=== PATIENT | male | born 1980 | race Caucasian/White ===

== ENCOUNTER 2019-12-01 15:58 | Emergency (ER) | payer SELFPAY ==
[2019-12-01] MEDS ORDERED: LIDOCAINE 1% MPF 5 ML VIAL ONE ×2 (16:24→17:06)
[2019-12-01] MEDS ORDERED: TETANUS & DIPHTHERIA TOX,ADULT 0.5 ML VIAL ONE (16:24)
--- NOTE | 2019-12-01 17:29 | EDPHYS ---
Physician Documentation [facility] Name: Jonatan Sood Age: 39 yrs Sex: Male : 1980 Arrival Date: 12/01/2019 Time: 16:01 Bed 23 Private MD: ED Physician Patrick Cruz HPI: 12/01 17:38 This 39 yrs old Male presents to ER via Ambulatory with complaints of Abscess.pm1 17:38 The patient presents with an abscess of the abdomen. Description: raised. Onset: The pm1 symptoms/episode began/occurred 1 week(s) ago. Possible cause(s): unknown. Associated signs and symptoms: Pertinent negatives: discharge, drainage, fever, nausea, vomiting. Modifying factors: the symptoms are alleviated by nothing, the symptoms are aggravated by nothing. Severity of symptoms: in the emergency department the symptoms are actually worse. The patient has experienced similar episodes in the past, a few times, cutaneous abdominal abscess to suprapubic area about 5 years ago. The patient has not recently seen a physician, and does not have an established primary care provider. Historical: - Allergies: 16:09 No Known Allergies; aj1 - Home Meds: 16:09 None [Active]; aj1 - PMHx: 16:09 None; aj1 - PSHx: 16:09 None; aj1 - Immunization history:: Flu vaccine is not up to date. - Coronavirus screen:: The patient has NOT traveled to [place] in the past 14 days. - Social history:: Smoking status: Patient reports the use of cigarette tobacco products, smokes one-half pack cigarettes per day. - Ebola Screening: : Patient denies travel to an Ebola-affected area in the 21 days before illness onset. ROS: 17:38 Constitutional: Negative for fever, chills, and weight loss, Cardiovascular: Negative pm1 for chest pain, palpitations, and edema, Respiratory: Negative for shortness of breath, cough, wheezing, and pleuritic chest pain. 17:38 Abdomen/GI: Negative for abdominal pain, nausea, vomiting, diarrhea, and constipation, Back: Negative for injury and pain, MS/Extremity: Negative for injury and deformity. 17:38 Neuro: Negative for headache, weakness, numbness, tingling, and seizure. 17:38 Skin: Positive for abscess, of the abdomen, Negative for cellulitis. 17:38 All other systems are negative. Exam: 17:38 Constitutional: This is a well developed, well nourished patient who is awake, alert, pm1 and in no acute distress. Head/Face: Normocephalic, atraumatic. Chest/axilla: Normal chest wall appearance and motion. Nontender with no deformity. No lesions are appreciated. Cardiovascular: Regular rate and rhythm with a normal S1 and S2. No gallops, murmurs, or rubs. Normal PMI, no JVD. No pulse deficits. Respiratory: Lungs have equal breath sounds bilaterally, clear to auscultation and percussion. No rales, rhonchi or wheezes noted. No increased work of breathing, no retractions or nasal flaring. Abdomen/GI: Soft, non-tender, with normal bowel sounds. No distension or tympany. No guarding or rebound. No evidence of tenderness throughout. 17:38 Skin: Appearance: normal except for affected area, abscess, that is moderate sized, approximately 2 cm(s), of the abdomen right of the umbilicius , with fluctuance, No drainage, pointing, or surrounding cellulitis . Vital Signs: 16:09 BP 163 / 95; Pulse 102; Resp 20; Temp 98.4; Pulse Ox 97% on R/A; Weight 79.38 kg (R); aj1 Height 5 ft. 9 in. (175.26 cm) (R); Pain 5/10; 16:09 Body Mass Index 25.84 (79.38 kg, 175.26 cm) aj Procedures: 17:38 I \T\ D: Incision and drainage was performed for an abscess of the right abdomen Prepped pm1 with Betadine, Anesthetized with 5 ml's 1% Lidocaine. Incised with #11 blade. Drained small amount serosanguinous fluid. Cultures obtained. Abscess cavity explored. Packed with loop drain made from IV extension tubing and 2-0 prolene inside of the extension tubing. Dressing: sterile 4x4 gauze, the patient tolerated the procedure well. MDM: 16:11 Patient medically screened. pm1 17:26 Data reviewed: vital signs. Data interpreted: Pulse oximetry: on room air is 97 %. pm1 Interpretation: normal. Counseling: I had a detailed discussion with the patient and/or guardian regarding: the historical points, exam findings, and any diagnostic results supporting the discharge/admit diagnosis, the need for outpatient follow up, for definitive care, a general surgeon, to return to the emergency department if symptoms worsen or persist or if there are any questions or concerns that arise at home. 12/01 16:18 Order name: Wound Culture pm1 12/01 16:18 Order name: Incision \T\ Drainage Setup; Complete Time: 16:25 pm1 Administered Medications: 16:24 Drug: Tetanus-Diphtheria Toxoid Adult 0.5 ml {Financial Sales Professional: [employer]. Exp: ls4 09/14/2021. Lot #: [id number]. } Route: IM; Site: left deltoid; 17:31 Follow up: Response: No adverse reaction ls4 17:29 Drug: Lidocaine (1 %) 5 ml {Note: ADMINISTERED PER DILAN GERARDO.} Volume: 5 ml; ls4 Route: Infiltration; 17:35 Drug: [place] 10 mg-325 mg 1 tabs Route: PO; ls4 17:49 Follow up: Response: No adverse reaction; Pain is decreased ls4 Disposition: 12/01/19 17:28 Discharged to Home. Impression: Cutaneous abscess of abdominal wall. - Condition is Stable. - Discharge Instructions: Skin Abscess, Incision and Drainage. - Prescriptions for Bactrim DS 800- 160 mg Oral Tablet - take 1 tablet by ORAL route every 12 hours for 10 days; 20 tablet. Tramadol 50 mg Oral Tablet - take 1 tablet by ORAL route every 8 hours as needed; 12 tablet. - Medication Reconciliation Form, Thank You Letter, Antibiotic Education, Prescription Opioid Use form. - Follow up: Emergency Department; When: As needed; Reason: Worsening of condition. Follow up: Austin Marrero MD; When: 2 - 3 days; Reason: Wound Recheck, Recheck today's complaints, Continuance of care, Re-evaluation by your physician. - Problem is new. - Symptoms have improved. Addendum: 12/03/2019 08:25 Co-signature as Attending Physician, Patrick Cruz MD I agree with the assessment and c lee plan of care. Signatures: Dispatcher [employer] EDCaro Rowe RN RN aj1 Patrick Cruz MD MD cha Marinas, Patrick, NP HAMMER DRIVER pm1 Calli Whaley RN RN ls4 Corrections: (The following items were deleted from the chart) 12/01 17:50 17:28 12/01/2019 17:28 Discharged to Home. Impression: Cutaneous abscess of abdominal ls4 wall. Condition is Stable. Forms are Medication Reconciliation Form, Thank You Letter, Antibiotic Education, Prescription Opioid Use. Follow up: Emergency Department; When: As needed; Reason: Worsening of condition. Follow up: Austin Marrero; When: 2 - 3 days; Reason: Wound Recheck, Recheck today's complaints, Continuance of care, Re-evaluation by your physician. Problem is new. Symptoms have improved. pm1
--- NOTE | 2019-12-01 17:29 | ER ---
Nurse's Notes [facility] Name: Jonatan Sood Age: 39 yrs Sex: Male : 1980 Arrival Date: 12/01/2019 Time: 16:01 Bed 23 Private MD: Diagnosis: Cutaneous abscess of abdominal wall Presentation: 12/01 16:09 Presenting complaint: Patient states: "I've some kind of abscess on my stomach, it has aj1 been growing for a week now and its really painful" Denies fever. Transition of care: patient was not received from another setting of care. Onset of symptoms was November 2019. Risk Assessment: Do you want to hurt yourself or someone else? Patient reports no desire to harm self or others. Initial Sepsis Screen: Does the patient meet any 2 criteria? No. Patient's initial sepsis screen is negative. Does the patient have a suspected source of infection? Yes: Skin breakdown/wound. Care prior to arrival: None. 16:09 Method Of Arrival: Ambulatory aj 16:09 Acuity: ANI 4 aj1 Triage Assessment: 16:09 General: Appears in no apparent distress. uncomfortable, Behavior is calm, cooperative, aj1 appropriate for age. Pain: Complains of pain in abdomen. Neuro: Level of Consciousness is awake, alert, obeys commands. Cardiovascular: Patient's skin is warm and dry. Respiratory: Airway is patent Respiratory effort is even, unlabored, Respiratory pattern is regular, symmetrical. Historical: - Allergies: 16:09 No Known Allergies; aj1 - Home Meds: 16:09 None [Active]; aj1 - PMHx: 16:09 None; aj1 - PSHx: 16:09 None; aj1 - Immunization history:: Flu vaccine is not up to date. - Coronavirus screen:: The patient has NOT traveled to [place] in the past 14 days. - Social history:: Smoking status: Patient reports the use of cigarette tobacco products, smokes one-half pack cigarettes per day. - Ebola Screening: : Patient denies travel to an Ebola-affected area in the 21 days before illness onset. Screenin:10 Abuse screen: Denies threats or abuse. Denies injuries from another. ls4 16:10 Nutritional screening: No deficits noted. Tuberculosis screening: No symptoms or risk ls4 factors identified. Fall Risk None identified. Assessment: 16:10 General: Appears in no apparent distress. uncomfortable, Behavior is calm, cooperative. ls4 Neuro: No deficits noted. Cardiovascular: No deficits noted. Respiratory: No deficits noted. GI: No deficits noted. : No deficits noted. Derm: Abscess located on right lower quadrant is half dollar sized, is hot to touch, is red, is raised, Reports pain that is 8 out of 10 on a pain scale. Musculoskeletal: No deficits noted. 17:10 Reassessment: Patient appears in no apparent distress at this time. Patient and/or ls4 family updated on plan of care and expected duration. Pain level reassessed. Patient is alert, oriented x 3, equal unlabored respirations, skin warm/dry/pink. Vital Signs: 16:09 BP 163 / 95; Pulse 102; Resp 20; Temp 98.4; Pulse Ox 97% on R/A; Weight 79.38 kg (R); aj1 Height 5 ft. 9 in. (175.26 cm) (R); Pain 5/10; 16:09 Body Mass Index 25.84 (79.38 kg, 175.26 cm) aj1 ED Course: 16:01 Patient arrived in ED. rg4 16:09 Triage completed. aj1 16:09 Arm band placed on Patient placed in an exam room. aj1 16:10 Patient has correct armband on for positive identification. Placed in gown. Bed in low ls4 position. Call light in reach. Side rails up X 1. 16:10 Patient did not have IV access during this emergency room visit. ls4 16:11 Dilan Gerardo NP is PHCP. pm1 16:11 Patrick Cruz MD is Attending Physician. pm1 16:19 Calli Whaley, ALEXUS is Primary Nurse. ls4 17:28 Austin Marrero MD is Referral Physician. pm1 17:29 Wound Culture Sent. ls4 17:46 Assist provider with I \\T\\ D: of an abscess on RIGHTLOWER ABDOMINAL WALL Set up I\\T\\D tray. ls 4 Performed by Dilan Gerardo NP Culture sent to lab. Patient tolerated well. Dressings: 4X4s X 3; right lower quadrant. Administered Medications: 16:24 Drug: Tetanus-Diphtheria Toxoid Adult 0.5 ml {News Library Director: [employer]. Exp: ls4 09/14/2021. Lot #: [id number]. } Route: IM; Site: left deltoid; 17:31 Follow up: Response: No adverse reaction ls4 17:29 Drug: Lidocaine (1 %) 5 ml {Note: ADMINISTERED PER DILAN GERARDO.} Volume: 5 ml; ls4 Route: Infiltration; 17:35 Drug: [place] 10 mg-325 mg 1 tabs Route: PO; ls4 17:49 Follow up: Response: No adverse reaction; Pain is decreased ls4 Outcome: 17:28 Discharge ordered by MD. pm1 17:48 Discharged to home ambulatory. ls4 17:48 Condition: good 17:48 Discharge instructions given to family, Instructed on discharge instructions, follow up and referral plans. safety practices, Demonstrated understanding of instructions, follow-up care, medications, wound care, Prescriptions given X 2. 17:50 Patient left the ED. ls4 Addendum: 12/06/2019 07:15 Addendum: Culture Results: Positive wound culture. No further action required. Bacteria e b sensitive to prescribed antibiotic. Signatures: Caro Moreno, RN RN aj1 Dilan Gerardo NP AGRONOMY TEACHER pm1 Ting Lima rg4 Priscilla Jimenes Lisa, RN RN ls4 Corrections: (The following items were deleted from the chart) 12/01 17:48 16:10 No provider procedures requiring assistance completed. ls4 ls4
[2019-12-01] MEDS ORDERED: HYDROCODONE/APAP 10/325 TAB ONE (17:37)
[2019-12-01 18:01] VITALS: BP 163/95; TEMP 98.4; O2SAT 97
== END 2019-12-01 17:50 | disposition home or self-care (01) ==
LOC: ER 15:58
PROC: 0J980ZZ Drainage of Abdomen Subcutaneous Tissue and Fascia, Open Approach (ICD-10-PCS; principal; 2019-12-01)
DX: L02.211 Cutaneous abscess of abdominal wall (principal)
CPT/HCPCS: 87070; 87077; 87186; 87205; 90471; 90714; 99284

== ENCOUNTER 2022-01-01 11:18 | Emergency (ER) | payer SELFPAY ==
[2022-01-01 13:29] LABS: Hematocrit 42.3 % (39.6-49.0); Lymphocytes % 19.9 % (15.3-44.8); MPV 8.4 fL (7.6-11.3); RBC Red Blood Cell Count 4.62 M/uL (4.33-5.43)
[2022-01-01 13:45] LABS: BUN Blood Urea Nitrogen 15 mg/dL (7-18); Bicarbonate 29 mmol/L (21-32); Glucose Level 300 mg/dL (74-106); Potassium 4.1 mmol/L (3.5-5.1); Sodium Level 134 mmol/L (136-145)
--- NOTE | 2022-01-01 14:17 | RAD REPORT ---
EXAM DESCRIPTION: US - Extremity Nonvascular Limited - 01/01/2022 2:07 pm CLINICAL HISTORY: Posterior right thigh abscess COMPARISON: No comparisons TECHNIQUE: Real-time sonographic evaluation of the area of interest was performed. FINDINGS: Edematous appearance to the skin and subcutaneous tissues in the area of interest is seen. There is fluid dispersed throughout the inflamed and edematous tissue. This may represent areas of i nfected fluid although well-circumscribed abscess collection is not seen.
[2022-01-01] MEDS ORDERED: NA CHLORIDE 0.9% 100 ML IV ONE (14:37)
[2022-01-01] MEDS ORDERED: NA CHLORIDE 0.9% 1,000 ML ONE (14:37)
[2022-01-01] MEDS ORDERED: PIPERACIL/TAZO 3.375 GM VIAL IV ONE (14:37)
--- NOTE | 2022-01-01 15:43 | EDPHYS ---
Physician Documentation [facility] Name: Jonatan Sood Age: 41 yrs Sex: Male : 1980 Arrival Date: 01/01/2022 Time: 11:23 Bed 13 Private MD: ED Physician Charlee Campuzano HPI: 01/01 15:32 This 41 yrs old Male presents to ER via Ambulatory with complaints of Wound Infection. jr8 15:32 Onset: The symptoms/episode began/occurred gradually. Associated signs and symptoms: jr8 Pertinent negatives: fever. Modifying factors: The patient symptoms are alleviated by nothing, the patient symptoms are aggravated by movement. The patient has experienced similar episodes in the past, a few times. The patient has not recently seen a physician. Patient stated that he suffers from chronic abscesses in the past. Stated that his right posterior thigh has had to have excisional drainage of multiple abscesses in the past. Patient stated that he started to notice that the wound has been having increased drainage and now more pain than normal.. Historical: - Allergies: 11:35 No Known Allergies; ll1 - PMHx: 11:35 Diabetes mellitus; ll1 - PSHx: 11:35 I \T\ D abscesses; ll1 - Immunization history:: Client reports having NOT received the Covid vaccine. - Social history:: Smoking status: Patient reports the use of cigarette tobacco products, smokes one-half pack cigarettes per day. ROS: 15:32 Eyes: Negative for injury, pain, redness, and discharge, ENT: Negative for injury, jr8 pain, and discharge, Neck: Negative for injury, pain, and swelling, Cardiovascular: Negative for chest pain, palpitations, and edema, Respiratory: Negative for shortness of breath, cough, wheezing, and pleuritic chest pain, Abdomen/GI: Negative for abdominal pain, nausea, vomiting, diarrhea, and constipation, Back: Negative for injury and pain, MS/Extremity: Negative for injury and deformity, Neuro: Negative for headache, weakness, numbness, tingling, and seizure. 15:32 Skin: Positive for swelling, of the right leg. Exam: 15:32 Constitutional: This is a well developed, well nourished patient who is awake, alert, jr8 and in no acute distress. Cardiovascular: Regular rate and rhythm with a normal S1 and S2. No gallops, murmurs, or rubs. Normal PMI, no JVD. No pulse deficits. Respiratory: Lungs have equal breath sounds bilaterally, clear to auscultation and percussion. No rales, rhonchi or wheezes noted. No increased work of breathing, no retractions or nasal flaring. Abdomen/GI: Soft, non-tender, with normal bowel sounds. No distension or tympany. No guarding or rebound. No evidence of tenderness throughout. Back: No spinal tenderness. No costovertebral tenderness. Full range of motion. MS/ Extremity: Pulses equal, no cyanosis. Neurovascular intact. Full, normal range of motion. Neuro: Awake and alert, GCS 15, oriented to person, place, time, and situation. Cranial nerves II-XII grossly intact. Motor strength 5/5 in all extremities. Sensory grossly intact. 15:32 Skin: Patient has approximately 15 cm in length indurated wound with multiple sinus tracts noted. Serous drainage noted from the wounds at this time. Wound is not erythematous at this point.. Vital Signs: 11:36 BP 175 / 99; Pulse 100; Resp 17; Temp 98.2; Pulse Ox 97% ; Weight 68.04 kg; Height 5 ll1 ft. 9 in. (175.26 cm); Pain 6/10; 13:00 BP 125 / 79; Pulse 73; Resp 18; Pulse Ox 100% on R/A; ss7 14:45 BP 126 / 88; Pulse 79; Resp 18; Pulse Ox 99% on R/A; ss7 15:45 BP 128 / 82; Pulse 74; Resp 18; Pulse Ox 99% on R/A; ss7 11:36 Body Mass Index 22.15 (68.04 kg, 175.26 cm) ll1 MDM: 12:57 Patient medically screened. jr8 15:32 Data reviewed: vital signs, nurses notes, lab test result(s), and as a result, I will jr8 discharge patient. Data interpreted: Pulse oximetry: on room air is 100 %. Interpretation: normal. Counseling: I had a detailed discussion with the patient and/or guardian regarding: the historical points, exam findings, and any diagnostic results supporting the discharge/admit diagnosis, lab results, the need for outpatient follow up, a general surgeon, to return to the emergency department if symptoms worsen or persist or if there are any questions or concerns that arise at home. ED course: Patient has no increase in white cell count, no fever. Hemodynamically stable at this time. Ultrasound of the leg shows mild scattered fluid throughout the sinuses but no defined abscess. No erythema suggestive of cellulitis at this time. Patient given broad-spectrum antibiotics here will be continued on broad-spectrum antibiotics. Told to follow-up with general surgery for further evaluation. If he were to get worse any point time to come back for further evaluation.. 01/01 13:11 Order name: CBC with Diff; Complete Time: 14:24 8 01/01 13:11 Order name: Basic Metabolic Panel; Complete Time: 14:24 8 01/01 13:11 Order name: Blood Culture Adult (2) [facility] 01/01 13:11 Order name: US Extrmty Nonvasular Limited; Complete Time: 14:24 8 01/01 13:11 Order name: IV; Complete Time: 13:30 [facility] Administered Medications: 14:30 Drug: Zosyn (piperacillin-tazobactam) 3.375 grams Route: IVPB; Infused Over: 60 mins; ss7 Site: right antecubital; 15:30 Follow up: Response: No adverse reaction; IV Status: Completed infusion ss7 15:30 Follow up: IV Status: Completed infusion ss7 15:57 Follow up: Response: No adverse reaction 7 14:30 Drug: NS 0.9% 1000 ml Route: IV; Rate: 1000 ml; Site: right antecubital; ss7 Disposition Summary: 01/01/22 15:43 Discharge Ordered Location: Home [facility] Problem: new jr8 Symptoms: have improved jr8 Condition: Stable jr8 Diagnosis - Local infection of the skin and subcutaneous tissue, unspecified jr8 Followup: jr8 - With: Austin Marrero MD - When: 2 - 3 days - Reason: Wound Recheck, Recheck today's complaints, Continuance of care, Re-evaluation by your physician Discharge Instructions: - Discharge Summary Sheet jr8 - Skin Abscess jr8 - Cellulitis, Adult jr8 Forms: - Medication Reconciliation Form jr8 - Thank You Letter jr8 - Antibiotic Education jr8 - Prescription Opioid Use jr8 Prescriptions: - Bactrim DS 800-160 mg Oral Tablet - take 1 tablet by ORAL route every 12 hours for 10 days; 20 tablet; Refills: 0, jr8 Product Selection Permitted Signatures: Dispatcher [employer] Mata Thompson PA PA jr8 Jadyn Vargas RN RN ll1 Tanja John RN RN ss7
--- NOTE | 2022-01-01 15:43 | ER ---
Nurse's Notes [facility] Name: Jonatan Sood Age: 41 yrs Sex: Male : 1980 Arrival Date: 01/01/2022 Time: 11:23 Bed 13 Private MD: Diagnosis: Local infection of the skin and subcutaneous tissue, unspecified Presentation: 01/01 11:36 Chief complaint: Patient states: Posterior R thigh abscess for 1-2 weeks with drainage. ll1 Site has gotten worse the past two days. Kerrick feverish, but didn't take temp. Coronavirus screen: Vaccine status: Patient reports being unvaccinated. Client denies travel out of the [place] in the last 14 days. At this time, the client does not indicate any symptoms associated with coronavirus-19. Ebola Screen: Patient denies travel to an Ebola-affected area in the 21 days before illness onset. Initial Sepsis Screen: Does the patient meet any 2 criteria? No. Patient's initial sepsis screen is negative. Does the patient have a suspected source of infection? Yes: Skin breakdown/wound. Risk Assessment: Do you want to hurt yourself or someone else? Patient reports no desire to harm self or others. Onset of symptoms was December 18, 2021. 11:36 Method Of Arrival: Ambulatory ll1 11:36 Acuity: ANI 3 ll1 Historical: - Allergies: 11:35 No Known Allergies; ll1 - PMHx: 11:35 Diabetes mellitus; ll1 - PSHx: 11:35 I \T\ D abscesses; ll1 - Immunization history:: Client reports having NOT received the Covid vaccine. - Social history:: Smoking status: Patient reports the use of cigarette tobacco products, smokes one-half pack cigarettes per day. Screenin:05 Abuse screen: Denies threats or abuse. Nutritional screening: No deficits noted. ss7 Tuberculosis screening: No symptoms or risk factors identified. Fall Risk IV access (20 points). Assessment: 13:03 General: Appears in no apparent distress. Behavior is calm, cooperative, appropriate ss7 for age. Pain: Complains of pain in left leg. Neuro: Reports paresthesias pmh of dm type II. Cardiovascular: Heart tones S1 S2. Respiratory: Breath sounds are clear bilaterally. GI: No deficits noted. : No deficits noted. EENT: No deficits noted. Derm: Wound noted right posterior thigh Abscess located on right posterior thigh is has purulent drainage, has foul odor, is red, is raised, chronic wound x 1year. Musculoskeletal: No deficits noted. Vital Signs: 11:36 BP 175 / 99; Pulse 100; Resp 17; Temp 98.2; Pulse Ox 97% ; Weight 68.04 kg; Height 5 ll1 ft. 9 in. (175.26 cm); Pain 6/10; 13:00 BP 125 / 79; Pulse 73; Resp 18; Pulse Ox 100% on R/A; ss7 14:45 BP 126 / 88; Pulse 79; Resp 18; Pulse Ox 99% on R/A; ss7 15:45 BP 128 / 82; Pulse 74; Resp 18; Pulse Ox 99% on R/A; ss7 11:36 Body Mass Index 22.15 (68.04 kg, 175.26 cm) ll1 ED Course: 11:23 Patient arrived in ED. ja2 11:35 Arm band placed on. ll1 11:37 Triage completed. ll1 12:15 Patient placed in an exam room, on a stretcher. ll1 12:19 Mata Whipple PA is PHCP. jr8 12:19 Charlee Campuzano MD is Attending Physician. jr8 12:57 Tanja John, ALEXUS is Primary Nurse. ss7 13:05 Patient has correct armband on for positive identification. Bed in low position. Call ss7 light in reach. Side rails up X2. 13:05 No provider procedures requiring assistance completed. ss7 13:30 Basic Metabolic Panel Sent. ss7 13:30 Blood Culture Adult (2) Sent. ss7 13:30 CBC with Diff Sent. ss7 14:07 US Extrmty Nonvasular Limited In Process Unspecified. EDMS 15:42 Austin Marrero MD is Referral Physician. jr8 15:57 IV discontinued, intact. ss7 Administered Medications: 14:30 Drug: Zosyn (piperacillin-tazobactam) 3.375 grams Route: IVPB; Infused Over: 60 mins; ss7 Site: right antecubital; 15:30 Follow up: Response: No adverse reaction; IV Status: Completed infusion ss7 15:30 Follow up: IV Status: Completed infusion ss7 15:57 Follow up: Response: No adverse reaction ss7 14:30 Drug: NS 0.9% 1000 ml Route: IV; Rate: 1000 ml; Site: right antecubital; ss7 Outcome: 15:43 Discharge ordered by . genny 15:57 Discharged to home ambulatory. ss7 15:57 Condition: good 15:57 Discharge instructions given to patient, Instructed on discharge instructions, follow up and referral plans. Demonstrated understanding of instructions, follow-up care, medications, Prescriptions given X 1. 16:13 Patient left the ED. ss7 Signatures: Dispatcher [employer] EDMS Mata Whipple PA PA jr8 Lewis, Lynsay, RN RN 1 Jacquelyn Emery Shana, RN RN ss7
[2022-01-01 16:18] VITALS: TEMP 98.2
[2022-01-01 16:21] VITALS: O2SAT 99
[2022-01-01 16:22] VITALS: BP 128/82
== END 2022-01-01 16:13 | disposition home or self-care (01) ==
LOC: ER 11:18
DX: L08.9 Local infection of the skin and subcutaneous tissue, unspecified (principal); E11.9 Type 2 diabetes mellitus without complications; F17.210 Nicotine dependence, cigarettes, uncomplicated
CPT/HCPCS: 36415; 76882; 80048; 85025; 87040; 96365; 99284; J2543; J7030

== ENCOUNTER 2022-05-08 20:06 | Emergency (ER) | payer SELFPAY ==
--- OUTSIDE RECORDS SUMMARY | 2022-05-08 20:08 | XMS REPORT | Continuity of Care Document ---
:1980 Author Organization [facility] t Address [address] [place] [address] Care Team Providers Name Role Phone Unavailable Unavailable Unavailable Problems This patient has no known problems. Allergies, Adverse Reactions, Alerts This patient has no known allergies or adverse reactions. Medications This patient has no known medications. Procedures This patient has no known procedures. Results Test Description Test Time Test Comments Results Result Comments Source POTASSIUM 2022-02-25 02:51:17 Test Item Value Reference Range Interpretation Comme nts POTASSIUM (test code = 2228) 4.6 MEQ/L 3.5-5.4 UNLESS OTHERWISE INDICATED, ALL TESTING PER FORMED ATCLINICAL PATHOLOGY LABOR [employer] [employer] [address] [place] [address] LABORATORY DIRE CTOR: FABRICIO STANFORD M.D. CLIA NUMBER [id number] [facility] [place] [place]. [id number] COMPREHENSIVE METABOLIC [id number] 07:19:04 Test Item Value Reference Range Interpretation Comments GLUCOSE (test code = 336 MG/DL 70-99 H 2216) BUN (test code = 16 MG/DL 6-20 2207) CREATININE (test 0.63 MG/DL 0.80-1.40 L code = 2214) eGFR (2020 CKD-EPI) 123 >60 (test code = 84000) ML/MIN/1.73 CALC BUN/CREAT (test 25 RATIO 6-28 code = 2235) SODIUM (test code = 136 MEQ/L 911-903 4932) POTASSIUM (test code 5.7 MEQ/L 3.5-5.4 H = 8) CHLORIDE (test code 97 MEQ/L 95-107 = 2215) CARBON DIOXIDE (test 26 MEQ/L 19-31 code = 2206) CALCIUM (test code = 10.1 MG/DL 8.5-10.5 2208) PROTEIN, TOTAL (test 8.1 G/DL 6.1-8.3 code = 2229) ALBUMIN (test code = 4.5 G/DL 3.5-5.2 2200) CALC GLOBULIN (test 3.6 G/DL 1.9-3.7 code = 2240) CALC A/G RATIO (test 1.3 RATIO 1.0-2.6 code = 2234) BILIRUBIN, TOTAL 0.4 MG/DL See_Comment [Automated message] (test code = 2207) The syste m which generated this result transmit mark reference range : <=1.2. The refe rence range was not u sed to interpret th is result as normal/abnormal . ALKALINE PHOSPHATASE 111 U/L 40-117 (test code = 220) AST (test code = 16 U/L 9-50 2217) ALT (test code = 17 U/L 5-50 2218) LIPID [id number] 07:19:04 Test Item Value Reference Range Interpretation Comments CHOLESTEROL (test 177 MG/DL <200 code = 2210) TRIGLYCERIDES (test 82 MG/DL <150 code = 2232) HDL CHOLESTEROL (test 48 MG/DL >39 code = 2220) CALC LDL CHOL (test 112 MG/DL <100 H NOTE: C ALCULATED LDL code = 2237) IS BASED ON ALVARO-BERRIOS METHOD WHICHINCLUDES ADJUSTABLE TRIGLYCERIDE:VL DL CHOLESTEROL RAT IO.THIS FACTOR VARIES B Y MEASURED TRIGLY CERIDE AND NON-HDLCHOL ESTEROL CONCENTRATIONS WITH INCREASED CALCU LATED LDL SEENIN HIGH ER TRIGLYCERIDE OR LOWER NON-HDL SPECIME NS. FOR MOREINFORMATION , SEE CLIENT ANNOUNCE MENT AT [email or web address] RISK RATIO LDL/HDL 2.33 RATIO <3.55 (test code = 2238) HEMOGLOBIN [id number] 06:06:17 Test Item Value Reference Range Interpretation Comments HEMOGLOBIN A1c (test 12.2 % 4.2-5.6 H [facility] code = 37897) ASSOCIATION [employer] FOR HGB A1C: PREDIABETES/INC REASED RISK . . . . . . . 5 .7-6.4% DIAGNOSIS O F DIABETES . . . . . . . . . >=6.5% WITH CO NFIRMATION OR APPROPRIATE SYMPTOMS NOTE: ASSAY MA Y BE AFFECTED BY HEMOGLOBINOPATH IES (SICKLE CELL ANEMIA, S-C DISEASE, OTHERS ) OR ARTIFICIALLY LO WERED BY DECREASED RED C ELL SURVIVAL (HEMOLYTIC ANEM IAS, BLOOD LOSS, ETC.) . CONSIDER ALTERNATE TESTI NG OR LABORATORY CONS ULTATION. UNLESS OTHE RWISE INDICATED, ALL TESTING PERFORMED [facility] [address] [place] [id number] LABORATORY DIRE CTOR: Wallace MUNOZ. CLIA NUMBER [id number] CAP ACCREDITATION N O. [id number] CBC W/AUTO DIFF WITH [id number] 05:17:29 Test Item Value Reference Range Interpretation Comments WBC (test code = 11.2 K/UL 3.5-11.0 H 1001) RBC (test code = 5.05 M/UL 4.50-6.10 1002) HEMOGLOBIN (test code 15.9 G/DL 13.5-17.0 = 1003) HEMATOCRIT (test code 46.0 % 40.0-51.0 = 1004) MCV (test code = 91.1 fL 80.0-99.0 1005) MCH (test code = 31.5 PG 25.0-33.0 1006) MCHC (test code = 34.6 G/DL 31.0-36.0 1007) RDW (test code = 11.9 % 11.5-15.0 1038) NEUTROPHILS (test 68.0 % code = 1008) LYMPHOCYTES (test 21.9 % code = 1010) MONOCYTES (test code 8.2 % = 1011) EOSINOPHILS (test 1.1 % code = 1012) BASOPHILS (test code 0.4 % = 1013) IMMATURE GRANULOCYTES 0.4 % (test code = 1036) NUCLEATED RBCS (test 0.0 /100 See_Comment [Autom ated code = 1065) WBC'S message] The sy stem which generated this result transmitted reference range : 0.0. The refere nce range was not u sed to interpret th is result as normal/abnormal . PLATELET COUNT (test 286 K/UL 130-400 code = 1015) ABSOLUTE NEUTROPHILS 7.64 K/UL 1.50-7.50 H (test code = 1066) ABSOLUTE LYMPHOCYTES 2.46 K/UL 1.00-4.00 (test code = 1067) ABSOLUTE MONOCYTES 0.92 K/UL 0.20-1.00 (test code = 1068) ABSOLUTE EOSINOPHILS 0.12 K/UL 0.00-0.50 (test code = 1040) ABSOLUTE BASOPHILS 0.05 K/UL 0.00-0.20 (test code = 1069) ABS IMMATURE 0.04 K/UL 0.00-0.10 GRANULOCYTES (test code = 1020) ABS NUCLEATED RBCS 0.00 K/UL 0.00-0.11 (test code = 33198)
[2022-05-08 23:02] LABS: Absolute Lymphocytes (CBC) 0.5 K/uL (0.7-4.9); Hematocrit 41.6 % (39.6-49.0); Lymphocytes % 6.4 % (15.3-44.8); MCV 92.4 fL (80-100); MPV 8.6 fL (7.6-11.3)
[2022-05-08 23:21] LABS: Albumin 3.3 g/dL (3.4-5.0); Bilirubin Total 0.2 mg/dL (0.2-1.0); Potassium 3.9 mmol/L (3.5-5.1); Protein, Total 7.3 g/dL (6.4-8.2)
--- NOTE | 2022-05-08 23:46 | EDPHYS ---
Physician Documentation [facility] Name: Jonatan Sood Age: 41 yrs Sex: Male : 1980 Arrival Date: 05/08/2022 Time: 20:08 Bed 13 Private MD: ED Physician Ashu Damon HPI: 05/08 21:07 This 41 yrs old Male presents to ER via Ambulatory with complaints of Fever, Headache, ms3 Dizziness. 21:07 Male with past medical history of diabetes presents for fever that began today. Patient ms3 states he is currently having 8/10 body aches. Patient endorses headache, nausea, diarrhea. Patient denies alleviating or inciting factors. Patient notes he is also having an aching frontal headache.. Historical: - Allergies: 20:19 NKDA; bh1 - Home Meds: 20:19 None [Active]; bh1 - PMHx: 20:19 diabetes mellitus; bh1 - PSHx: 20:19 I \\T\\ D abscesses; bh1 - Immunization history:: Adult Immunizations up to date. - Social history:: Smoking status: Patient reports the use of cigarette tobacco products, smokes one pack cigarettes per day. ROS: 21:07 Neck: Negative for injury, pain, and swelling, Cardiovascular: Negative for chest pain, ms3 and palpitations. Respiratory: Negative for shortness of breath, cough, wheezing, and pleuritic chest pain, Abdomen/GI: Negative for abdominal pain, nausea, vomiting, diarrhea, and constipation. 21:07 MS/Extremity: Negative for injury and deformity. 21:07 Constitutional: Positive for chills, fever. 21:07 Skin: Positive for cellulitis, rash, swelling. 21:07 Neuro: Positive for headache. 21:07 All other systems are negative. Exam: 21:07 Constitutional: This is a well developed, well nourished patient who is awake, alert, ms3 and in no acute distress. Head/Face: Normocephalic, atraumatic. Neck: Trachea midline, no cervical lymphadenopathy. Supple, full range of motion without nuchal rigidity, or vertebral point tenderness. No Meningismus. Chest/axilla: Normal chest wall appearance and motion. Nontender with no deformity. Cardiovascular: Regular rate and rhythm with a normal S1 and S2. No gallops, murmurs, or rubs. Normal PMI, no JVD. No pulse deficits. Respiratory: Lungs have equal breath sounds bilaterally, clear to auscultation and percussion. No rales, rhonchi or wheezes noted. No increased work of breathing, no retractions or nasal flaring. Abdomen/GI: Soft, non-tender, with normal bowel sounds. No distension or tympany. No guarding or rebound. No evidence of tenderness throughout. 21:07 Skin: abscess, that is moderate sized, of the Right groin. Vital Signs: 20:17 BP 114 / 67; Pulse 108; Resp 20; Temp 99.0; Pulse Ox 98% on R/A; Weight 68.04 kg; 1 Height 5 ft. 9 in. (175.26 cm); Pain 0/10; 05/09 00:00 BP 113 / 67; Pulse 90; Resp 16; Temp 99.9(O); Pulse Ox 99% on R/A; lp1 05/08 20:17 Body Mass Index 22.15 (68.04 kg, 175.26 cm) [facility] MDM: 05/08 20:34 Patient medically screened. ms3 21:07 Differential diagnosis: viral Infection, bacterial infection, URI, bronchitis, ms3 pneumonia. 23:46 Data reviewed: vital signs, nurses notes, lab test result(s), and as a result, I will ms3 discharge patient. Data interpreted: Pulse oximetry: on room air is 99 %. Interpretation: normal. Counseling: I had a detailed discussion with the patient and/or guardian regarding: the historical points, exam findings, and any diagnostic results supporting the discharge/admit diagnosis, lab results, the need for outpatient follow up, to return to the emergency department if symptoms worsen or persist or if there are any questions or concerns that arise at home. Special discussion: I discussed with the patient/guardian in detail that at this point there is no indication for admission to the hospital. It is understood, however, that if the symptoms persist or worsen the patient needs to return immediately for re-evaluation. ED course: On re-evaluation patient is improved, A/O x4, nad, non-toxic, ambulatory in ED, speaking full sentences.. 05/08 20:24 Order name: COVID-19 SARS RT PCR (Document "Date of Onset" if Symptomatic); Complete [facility] Time: 22:23 05/08 20:24 Order name: Flu; Complete Time: 22:23 [facility] 05/08 20:24 Order name: IV Saline Lock; Complete Time: 22:56 [facility] 05/08 20:24 Order name: CBC with Diff; Complete Time: 23:36 [facility] 05/08 20:24 Order name: CMP; Complete Time: 23:36 [facility] Administered Medications: 05/09 00:00 Drug: Tylenol 650 mg Route: PO; lp1 00:01 Follow up: Response: Medication administered at discharge. lp1 Disposition Summary: 05/08/22 23:46 Discharge Ordered Location: Home ms3 Condition: Stable ms3 Diagnosis - SARS-associated coronavirus as the cause of diseases classified elsewhere ms3 - Fever, unspecified ms3 - Myalgia ms3 - Hidradenitis suppurativa ms3 Followup: ms3 - With: Andrew Carter DO - When: 2 - 3 days - Reason: Recheck today's complaints Discharge Instructions: - Discharge Summary Sheet ms3 - Hidradenitis Suppurativa ms3 - COVID-19 ms3 - 10 Things You Can Do to Manage Your COVID-19 Symptoms at Home - [facility] ms3 - COVID-19: Quarantine vs. Isolation - [facility] ms3 - Prevent the Spread of COVID-19 if You Are Sick - [facility] ms3 Forms: - Medication Reconciliation Form ms3 - Thank You Letter ms3 - Antibiotic Education ms3 - Prescription Opioid Use ms3 Prescriptions: - Doxycycline Hyclate 100 mg Oral Tablet - take 1 tablet by ORAL route every 12 hours; 20 tablet; Refills: 0, Product ms3 Selection Permitted Signatures: Dispatcher [employer] EDJessi Hernández RN RN 1 Ashu Damon, DO DO ms3 Carmella Marroquin RN RN 1
--- NOTE | 2022-05-08 23:46 | ER ---
Nurse's Notes [facility] Name: Jonatan Sood Age: 41 yrs Sex: Male : 1980 Arrival Date: 05/08/2022 Time: 20:08 Bed 13 Private MD: Diagnosis: SARS-associated coronavirus as the cause of diseases classified elsewhere;Fever, unspecified;Myalgia;Hidradenitis suppurativa Presentation: 05/08 20:17 Chief complaint: Patient states: WOKE UP THIS MORNING WITH FEVER, CHILLS, PITT AND 1 DIZZINESS. Coronavirus screen: Vaccine status: Patient reports being unvaccinated. congestion, fatigue, fever, headache. Ebola Screen: Patient negative for fever greater than or equal to 101.5 degrees Fahrenheit, and additional compatible Ebola Virus Disease symptoms. Initial Sepsis Screen: Does the patient meet any 2 criteria? No. Patient's initial sepsis screen is negative. Does the patient have a suspected source of infection? No. Patient's initial sepsis screen is negative. Risk Assessment: Do you want to hurt yourself or someone else? Patient reports no desire to harm self or others. Onset of symptoms was May 08, 2022. 20:17 Method Of Arrival: Ambulatory [facility] 20:17 Acuity: ANI 4 [facility] Triage Assessment: 20:19 Headache History: Denies prior headaches. [facility] 20:19 General: Appears in no apparent distress. Behavior is calm, cooperative, appropriate [facility] for age. Pain: Pain currently is 8 out of 10 on a pain scale. Pain began suddenly, Also complains of nausea. Neuro: No deficits noted. Historical: - Allergies: 20:19 NKDA; [facility] - Home Meds: 20:19 None [Active]; [facility] - PMHx: 20:19 diabetes mellitus; [facility] - PSHx: 20:19 I \T\ D abscesses; [facility] - Immunization history:: Adult Immunizations up to date. - Social history:: Smoking status: Patient reports the use of cigarette tobacco products, smokes one pack cigarettes per day. Screenin/24 00:01 Abuse screen: Denies threats or abuse. Denies injuries from another. Nutritional lp1 screening: No deficits noted. Tuberculosis screening: No symptoms or risk factors identified. Fall Risk None identified. Assessment: 05/08 23:45 General: Appears in no apparent distress. ill, Behavior is appropriate for age. Pain: lp1 Denies pain. Neuro: Reports weakness. Neuro: Level of Consciousness is awake, alert, obeys commands, Oriented to person, place, time, situation, Reports headache weakness. Cardiovascular: Patient's skin is warm and dry. Respiratory: Respiratory effort is even, unlabored. GI: Reports diarrhea. : No signs and/or symptoms were reported regarding the genitourinary system. EENT: No signs and/or symptoms were reported regarding the EENT system. Derm: Skin is intact, Skin is dry, Skin is normal. Musculoskeletal: No deficits noted. Vital Signs: 20:17 BP 114 / 67; Pulse 108; Resp 20; Temp 99.0; Pulse Ox 98% on R/A; Weight 68.04 kg; bh1 Height 5 ft. 9 in. (175.26 cm); Pain 0/10; 05/09 00:00 BP 113 / 67; Pulse 90; Resp 16; Temp 99.9(O); Pulse Ox 99% on R/A; lp1 05/08 20:17 Body Mass Index 22.15 (68.04 kg, 175.26 cm) 1 ED Course: 05/08 20:08 Patient arrived in ED. mr 20:12 Ashu Damon DO is Attending Physician. ms3 20:19 Triage completed. bh1 20:19 Arm band placed on right wrist. bh1 22:55 Inserted saline lock: 20 gauge in left antecubital area, using aseptic technique. Blood lg3 collected. 22:56 CMP Sent. lg3 22:56 CBC with Diff Sent. lg3 23:30 Jessi Falcon, RN is Primary Nurse. lp1 23:45 Andrew Carter DO is Referral Physician. ms3 05/09 00:00 Patient has correct armband on for positive identification. lp1 00:01 No provider procedures requiring assistance completed. IV discontinued, No lp1 redness/swelling at site. Pressure dressing applied. Administered Medications: 00:00 Drug: Tylenol 650 mg Route: PO; lp1 00:01 Follow up: Response: Medication administered at discharge. lp1 Medication: 00:01 VIS not applicable for this client. lp1 Outcome: 05/08 23:46 Discharge ordered by . ms3 05/09 00:00 Discharged to home ambulatory, with significant other. lp1 Condition: good Discharge instructions given to patient, Instructed on discharge instructions, follow up and referral plans. medication usage, Demonstrated understanding of instructions, follow-up care, medications, Prescriptions given X 1. 00:01 Patient left the ED. lp1 Signatures: Benedict, Sera FalconJessi, RN RN lp1 Alondra Chavarria, RN RN lg3 Ashu Damon DO DO ms3 Carmella Marroquin RN RN 1 Corrections: (The following items were deleted from the chart) 02:55 05/08 23:45 Neuro: Level of Consciousness is awake, alert, obeys commands, Oriented to lp1 person, place, time, situation, lp1 05/09 02:55 05/08 23:45 GI: No signs and/or symptoms were reported involving the gastrointestinal lp1 system. lp1
[2022-05-09] MEDS ORDERED: ACETAMINOPHEN 325 MG TABLET ONE (00:03)
[2022-05-09 00:43] VITALS: BP 113/67; TEMP 99.9; O2SAT 99
== END 2022-05-09 00:01 | disposition home or self-care (01) ==
LOC: ER 20:06
DX: U07.1 COVID-19 (principal); M79.10 Myalgia, unspecified site; L73.2 Hidradenitis suppurativa; E11.9 Type 2 diabetes mellitus without complications; F17.210 Nicotine dependence, cigarettes, uncomplicated
CPT/HCPCS: 36415; 80053; 85025; 87804; 99284; U0003

== ENCOUNTER 2024-03-24 19:12 | Inpatient (IN) | payer SELFPAY ==
[2024-03-24 19:55] LABS: Absolute Basophils 0.1 K/uL (0-0.5); Absolute Eosinophils 0.1 K/uL (0-0.5); Absolute Lymphocytes (CBC) 1.2 K/uL (0.7-4.9); Absolute Neutrophil 12.3 K/uL (1.8-8.0); Basophils % 0.9 % (0-1.3); Eosinophils % 0.9 % (0-4.4); Hematocrit 33.6 % (39.6-49.0); Lymphocytes % 8.1 % (15.3-44.8); MCH 26.4 pg (27.0-35.0); MCHC 32.7 g/dL (32.0-36.0); MCV 80.7 fL (80-100); Monocytes % 6.9 % (3.3-12.3); Neutrophils % 83.2 % (41.7-73.7); Nucleated Red Blood Cells % 0.1 % (0-0); Platelets 351 thou/uL (152-406); RBC Red Blood Cell Count 4.16 M/uL (4.33-5.43); Red Cell Distribution Width 14.7 % (12.1-15.2)
[2024-03-24 20:04] LABS: PT Prothrombin Time 11.8 SECONDS (9.5-12.5); PTT, Activated Partial Thromb 34.1 SECONDS (24.3-36.9); Protime INR 1.07
[2024-03-24] MEDS ORDERED: INSULIN REGULAR (HUMAN) 100 UNIT/ML ONE (20:13)
[2024-03-24 20:14] LABS: Albumin 2.7 g/dL (3.4-5.0); Albumin/Globulin Ratio 0.5 (1.1-1.8); Alkaline Phosphatase 164 U/L (45-117); Anion Gap 8.1 mEq/L (5.0-15.0); BUN Blood Urea Nitrogen 13 mg/dL (7-18); Bicarbonate 29 mEq/L (21-32); Bilirubin Total 0.3 mg/dL (0.2-1.0); Globulin 5.2 g/dL (2.3-3.5); Glomerular Filtration Rate 125 ml/min (=/>90); Potassium 4.1 mEq/L (3.5-5.1); Protein, Total 7.9 g/dL (6.4-8.2); Sodium Level 132 mEq/L (136-145)
[2024-03-24] MEDS ORDERED: NA CHLORIDE 0.9% 1,000 ML ONE (20:14)
[2024-03-24 20:15] LABS: ALT/SGPT < 14 U/L (16-61); AST/SGOT < 10 U/L (15-37)
[2024-03-24 20:17] LABS: Glucose Level 427 mg/dL (74-106)
--- NOTE | 2024-03-24 20:24 | EDPHYS ---
Physician Documentation [facility] Name: Jonatan Sood Age: 43 yrs Sex: Male : 1980 Arrival Date: 03/24/2024 Time: 19:12 Bed 3 Private MD: ED Physician Clint Reyna HPI: 03/24 19:59 This 43 yrs old Male presents to ER via EMS with complaints of Abscess. rn 19:59 The patient presents with an abscess of the right leg. Description: fluctuant, swollen, rn tense. Onset: The symptoms/episode began/occurred at an unknown time. Associated signs and symptoms: Pertinent positives: drainage, swelling, Pertinent negatives: fever. Severity of symptoms: At their worst the symptoms were moderate, in the emergency department the symptoms have improved. The patient has experienced similar episodes in the past. Patient reports chronic skin infections to the abdomen and right upper posterior leg. Has had multiple abscesses requiring surgery and drainage. Reports ran out of metformin weeks ago, has had swelling and pain to right upper leg and spontaneously popped today with purulence and blood. EMS reports patient was on the floor with moderate amount of blood loss. They also report glucose in the 400s. Patient reports feeling generalized weakness and lightheaded.. Historical: - Allergies: 19:29 NKDA; ha1 - PMHx: 19:29 diabetes mellitus; ha1 - PSHx: 19:29 I \T\ D abscesses; ha1 - Immunization history:: Adult Immunizations not up to date. - Infectious Disease History:: Denies. - Social history:: Smoking status: Patient denies any tobacco usage or history of. - Family history:: not pertinent. - Hospitalizations: : No recent hospitalization is reported. 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 ENT: Dry mucous membranes Cardiovascular: Regular rate and rhythm. No pulse deficits. Respiratory: No increased work of breathing, no retractions or nasal flaring. Abdomen/GI: Soft, non-tender, no evidence of extension to carole-anal tissues. No carole-anal tenderness or masses. Male : Normal genitalia with no discharge or lesions. No extension of erythema or tenderness to perineum or scrotum. MS/ Extremity: Pulses equal, no cyanosis. Neurovascular intact. Full, normal range of motion. Right upper inner thigh and posterior thigh with skin changes evident of chronic infections, right medial thigh with open wound that seems to to have erupted recently, dried blood at base, foul smell, small amount of purulence noted. No streaking. No fluctuance but moderate induration Neuro: Awake and alert, GCS 15 20:29 ECG was reviewed by the Attending Physician. rn Vital Signs: 19:15 BP 148 / 91; Pulse 98; Resp 18 S; Temp 97.9(T); Pulse Ox 98% on R/A; Weight 63.5 kg; ha1 Height 5 ft. 9 in. ; 20:15 BP 152 / 96; Pulse 97; Resp 17 S; Pulse Ox 100% on R/A; ha1 21:00 BP 147 / 96; Pulse 96; Resp 12 S; Pulse Ox 100% on R/A; jw7 22:00 BP 137 / 82; Pulse 94; Resp 14 S; Pulse Ox 97% on R/A; jw7 19:15 Body Mass Index 20.67 (63.50 kg, 175.26 cm) [facility] MDM: 19:15 Patient medically screened. rn 20:23 Differential diagnosis: abscess, cellulitis, Hyperglycemia, DKA, malignancy. Data rn reviewed: vital signs, nurses notes, lab test result(s), and as a result, I will admit patient. Consideration of Admission/Observation Patient was admitted/placed on observation. Escalation of care including admission/observation considered. Care significantly affected by the following chronic conditions: Diabetes. Counseling: I had a detailed discussion with the patient and/or guardian regarding the historical points, exam findings, and any diagnostic results supporting the discharge/admit diagnosis, lab results, the need for further work-up and treatment in the hospital. Response to treatment: the patient's symptoms have mildly improved after treatment, and as a result, I will admit patient. ED course: Patient is a noncompliant diabetic, off of his medication for weeks, had spontaneous rupture of abscess/wound prior to arrival, H\T\H stable vital signs stable, will admit to hospitalist service for IV antibiotics. No evidence of DKA at this time.. 21:02 Management of patient was discussed with the following: Hospitalist: Case discussed rn with Dr. Colon, will admit, requests CT of right lower extremity.. 03/24 19:15 Order name: Blood Culture Adult (2) 03/24 19:15 Order name: CBC with Diff; Complete Time: 20:19 03/24 19:15 Order name: CMP; Complete Time: 20:19 03/24 19:15 Order name: Lactate w/ 2H reflex if indic.; Complete Time: 20:19 03/24 19:15 Order name: Protime (+inr); Complete Time: 20:19 03/24 19:15 Order name: Ptt, Activated; Complete Time: 20:19 03/24 19:50 Order name: Glucose, Ancillary Testing; Complete Time: 20:19 EDAL 03/24 20:58 Order name: Hemoglobin A1c EDAL 03/24 20:58 Order name: Thyroid Stimulating Hormone EDAL 03/24 20:58 Order name: CBC with Automated Diff EDAL 03/24 20:58 Order name: CBC with Automated Diff EDAL 03/24 20:58 Order name: Comprehensive Metabolic Panel [facility] 03/24 20:58 Order name: Comprehensive Metabolic Panel [facility] 03/24 21:40 Order name: Glucose, Ancillary Testing; Complete Time: 21:48 EDAL 03/24 20:40 Order name: Femur Right W Con; Complete Time: 22:03 EDAL 03/24 20:56 Order name: Pelvis W/Cont; Complete Time: 21:48 EDAL 03/24 19:15 Order name: Accucheck; Complete Time: 19:46 rn 03/24 19:15 Order name: Cardiac monitoring; Complete Time: 19:46 rn 03/24 19:15 Order name: EKG - Nurse/Tech; Complete Time: 19:46 rn 03/24 19:15 Order name: IV Saline Lock - Large Bore; Complete Time: 19:34 rn 03/24 19:15 Order name: Labs collected and sent; Complete Time: rn 03/24 19:15 Order name: O2 Per Protocol; Complete Time: rn 03/24 19:15 Order name: O2 Sat Monitoring; Complete Time: rn 03/24 19:15 Order name: Vital Signs; Complete Time: :34 rn EC:29 Rate is 97 beats/min. Rhythm is regular. QRS [place] is Normal. MN interval is normal. QRS rn interval is normal. QT interval is normal. No Q waves. T waves are Normal. No ST changes noted. Clinical impression: NSR w/ Non-specific ST/T Changes. Interpreted by me. Reviewed by me. Administered Medications: 20:00 Drug: NS 0.9% IV 1000 ml IV at 1000 ml once Route: IV; Rate: 1000 ml; Site: left ha1 antecubital; 22:05 Follow up: Response: No adverse reaction; IV Status: Infusion continued upon admission; jw7 IV Intake: 500ml 20:14 Drug: Insulin Regular Human Sub-Q 5 units Sub-Q once {Co-Signature: jw7 (Deepthi Cohen [facility] RN).} Route: Sub-Q; Site: left upper arm; 22:05 Follow up: Response: No adverse reaction jw7 20:33 Drug: vancoMYCIN IVPB 1 grams IVPB once over 2 hrs Route: IVPB; Infused Over: 2 hrs; ha1 Site: left antecubital; 22:05 Follow up: Response: No adverse reaction; IV Status: Infusion continued upon admission; jw7 IV Intake: 250ml Disposition Summary: 03/24/24 20:24 Hospitalization Ordered Notes: Hospitalization Status: Inpatient Admission rn Provider: Isabel Colon rn Location: Telemetry/MedSurg (Inpatient) rn Condition: Stable rn Problem: new rn Symptoms: have improved rn Bed/Room Type: Standard rn Room Assignment: 232(03/24/24 21:25) kb3 Diagnosis - Cellulitis of right lower limb rn - Hyperglycemia, unspecified rn Forms: - Medication Reconciliation Form rn - SBAR form rn - Leadership Thank You Letter rn Signatures: Dispatcher [employer] Clint Murphy MD MD rn Ayala, Heidy RN RN 1 Mariajose Medrano RN RN kb3 Poly Cohendi RN jw7 TasDeepthi RN jw7 Corrections: (The following items were deleted from the chart) 21:00 20:58 Blood Culture ordered. EDAL EDMS 21:25 20:24 rn kb3 21:48 19:59 Constitutional: Thin male, arrives in robe with right lower extremity covered rn with dried blood all the way down to his foot Head/Face: Normocephalic, atraumatic. ENT: Dry mucous membranes Cardiovascular: Regular rate and rhythm. No pulse deficits. Respiratory: No increased work of breathing, no retractions or nasal flaring. Abdomen/GI: Soft, non-tender MS/ Extremity: Pulses equal, no cyanosis. Neurovascular intact. Full, normal range of motion. Right upper inner thigh and posterior thigh with skin changes evident of chronic infections, right medial thigh with open wound that seems to to have erupted recently, dried blood at base, foul smell, small amount of purulence noted. No streaking. No fluctuance but moderate induration Neuro: Awake and alert, GCS 15 rn 21:59 20:23 Differential diagnosis: abscess, cellulitis, Hyperglycemia, DKA, rn rn 21:59 19:59 Constitutional: Thin male, arrives in robe with right lower extremity covered rn with dried blood all the way down to his foot Head/Face: Normocephalic, atraumatic. ENT: Dry mucous membranes Cardiovascular: Regular rate and rhythm. No pulse deficits. Respiratory: No increased work of breathing, no retractions or nasal flaring. Abdomen/GI: Soft, non-tender, no evidence of extension to carole-anal tissues. No carole-anal tenderness or masses. Male : Normal genitalia with no discharge or lesions. No extension of erythema or tenderness to perineum or scrotum. MS/ Extremity: Pulses equal, no cyanosis. Neurovascular intact. Full, normal range of motion. Right upper inner thigh and posterior thigh with skin changes evident of chronic infections, right medial thigh with open wound that seems to to have erupted recently, dried blood at base, foul smell, small amount of purulence noted. No streaking. No fluctuance but moderate induration Neuro: Awake and alert, GCS 15 rn
--- NOTE | 2024-03-24 20:24 | ER ---
Nurse's Notes [facility] Name: Jonatan Sood Age: 43 yrs Sex: Male : 1980 Arrival Date: 03/24/2024 Time: 19:12 Bed 3 Private MD: Diagnosis: Cellulitis of right lower limb;Hyperglycemia, unspecified Presentation: 03/24 19:15 Chief complaint: EMS states: 43 year old male reports bleeding from existing abscess. ha1 on our arrival there was no more bleeding from the area. glucose level at 421. 19:15 Coronavirus screen: Vaccine status: Patient reports being unvaccinated. Ebola Screen: ha1 No symptoms or risks identified at this time. Initial Sepsis Screen: Does the patient meet any 2 criteria? No. Patient's initial sepsis screen is negative. Does the patient have a suspected source of infection? No. Patient's initial sepsis screen is negative. Risk Assessment: Do you want to hurt yourself or someone else? Patient reports no desire to harm self or others. Onset of symptoms was March 24, 2024. 19:15 Method Of Arrival: EMS: [facility] ha1 19:15 Acuity: ANI 3 ha1 Triage Assessment: 19:15 General: Appears uncomfortable, Behavior is calm, cooperative. Pain: Complains of pain ha1 in groin Pain does not radiate. Pain currently is 8 out of 10 on a pain scale. Quality of pain is described as aching, Pain began years ago. Neuro: Level of Consciousness is awake, alert, obeys commands, Oriented to person, place, time, situation. Cardiovascular: Capillary refill < 3 seconds. Respiratory: Airway is patent Respiratory effort is even, unlabored, Respiratory pattern is regular, symmetrical. GI: No signs and/or symptoms were reported involving the gastrointestinal system. Abdomen is flat, non-distended. : Lesions noted. Derm: Skin is pale, Wound noted buttocks Wound is red and clear drainage. Musculoskeletal: Circulation, motion, and sensation intact. Historical: - Allergies: 19:29 NKDA; ha1 - PMHx: 19:29 diabetes mellitus; ha1 - PSHx: 19:29 I \T\ D abscesses; ha1 - Immunization history:: Adult Immunizations not up to date. - Infectious Disease History:: Denies. - Social history:: Smoking status: Patient denies any tobacco usage or history of. - Family history:: not pertinent. - Hospitalizations: : No recent hospitalization is reported. Screenin:15 [facility] ED Fall Risk Assessment (Adult) History of falling in the last 3 months, ha1 including since admission Yes- single mechanical fall (1 pt) Confusion or Disorientation No (0 pts) Intoxicated or Sedated No (0 pts) Impaired Gait No (0 pts) Mobility Assist Device Used Yes (1 pt) Altered Elimination Yes (1 pt) Score/Fall Risk Level 3 or more points = High Risk Oriented to surroundings, Maintained a safe environment, Educated pt \T\ family on fall prevention, incl call for assistance when getting out of bed, Hourly rounding (assess needs \T\ fall precautionary measures) done. 20:35 Abuse screen: Denies threats or abuse. Denies injuries from another. Nutritional ha1 screening: No deficits noted. Tuberculosis screening: No symptoms or risk factors identified. Assessment: 19:15 Reassessment: see triage assessment. ha1 19:20 Reassessment: Family member cell # [phone]. ha1 20:15 Reassessment: Patient and/or family updated on plan of care and expected duration. Pain ha1 level reassessed. Respiratory: Airway is patent Respiratory effort is even, unlabored, Respiratory pattern is regular, symmetrical. 20:40 Reassessment: going to CT. ha1 21:00 Reassessment: Patient appears in no apparent distress at this time. Patient and/or jw7 family updated on plan of care and expected duration. Pain level reassessed. Patient is alert, oriented x 3, equal unlabored respirations, skin warm/dry/pink. 22:00 Reassessment: Patient appears in no apparent distress at this time. Patient and/or jw7 family updated on plan of care and expected duration. Pain level reassessed. Patient is alert, oriented x 3, equal unlabored respirations, skin warm/dry/pink. Vital Signs: 19:15 BP 148 / 91; Pulse 98; Resp 18 S; Temp 97.9(T); Pulse Ox 98% on R/A; Weight 63.5 kg; ha1 Height 5 ft. 9 in. ; 20:15 BP 152 / 96; Pulse 97; Resp 17 S; Pulse Ox 100% on R/A; ha1 21:00 BP 147 / 96; Pulse 96; Resp 12 S; Pulse Ox 100% on R/A; jw7 22:00 BP 137 / 82; Pulse 94; Resp 14 S; Pulse Ox 97% on R/A; jw7 19:15 Body Mass Index 20.67 (63.50 kg, 175.26 cm) 1 ED Course: 19:15 Patient arrived in ED. rn 19:15 Clint Reyna MD is Attending Physician. rn 19:15 Maintain EMS IV. Dressing intact. Good blood return noted. Site clean \T\ dry. Gauge \T\ lee 1 site: 20 gauge left AC. 19:15 Patient has correct armband on for positive identification. Placed in gown. Bed in low ha1 position. Call light in reach. Side rails up X 1. 19:15 Arm band placed on right wrist. 1 19:25 EKG completed in triage. Results shown to MD. 1 19:29 Triage completed. 1 19:34 Blood Culture Adult (2) Sent. 1 19:34 CBC with Diff Sent. 1 19:34 CMP Sent. 1 19:34 Lactate w/ 2H reflex if indic. Sent. ha1 19:34 Protime (+inr) Sent. 1 19:34 Ptt, Activated Sent. 1 20:00 Provided Education on: Use of call light. [facility] 20:21 Mckenna Jewell, ALEXUS is Primary Nurse. 1 20:24 Isabel Colon MD is Hospitalizing Provider. rn 22:04 No provider procedures requiring assistance completed. Patient admitted, IV remains in [facility]. Administered Medications: 20:00 Drug: NS 0.9% IV 1000 ml IV at 1000 ml once Route: IV; Rate: 1000 ml; Site: left ha1 antecubital; 22:05 Follow up: Response: No adverse reaction; IV Status: Infusion continued upon admission; [facility] IV Intake: 500ml 20:14 Drug: Insulin Regular Human Sub-Q 5 units Sub-Q once {Co-Signature: [facility] (Deepthi Cohen [facility] RN).} Route: Sub-Q; Site: left upper arm; 22:05 Follow up: Response: No adverse reaction [facility] 20:33 Drug: vancoMYCIN IVPB 1 grams IVPB once over 2 hrs Route: IVPB; Infused Over: 2 hrs; ha1 Site: left antecubital; 22:05 Follow up: Response: No adverse reaction; IV Status: Infusion continued upon admission; jw7 IV Intake: 250ml Medication: 20:36 VIS not applicable for this client. ha1 Intake: 22:05 IV: 250ml; Total: 250ml. jw7 22:05 IV: 500ml; Total: 750ml. jw7 Outcome: 20:24 Decision to Hospitalize by Provider. rn 22:04 Admitted to Med/surg accompanied by nurse, via stretcher, room 232, jwJose Carlos 22:04 Condition: stable 22:04 Instructed on the need for admit, Demonstrated understanding of instructions, 22:06 Patient left the ED. jw7 Signatures: Clint Reyna MD MD rn Waits, Jodi, RN RN jwMckenna Gibson RN RN [facility] Deepthi Cohen RN jwJose Carlos
[2024-03-24] MEDS ORDERED: VANCOMYCIN 1 GM/VIAL ONE (20:25)
[2024-03-24] MEDS ORDERED: NA CHLORIDE 0.9% 250 ML ONE (20:25)
--- NOTE | 2024-03-24 20:49 | P.HP ---
Certification for Inpatient Patient admitted to: Observation With expected LOS: <2 Midnights Patient will require the following post-hospital care: None Practitioner: I am a practitioner with admitting privileges, knowledge of patient current condition, hospital course, and medical plan of care. Services: Services provided to patient in accordance with Admission requirements found in Title 42 Section 412.3 of the Code of Federal Regulations Patient History Date of Service: 03/25/24 Reason for admission: Right leg abscess History of Present Illness: 43-year-old male with past medical history of uncontrolled DM type II, previously on metformin. Last couple of weeks ago; history of multiple abdominal skin abscesses status post previous incision and drainage; presented today because of persistent multiple abscesses in the right posterior leg. Patient stated abscess had been present for the last couple of weeks. The largest of them drained today spontaneously. He admits to pain and swelling over the area. He presented to the hospital due to persistent small abscesses and pain. On arrival in the ED vital signs were stable afebrile, satting at room air 95%. WBC elevated at 14,000 with left shift, BMP showed glucose of 432, sodium at 132, creatinine normal at 0.58. Patient has been admitted for further care Allergies No Known Allergies Allergy (Unverified 03/24/24 20:34) Home Medications: NK [No Home Meds] 03/24/24 - Past Medical/Surgical History -: Diabetes mellitus -: Multiple skin abscesses -: Incision and drainage - Family History Family History: Reviewed- Non-Contributory - Social History Smoking Status: Never smoker Smoking therapy provided: No Patient receptive to therapy: No Alcohol use: No CD- Drugs: No Caffeine use: No Place of Residence: Home Review of Systems General: Weakness, Malaise Cardiovascular: Light Headedness Integumentary: Rash, Lesions Neurological: Weakness Physical Examination - Physical Exam General: Alert, In no apparent distress, Oriented x3 HEENT: Atraumatic, Normocephalic, PERRLA Neck: 2+ carotid pulse no bruit, JVD not distended, No Thyromegaly Respiratory: Clear to auscultation bilaterally, Normal air movement Cardiovascular: No edema, Regular rate/rhythm, Normal S1 S2 Gastrointestinal: Normal bowel sounds, Soft and benign, Non-distended, No ascites, No tenderness Musculoskeletal: Tenderness, Warmth, Other (Multiple posterior thigh skin abscesses, small drainage puncture, mild tenderness) Integumentary: No ulcers, Diabetic ulcer (multiple tiny diabetic ulcers over postrior thigh with draining foul smelling effluent ) Neurological: Normal speech, Normal strength at 5/5 x4 extr, Sensation intact, Cranial nerves 3-12 intact - Studies Laboratory Data (last 24 hrs) 03/24/24 03/24/24 03/24/24 19:16 19:16 19:16 WBC 14.80 H Hgb 11.0 L Hct 33.6 L Plt Count 351 PT 11.8 INR 1.07 APTT 34.1 Sodium 132 L Potassium 4.1 BUN 13 Creatinine 0.58 L Glucose 427 H* Total Bilirubin 0.3 AST < 10 L ALT < 14 L Alkaline Phosphatase 164 H Assessment and Plan - Problems (Diagnosis) (1) Abscess of skin Current Visit: Yes Status: Acute (2) Abscess of right leg Current Visit: Yes Status: Acute (3) Diabetes mellitus Current Visit: Yes Status: Acute (4) Hyperglycemia Current Visit: Yes Status: Acute - Plan Impression Right leg abscesses Diabetes mellitus with hyperglycemia Plan Will admit patient to observation Obtain blood culture x [address] of the leg to rule out further inner abscesses requiring debridement Start Vanco/cefepime Obtain CRP/ESR Obtain hemoglobin A1c Pain control Gentle IV fluid with normal saline Restart DM medicationsmetformin 1 g twice daily, add Januvia Subcutaneous Lovenox for DVT prophylaxis Full code Possible DC in 24 to 48 hours based on outcome of CT - Advance Directives Does patient have a Living Will: No Does patient have a Durable POA for Healthcare: No Time Spent Managing Pts Care (In Minutes): 65
[2024-03-24] MEDS ORDERED: VANCOMYCIN 1 GM in NA CHLORIDE 0.9% 250 ML IVPB SCH (20:50)
[2024-03-24] MEDS ORDERED: ACETAMINOPHEN 325 MG TABLET PO PRN (20:51)
[2024-03-24] MEDS ORDERED: ONDANSETRON 4 MG/2 ML VIAL IV PRN (20:52)
[2024-03-24] MEDS: INSULIN REGULAR (HUMAN) 100 UNIT/ML SQ SCH (21:00)
--- NOTE | 2024-03-24 21:46 | RAD REPORT ---
EXAM DESCRIPTION: CT - Pelvis W/Cont - 03/24/2024 9:19 pm CLINICAL HISTORY: PAIN COMPARISON: No comparisons TECHNIQUE: CT of the pelvis was obtained with contrast. All CT scans are performed using dose optim ization technique as appropriate and may include automated exposure control or mA/KV adjustment accor ding to patient size. FINDINGS: Abnormal extensive masslike superficial skin thickening at the right medial gluteal cleft, right inguinal region, posterior thigh. This extends into the right lower extremity. Reference CT of the right femur. No drainable abscess. Enlarged inguinal lymph nodes which appear hyperenhancing. Th ere is abnormal skin thickening near the umbilicus as well. IMPRESSION: Abnormal masslike superficial skin thickening in the right lower extremity and extending into the right medial buttocks and perineum. Findings also present at the umbilicus. An infectious o r inflammatory process is within differential but also a neoplastic process such as a superficial spr eading mass such as Kaposi sarcoma. Suggest biopsy for confirmation.
--- NOTE | 2024-03-24 22:00 | RAD REPORT ---
EXAM DESCRIPTION: CT - Femur Right W Con - 03/24/2024 9:19 pm CLINICAL HISTORY: pain COMPARISON: No comparisons TECHNIQUE: CT scan was obtained of the right femur with IV contrast. All CT scans are performed usi ng dose optimization technique as appropriate and may include automated exposure control or mA/KV adj ustment according to patient size. FINDINGS: Abnormal masslike skin thickening primarily centered within the posterior and in particula r the medial soft tissues of the right proximal lower extremity. Enlarged right inguinal lymph nodes are noted. The largest measures approximately 11 millimeters in short axis. The area of the most pron ounced skin thickening is medial near the right buttocks. There is some scattered locules of gas whic h could be due to underlying ulcerations or instrumentation. Some small non drainable pockets of flui d noted. No fracture identified. The findings are superficial without extension into the deeper christiano rtments in the leg. IMPRESSION: Masslike superficial skin thickening with enhancement could be due to infection, inflamm ation, or a superficially spreading neoplastic process which could be confirmed with biopsy. No drain able fluid collection.
[2024-03-24] MEDS: Oxycodone HCl/Acetaminophen 5/325 MG TAB PO PRN (23:07)
[2024-03-24] MEDS: ALOGLIPTIN BENZOATE 12.5 MG TABLET PO SCH (23:07)
[2024-03-24] MEDS: CEFEPIME 1 GM in NA CHLORIDE 0.9% 100 ML IV SCH (23:08)
[2024-03-24] MEDS: METFORMIN HCL 500 MG TAB PO SCH (23:08)
[2024-03-24] MEDS: NA CHLORIDE 0.9% 1,000 ML IV SCH (23:09)
[2024-03-24] MEDS: FAMOTIDINE 20 MG TAB PO SCH (23:09)
[2024-03-25 00:49] VITALS: BMI 20.2
[2024-03-25 03:51] LABS: Absolute Basophils 0.2 K/uL (0-0.5); Absolute Eosinophils 0.2 K/uL (0-0.5); Absolute Lymphocytes (CBC) 2.3 K/uL (0.7-4.9); Absolute Monocytes 1.4 K/uL (0.1-1.3); Basophils % 1.1 % (0-1.3); Eosinophils % 1.5 % (0-4.4); Hematocrit 32.9 % (39.6-49.0); Hemoglobin 10.5 g/dL (13.6-17.9); Lymphocytes % 15.2 % (15.3-44.8); MCH 25.6 pg (27.0-35.0); MCHC 31.8 g/dL (32.0-36.0); MCV 80.7 fL (80-100); MPV 8.4 fL (7.6-11.3); Monocytes % 9.3 % (3.3-12.3); Neutrophils % 72.9 % (41.7-73.7); Platelets 359 thou/uL (152-406); RBC Red Blood Cell Count 4.08 M/uL (4.33-5.43); Red Cell Distribution Width 14.8 % (12.1-15.2)
[2024-03-25 04:22] LABS: Albumin 2.5 g/dL (3.4-5.0); Albumin/Globulin Ratio 0.5 (1.1-1.8); Alkaline Phosphatase 126 U/L (45-117); Anion Gap 6.7 mEq/L (5.0-15.0); BUN Blood Urea Nitrogen 13 mg/dL (7-18); Bicarbonate 28 mEq/L (21-32); Bilirubin Total 0.3 mg/dL (0.2-1.0); Globulin 4.6 g/dL (2.3-3.5); Glomerular Filtration Rate 130 ml/min (=/>90); Glucose Level 258 mg/dL (74-106); Potassium 3.7 mEq/L (3.5-5.1); Protein, Total 7.1 g/dL (6.4-8.2); Sodium Level 133 mEq/L (136-145)
[2024-03-25 04:31] LABS: ALT/SGPT < 14 U/L (16-61); AST/SGOT < 10 U/L (15-37)
[2024-03-25] MEDS: METOPROLOL TAR 25 MG TAB PO SCH (06:39)
--- NOTE | 2024-03-25 07:12 | P.PN ---
Date of Service: 03/25/24 Subjective: reports doing with recurrent multiple skin infections / abscess over the last few years. Has had multiple I&D in the past. Some wounds get better but then come back. A few have never truly gone away or healed. Has been over a year since hes taken any antibiotics. Never required longtern IV antibiotics at home. reports moderate amount of purulence/blood at home when right lower extremity wound bursted yesterday. wound on abdomen is most painful ROS: 10 point ROS as noted above, otherwise negative Physical Exam: GEN: Alert, oriented, NAD HEENT: Normal conjunctiva, sclera anicteric CV: Regular rate and rhythm, no edema Pulm: Nonlabored respirations on room air, clear bilaterally Integumentary: large area of multiple open wounds to right buttock/upper posterior thigh with surrounding erythema, induration. abdominal wall: multiple small lesions groups together in different stages of healing Neuro: Normal speech, normal affect vitals reviewed Problem List: abdominal wall Right lower extremity cellulitis / abscess concerning for hidradenitis suppurativa hx recurrent skin infections/abscess NIDDM2 with hyperglycemia abdominal wall Right lower extremity cellulitis / abscess concerning for hidradenitis suppurativa hx recurrent skin infections/abscess Reports dealing with right leg pain/swelling secondary to leg wound/abscess for last couple of weeks. Presented to the ED after largest one spontaneously popped and was draining purulence/blood prior to admission. history of multiple prior skin infections / abscesses that required I&D in the past. CT pelvis (03/24): abnormal masslike superficial skin thickening in the right lower extremity and extending into the right medial buttocks and perineum. Also present at the umbilicus. Infectious vs inflammatory vs neoplastic process CT R lower extremity (03/24): Masslike superficial skin thickening with enhancement could be due to infection, inflammation, or a superficially spreading neoplastic process. No drainable fluid collection. NPO for now. Dr. Magallanes to zac for possible surgical intervention on exam, thigh has appearance of HS; fits given the recurrence of these and his uncontrolled DM would increase this occurrence, as well as stopping metformin would benefit from outpatient derm ID consult Continue empiric cefepime / vanc (03/25-) afebrile, +leukocytosis follow blood and wound cultures local wound care pain control continue IV fluids NIDDM2 with hyperglycemia glc noted to be in 400s on admission. Patient reports running out of his metformin a few weeks ago Accu-checks, SSI Resume home metformin. check a1c - pending VTE: Lovenox Code: Full Dispo: Home, 3 days
[2024-03-25] MEDS ORDERED: METFORMIN HCL 500 MG TAB PO SCH (08:00)
[2024-03-25] MEDS: ENOXAPARIN 40 MG/0.4 ML SQ SCH (09:00)
[2024-03-25] MEDS: VANCOMYCIN 1.25 GM in NA CHLORIDE 0.9% 250 ML IVPB SCH (09:00)
[2024-03-25] MEDS ORDERED: ALOGLIPTIN BENZOATE 12.5 MG TABLET PO SCH (09:00)
[2024-03-25] MEDS: ZINC SULFATE 220 MG CAP PO SCH (09:02)
--- NOTE | 2024-03-25 10:59 | CON ---
Date of Consultation: 03/25/2024 Reason: Infection, abdomen, right posterior medial thigh. History Of Present Illness: Patient is a 43-year-old gentleman with past medical history of type 2 d iabetes, uncontrolled. He has had multiple abdominal skin infections in the past, undergoing minor i ncision and drainage and he presented to the emergency room last night with a large abscess that star mark to drain and it stopped draining yesterday. However, upon admission, patient's abscess had compl etely emptied and there was no further drainage. The patient has, as stated earlier, multiple incisi ons and drainages and his sugar is uncontrolled. He denies any sore throat, runny nose, cough, heada ches, or dizziness. No chest pain. Currently, no fever or chills. Review of Systems: Otherwise unremarkable. Past Medical History: Diabetes, multiple skin abscesses, questionable hidradenitis suppurativa. Past Surgical History: Significant for multiple incisions and drainages of skin abscess. Social History: Patient does not smoke and denies alcohol use. Physical Examination: Vital Signs: Currently, are stable. He is currently afebrile. General: He is awake, alert, oriented x3. Head and Neck: No masses. Chest: Clear. Heart: S1, S2. Abdomen: Soft. Extremities: Neurovascularly intact. Neuro: Nonfocal. Skin: In the anterior abdominal wall, there are erythema and some wounds that appear to be in differ ent stages of healing. There is 1 small area, where there is some purulent discharge, was draining e asily. There is no fluctuance. There is induration and warmth in the area, approximately 4 cm in di ameter. On the right medial posterior thigh, patient has multiple what appears to be slashes of skin incisions, almost like knife wounds, although patient denies such event. There is a large area of i nduration, which has no fluctuance to it and that is the area that patient had drainage from. There is no area that is visible and requires formal incision and drainage in the operating room. Patient has warmth and edema and induration, but no fluctuance and this involves majority of the upper right leg, some extending to the buttocks and to the perineum. Laboratory Data: Shows a white count of 15.1 with neutrophil percentage being 72.9. His INR is 1.07 . Chemistry reviewed. His glucose on admission was 438, currently is 265. Lactic acid on admission was 1.0. His hemoglobin A1c is pending. He had an ultrasound and CT of the abdomen and pelvis. Ag ain, there was no drainable fluid seen on either study. There is evidence of inflammation present an d gas that is present is in the open wound, is not consistent with any type of necrotizing infection. Clinically, patient is stable from that point of view. Assessment: Multiple areas of infection on the abdominal wall, right lower extremity, and the perine um as well as the right buttock. Recommendations: At this point, patient needs all these wounds clean in the shower and then, warm so aks and dry gauze to absorb the drainage. IV antibiotics as ordered. We will check the cultures and adjust the antibiotics accordingly. His sugar needs to be controlled and he needs to get a primary care physician and have better control of his sugar and then, may need to be worked up for an autoimm une disorder. Plan of care was discussed with the patient as well as Dr. Reyna. JYOTHI/NUVIAL Voice ID: [id number] Report ID: [id number]
--- NOTE | 2024-03-25 15:28 | EKG ---
Test Date: 2024-03-24 Test Time: 19:43:27 Insurance Application Investigator: [employer] MEASUREMENT RESULTS: Intervals: Rate: 97 NV: 132 QRSD: 80 QT: 346 QTc: 439 [place]: P: 71 NV: 132 QRS: 77 T: 37 INTERPRETIVE STATEMENTS: Sinus rhythm with premature ventricular complexes or fusion complexes Right atrial enlargement Borderline ECG No previous ECG available for comparison Electronically Signed On 03-25-24 15:27:06 CDT by Terence Garcia
[2024-03-25] MEDS: INSULIN REGULAR (HUMAN) 100 UNIT/ML SQ SCH (16:04)
[2024-03-26 05:11] LABS: Absolute Basophils 0.1 K/uL (0-0.5); Absolute Eosinophils 0.2 K/uL (0-0.5); Absolute Lymphocytes (CBC) 2.1 K/uL (0.7-4.9); Absolute Monocytes 1.3 K/uL (0.1-1.3); Absolute Neutrophil 9.9 K/uL (1.8-8.0); Basophils % 0.8 % (0-1.3); Eosinophils % 1.6 % (0-4.4); Hematocrit 28.8 % (39.6-49.0); Hemoglobin 9.5 g/dL (13.6-17.9); Lymphocytes % 15.5 % (15.3-44.8); MCH 26.8 pg (27.0-35.0); MCHC 33.1 g/dL (32.0-36.0); MCV 80.8 fL (80-100); MPV 8.2 fL (7.6-11.3); Monocytes % 9.3 % (3.3-12.3); Neutrophils % 72.8 % (41.7-73.7); Nucleated Red Blood Cells % 0.1 % (0-0); Platelets 337 thou/uL (152-406); RBC Red Blood Cell Count 3.57 M/uL (4.33-5.43)
[2024-03-26 05:37] LABS: Albumin 2.2 g/dL (3.4-5.0); Albumin/Globulin Ratio 0.5 (1.1-1.8); Alkaline Phosphatase 106 U/L (45-117); Anion Gap 5.9 mEq/L (5.0-15.0); BUN Blood Urea Nitrogen 13 mg/dL (7-18); Bicarbonate 30 mEq/L (21-32); Bilirubin Total 0.3 mg/dL (0.2-1.0); Globulin 4.3 g/dL (2.3-3.5); Glomerular Filtration Rate 131 ml/min (=/>90); Glucose Level 247 mg/dL (74-106); Magnesium 1.5 mg/dL (1.6-2.4); Potassium 3.9 mEq/L (3.5-5.1); Protein, Total 6.5 g/dL (6.4-8.2); Sodium Level 132 mEq/L (136-145)
[2024-03-26 05:38] LABS: ALT/SGPT < 14 U/L (16-61); AST/SGOT < 10 U/L (15-37)
--- NOTE | 2024-03-26 10:42 | P.PN ---
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 abdominal wall: multiple small lesions groups together in different stages of healing Neuro: Normal speech, normal affect vitals reviewed Problem List: abdominal wall Right lower extremity cellulitis / abscess concerning for hidradenitis suppurativa hx recurrent skin infections/abscess NIDDM2 with hyperglycemia abdominal wall Right lower extremity cellulitis / abscess concerning for hidradenitis suppurativa hx recurrent skin infections/abscess Reports dealing with right leg pain/swelling secondary to leg wound/abscess for last couple of weeks. Presented to the ED after largest one spontaneously popped and was draining purulence/blood prior to admission. history of multiple prior skin infections / abscesses that required I&D in the past. CT pelvis (03/24): abnormal masslike superficial skin thickening in the right lower extremity and extending into the right medial buttocks and perineum. Also present at the umbilicus. Infectious vs inflammatory vs neoplastic process CT R lower extremity (03/24): Masslike superficial skin thickening with enhancement could be due to infection, inflammation, or a superficially spreading neoplastic process. No drainable fluid collection. no surgical procedures / interventions warranted per surgery for now. 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 Patient reports running out of his metformin over a few months ago Accu-checks, SSI Resume home metformin. a1c 13.4 (03/24) will need insulin script on dc VTE: Lovenox Code: Full Dispo: Home, ~2 days Pending final culture results / WBC improves
[2024-03-26 10:43] VITALS: O2SAT 98
--- NOTE | 2024-03-26 13:29 | PN ---
Date of Progress Note: 03/26/2024 Subjective: Patient is awake, alert. Feels better. Vitals stable, afebrile. Gram stain reviewed. Cultures pending. The patient has staph and strep infection. White count is 13.6. There is no lef t shift, however. Objective: Examination of the wound reveals decreasing erythema and warmth and edema. No active pur ulence except for draining cyst present. Clinically, the wounds look better. Assessment: Probable hidradenitis suppurative in the right posterior thigh, buttocks, perineal regio n, and abdominal wall. Recommendations: Patient counseled on the importance of controlling his hyperglycemia with medicatio n, following with PCP. No need for any acute surgical intervention. We will check the cultures and then the patient probably can be discharged home on oral antibiotics to [facility] upon discharge. /MODL Voice ID: [id number] Report ID: [id number]
--- NOTE | 2024-03-26 16:41 | CON ---
History Of Present Illness: This patient is coming in with the significant past medical history of s uppurative hidradenitis involving the abdominal and the right leg area, right thigh region. Patient has significant past medical history also including uncontrolled diabetes mellitus, not taking his me dication, coming to the emergency room with the elevated white count of 14,000, and blood sugar of 43 0. The patient is having problem with abdominal and right thigh abscesses for last 2 years. Had inc ision and drainage done in the past. Has been evaluated by the surgical team who wants to treat the wounds conservatively. The patient was started on IV cefepime and vancomycin. Feels slightly better today. Denies any other problems. Past Medical History: As per HPI. Social History: Nonsmoker. Nondrinker. Family History: Noncontributory. Medications: Vancomycin and cefepime. See MARs for other medications. Allergies: NO KNOWN DRUG ALLERGIES. Review of Systems: A 10-point review was performed. Physical Examination: General: This is a 43-year-old male, lying in bed, not in any acute cardiopulmonary distress. Vital Signs: Temperature 97, pulse 85, respirations 12, blood pressure 156/91. HEENT: Unremarkable. Neck: Supple. Lungs: Clear to auscultation. Heart: S1, S2. Regular. Abdomen: Soft. Bowel sounds present. Multiple lesions are noted in the abdominal area. Extremities: Lower extremity with the back of thigh region had multiple area for drainage and foul o gabby. Laboratory Data: Shows WBC 13.6, hemoglobin 9.5, platelets are 337. Chemistry shows BUN of 13, crea tinine 0.4. Cultures are pending. WBC 13.6, hemoglobin 9.5, platelets 337. BUN of 13, creatinine 0 .4. Assessment And Plan: Suppurative adenitis with the previous history of abscess formation and surgica l incision and drainage. Surgical team want conservative treatment with IV antibiotic and local woun d care. Once patient improves, we will recommend to switch patient to Bactrim DS. Consider using Va she to the wound site to clean and pack any sinuses. We will follow the patient closely. Thank you, Dr. Reyna, for consult. NF/NUVIAL Voice ID: [id number] Report ID: [id number]
[2024-03-26] MEDS: VANCOMYCIN 1.25 GM in NA CHLORIDE 0.9% 250 ML IVPB SCH (17:36)
[2024-03-27 04:52] LABS: Absolute Basophils 0.1 K/uL (0-0.5); Absolute Eosinophils 0.2 K/uL (0-0.5); Absolute Monocytes 1.4 K/uL (0.1-1.3); Absolute Neutrophil 9.1 K/uL (1.8-8.0); Basophils % 0.8 % (0-1.3); Eosinophils % 1.6 % (0-4.4); Hematocrit 27.8 % (39.6-49.0); Hemoglobin 9.2 g/dL (13.6-17.9); Lymphocytes % 15.7 % (15.3-44.8); MCH 26.6 pg (27.0-35.0); MCHC 33.1 g/dL (32.0-36.0); MCV 80.4 fL (80-100); MPV 8.2 fL (7.6-11.3); Neutrophils % 70.9 % (41.7-73.7); Nucleated Red Blood Cells % 0.1 % (0-0); Platelets 308 thou/uL (152-406); RBC Red Blood Cell Count 3.46 M/uL (4.33-5.43); Red Cell Distribution Width 14.7 % (12.1-15.2)
[2024-03-27 04:54] LABS: Anion Gap 6.9 mEq/L (5.0-15.0); Potassium 3.9 mEq/L (3.5-5.1)
[2024-03-27] MEDS ORDERED: D50W 25 GM/50 ML SYRINGE IV PRN (14:23)
[2024-03-27] MEDS ORDERED: D10W 125 ML IV PRN (14:34)
--- NOTE | 2024-03-27 14:39 | P.PN ---
Subjective Date of Service: 03/27/24 Chief Complaint: Right leg abscess Patient has no new complaint. No reported fever. He is tolerating diet. Physical Examination - Vital Signs Temperature: 98.1 F Blood Pressure: 158/93 Pulse: 79 Respirations: 18 Pulse Ox (%): 94 - Studies Microbiology Data (last 24 hrs): 03/24/24 23:15 Wound - Right Abdomen Gram Stain - Final 03/24/24 23:15 Wound - Right Abdomen Culture & Sensitivity - Final Meth Resistant Staph Aureus Streptococcus Agalactiae Grp B 03/24/24 23:15 Wound - R Leg (Upper) Gram Stain - Final Assessment And Plan - Plan Physical Exam: GEN: Alert, oriented, NAD, cachectic HEENT: Normal conjunctiva, sclera anicteric CV: Regular rate and rhythm, no edema Pulm: Nonlabored respirations on room air, clear bilaterally Integumentary: large area of multiple open wounds to right buttock/upper posterior thigh with surrounding erythema, induration, tunneling and scarring. abdominal wall: multiple areas of discharging lesions, tunneling and scarring groups. Neuro: Normal speech, normal affect. No motor deficit. vitals reviewed Problem List: abdominal wall Right lower extremity cellulitis / abscess concerning for hidradenitis suppurativa hx recurrent skin infections/abscess NIDDM2 with hyperglycemia abdominal wall Right lower extremity cellulitis / hidradenitis suppurativa hx recurrent skin infections/abscess History of multiple prior skin infections / abscesses that required I&D in the past. CT pelvis (03/24): abnormal masslike superficial skin thickening in the right lower extremity and extending into the right medial buttocks and perineum. Also present at the umbilicus. Infectious vs inflammatory vs neoplastic process CT R lower extremity (03/24): Masslike superficial skin thickening with enhancement could be due to infection, inflammation, or a superficially spreading neoplastic process. No drainable fluid collection. Wound cultures growing MRSA and strep agalactiae sensitive to fluoroquinolones and Bactrim, resistant to tetracycline. no surgical procedures / interventions warranted per surgery for now. Leukocytosis improved. Blood cultures: No growth IV antibiotics transition to oral Bactrim. Aggressive blood sugar control Continue metformin Dermatology follow-up as outpatient ID is following. Continue local wound care NIDDM2 with hyperglycemia glc noted to be in 400s on admission. Patient reports running out of his metformin over a few months ago Accu-checks, SSI a1c 13.4 (03/24) Continue metformin. Added weight-based Novolin 70/30 Monitor blood sugar and titrate Novolin 70/30. VTE: Lovenox Code: Full Dispo: Home within 1 day.
[2024-03-27] MEDS ORDERED: GLUCAGON 1 MG/VIAL IM PRN (14:40)
[2024-03-27] MEDS: INSULIN 70/30 100 UNITS/ML SQ SCH (21:00)
[2024-03-27] MEDS: SMZ./TMP. 800/160 MG TABLET PO SCH (21:04)
[2024-03-28 04:01] LABS: Absolute Basophils 0.1 K/uL (0-0.5); Absolute Eosinophils 0.2 K/uL (0-0.5); Absolute Lymphocytes (CBC) 1.8 K/uL (0.7-4.9); Absolute Monocytes 1.1 K/uL (0.1-1.3); Absolute Neutrophil 7.7 K/uL (1.8-8.0); Basophils % 1.1 % (0-1.3); Eosinophils % 1.8 % (0-4.4); Hemoglobin 9.3 g/dL (13.6-17.9); Lymphocytes % 16.6 % (15.3-44.8); MCH 26.7 pg (27.0-35.0); MCHC 33.2 g/dL (32.0-36.0); MCV 80.3 fL (80-100); MPV 8.6 fL (7.6-11.3); Monocytes % 10.5 % (3.3-12.3); Nucleated Red Blood Cells % 0.1 % (0-0); Platelets 311 thou/uL (152-406); RBC Red Blood Cell Count 3.49 M/uL (4.33-5.43)
[2024-03-28 04:40] LABS: Anion Gap 6.7 mEq/L (5.0-15.0); Potassium 3.7 mEq/L (3.5-5.1)
[2024-03-28 09:08] VITALS: BP 170/99; TEMP 97.7
--- NOTE | 2024-03-28 10:37 | P.DS ---
Admission Date: 03/25/24 Discharge Date: 03/28/24 Disposition: ROUTINE DISCHARGE Discharge Condition: FAIR Reason for Admission: Right leg abscess Hospital Course: Diagnosis Hidradenitis suppurativa with abdominal wall and Right lower extremity cellulitis hx recurrent skin infections/abscess NIDDM2 with hyperglycemia Patient presented with recurrent abscesses and lesions with discharges on the anterior abdominal and right hip/buttock area. History of multiple prior skin infections / abscesses that required I&D in the past. CT pelvis (03/24): abnormal masslike superficial skin thickening in the right lower extremity and extending into the right medial buttocks and perineum. Also present at the umbilicus. Infectious vs inflammatory vs neoplastic process CT R lower extremity (03/24): Masslike superficial skin thickening with enhancement could be due to infection, inflammation, or a superficially spreading neoplastic process. No drainable fluid collection. Lesions most likely hidradenitis suppurativa Wound cultures growing MRSA and strep agalactiae sensitive to fluoroquinolones and Bactrim, resistant to tetracycline. no surgical procedures / interventions warranted per surgery for now. He had leukocytosis which improved. Blood cultures: No growth He was treated with IV antibiotics including vancomycin and then transitioned to oral Bactrim. Aggressive blood sugar control done with Novolin 70/30 and metformin. Novolin 70/30 titrated to 15 units twice daily. Patient hemoglobin A1c noted to be 13.4. Noted patient is uninsured. Infectious disease evaluated patient and assisted with management. Local wound care done with wet-to-dry dressing using gauze. Dermatology follow-up as outpatient Patient discharged with Bactrim to complete at least 3 weeks of treatment. MRSA noted to be resistant to tetracycline, prophylactic doxycycline may probably be beneficial in this case. Patient will need to take Clindamycin 300 mg bid plus Rifampicin 600 mg daily for atleast 2 months after completing the bactrim therapy. MRSA decolonization with chlorhexidine and Bactroban prescribed. Compliance to insulin therapy emphasized. Vital Signs/Physical Exam: Temp Pulse Resp BP Pulse Ox 97.7 F 80 16 170/99 H 98 03/28/24 08:00 03/28/24 08:00 03/28/24 08:00 03/28/24 08:00 03/28/24 08:00 General: Alert, In no apparent distress, Oriented x3, Cachectic HEENT: Mucous membr. moist/pink Neck: Supple, JVD not distended Respiratory: Clear to auscultation bilaterally, Normal air movement Cardiovascular: Regular rate/rhythm, Normal S1 S2 Gastrointestinal: Normal bowel sounds, Soft and benign, Non-distended Musculoskeletal: No swelling Integumentary: Other ( multiple open wounds to right buttock/upper posterior thigh with surrounding erythema, induration, tunneling and scarring.) Neurological: Normal strength at 5/5 x4 extr Laboratory Data at Discharge: WBC 10.90 thou/uL (4.3-10.9) 03/28/24 03:10 Hgb 9.3 g/dL (13.6-17.9) L 03/28/24 03:10 Hct 28.0 % (39.6-49.0) L 03/28/24 03:10 Plt Count 311 thou/uL (152-406) 03/28/24 03:10 PT 11.8 SECONDS (9.5-12.5) 03/24/24 19:16 INR 1.07 03/24/24 19:16 APTT 34.1 SECONDS (24.3-36.9) 03/24/24 19:16 Sodium 131 mEq/L (136-145) L 03/28/24 03:10 Potassium 3.7 mEq/L (3.5-5.1) 03/28/24 03:10 BUN 11 mg/dL (7-18) 03/28/24 03:10 Creatinine 0.55 mg/dL (0.70-1.30) L 03/28/24 03:10 Glucose 324 mg/dL (74-106) H 03/28/24 03:10 Magnesium 1.5 mg/dL (1.6-2.4) L 03/26/24 03:56 Total Bilirubin 0.3 mg/dL (0.2-1.0) 03/26/24 03:56 AST < 10 U/L (15-37) L 03/26/24 03:56 ALT < 14 U/L (16-61) L 03/26/24 03:56 Alkaline Phosphatase 106 U/L (45-117) 03/26/24 03:56 Home Medications: Alcohol Antiseptic Pads [Alcohol Swabs] 1 each TP BID #1 box 03/28/24 Blood Sugar Diagnostic [Blood Glucose Test] 1 each MC BID #60 strip 03/28/24 Blood-Glucose Meter [Blood Glucose Monitoring] 1 each MC BID #1 kit 03/28/24 Chlorhexidine Gluconate [Antiseptic Skin Cleanser] 1 karla TP BID #237 ml 03/28/24 Insulin NPH Hum/Reg Insulin Hm [Novolin 70-30 Flexpen] 15 unit SQ BID #15 ml 03/28/24 Lancets 1 each MC BID #100 ea 03/28/24 Metformin HCl [Glucophage*] 1,000 mg PO BIDWM #120 tab 03/28/24 Metoprolol Tartrate [Lopressor*] 25 mg PO BID 6AM 6PM #60 tab 03/28/24 Mupirocin Oint [Bactroban 2% Ointment*] 1 appl REJI BID 10 Days #1 ea 03/28/24 Oxycodone HCl/Acetaminophen [Percocet 5/325 Tab*] 1 tab PO Q6H PRN #12 tab 03/28/24 Pen Needle, Diabetic [Pen Needle] 1 each MC BID #1 box 03/28/24 Smz./Tmp. [Bactrim Ds 800 MG/160 MG*] 1 tab PO BID #36 tab 03/28/24 Zinc Sulfate [Zinc Sulfate*] 220 mg PO DAILY #30 cap 03/28/24 New Medications: Alcohol Antiseptic Pads [Alcohol Swabs] 1 each TP BID #1 box Chlorhexidine Gluconate [Antiseptic Skin Cleanser] 1 karla TP BID #237 ml Smz./Tmp. [Bactrim Ds 800 MG/160 MG*] 1 tab PO BID #36 tab Mupirocin Oint [Bactroban 2% Ointment*] 1 appl REJI BID 10 Days #1 ea Blood-Glucose Meter [Blood Glucose Monitoring] 1 each MC BID #1 kit Blood Sugar Diagnostic [Blood Glucose Test] 1 each MC BID #60 strip Metformin HCl [Glucophage*] 1,000 mg PO BIDWM #120 tab Lancets 1 each MC BID #100 ea Metoprolol Tartrate [Lopressor*] 25 mg PO BID 6AM 6PM #60 tab Insulin NPH Hum/Reg Insulin Hm [Novolin 70-30 Flexpen] 15 unit SQ BID #15 ml Pen Needle, Diabetic [Pen Needle] 1 each MC BID #1 box Oxycodone HCl/Acetaminophen [Percocet 5/325 Tab*] 1 tab PO Q6H PRN #12 tab PRN Reason: Pain Scale 5-7 (Moderate) Zinc Sulfate [Zinc Sulfate*] 220 mg PO DAILY #30 cap Physician Discharge Instructions: [facility] (medication assistance) For Diabetic Education and medication assistance. Free classes. Patient presented with recurrent abscesses and lesions with discharges on the anterior abdominal and right hip/buttock area. History of multiple prior skin infections / abscesses that required I&D in the past. CT pelvis (03/24): abnormal masslike superficial skin thickening in the right lower extremity and extending into the right medial buttocks and perineum. Also present at the umbilicus. Infectious vs inflammatory vs neoplastic process CT R lower extremity (03/24): Masslike superficial skin thickening with enhancement could be due to infection, inflammation, or a superficially spreading neoplastic process. No drainable fluid collection. Lesions most likely hidradenitis suppurativa Wound cultures growing MRSA and strep agalactiae sensitive to fluoroquinolones and Bactrim, resistant to tetracycline. no surgical procedures / interventions warranted per surgery for now. He had leukocytosis which improved. Blood cultures: No growth He was treated with IV antibiotics including vancomycin and then transitioned to oral Bactrim. Aggressive blood sugar control done with Novolin 70/30 and metformin. Novolin 70/30 titrated to 15 units twice daily. Patient hemoglobin A1c noted to be 13.4. Noted patient is uninsured. Infectious disease evaluated patient and assisted with management. Local wound care done with wet-to-dry dressing using gauze. Dermatology follow-up as outpatient Patient discharged with Bactrim to complete at least 3 weeks of treatment. MRSA noted to be resistant to tetracycline, prophylactic doxycycline may not be beneficial in this case. MRSA decolonization with chlorhexidine and Bactroban prescribed. Compliance to insulin therapy emphasized. Diet: ADA Activity: Fall precautions Followup: NONE,NONE [Primary Care Provider] - 1-2 Weeks Russ Magallanes MD [ACTIVE - CAN ADMIT] - 1 Week ([facility]. Please call for appointment) Time spent managing pt's care (in minutes): 40
[2024-03-28] MEDS ORDERED: INSULIN 70/30 100 UNITS/ML SQ SCH (21:00)
== END 2024-03-28 11:44 | disposition home or self-care (01) | DRG 872 ==
LOC: ER 19:12 → ERHOLD 20:52 → 2ND 22:27 → OBSVTOIN 03-25 13:26
PROVIDERS: ADMIT Internal Medicine; ATTEND Internal Medicine
DX: A41.02 Sepsis due to Methicillin resistant Staphylococcus aureus (principal); L03.115 Cellulitis of right lower limb; L02.415 Cutaneous abscess of right lower limb; L03.311 Cellulitis of abdominal wall; R64 Cachexia; Z16.29 Resistance to other single specified antibiotic; L73.2 Hidradenitis suppurativa; E11.65 Type 2 diabetes mellitus with hyperglycemia; E11.628 Type 2 diabetes mellitus with other skin complications; Z79.4 Long term (current) use of insulin; Z79.84 Long term (current) use of oral hypoglycemic drugs; Z68.20 Body mass index [BMI] 20.0-20.9, adult; Z79.899 Other long term (current) drug therapy; Z91.148 Patient's other noncompliance with medication regimen for other reason
CPT/HCPCS: 36415; 72193; 73701; 80048; 80053; 80202; 82947; 83036; 83605; 83735; 84443; 85025; 85610; 85730; 86140; 87040; 87070; 87077; 87186; 87205; 93005; 96361; 96365; 96366; 96372; 99285; G0378; J0692; J1650; J7030; J7050; Q9967

== ENCOUNTER 2024-07-14 14:14 | Inpatient (IN) | payer SELFPAY ==
[2024-07-14 14:55] LABS: Absolute Basophils 0.1 K/uL (0-0.5); Absolute Eosinophils 0.1 K/uL (0-0.5); Absolute Lymphocytes (CBC) 1.2 K/uL (0.7-4.9); Absolute Neutrophil 11.5 K/uL (1.8-8.0); Basophils % 0.5 % (0-1.3); Eosinophils % 0.7 % (0-4.4); Hematocrit 36.1 % (39.6-49.0); Hemoglobin 11.4 g/dL (13.6-17.9); Lymphocytes % 8.5 % (15.3-44.8); MCH 24.9 pg (27.0-35.0); MCHC 31.5 g/dL (32.0-36.0); MPV 7.5 fL (7.6-11.3); Monocytes % 7.5 % (3.3-12.3); Neutrophils % 82.8 % (41.7-73.7); Platelets 498 thou/uL (152-406); RBC Red Blood Cell Count 4.57 M/uL (4.33-5.43); Red Cell Distribution Width 14.8 % (12.1-15.2)
[2024-07-14 15:00] LABS: PT Prothrombin Time 12.6 SECONDS (9.4-12.5); PTT, Activated Partial Thromb 37.4 SECONDS (24.3-36.9); Protime INR 1.13
[2024-07-14 15:10] LABS: Albumin 2.6 g/dL (3.4-5.0); Albumin/Globulin Ratio 0.4 (1.1-1.8); Alkaline Phosphatase 157 U/L (45-117); Anion Gap 7.2 mEq/L (5.0-15.0); BUN Blood Urea Nitrogen 13 mg/dL (7-18); Bicarbonate 25 mEq/L (21-32); Bilirubin Total 0.3 mg/dL (0.2-1.0); Glomerular Filtration Rate 123 ml/min (=/>90); Glucose Level 365 mg/dL (74-106); Potassium 4.2 mEq/L (3.5-5.1); Protein, Total 8.6 g/dL (6.4-8.2); Sodium Level 128 mEq/L (136-145)
[2024-07-14 15:11] LABS: ALT/SGPT < 14 U/L (16-61); AST/SGOT < 10 U/L (15-37)
[2024-07-14] MEDS ORDERED: CEFEPIME 2 GM VIAL ONE (15:11)
[2024-07-14] MEDS ORDERED: VANCOMYCIN 1 GM/VIAL ONE ×2 (15:11→21:31)
[2024-07-14] MEDS ORDERED: NA CHLORIDE 0.9% 250 ML ONE ×2 (15:12→23:17)
[2024-07-14] MEDS ORDERED: NA CHLORIDE 0.9% 1,000 ML ONE (15:12)
[2024-07-14] MEDS ORDERED: NA CHLORIDE 0.9% 100 ML ONE (15:12)
--- NOTE | 2024-07-14 15:59 | RAD REPORT ---
EXAMINATION: CT ABDOMEN AND PELVIS WITH CONTRAST CLINICAL INDICATION: Male, 43 years old.abd wall infection TECHNIQUE: CT abdomen and pelvis was performed, after the administration of IV contrast, as per [facility] protocol. Axial, sagittal and coronal reconstructions were obtained. One or more of the following dose reduction techniques were used: Automated exposure control, adjustment of the mA and/o r kV according to patient size, and/or iterative reconstruction. Unless otherwise specified, incidental findings do not require dedicated imaging follow-up. [id number]. COMPARISON: CT pelvis 03/24/2024 FINDINGS: LOWER CHEST: The visualized lung bases are clear. LIVER: Normal in size and contour. No focal lesion. GALLBLADDER/BILE DUCT: No biliary ductal dilatation.? PANCREAS: Atrophic. No mass or pancreatic duct dilatation. SPLEEN: Normal size. No focal lesion. ADRENALS: Normal; no mass. KIDNEYS AND URETERS: Normal size and contour. No hydronephrosis. URINARY BLADDER: Normal contour. GASTROINTESTINAL TRACT: Stomach is non-dilated. Small bowel has normal course and caliber. No colonic wall thickening or pericolonic inflammatory changes. Moderate colonic stool burden. PERITONEUM: No ascites. LYMPH NODES: Prominent inguinal lymph nodes are likely reactive. ABDOMINAL AORTA AND OTHER VESSELS: Normal caliber aorta and IVC. REPRODUCTIVE ORGANS: No pathologic process MUSCULOSKELETAL: No acute or suspicious osseous abnormality. ADDITIONAL FINDINGS: Diffuse midline abdominal wall skin thickening with small foci of superficial ga s likely reflecting a known abdominal wound. No evidence of a disseminated gas forming infection. Again noted is significant skin thickening in the medial right buttocks and perineum. IMPRESSION: Midline abdominal wall wound. No underlying abscess identified. No evidence of a disseminated gas-for ninoska infection.
[2024-07-14] MEDS ORDERED: MORPHINE 4 MG/ML SYR ONE (16:31)
[2024-07-14] MEDS ORDERED: ONDANSETRON 4 MG/2 ML VIAL ONE (16:31)
[2024-07-14] MEDS ORDERED: INSULIN REGULAR (HUMAN) 100 UNIT/ML ONE (16:31)
--- NOTE | 2024-07-14 16:52 | ER ---
Nurse's Notes [facility] Name: Jonatan Sood Age: 43 yrs Sex: Male : 1980 Arrival Date: 07/14/2024 Time: 14:14 Bed 2 Private MD: Diagnosis: Cellulitis of abdominal wall;Sepsis;Hyperglycemia Presentation: 07/14 14:30 Chief complaint: EMS states: chronic abd wounds, getting worse over past 2 weeks, iw noncompliant diabetic , cannot afford his meds. Coronavirus screen: At this time, the client does not indicate any symptoms associated with coronavirus-19. Ebola Screen: No symptoms or risks identified at this time. Risk Assessment: Do you want to hurt yourself or someone else? Patient reports no desire to harm self or others. Onset of symptoms was June 30, 2024. 14:30 Method Of Arrival: EMS: [facility] iw 14:30 Acuity: ANI 3 iw 18:03 Initial Sepsis Screen: Does the patient meet any 2 criteria? HR > 90 bpm. Does the iw patient have a suspected source of infection? No. Patient's initial sepsis screen is negative. Historical: - Allergies: 14:33 NKDA; iw - PMHx: 14:33 diabetes mellitus; iw - PSHx: 14:33 I \T\ D abscesses; iw - Immunization history:: Adult Immunizations not up to date. - Family history:: not pertinent. Screenin:02 Abuse screen: Denies threats or abuse. Nutritional screening: No deficits noted. iw Tuberculosis screening: No symptoms or risk factors identified. 18:03 [facility] ED Fall Risk Assessment (Adult) History of falling in the last 3 months, iw including since admission No falls in past 3 months (0 pts) Confusion or Disorientation No (0 pts) Intoxicated or Sedated No (0 pts) Impaired Gait No (0 pts) Mobility Assist Device Used No (0 pt) Altered Elimination Score/Fall Risk Level 0 - 2 = Low Risk Oriented to surroundings, Maintained a safe environment. Assessment: 16:59 Reassessment: Patient appears in no apparent distress at this time. Patient and/or iw family updated on plan of care and expected duration. Pain level reassessed. Patient is alert, oriented x 3, equal unlabored respirations, skin warm/dry/pink. 17:15 Reassessment: Patient appears in no apparent distress at this time. iw 18:02 Reassessment: Patient appears in no apparent distress at this time. Patient and/or iw family updated on plan of care and expected duration. Pain level reassessed. Patient is alert, oriented x 3, equal unlabored respirations, skin warm/dry/pink. Patient states feeling better. Vital Signs: 14:33 BP 140 / 95; Pulse 94; Resp 16; Temp 98.4; Pulse Ox 96% on R/A; iw ED Course: 14:16 Patient arrived in ED. iw 14:16 Stephany Mcdonald, RN is Primary Nurse. iw 14:17 Rick Queen MD is Attending Physician. rt 14:31 Triage completed. iw 15:08 Inserted saline lock: 20 gauge in right wrist, using aseptic technique. Blood iw collected. Flushed with 10 mL NS. 15:51 CT Abd/Pelvis - IV Contrast Only In Process Unspecified. EDMS 16:51 Fox Reyna MD is Hospitalizing Provider. rt 17:15 Patient has correct armband on for positive identification. Bed in low position. Call iw light in reach. Side rails up X2. Client placed on continuous cardiac and pulse oximetry monitoring. NIBP monitoring applied. home attendant on. 18:02 No provider procedures requiring assistance completed. Patient admitted, IV remains in iw place. Administered Medications: 15:40 Drug: vancoMYCIN IVPB 1 grams IVPB once over 2 hrs Route: IVPB; Infused Over: 2 hrs; iw Site: right wrist; 16:45 Follow up: IV Status: Completed infusion iw 15:47 Drug: Cefepime IVPB 2 grams IVPB at 200 ml/hr once over 30 mins; (mix in NS 100 mL) iw Route: IVPB; Rate: 200 ml/hr; Infused Over: 30 mins; Site: left antecubital; 16:45 Follow up: IV Status: Completed infusion iw 16:34 Drug: Insulin Regular Human IVP 10 units IVP once {Co-Signature: jl7 (Malcolm Daniels iw RN).} Route: IVP; Site: right antecubital; 17:35 Follow up: Response: No adverse reaction; Blood sugar is lowered iw 16:52 Drug: NS 0.9% IV 1000 ml IV at 1 bolus Per protocol; 1000 mL bolus Route: IV; Rate: 1 iw bolus; Site: right antecubital; 17:50 Follow up: IV Status: Completed infusion iw 16:52 Drug: morphine IVP or IV 4 mg IVP once over 4 mins Route: IVP; Infused Over: 4 mins; iw Site: right antecubital; 17:20 Follow up: Response: No adverse reaction; Pain is decreased iw 16:52 Drug: Ondansetron IVP 4 mg IVP once; over 2 minutes Route: IVP; Site: right antecubital;iw 17:35 Follow up: Response: No adverse reaction iw Medication: 18:03 VIS not applicable for this client. iw Outcome: 16:51 Decision to Hospitalize by Provider. rt 18:02 Admitted to Med/surg accompanied by tech, via wheelchair, room 206, with chart, iw 18:02 Condition: good 18:02 Discharge instructions given to patient, Instructed on the need for admit, Demonstrated understanding of instructions, 18:03 Patient left the ED. iw Signatures: Dispatcher [employer] Stephany Schroeder RN RN iw Rick Queen MD MD rt Malcolm Daniels RN jl7
--- NOTE | 2024-07-14 16:52 | EDPHYS ---
Physician Documentation [facility] Name: Jonatan Sood Age: 43 yrs Sex: Male : 1980 Arrival Date: 07/14/2024 Time: 14:14 Bed 2 Private MD: ED Physician Rick Queen HPI: 07/14 14:49 This 43 yrs old Male presents to ER via EMS with complaints of Wound Infection. rt 14:49 Patient is had a chronic wound due to an abscess to the anterior abdominal wall. rt Patient states that was drained about 6 months ago in [place]. Never quite healed appropriately. States that the area has gotten worse, has worsening pain. He did receive some fluids, Toradol prior to arrival which she states did improve his symptoms. Denies other acute complaints, symptoms are moderate in severity, no other aggravating or elevating factors.. Historical: - Allergies: 14:33 NKDA; iw - PMHx: 14:33 diabetes mellitus; iw - PSHx: 14:33 I \T\ D abscesses; iw - Immunization history:: Adult Immunizations not up to date. - Family history:: not pertinent. ROS: 14:49 Constitutional: Negative for fever, chills, and weight loss, Cardiovascular: Negative rt for chest pain, palpitations, and edema, Respiratory: Negative for shortness of breath, cough, wheezing, and pleuritic chest pain, Skin: Negative for injury, rash, and discoloration, Neuro: Negative for headache, weakness, numbness, tingling, and seizure, 14:49 Skin: Positive for Cellulitis, purulence, Exam: 14:49 Constitutional: This is a well developed, well nourished patient who is awake, alert, rt and in no acute distress. Head/Face: Normocephalic, atraumatic. Chest/axilla: Normal chest wall appearance and motion. Nontender with no deformity. No lesions are appreciated. Cardiovascular: Regular rate and rhythm with a normal S1 and S2. No gallops, murmurs, or rubs. Normal PMI, no JVD. No pulse deficits. Respiratory: Lungs have equal breath sounds bilaterally, clear to auscultation and percussion. No rales, rhonchi or wheezes noted. No increased work of breathing, no retractions or nasal flaring. Skin: Warm, dry with normal turgor. Normal color with no rashes, no lesions, and no evidence of cellulitis. MS/ Extremity: Pulses equal, no cyanosis. Neurovascular intact. Full, normal range of motion. 14:49 Abdomen/GI: Tenderness diffusely, large area of erythema with small amount of purulent discharge noted on anterior abdominal wall., 14:49 ECG was reviewed by the Attending Physician. rt Vital Signs: 14:33 BP 140 / 95; Pulse 94; Resp 16; Temp 98.4; Pulse Ox 96% on R/A; iw MDM: 14:17 Patient medically screened. rt 16:51 Differential diagnosis: Cellulitis, abscess, sepsis. Data reviewed: vital signs, nurses rt notes, lab test result(s), EKG, radiologic studies. Consideration of Admission/Observation Patient was admitted/placed on observation. Management of patient was discussed with the following: Hospitalist: Agrees to admit. I considered the following discharge prescriptions or medication management in the emergency department Medications were administered in the Emergency Department. See MAR. Independent interpretation of the following test(s) in the Emergency Department CT Scan: My interpretation is No abscess seen on interpretation of CT scan images. Care significantly affected by the following chronic conditions: Diabetes. Counseling: I had a detailed discussion with the patient and/or guardian regarding the historical points, exam findings, and any diagnostic results supporting the discharge/admit diagnosis, lab results, radiology results, the need for further work-up and treatment in the hospital. Response to treatment: the patient's symptoms have mildly improved after treatment. 07/14 14:19 Order name: Blood Culture Adult (2) rt 07/14 14:19 Order name: CBC with Diff; Complete Time: 15:17 rt 07/14 14:19 Order name: CMP; Complete Time: 15:17 rt 07/14 14:19 Order name: Lactate w/ 2H reflex if indic.; Complete Time: 15:17 rt 07/14 14:19 Order name: Protime (+inr); Complete Time: 15:17 rt 07/14 14:19 Order name: Ptt, Activated; Complete Time: 15:17 rt 07/14 14:19 Order name: Wound Culture rt 07/14 16:50 Order name: Glucose, Ancillary Testing; Complete Time: 16:50 EDMS 07/14 14:19 Order name: CT Abd/Pelvis - IV Contrast Only; Complete Time: 16:08 rt 07/14 14:19 Order name: Accucheck; Complete Time: 14:44 rt 07/14 14:19 Order name: Cardiac monitoring; Complete Time: 14:43 rt 07/14 14:19 Order name: EKG - Nurse/Tech; Complete Time: 14:43 rt 07/14 14:19 Order name: IV Saline Lock - Large Bore; Complete Time: 14:43 rt 07/14 14:19 Order name: Labs collected and sent; Complete Time: 14:44 rt 07/14 14:19 Order name: O2 Per Protocol; Complete Time: 14:44 rt 07/14 14:19 Order name: O2 Sat Monitoring; Complete Time: 14:44 rt 07/14 14:19 Order name: Vital Signs; Complete Time: 14:44 rt EC:49 Rate is 99 beats/min. Rhythm is regular, Normal Sinus Rhythm with No ectopy. QRS Kyle rt is Normal. [place] interval is normal. QRS interval is normal. QT interval is normal. No Q waves. T waves are Normal. No ST changes noted. Interpreted by me. Administered Medications: 15:40 Drug: vancoMYCIN IVPB 1 grams IVPB once over 2 hrs Route: IVPB; Infused Over: 2 hrs; iw Site: right wrist; 16:45 Follow up: IV Status: Completed infusion iw 15:47 Drug: Cefepime IVPB 2 grams IVPB at 200 ml/hr once over 30 mins; (mix in NS 100 mL) iw Route: IVPB; Rate: 200 ml/hr; Infused Over: 30 mins; Site: left antecubital; 16:45 Follow up: IV Status: Completed infusion iw 16:34 Drug: Insulin Regular Human IVP 10 units IVP once {Co-Signature: jl7 (Malcolm Daniels iw RN).} Route: IVP; Site: right antecubital; 17:35 Follow up: Response: No adverse reaction; Blood sugar is lowered iw 16:52 Drug: NS 0.9% IV 1000 ml IV at 1 bolus Per protocol; 1000 mL bolus Route: IV; Rate: 1 iw bolus; Site: right antecubital; 17:50 Follow up: IV Status: Completed infusion iw 16:52 Drug: morphine IVP or IV 4 mg IVP once over 4 mins Route: IVP; Infused Over: 4 mins; iw Site: right antecubital; 17:20 Follow up: Response: No adverse reaction; Pain is decreased iw 16:52 Drug: Ondansetron IVP 4 mg IVP once; over 2 minutes Route: IVP; Site: right antecubital;iw 17:35 Follow up: Response: No adverse reaction iw Disposition Summary: 07/14/24 16:51 Hospitalization Ordered Notes: Hospitalization Status: Inpatient Admission rt Provider: Fox Reyna rt [facility] rt Condition: Fair rt Problem: an ongoing problem rt Symptoms: are unchanged rt Bed/Room Type: Standard rt Room Assignment: 206(07/14/24 17:01) eb Diagnosis - Cellulitis of abdominal wall rt - Sepsis rt - Hyperglycemia rt Forms: - Medication Reconciliation Form rt - SBAR form rt - Leadership Thank You Letter rt Critical care time excluding procedures: 16:51 Critical care time: Bedside Care: 30 minutes, Consultation: 5 minutes. Total time: 35 rt minutes Signatures: Dispatcher [employer] Stephany Schroeder, ALEXUS RN iw Priscilla Jimenes eb Rick Queen MD MD rt Malcolm Daniels RN jl7 Corrections: (The following items were deleted from the chart) 14:20 14:20 Abdomen Pelvis W Con+CT.RAD.BRZ ordered. LASHONDA GALLEGO 17:01 16:51 rt eb
--- NOTE | 2024-07-14 17:31 | P.HP ---
Certification for Inpatient Patient admitted to: Inpatient With expected LOS: >2 Midnights Patient will require the following post-hospital care: None Practitioner: I am a practitioner with admitting privileges, knowledge of patient current condition, hospital course, and medical plan of care. Services: Services provided to patient in accordance with Admission requirements found in Title 42 Section 412.3 of the Code of Federal Regulations Patient History Date of Service: 07/14/24 Reason for admission: Abdominal wall cellulitis, sepsis History of Present Illness: 43-year-old male with history of diabetes mellitus type 2, noncompliance, hidradenitis suppurativa with abdominal wall presents to the emergency room with complaint of possible infection of skin of the abdomen. He reports he been dealing with worsening pain, foul odor and drainage, erythema for the past week or 2. He was seen in the ER about a week ago and prescribed oral antibiotics but he has not been able to afford them. Patient was evaluated in the emergency department his labs were significant for a white blood cell count of 13.9 hemoglobin 11.4 hematocrit 36.1 sodium 128 glucose [address] of the abdomen pelvis with IV contrast was performed which showed midline abdominal wall wounds, no underlying abscess identified. No evidence of a disseminated gas-forming infection. He was started on IV antibiotics in the emergency department, will need to be admitted for further management of sepsis secondary to abdominal wall cellulitis complicated with hidradenitis suppurativa, diabetes with hyperglycemia. Allergies No Known Allergies Allergy (Unverified 03/24/24 20:34) Home Medications: Alcohol Antiseptic Pads [Alcohol Swabs] 1 each TP BID #1 box 03/28/24 Blood Sugar Diagnostic [Blood Glucose Test] 1 each MC BID #60 strip 03/28/24 Blood-Glucose Meter [Blood Glucose Monitoring] 1 each MC BID #1 kit 03/28/24 Chlorhexidine Gluconate [Antiseptic Skin Cleanser] 1 karla TP BID #237 ml 03/28/24 Insulin NPH Hum/Reg Insulin Hm [Novolin 70-30 Flexpen] 15 unit SQ BID #15 ml 03/28/24 Lancets 1 each MC BID #100 ea 03/28/24 Metformin HCl [Glucophage*] 1,000 mg PO BIDWM #120 tab 03/28/24 Metoprolol Tartrate [Lopressor*] 25 mg PO BID 6AM 6PM #60 tab 03/28/24 Mupirocin Oint [Bactroban 2% Ointment*] 1 appl REJI BID 10 Days #1 ea 03/28/24 Oxycodone HCl/Acetaminophen [Percocet 5/325 Tab*] 1 tab PO Q6H PRN #12 tab 03/28/24 Pen Needle, Diabetic [Pen Needle] 1 each MC BID #1 box 03/28/24 Smz./Tmp. [Bactrim Ds 800 MG/160 MG*] 1 tab PO BID #36 tab 03/28/24 Zinc Sulfate [Zinc Sulfate*] 220 mg PO DAILY #30 cap 03/28/24 - Past Medical/Surgical History Diabetic: Yes -: Diabetes mellitus -: Multiple skin abscesses -: Hidradenitis suppurativa -: Incision and drainage Psychosocial/ Personal History: Patient is currently homeless - Family History Family History: Reviewed- Non-Contributory - Social History Smoking Status: Former smoker Alcohol use: No CD- Drugs: No Caffeine use: No Place of Residence: Home Review of Systems 10-point ROS is otherwise unremarkable General: Malaise Gastrointestinal: Abdominal Pain Physical Examination - Physical Exam General: Alert, In no apparent distress, Oriented x3 HEENT: Atraumatic, PERRLA, Mucous membr. moist/pink Neck: Supple, 2+ carotid pulse no bruit, No LAD Respiratory: Clear to auscultation bilaterally, Normal air movement Cardiovascular: Regular rate/rhythm, Normal S1 S2 Gastrointestinal: Normal bowel sounds, No tenderness Musculoskeletal: No tenderness Integumentary: Other (Multiple open wounds to abdominal wall with tunneling, induration and scarring, foul odor drainage present) Neurological: Normal gait, Normal speech, Normal strength at 5/5 x4 extr, Normal tone Lymphatics: No axilla or inguinal lymphadenopathy - Studies Laboratory Data (last 24 hrs) 07/14/24 07/14/24 07/14/24 14:31 14:31 14:31 WBC 13.90 H Hgb 11.4 L Hct 36.1 L Plt Count 498 H PT 12.6 H INR 1.13 APTT 37.4 H Sodium 128 L Potassium 4.2 BUN 13 Creatinine 0.61 L Glucose 365 H Total Bilirubin 0.3 AST < 10 L ALT < 14 L Alkaline Phosphatase 157 H Assessment and Plan - Plan Assessment: Sepsis secondary to abdominal wall cellulitis complicated with hidradenitis suppurativa Diabetes mellitus type 2 with hyperglycemia, noncompliance Plan: Sepsis secondary to abdominal wall cellulitis complicated with hidradenitis suppurativa Blood cultures and wound cultures ordered and pending Infectious disease to be consulted Continue antibiotics with Levaquin, vancomycin based on previous cultures Continue IV fluids overnight Monitor CBC daily, watch for fevers Diabetes mellitus type 2 with hyperglycemia, noncompliance Has been unable to afford any medications including his metformin outpatient ACHS Accu-Chek, sliding scale insulin, A1c in the morning DVT PPX: Lovenox Code status: Full Discharge Plan: Home Plan to discharge in: Greater than 2 days - Advance Directives Does patient have a Living Will: No Does patient have a Durable POA for Healthcare: No - Code Status/Comfort Care Code Status Assessed: Yes (Full code) Time Spent Managing Pts Care (In Minutes): 62
[2024-07-14 18:34] VITALS: BMI 18.6
[2024-07-14] MEDS ORDERED: ONDANSETRON 4 MG/2 ML VIAL IV PRN (18:35)
[2024-07-14] MEDS: NA CHLORIDE 0.9% 1,000 ML IV SCH (18:45)
[2024-07-14] MEDS: Levofloxacin 750mg IV 750 MG/150 ML BAG IV SCH (21:06)
[2024-07-14] MEDS: INSULIN REGULAR (HUMAN) 100 UNIT/ML SQ SCH (21:06)
[2024-07-14] MEDS: VANCOMYCIN 1 GM in NA CHLORIDE 0.9% 250 ML IVPB SCH (23:24)
[2024-07-15 04:55] LABS: Absolute Basophils 0.1 K/uL (0-0.5); Absolute Eosinophils 0.2 K/uL (0-0.5); Absolute Lymphocytes (CBC) 1.6 K/uL (0.7-4.9); Absolute Monocytes 1.4 K/uL (0.1-1.3); Absolute Neutrophil 10.5 K/uL (1.8-8.0); Basophils % 1.1 % (0-1.3); Eosinophils % 1.4 % (0-4.4); Hematocrit 30.2 % (39.6-49.0); Hemoglobin 9.9 g/dL (13.6-17.9); Lymphocytes % 11.4 % (15.3-44.8); MCH 25.6 pg (27.0-35.0); MCHC 32.8 g/dL (32.0-36.0); MCV 78.1 fL (80-100); MPV 7.3 fL (7.6-11.3); Monocytes % 10.3 % (3.3-12.3); Neutrophils % 75.8 % (41.7-73.7); Platelets 448 thou/uL (152-406); RBC Red Blood Cell Count 3.87 M/uL (4.33-5.43); Red Cell Distribution Width 15.3 % (12.1-15.2)
[2024-07-15 05:10] LABS: Anion Gap 7.9 mEq/L (5.0-15.0); Magnesium 1.8 mg/dL (1.6-2.4); Potassium 3.9 mEq/L (3.5-5.1)
[2024-07-15] MEDS: Oxycodone HCl/Acetaminophen 5/325 MG TAB PO PRN (07:22)
[2024-07-15] MEDS: VANCOMYCIN 1 GM/VIAL ONE ×2 (07:33→08:22)
[2024-07-15] MEDS: POTASSIUM CL SA 10 MEQ TAB PO ONE (07:53)
[2024-07-15] MEDS: ENOXAPARIN 40 MG/0.4 ML SQ SCH (07:53)
[2024-07-15] MEDS: MAGNESIUM SULFATE 1 gm IVPB 1 GM/100 ML BAG IV ONE (07:53)
--- NOTE | 2024-07-15 09:46 | P.PN ---
Date of Service: 07/15/24 Subjective: No acute events overnight Still with complaints of abdominal pain to abdominal wall ROS: 10 point ROS as noted above, otherwise negative Physical exam GEN: Alert, oriented, NAD HEENT: Normal conjunctiva, sclera anicteric CV: Regular rate and rhythm, no edema Pulm: Nonlabored respirations on room air ABD: Soft, nontender, nondistended MSK: No joint tenderness Integumentary: Multiple open sores to abdominal wall with tunneling, erythema, induration Neuro: Normal speech, normal affect Vitals reviewed Assessment: Sepsis secondary to abdominal wall cellulitis complicated with hidradenitis suppurativa Diabetes mellitus type 2 with hyperglycemia, noncompliance Plan: Sepsis secondary to abdominal wall cellulitis complicated with hidradenitis suppurativa Blood cultures and wound cultures ordered and pending Infectious disease to be consulted Continue antibiotics with Levaquin, vancomycin based on previous cultures Monitor CBC daily, watch for fevers As needed pain medication Diabetes mellitus type 2 with hyperglycemia, noncompliance Has been unable to afford any medications including his metformin outpatient ACHS Accu-Chek, sliding scale insulin, A1c pending DVT PPX: Lovenox Code status: Full Discharge Plan: Home Plan to discharge in: Greater than 2 days Time Spent Managing Pts Care (In Minutes): 35
[2024-07-15] MEDS: SILVER SULFADIAZINE 1% 50 GM TOP SCH (16:26)
--- NOTE | 2024-07-15 18:59 | CON ---
History Of Present Illness: This is a 43-year-old male with significant past medical history of diab etes mellitus type 2, noncompliance, hidradenitis suppurativa with abdominal wall area involvement an d pain. Patient denies any headache, nausea, vomiting, chest pain. Continued to have abdominal pain and as per staff, a small amount of pus was also drained from the abdominal lesions. The patient is not taking care of his diabetes mellitus. Denies any other problem. At this time, able to tolerate the antibiotic without any concerns. Past Medical History: As per HPI. Social History: Nonsmoker. Nondrinker. Family History: Noncontributory. Medications: Vancomycin. Levaquin. See MARs for other medications. Allergies: NO KNOWN DRUG ALLERGIES. Review of Systems: A 10-point review was performed. Physical Examination: General: This is a 43-year-old male, lying in bed, not in any acute cardiopulmonary distress. Vital Signs: Reviewed. Lungs: Basal crackles. Heart: S1, S2. Regular. Abdomen: Soft. Bowel sounds present. Tenderness in the periumbilical area noted with multiple supp urative lesions are also noted. Extremities: No edema. Laboratory Data: Shows WBC 13.8, hemoglobin 9.9, platelets are 448. Chemistry shows BUN of 14, crea tinine 0.3. Micro data: Cultures are pending. Blood cultures are negative for 24 hour since yester day. Abdominal wound cultures are growing skin gia with gram-positive cocci in clusters and Gram s tain. Assessment And Plan: 43-year-old male with diabetes mellitus type 2, noncompliant with his medicatio n. A1c is pending, but patient's sugars are running around 300. Hidradenitis suppurativa. Recommen d to apply Silvadene to the open abdominal wound region, cover with ABD pad. Continue current treatm ent. Leukocytosis. Anemia of chronic disease. We will follow the patient closely. Thank you for consult. NF/MODL Voice ID: [id number] Report ID: [id number]
[2024-07-16 07:38] LABS: Absolute Basophils 0.1 K/uL (0-0.5); Absolute Eosinophils 0.2 K/uL (0-0.5); Absolute Lymphocytes (CBC) 1.5 K/uL (0.7-4.9); Absolute Monocytes 1.2 K/uL (0.1-1.3); Absolute Neutrophil 9.1 K/uL (1.8-8.0); Basophils % 0.8 % (0-1.3); Eosinophils % 1.8 % (0-4.4); Hematocrit 30.5 % (39.6-49.0); Hemoglobin 10.1 g/dL (13.6-17.9); Lymphocytes % 12.6 % (15.3-44.8); MCHC 33.1 g/dL (32.0-36.0); MCV 78.6 fL (80-100); MPV 7.3 fL (7.6-11.3); Monocytes % 9.7 % (3.3-12.3); Neutrophils % 75.1 % (41.7-73.7); Platelets 420 thou/uL (152-406); RBC Red Blood Cell Count 3.88 M/uL (4.33-5.43)
[2024-07-16 07:54] LABS: Magnesium 1.5 mg/dL (1.6-2.4)
[2024-07-16] MEDS: VANCOMYCIN 1 GM in NA CHLORIDE 0.9% 250 ML IVPB SCH (08:39)
--- NOTE | 2024-07-16 10:21 | EKG ---
Test Date: 2024-07-14 Test Time: 14:41:11 Railroad Design Consultant: JAH MEASUREMENT RESULTS: Intervals: Rate: 99 NC: 126 QRSD: 78 QT: 348 QTc: 446 [place]: P: 71 NC: 126 QRS: 58 T: 49 INTERPRETIVE STATEMENTS: Normal sinus rhythm Normal ECG Compared to ECG 03/24/2024 19:43:27 Fusion complex(es) no longer present Ventricular premature complex(es) no longer present Atrial abnormality no longer present Electronically Signed On 07-16-24 10:19:53 CDT by Terence Garcia
[2024-07-16 10:24] VITALS: O2SAT 97
[2024-07-16] MEDS ORDERED: HYDRALAZINE HCL 20 MG/ML VIAL IV PRN (12:44)
[2024-07-16] MEDS ORDERED: D50W 25 GM/50 ML SYRINGE IV PRN (13:00)
[2024-07-16] MEDS ORDERED: GLUCAGON 1 MG/VIAL IM PRN (13:00)
--- NOTE | 2024-07-16 13:00 | P.PN ---
Date of Service: 07/16/24 Subjective: No acute events overnight Still with complaints of abdominal pain to abdominal wall WBC improved today ROS: 10 point ROS as noted above, otherwise negative Physical exam GEN: Alert, oriented, NAD HEENT: Normal conjunctiva, sclera anicteric CV: Regular rate and rhythm, no edema Pulm: Nonlabored respirations on room air ABD: Soft, nontender, nondistended MSK: No joint tenderness Integumentary: Multiple open sores to abdominal wall with tunneling, erythema, induration Neuro: Normal speech, normal affect Vitals reviewed Assessment: Sepsis secondary to abdominal wall cellulitis complicated with hidradenitis suppurativa Diabetes mellitus type 2 with hyperglycemia, noncompliance Hypertension Plan: Sepsis secondary to abdominal wall cellulitis complicated with hidradenitis suppurativa Blood cultures with no growth in 24 hours Infectious disease following Continue antibiotics with Levaquin, vancomycin based on previous cultures Monitor CBC daily, watch for fevers As needed pain medication Diabetes mellitus type 2 with hyperglycemia, noncompliance Has been unable to afford any medications including his metformin outpatient [facility] Accu-Chek, sliding scale insulin, A1c 13.6 Will start long acting insulin-likely 70/30 given financial concerns/lack of insurance Hypertension Started lisinopril 5mg daily today DVT PPX: Lovenox Code status: Full Discharge Plan: Home Plan to discharge in: 1-2 days Time Spent Managing Pts Care (In Minutes): 35
[2024-07-16] MEDS: lisinopriL 10 MG TAB PO ONE (13:05)
[2024-07-16] MEDS: INSULIN REGULAR (HUMAN) 100 UNIT/ML IV ONE (13:05)
[2024-07-16] MEDS ORDERED: D10W 125 ML IV PRN (13:25)
[2024-07-16] MEDS: MAGNESIUM SULFATE 1 gm IVPB 1 GM/100 ML BAG IV ONE (15:10)
[2024-07-16] MEDS: INSULIN 70/30 100 UNITS/ML SQ SCH (17:20)
[2024-07-16] MEDS ORDERED: INSULIN GLARGINE 100 UNIT/ML SQ SCH (21:00)
[2024-07-17 04:37] LABS: Absolute Eosinophils 0.3 K/uL (0-0.5); Absolute Monocytes 1.2 K/uL (0.1-1.3); Absolute Neutrophil 8.1 K/uL (1.8-8.0); Basophils % 0.2 % (0-1.3); Eosinophils % 2.4 % (0-4.4); Hematocrit 31.8 % (39.6-49.0); Hemoglobin 10.1 g/dL (13.6-17.9); Lymphocytes % 17.3 % (15.3-44.8); MCH 24.9 pg (27.0-35.0); MCHC 31.8 g/dL (32.0-36.0); MCV 78.4 fL (80-100); MPV 7.8 fL (7.6-11.3); Monocytes % 10.1 % (3.3-12.3); Platelets 411 thou/uL (152-406); RBC Red Blood Cell Count 4.06 M/uL (4.33-5.43)
[2024-07-17 04:47] LABS: Anion Gap 6.9 mEq/L (5.0-15.0); Magnesium 1.8 mg/dL (1.6-2.4); Potassium 3.9 mEq/L (3.5-5.1)
[2024-07-17] MEDS: lisinopriL 5 MG TAB PO SCH (08:30)
--- NOTE | 2024-07-17 18:24 | P.PN ---
Date of Service: 07/17/24 Subjective: Feeling well Tolerating IV abx no new complaints ROS: 10 point ROS as noted above, otherwise negative Physical exam GEN: AAOx3, NAD HEENT: Normal conjunctiva, sclera anicteric CV: Regular rate and rhythm, no edema Pulm: Nonlabored respirations on room air ABD: Soft on palpation, nontender/nondistended, bowel sounds present MSK: No joint tenderness Integumentary: Multiple open sores to abdominal wall with tunneling, erythema, induration Neuro: Normal speech, normal affect Vitals reviewed Assessment: Sepsis secondary to abdominal wall cellulitis complicated with hidradenitis suppurativa Diabetes mellitus type 2 with hyperglycemia, noncompliance Hypertension Plan: Sepsis secondary to abdominal wall cellulitis complicated with hidradenitis suppurativa Blood cultures with no growth in 24 hours Infectious disease following Stopped Levaquin, vancomycin 07/17 Started clindamycin 300 mg BID 07/17 Monitor CBC daily, watch for fevers As needed pain medication Diabetes mellitus type 2 with hyperglycemia, noncompliance Has been unable to afford any medications including his metformin outpatient [facility] Accu-Chek, sliding scale insulin, A1c 13.6 Will start long acting insulin-likely 70/30 given financial concerns/lack of insurance Hypertension Started lisinopril 5mg daily today DVT PPX: Lovenox Code status: Full Discharge Plan: Home Plan to discharge in: 1-2 days
--- NOTE | 2024-07-17 20:45 | PN ---
Subjective: Patient lying in bed. No new acute event. Chart reviewed. Objective: Vital Signs: Reviewed. Lungs: Clear to auscultation. Heart: S1, S2. Regular. Abdomen: Tenderness noted. Bowel sounds present. Extremity: No edema. Laboratory Data: Reviewed. Assessment And Plan: Leukocytosis and cellulitis of abdominal wall with the suppurative hidradenitis . Continue Silvadene and antibiotic, total of 2 weeks. We will follow the patient as needed. Can b e switched to oral antibiotic, doxycycline and Cipro. We will follow the patient as needed. NF/MODL Voice ID: [id number] Report ID: [id number]
[2024-07-18 05:33] LABS: Anion Gap 6.3 mEq/L (5.0-15.0); Magnesium 1.8 mg/dL (1.6-2.4); Potassium 4.3 mEq/L (3.5-5.1)
[2024-07-18] MEDS ORDERED: NA CHLORIDE 0.9% 1,000 ML IV SCH (07:00)
[2024-07-18 08:35] VITALS: BP 156/88; TEMP 97.5
--- NOTE | 2024-07-18 10:02 | P.DS ---
Admission Date: 07/14/24 Discharge Date: 07/18/24 Disposition: ROUTINE DISCHARGE Discharge Condition: FAIR Reason for Admission: Abdominal wall cellulitis, sepsis Brief History of Present Illness: Diagnosis Sepsis secondary to abdominal wall cellulitis complicated with hidradenitis suppurativa Diabetes mellitus type 2 with hyperglycemia, noncompliance Hypertension [facility] 07/14/2024 Jonatan Sood is a 43-year-old male with history of diabetes mellitus type 2, noncompliance, hidradenitis suppurativa with abdominal wall presents to the emergency room with complaint of possible infection of skin of the abdomen. He reports he been dealing with worsening pain, foul odor and drainage, erythema for the past week or 2. He was seen in the ER about a week ago and prescribed oral antibiotics but he has not been able to afford them. Patient was evaluated in the emergency department his labs were significant for a white blood cell count of 13.9 hemoglobin 11.4 hematocrit 36.1 sodium 128 glucose [address] of the abdomen pelvis with IV contrast was performed which showed midline abdominal wall wounds, no underlying abscess identified. No evidence of a disseminated gas-forming infection. He was started on IV antibiotics in the emergency department, will need to be admitted for further management of sepsis secondary to abdominal wall cellulitis complicated with hidradenitis suppurativa, diabetes with hyperglycemia. Hospital Course: Jonatan Sood is a pleasant 43 year old male with a past medical history significant for mellitus type 2, noncompliance, hidradenitis suppurativa with abdominal wall who was admitted to the [facility] on 07/14/24 for Sepsis 2/2 abdominal wall cellulitis complicated with hidradenitis suppurative. Jonatan Sood presented with abdominal discomfort with wounds present and foul odor. CT showing midline abdominal wall abdominal wall wounds. Dr. Cornejo consulted. Wound culture resulted beta hemolytic strep group G, Blood cultures negative. Dr. Cornejo recommended clindamycin PO. Jonatan has tolerated IV antibiotics, PO diet, and ambulates independenly. His WBC have trended down and hemodynamically stable for discharge. His glucose level has been elevated and will be dischared with metformin and checking his glucose level daily. On 07/18/24, Jonatan Sood was seen on morning rounds and deemed medically stable for discharge. Jonatan was discharged with instructions to schedule follow- up appointments with PCP. Jonatan was provided prescriptions for lisinopril, metformin, clindamycin, and Augmentin,. Physical exam GEN: Awake, alert, and oriented x3, NAD HEENT: Normal conjunctiva, sclera anicteric CV: RRR, S1-S2 present no edema Pulm: Nonlabored respirations on room air ABD: Soft on palpation, nontender/nondistended, bowel sounds present, dressing CDI MSK: No joint tenderness Integumentary: Multiple open sores to abdominal wall with tunneling, erythema, induration, no drainage Neuro: Normal speech, normal affect Vital Signs/Physical Exam: Temp Pulse Resp BP Pulse Ox 97.5 F 85 14 156/88 H 100 07/18/24 08:00 07/18/24 08:00 07/18/24 08:00 07/18/24 08:00 07/18/24 08:00 Laboratory Data at Discharge: WBC 11.60 thou/uL (4.3-10.9) H 07/17/24 04:02 Hgb 10.1 g/dL (13.6-17.9) L 07/17/24 04:02 Hct 31.8 % (39.6-49.0) L 07/17/24 04:02 Plt Count 411 thou/uL (152-406) H 07/17/24 04:02 PT 12.6 SECONDS (9.4-12.5) H 07/14/24 14:31 INR 1.13 07/14/24 14:31 APTT 37.4 SECONDS (24.3-36.9) H 07/14/24 14:31 Sodium 129 mEq/L (136-145) L 07/18/24 04:48 Potassium 4.3 mEq/L (3.5-5.1) 07/18/24 04:48 BUN 14 mg/dL (7-18) 07/18/24 04:48 Creatinine 0.51 mg/dL (0.70-1.30) L 07/18/24 04:48 Glucose 279 mg/dL (74-106) H 07/18/24 04:48 Magnesium 1.8 mg/dL (1.6-2.4) 07/18/24 04:48 Total Bilirubin 0.3 mg/dL (0.2-1.0) 07/14/24 14:31 AST < 10 U/L (15-37) L 07/14/24 14:31 ALT < 14 U/L (16-61) L 07/14/24 14:31 Alkaline Phosphatase 157 U/L (45-117) H 07/14/24 14:31 Home Medications: Ibuprofen 1 tab PO Q6H PRN 07/15/24 Amox/Clavulanate [Augmentin 500-125 mg Tab] 500 mg PO BID 10 Days #20 tab 07/18/24 Metformin HCl 500 mg PO BID 30 Days #60 tab 07/18/24 Silver Sulfadiazine Crm [Silvadene*] 1 appl TOP DAILY #0 tube 07/18/24 clindamycin HCL [Cleocin HCl *] 300 mg PO BIDWM 10 Days #20 cap 07/18/24 lisinopriL [Prinivil*] 5 mg PO DAILY 30 Days #30 tab 07/18/24 New Medications: Amox/Clavulanate [Augmentin 500-125 mg Tab] 500 mg PO BID 10 Days #20 tab clindamycin HCL [Cleocin HCl *] 300 mg PO BIDWM 10 Days #20 cap Metformin HCl 500 mg PO BID 30 Days #60 tab lisinopriL [Prinivil*] 5 mg PO DAILY 30 Days #30 tab Physician Discharge Instructions: 1. Please follow up with [facility] [address] [place] [address] # -check your blood sugar daily and record for the doctor to evaluate, BG > 200 during this admission -follow up on blood pressure -follow up on abdominal wound 2. continue diabetic diet 3. no activity restrictions 4. Daily dressing changes, call and follow up with wound care, there is a clinic charge 5. Return to the ED if symptoms worsen New medications Clindamycin 300 mg twice daily x ten days Augmentin 500 mg twice daily x ten days Lisinopril 5 mg daily x 30 days- your doctor will refill Metformin 500 mg twice daily- your doctor will refill Dressing instructions: wash with clean water and mild soap, apply Silvadene, four by fours, ABD pad, tape- daily change Diet: ADA Activity: Ad christopher Followup: NONE,NONE [Primary Care Provider] - 1-2 Weeks
== END 2024-07-18 10:50 | disposition home or self-care (01) | DRG 872 ==
LOC: ER 14:14 → ERHOLD 16:42 → 2ND 17:36
PROVIDERS: ADMIT Hospitalist; ATTEND Internal Medicine
DX: A41.9 Sepsis, unspecified organism (principal); L03.311 Cellulitis of abdominal wall; Z59.00 Homelessness unspecified; E11.65 Type 2 diabetes mellitus with hyperglycemia; Z79.4 Long term (current) use of insulin; Z91.148 Patient's other noncompliance with medication regimen for other reason; L73.2 Hidradenitis suppurativa; D63.8 Anemia in other chronic diseases classified elsewhere; I10 Essential (primary) hypertension; B95.4 Other streptococcus as the cause of diseases classified elsewhere
CPT/HCPCS: 36415; 74177; 80048; 80053; 80202; 82947; 83036; 83605; 83735; 85025; 85610; 85730; 87040; 87070; 87205; 93005; 99285; J0692; J1650; J1815; J2405; J3475; J7030; J7050; Q9967

== ENCOUNTER 2024-08-06 17:07 | Inpatient (IN) | payer SELFPAY ==
[2024-08-06 18:42] LABS: Absolute Basophils 0.1 K/uL (0-0.5); Absolute Eosinophils 0.1 K/uL (0-0.5); Absolute Lymphocytes (CBC) 1.4 K/uL (0.7-4.9); Absolute Monocytes 1.1 K/uL (0.1-1.3); Absolute Neutrophil 11.8 K/uL (1.8-8.0); Eosinophils % 0.5 % (0-4.4); Hemoglobin 9.8 g/dL (13.6-17.9); Lymphocytes % 9.6 % (15.3-44.8); MCH 25.5 pg (27.0-35.0); MCHC 31.5 g/dL (32.0-36.0); MCV 80.9 fL (80-100); MPV 7.8 fL (7.6-11.3); Monocytes % 7.9 % (3.3-12.3); Platelets 359 thou/uL (152-406); RBC Red Blood Cell Count 3.83 M/uL (4.33-5.43); Red Cell Distribution Width 15.7 % (12.1-15.2)
[2024-08-06 19:02] LABS: Albumin 2.2 g/dL (3.4-5.0); Albumin/Globulin Ratio 0.4 (1.1-1.8); Alkaline Phosphatase 150 U/L (45-117); Anion Gap 9.8 mEq/L (5.0-15.0); BUN Blood Urea Nitrogen 9 mg/dL (7-18); Bicarbonate 25 mEq/L (21-32); Bilirubin Total 0.2 mg/dL (0.2-1.0); Globulin 5.4 g/dL (2.3-3.5); Glomerular Filtration Rate 116 ml/min (=/>90); Potassium 3.8 mEq/L (3.5-5.1); Protein, Total 7.6 g/dL (6.4-8.2); Sodium Level 132 mEq/L (136-145)
[2024-08-06 19:04] LABS: ALT/SGPT < 14 U/L (16-61); AST/SGOT < 10 U/L (15-37)
[2024-08-06 19:05] LABS: Glucose Level 618 mg/dL (74-106)
[2024-08-06 19:10] LABS: Specific Gravity > 1.030 (1.005-1.030); Sqamous Epithelial None Seen /HPF (None Seen); Urine Bacteria None Seen /HPF (<20); Urine Bilirubin NEGATIVE (Negative); Urine Blood Negative (Negative); Urine Clarity Clear (Clear); Urine Color Colorless (Yellow); Urine Culture Reflex Order NOT NEEDED; Urine Glucose 4+ (Over) (Negative); Urine Ketones NEGATIVE (Negative); Urine Microscopic Reflex YN ORDER UMIC; Urine Mucus Slight /HPF (None Seen); Urine Nitrite NEGATIVE (Negative); Urine Protein NEGATIVE (Negative); Urine RBC None Seen /HPF (None Seen); Urine Urobilinogen Normal (Normal); Urine WBC <5 /HPF (<5)
[2024-08-06 19:12] LABS: PT Prothrombin Time 12.8 SECONDS (9.4-12.5); PTT, Activated Partial Thromb 27.8 SECONDS (24.3-36.9); Protime INR 1.15
[2024-08-06] MEDS ORDERED: NA CHLORIDE 0.9% 2,000 ML ONE (19:39)
[2024-08-06] MEDS ORDERED: ONDANSETRON 4 MG/2 ML VIAL ONE (19:48)
[2024-08-06] MEDS ORDERED: MORPHINE 4 MG/ML SYR ONE (19:49)
--- NOTE | 2024-08-06 19:52 | ER ---
Nurse's Notes [facility] Name: Jonatan Sood Age: 43 yrs Sex: Male : 1980 Arrival Date: 08/06/2024 Time: 17:07 Bed 3 Private MD: Diagnosis: Sepsis, unspecified organism;Abdominal tenderness, unspecified site;Hyperglycemia, unspecified;Diabetes mellitus due to underlying condition with hyperglycemia Presentation: 08/06 17:14 Chief complaint: EMS states: pt was on his way here when he felt lightheaded and dizzy. kc6 pt reports 8/10 abd pain from a wound that's been going on x1 yr. BGL for EMS read high. Coronavirus screen: At this time, the client does not indicate any symptoms associated with coronavirus-19. Ebola Screen: No symptoms or risks identified at this time. Initial Sepsis Screen: Does the patient meet any 2 criteria? HR > 90 bpm. Does the patient have a suspected source of infection? No. Patient's initial sepsis screen is negative. Risk Assessment: Do you want to hurt yourself or someone else? Patient reports no desire to harm self or others. Onset of symptoms was August 06, 2024. 17:14 Method Of Arrival: EMS: [facility] 17:14 Acuity: ANI 2 kc Historical: - Allergies: 17:16 NKDA; kc6 - PMHx: 17:16 diabetes mellitus; kc6 - PSHx: 17:16 I \T\ D abscesses; Appendectomy; kc6 - Immunization history:: Adult Immunizations not up to date. - Infectious Disease History:: Denies. - Social history:: Smoking status: Patient denies any tobacco usage or history of. Screenin:17 [facility] ED Fall Risk Assessment (Adult) History of falling in the last 3 months, kc6 including since admission No falls in past 3 months (0 pts) Confusion or Disorientation No (0 pts) Intoxicated or Sedated No (0 pts) Impaired Gait No (0 pts) Mobility Assist Device Used No (0 pt) Altered Elimination No (0 pt) Score/Fall Risk Level 0 - 2 = Low Risk Oriented to surroundings. Abuse screen: Denies threats or abuse. Denies injuries from another. Nutritional screening: No deficits noted. Tuberculosis screening: No symptoms or risk factors identified. Assessment: 18:34 General: Appears in no apparent distress. Behavior is calm, cooperative. Pain: ph Complains of pain in abdomen. Neuro: Level of Consciousness is awake, alert, obeys commands, Oriented to person, place, time, situation. Cardiovascular: Capillary refill < 3 seconds in bilateral fingers Patient's skin is warm and dry. Respiratory: Airway is patent Respiratory effort is even, unlabored, Respiratory pattern is regular, symmetrical. GI: malodorous wound to lower abdomen w/ swelling, redness and multiple small open areas, draining purulent discharge Bowel sounds present X 4 quads. Reports lower abdominal pain. Derm: Skin is pink, warm \T\ dry. Musculoskeletal: Circulation, motion, and sensation intact. Range of motion: intact in all extremities. 20:27 Reassessment: Patient appears in no apparent distress at this time. Patient and/or bm8 family updated on plan of care and expected duration. Pain level reassessed. Patient is alert, oriented x 3, equal unlabored respirations, skin warm/dry/pink. GI: Abdomen is flat, non-distended, Bowel sounds present X 4 quads. Abdomen is tender to palpation in right upper quadrant, left upper quadrant, right lower quadrant and left lower quadrant Reports lower abdominal pain, Pain is 6 out of 10 on a pain scale. Derm: Skin is pink, warm \T\ dry. Derm: Wound noted abdomen Wound is cellulitis to anterior abd. Musculoskeletal: Circulation, motion, and sensation intact. Range of motion: intact in all extremities. 21:50 Reassessment: Patient appears in no apparent distress at this time. Patient and/or bm8 family updated on plan of care and expected duration. Pain level reassessed. Patient is alert, oriented x 3, equal unlabored respirations, skin warm/dry/pink. pts wound cleaned an redressed. Vital Signs: 17:14 BP 171 / 103; Pulse 98; Resp 18 S; Temp 98.5(O); Pulse Ox 99% on R/A; Weight 58.97 kg kc6 (R); Height 5 ft. 9 in. (R); Pain 8/10; 19:01 BP 151 / 101; Pulse 96; Resp 18; Pulse Ox 98% on R/A; ph 20:27 BP 162 / 95; Pulse 90; Resp 15; Temp 98.5; Pulse Ox 99% on R/A; Pain 6/10; bm8 21:58 BP 159 / 92; Pulse 93; Resp 17; Temp 97.6; Pulse Ox 100% ; Pain 6/10; bm8 17:14 Body Mass Index 19.20 (58.97 kg, 175.26 cm) kc6 17:14 Pain Scale: Adult kc6 20:27 Pain Scale: Adult bm8 21:58 Pain Scale: Adult bm8 Rosalind Coma Score: 20:27 Eye Response: spontaneous(4). Motor Response: obeys commands(6). Verbal Response: bm8 oriented(5). Total: 15. 21:58 Eye Response: spontaneous(4). Motor Response: obeys commands(6). Verbal Response: bm8 oriented(5). Total: 15. ED Course: 17:13 Patient arrived in ED. kc6 17:14 Leyda Dixon, RN is Primary Nurse. ph 17:16 Triage completed. kc6 17:16 Arm band placed on. kc6 17:16 Patient has correct armband on for positive identification. Bed in low position. Call kc6 light in reach. Side rails up X2. residential monitor on. Pulse ox on. NIBP on. Door closed. Noise minimized. Lights dimmed. Warm blanket given. Pillow given. 17:16 Maintain EMS IV. Dressing intact. Good blood return noted. Site clean \T\ dry. Gauge \T\ sabi 6 site: JAMSHID 18 to the right and left FA. Flushed with 10 mL NS. Patient maintains SpO2 saturation greater than 95% on room air. 17:33 Antonino Gonzalez MD is Attending Physician. bo1 18:30 Initial lab(s) drawn, by ut, sent to lab. First set of blood cultures drawn by me. ph 18:40 Second set of blood cultures drawn by ut, Urine collected: clean catch specimen, clear, ph Amount Voided: 900mL. 18:48 Blood Culture Adult (2) Sent. ph 18:48 CBC with Diff Sent. ph 18:48 CMP Sent. ph 18:48 Lactate w/ 2H reflex if indic. Sent. ph 18:48 Protime (+inr) Sent. ph 18:48 Ptt, Activated Sent. ph 19:00 Urinalysis w/ reflexes Sent. ph 19:50 Jane Figueroa FNP is Hospitalizing Provider. bo1 20:02 CT Chest, Abdomen, Pelvis - W/Contrast In Process Unspecified. EDMS 20:27 Provided Education on: need for admission. bm8 20:27 No provider procedures requiring assistance completed. Patient admitted, IV remains in bm8 place. 20:41 Attending Physician role handed off by Antonino Gonzalez MD sp4 20:41 Leodan Rose MD is Attending Physician. sp4 Administered Medications: 19:47 Drug: NS 0.9% IV (30 ml/kg) 30 ml/kg IV at bolus once; Sepsis Protocol; to be given as bm8 a bolus over 90 minutes Route: IV; Rate: bolus; Site: right forearm; 21:58 Follow up: Response: No adverse reaction; IV Status: Completed infusion; IV Intake: bm8 1800ml 19:51 Drug: morphine IVP or IV 4 mg IVP once over 4 mins Route: IVP; Infused Over: 4 mins; bm8 Site: right forearm; 21:57 Follow up: Response: No adverse reaction bm8 19:51 Drug: Ondansetron IVP 4 mg IVP once; over 2 minutes Route: IVP; Site: right forearm; bm8 21:56 Follow up: Response: No adverse reaction bm8 20:23 Drug: Insulin Regular Human IVP 10 units IVP once {Co-Signature: br2 (Juliette Callejas 8 RN).} Route: IVP; Site: left forearm; 21:56 Follow up: Response: No adverse reaction bm8 20:23 Drug: ceFAZolin IVPB 2 grams IVPB once over 30 mins; (mix in 100 mL NS) Route: IVPB; bm8 Infused Over: 30 mins; Site: left forearm; 21:56 Follow up: Response: No adverse reaction; IV Status: Completed infusion; IV Intake: bm8 100ml Medication: 18:36 VIS not applicable for this client. ph Intake: 21:56 IV: 100ml; Total: 100ml. bm8 21:58 IV: 1800ml; Total: 1900ml. bm8 Outcome: 19:52 Decision to Hospitalize by Provider. bo1 21:58 Admitted to Med/surg accompanied by nurse, via stretcher, room 214, with chart, bm8 21:58 Condition: stable 21:58 Instructed on the need for admit, 22:33 Patient left the ED. bm8 Signatures: Dispatcher [employer] Leyda Bahena, RN RN ph Ciara Cortes, RN RN kc6 Leodan Rose MD MD sp4 Antonino Gonzalez MD MD bo1 Spike Dao RN RN bm8 Juliette Callejas RN br2 Corrections: (The following items were deleted from the chart) 18:38 16:30 Initial lab(s) drawn, by me, sent to lab. First set of blood cultures drawn by [facility],
--- NOTE | 2024-08-06 19:52 | EDPHYS ---
Physician Documentation [facility] Name: Jonatan Sood Age: 43 yrs Sex: Male : 1980 Arrival Date: 08/06/2024 Time: 17:07 Bed 3 Private MD: ED Physician Leodan Rose HPI: 08/06 19:41 This 43 yrs old Male presents to ER via EMS with complaints of Abdominal Pain, High bo1 Blood Sugar. 19:41 Onset: The symptoms/episode began/occurred gradually, 3 week(s) ago. Associated signs bo1 and symptoms: Pertinent positives: nausea, Foul smell from abd wounds. Current symptoms: In the emergency department the patient's symptoms are unchanged from the initial presentation, despite home interventions, Pt has no PCP and seeks care in the ER. The patient has experienced similar episodes in the past, a few times, but today's symptoms are worse, more painful. Per EMS, glucose is >500. Historical: - Allergies: 17:16 NKDA; kc6 - PMHx: 17:16 diabetes mellitus; kc6 - PSHx: 17:16 I \\T\\ D abscesses; Appendectomy; kc6 - Immunization history:: Adult Immunizations not up to date. - Infectious Disease History:: Denies. - Social history:: Smoking status: Patient denies any tobacco usage or history of. ROS: 19:42 Constitutional: Negative for fever, chills, and weight loss bo1 19:42 Constitutional: Positive for malaise, 19:42 Cardiovascular: Negative for chest pain, 19:42 Respiratory: Negative for shortness of breath, 19:42 Abdomen/GI: Positive for abdominal pain, of the right upper quadrant, left upper quadrant, right lower quadrant and left lower quadrant, 19:42 Skin: Positive for abscess, diffusely, Continues to drain despite prior I\\T\\Ds and treatment from the ER, 19:42 Endocrine: Positive for 19:42 All other systems are negative, Exam: 19:45 Constitutional: This is a developed, nourished patient who is awake, alert, and in bo1 acute distress. Foul smell about the pt 19:45 Neck: External neck: no acute changes, 19:45 Chest/axilla: Inspection: no acute changes, 19:45 Cardiovascular: Rate: normal, Rhythm: regular, Pulses: no pulse deficits are appreciated, 19:45 Respiratory: the patient does not display signs of respiratory distress, Respirations: normal, Breath sounds: are clear throughout, 19:45 Abdomen/GI: Inspection: "open wounds" dressing on the abd wall, foul discharge, 19:45 Skin: abscess, of the abdomen, with drainage, No cellulitis, 19:45 Neuro: Orientation: is normal, Mentation: is normal, Memory: is normal, 19:53 ECG was reviewed by the Attending Physician. bo1 Vital Signs: 17:14 BP 171 / 103; Pulse 98; Resp 18 S; Temp 98.5(O); Pulse Ox 99% on R/A; Weight 58.97 kg kc6 (R); Height 5 ft. 9 in. (R); Pain 8/10; 19:01 BP 151 / 101; Pulse 96; Resp 18; Pulse Ox 98% on R/A; ph 20:27 BP 162 / 95; Pulse 90; Resp 15; Temp 98.5; Pulse Ox 99% on R/A; Pain 6/10; bm8 21:58 BP 159 / 92; Pulse 93; Resp 17; Temp 97.6; Pulse Ox 100% ; Pain 6/10; bm8 17:14 Body Mass Index 19.20 (58.97 kg, 175.26 cm) kc6 17:14 Pain Scale: Adult kc6 20:27 Pain Scale: Adult bm8 21:58 Pain Scale: Adult bm8 Rosalind Coma Score: 20:27 Eye Response: spontaneous(4). Motor Response: obeys commands(6). Verbal Response: bm8 oriented(5). Total: 15. 21:58 Eye Response: spontaneous(4). Motor Response: obeys commands(6). Verbal Response: bm8 oriented(5). Total: 15. MDM: 17:33 Medical Screening Exam initiated bo1 19:44 Differential diagnosis: DKA, Dehydration; Sepsis. Consideration of bo1 Admission/Observation Patient was admitted/placed on observation. 19:47 Data reviewed: vital signs, lab test result(s), CBC, electrolytes, lactic acid. bo1 19:53 Management of patient was discussed with the following: Hospitalist: Amber DA SILVA. ED bo1 course: Pt needs inpt care for conditions presenting. 08/06 18:07 Order name: Blood Culture Adult (2) bo 08/06 18:07 Order name: CBC with Diff; Complete Time: 19:37 [facility] 08/06 18:07 Order name: CMP; Complete Time: 19:37 bo 08/06 18:07 Order name: Lactate w/ 2H reflex if indic.; Complete Time: 19:37 [facility] 08/06 18:07 Order name: Protime (+inr); Complete Time: 19:37 [facility] 08/06 18:07 Order name: Ptt, Activated; Complete Time: 19:37 bo 08/06 18:07 Order name: Urinalysis w/ reflexes; Complete Time: 19:37 [facility] 08/06 19:10 Order name: Lactic Dehydrogenase; Complete Time: 20:22 [facility] 08/06 21:02 Order name: Ghost Lactate-NO COLLECT Timer; Complete Time: 21:25 [facility] 08/06 21:52 Order name: Urinalysis w/ reflexes [facility] 08/06 21:52 Order name: CBC with Automated Diff [facility] 08/06 21:52 Order name: CBC with Automated Diff [facility] 08/06 21:52 Order name: Comprehensive Metabolic Panel [facility] 08/06 21:52 Order name: Comprehensive Metabolic Panel [facility] 08/06 21:52 Order name: Magnesium [facility] 08/06 21:52 Order name: Magnesium [facility] 08/06 22:05 Order name: Glucose, Ancillary Testing [facility] 08/06 22:22 Order name: Lactate Sepsis 2 HR Follow-up [facility] 08/06 19:37 Order name: CT Chest, Abdomen, Pelvis - W/Contrast; Complete Time: 20:28 [facility] 08/06 18:07 Order name: EKG; Complete Time: 18:08 [facility] 08/06 21:46 Order name: CONS Physician Consult [facility] 08/06 18:07 Order name: Accucheck; Complete Time: 18:48 [facility] 08/06 18:07 Order name: Cardiac monitoring; Complete Time: 19:26 bo 08/06 18:07 Order name: EKG - Nurse/Tech; Complete Time: 19:26 [facility] 08/06 18:07 Order name: IV Saline Lock - Large Bore; Complete Time: 18:48 [facility] 08/06 18:07 Order name: Labs collected and sent; Complete Time: 18:48 bo 08/06 18:07 Order name: O2 Per Protocol; Complete Time: 18:48 bo1 08/06 18:07 Order name: O2 Sat Monitoring; Complete Time: 18:48 bo1 08/06 18:07 Order name: Vital Signs; Complete Time: 18:48 bo1 EC:53 Rate is 91 beats/min. Rhythm is regular. QRS [place] is Normal. [place] interval is normal. QRS bo1 interval is normal. QT interval is normal. No Q waves. T waves are Normal. No ST changes noted. Clinical impression: Normal ECG. Interpreted by me. Reviewed by me. Administered Medications: 19:47 Drug: NS 0.9% IV (30 ml/kg) 30 ml/kg IV at bolus once; Sepsis Protocol; to be given as bm8 a bolus over 90 minutes Route: IV; Rate: bolus; Site: right forearm; 21:58 Follow up: Response: No adverse reaction; IV Status: Completed infusion; IV Intake: bm8 1800ml 19:51 Drug: morphine IVP or IV 4 mg IVP once over 4 mins Route: IVP; Infused Over: 4 mins; bm8 Site: right forearm; 21:57 Follow up: Response: No adverse reaction bm8 19:51 Drug: Ondansetron IVP 4 mg IVP once; over 2 minutes Route: IVP; Site: right forearm; bm8 21:56 Follow up: Response: No adverse reaction bm8 20:23 Drug: Insulin Regular Human IVP 10 units IVP once {Co-Signature: br2 (Juliette Callejas8 RN).} Route: IVP; Site: left forearm; 21:56 Follow up: Response: No adverse reaction bm8 20:23 Drug: ceFAZolin IVPB 2 grams IVPB once over 30 mins; (mix in 100 mL NS) Route: IVPB; bm8 Infused Over: 30 mins; Site: left forearm; 21:56 Follow up: Response: No adverse reaction; IV Status: Completed infusion; IV Intake: bm8 100ml Disposition Summary: 08/06/24 19:52 Hospitalization Ordered Notes: Hospitalization Status: Inpatient Admission bo1 Provider: Jane Figueroa Location: Telemetry/[facility] (Inpatient) bo1 Condition: Fair bo1 Problem: chronic bo1 Symptoms: have worsened bo1 Bed/Room Type: Standard bo1 Room Assignment: 214(08/06/24 21:24) rv1 Diagnosis - Sepsis, unspecified organism bo1 - Abdominal tenderness, unspecified site bo1 - Hyperglycemia, unspecified bo1 - Diabetes mellitus due to underlying condition with hyperglycemia bo1 Forms: - Medication Reconciliation Form bo1 - SBAR form bo1 - Leadership Thank You Letter bo1 Signatures: Dispatcher [employer] EDCiara Matthews, RN RN kc6 Laura Hogue rv1 Leodan Rose MD MD sp4 Antonino Gonzalez MD MD bo1 Spike Dao RN RN bm8 Juliette Callejas RN br2 Corrections: (The following items were deleted from the chart) : 19:52 bo1 rv1 22:03 21:52 Lactate w/ 2H reflex if indic. ordered. EDMS EDMS
[2024-08-06] MEDS ORDERED: CEFAZOLIN SODIUM 2 GM/VIAL ONE (20:15)
[2024-08-06] MEDS ORDERED: NA CHLORIDE 0.9% 100 ML ONE (20:15)
[2024-08-06] MEDS ORDERED: INSULIN REGULAR (HUMAN) 100 UNIT/ML ONE (20:15)
--- NOTE | 2024-08-06 20:24 | RAD REPORT ---
EXAM: Chest Abdomen Pelvis W Cont CLINICAL INDICATION: Chest and abdominal pain TECHNIQUE: CT chest, abdomen and pelvis was performed, with 100 cc Isovue-300 IV contrast, as per de partment protocol. Axial, sagittal and coronal reconstructions were obtained. One or more of the following dose reduction techniques were used: Automated exposure control, adjustment of the mA and/o r kV according to the patient size, and/or iterative reconstruction. Unless otherwise specified, incidental findings do not require dedicated imaging follow-up. [id number]. Oral contrast not given. This limits evaluation of the bowel. COMPARISON: June 2024 FINDINGS: The lungs are clear. No mediastinal or hilar lymphadenopathy. An aberrant right subclavian artery No pleural effusion.. No pericardial effusion Liver, spleen, pancreas, adrenals, kidneys appear unremarkable. Moderate amount stool within the colon. There is no evidence of diverticulitis 15 x 0.8 x 10 cm area of increased density is present within predominantly the skin of the mid abdome n extending to the pelvis anteriorly. It extends to the right and left of midline and contains small amount of air. No fluid filled abscess seen. IMPRESSION: 15 x 0.8 x 10 cm area of increased density is present within predominantly the anterior skin of the m id abdomen extending to the pelvis anteriorly. A drainable fluid collection is not seen. Small areas of air within increased density could all be the sequela of superficial ulceration. Under lying infection can also have this appearance.
--- NOTE | 2024-08-06 21:40 | P.HP ---
Certification for Inpatient Patient admitted to: Inpatient Practitioner: I am a practitioner with admitting privileges, knowledge of patient current condition, hospital course, and medical plan of care. Services: Services provided to patient in accordance with Admission requirements found in Title 42 Section 412.3 of the Code of Federal Regulations Patient History Date of Service: 08/07/24 Reason for admission: Abscess, abdominal abscess History of Present Illness: 43-year-old male with history of diabetes mellitus type 2, noncompliance, hidradenitis suppurativa with abdominal wall presents to the emergency room with complaint of possible infection. He reports being admitted for similar abscess., discharged on 2 weeks of antibiotics, he reports blood sugar greater than 500 today, he reports fever, chills, hyperglycemia, he reports abdominal pain, tenderness with purulent drainage that is progressively worse. He reports history of abdominal abscesses. 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, plan to admit for SIRS, abdominal abscess, diabetes uncontrolled with hyperglycemia, with infectious diseases consult, Laboratory evaluation elevated lactic 2.6, ER on arrival elevated glucose greater than 500, pseudo hyponatremia secondary to hyperglycemia, leukocytosis WBCs 14.60, UA 4+ glucosuria, CT of the chest abdomen pelvis 15 x 0.8 x 10 cm area of increased density is present within predominantly the anterior skin of the mid abdomen extending to the pelvis anteriorly.A drainable fluid collection is not seen Allergies No Known Allergies Allergy (Verified 08/06/24 22:45) Home Medications: Metformin HCl 500 mg PO BID 30 Days #60 tab 07/18/24 - Past Medical/Surgical History Diabetic: Yes -: Diabetes mellitus -: Multiple skin abscesses -: Hidradenitis suppurativa -: Incision and drainage Psychosocial/ Personal History: Patient is currently homeless - Social History Alcohol use: No CD- Drugs: No Caffeine use: No Review of Systems 10-point ROS is otherwise unremarkable General: As per HPI Physical Examination - Physical Exam General: Alert, Oriented x3, Mild distress HEENT: Atraumatic, Normocephalic Neck: Supple, JVD not distended Respiratory: Clear to auscultation bilaterally, Normal air movement Cardiovascular: Normal pulses, Regular rate/rhythm, Normal S1 S2 Capillary refill: <2 Seconds Gastrointestinal: Normal bowel sounds, Other Musculoskeletal: No swelling, No contractures Integumentary: Other (Multiple open wounds to abdominal wall with tunneling, induration and scarring, foul odor) Neurological: Normal speech, Normal strength at 5/5 x4 extr - Studies Laboratory Data (last 24 hrs) 08/06/24 08/06/24 08/06/24 19:00 18:30 18:30 WBC 14.60 H Hgb 9.8 L Hct 31.0 L Plt Count 359 PT 12.8 H INR 1.15 APTT 27.8 Sodium 132 L Potassium 3.8 BUN 9 Creatinine 0.74 Glucose 618 H* Total Bilirubin 0.2 AST < 10 L ALT < 14 L Alkaline Phosphatase 150 H Assessment and Plan - Plan Assessment: SIRS secondary to abdominal wall cellulitis complicated hidradenitis suppurativa Infectious disease consult Trend WBCs, lactic Continue antibiotics with clindamycin, vancomycin Continue IV fluids overnight Monitor CBC daily, Wound culture, blood cultures Diabetes mellitus type 2 with hyperglycemia, noncompliance Has been unable to afford any medications including his metformin outpatient ACHS Accu-Chek, sliding scale insulin, A1c in the morning UA 4+ glucosuria Diabetic diet DVT SCDs Disposition Home independent prior Discharge Plan: Home - Advance Directives Does patient have a Living Will: No Does patient have a Durable POA for Healthcare: No - Code Status/Comfort Care Code Status: Full Code Critical Care: No Time Spent Managing Pts Care (In Minutes): 55
[2024-08-06 22:45] VITALS: BMI 20.3
[2024-08-06] MEDS: VANCOMYCIN 1 GM in NA CHLORIDE 0.9% 250 ML IVPB SCH (23:06)
[2024-08-06] MEDS: NA CHLORIDE 0.9% 1,000 ML IV SCH (23:07)
[2024-08-06] MEDS: HYDROMORPHONE HCL 1 MG/ML INJ IV PRN (23:49)
[2024-08-07] MEDS ORDERED: INSULIN REGULAR (HUMAN) 100 UNIT/ML SQ SCH
[2024-08-07] MEDS: CLINDAMYCIN INJ 600 MG in NA CHLORIDE 0.9% 50 ML IV SCH (01:30)
[2024-08-07] MEDS ORDERED: ONDANSETRON 4 MG/2 ML VIAL IV PRN (01:48)
[2024-08-07] MEDS: CLINDAMYCIN 600MG/D5W 0 ML IV ONE (01:55)
[2024-08-07] MEDS: CEFEPIME 2 GM in NA CHLORIDE 0.9% 100 ML IV SCH (02:22)
[2024-08-07 04:38] LABS: Absolute Basophils 0.1 K/uL (0-0.5); Absolute Eosinophils 0.1 K/uL (0-0.5); Absolute Lymphocytes (CBC) 1.5 K/uL (0.7-4.9); Absolute Monocytes 1.5 K/uL (0.1-1.3); Absolute Neutrophil 9.5 K/uL (1.8-8.0); Basophils % 0.7 % (0-1.3); Hematocrit 26.3 % (39.6-49.0); Hemoglobin 8.4 g/dL (13.6-17.9); Lymphocytes % 12.2 % (15.3-44.8); MCH 25.4 pg (27.0-35.0); MCHC 32.1 g/dL (32.0-36.0); MCV 79.1 fL (80-100); MPV 7.8 fL (7.6-11.3); Monocytes % 11.5 % (3.3-12.3); Neutrophils % 74.6 % (41.7-73.7); Platelets 309 thou/uL (152-406); RBC Red Blood Cell Count 3.32 M/uL (4.33-5.43)
[2024-08-07 04:48] LABS: Albumin 1.9 g/dL (3.4-5.0); Albumin/Globulin Ratio 0.4 (1.1-1.8); Alkaline Phosphatase 111 U/L (45-117); Anion Gap 6.7 mEq/L (5.0-15.0); BUN Blood Urea Nitrogen 8 mg/dL (7-18); Bicarbonate 27 mEq/L (21-32); Bilirubin Total 0.2 mg/dL (0.2-1.0); Globulin 4.7 g/dL (2.3-3.5); Glomerular Filtration Rate 133 ml/min (=/>90); Glucose Level 295 mg/dL (74-106); Magnesium 1.7 mg/dL (1.6-2.4); Potassium 3.7 mEq/L (3.5-5.1); Protein, Total 6.6 g/dL (6.4-8.2); Sodium Level 138 mEq/L (136-145)
[2024-08-07 04:52] LABS: ALT/SGPT < 14 U/L (16-61); AST/SGOT < 10 U/L (15-37)
[2024-08-07 06:23] LABS: Phosphorus 3.3 mg/dL (2.5-4.9)
[2024-08-07] MEDS: MAGNESIUM SULFATE 1 gm IVPB 1 GM/100 ML BAG IV ONE (06:45)
[2024-08-07] MEDS: POTASSIUM CL SA 10 MEQ TAB PO ONE (08:19)
[2024-08-07] MEDS: INSULIN REGULAR (HUMAN) 100 UNIT/ML SQ SCH (08:19)
[2024-08-07] MEDS ORDERED: VANCOMYCIN 1.25 GM in NA CHLORIDE 0.9% 250 ML IVPB SCH (09:00)
[2024-08-07] MEDS: FLU (Fluarix Triv) TS24-25(6MOS UP)/PF 45 MCG/0.5 ML Syringe IM ONE (09:52)
--- NOTE | 2024-08-07 11:41 | P.PN ---
Date of Service: 08/07/24 Subjective: no significant change since admission overnight reports took his abx on discharge after last hospitalization never followed up with derm ROS: 10 point ROS as noted above, otherwise negative Physical Exam: GEN: Alert, NAD HEENT: Normal conjunctiva, sclera anicteric, CV: Regular rate and rhythm, no edema Pulm: Nonlabored respirations on room air, clear bilaterally Integumentary: Multiple open wounds to abdominal wall with tunneling, induration and scarring, foul odor Neuro: Normal speech, normal affect Problem List: Abdominal wall cellulitis / Hidradenitis suppurativa Hx MRSA (March 2024) anemia, unknown etiology NIDDM2 with hyperglycemia Abdominal wall cellulitis Hidradenitis suppurativa Hx MRSA (March 2024) on admission, presents with worsening abdominal pain, tenderness. Reports wound draining purulent drainage at home. completed 2 weeks of antibiotics last hospitalization for abdominal wall cellulitis few weeks ago. (clindamycin and augmentin) CT abdomen (08/06): 15x0.8x10cm area of increased density within anterior skin of the mid abdomen extending to pelvis. No drainable fluid collections. Small areas of air within increased density could all be sequela of superficial ulceration. general surgery consulted continue empiric cefepime / vanc (08/07-) follow blood and wound cultures afebrile, leukocytosis improving ID consult pain control anemia, unknown etiology no obvious bleeding noted. Denies black/tarry stools hgb 9.8 -> 8.4 Daily labs. NIDDM2 with hyperglycemia reports noncompliance with home medications including metformin recently due to cost. accu-cheks, SSI a1c 13.6 last hospitalization Code: Full Dispo: Home, ~2-3 days Pending surgical eval/recs, cultures Time Spent Managing Pts Care (In Minutes): 51
[2024-08-07] MEDS ORDERED: ONDANSETRON 4 MG/2 ML VIAL ONE (12:14)
[2024-08-07] MEDS ORDERED: LIDOCAINE 2% MPF 5 ML VIAL ONE (12:14)
[2024-08-07] MEDS ORDERED: FENTANYL CITR 100 MCG/2 ML ONE (12:14)
[2024-08-07] MEDS ORDERED: dexAMETHasone 10 MG/ML VIAL ONE (12:14)
[2024-08-07] MEDS ORDERED: KETOROLAC 30 MG/ML INJ ONE (12:14)
[2024-08-07] MEDS ORDERED: MIDAZOLAM HCL 2 MG/2 ML INJ ONE (12:14)
[2024-08-07] MEDS ORDERED: propofoL 200 MG/20 ML VIAL IV ONE (12:14)
--- NOTE | 2024-08-07 12:50 | EKG ---
Test Date: 2024-08-06 Test Time: 19:22:17 [employer] Customer Service: KENDRICK MEASUREMENT RESULTS: Intervals: Rate: 91 [place]: 132 QRSD: 82 QT: 364 QTc: 447 [place]: P: 80 [place]: 132 QRS: 68 T: 38 INTERPRETIVE STATEMENTS: Normal sinus rhythm Normal ECG Compared to ECG 07/14/2024 14:41:11 No significant changes Electronically Signed On 08-07-24 12:48:50 CDT by Terence Garcia
--- NOTE | 2024-08-07 14:55 | CON ---
History Of Present Illness: This is a known patient to me from previous admission of hidradenitis, i nfected, abdominal wall cellulitis. The patient has significant past medical history of noncomplianc e and diabetes mellitus type 2, hidradenitis suppurativa of abdominal wall, coming in with blood suga r of more than 500 on admission with reporting of fever, chills, and abdominal pain. Past Medical History: As per HPI. Social History: Nonsmoker. Nondrinker. Family History: Noncontributory. Medications: Vancomycin and cefepime. See MARs for other medications. Allergies: NO KNOWN DRUG ALLERGIES. Physical Examination: General: This is a 43-year-old male, lying in bed, not in any acute cardiopulmonary distress. Vital Signs: Temperature 97, pulse 86, respirations 14, blood pressure 157/89. HEENT: Unremarkable. Neck: Supple. Lungs: Basal crackles. Heart: S1, S2. Regular. Abdomen: Soft. Bowel sounds present. Abdominal wall erythematous changes noted with multiple area of foul odor drainage noted from multiple wounds. Extremities: No edema. Laboratory Data: Shows WBC 12.7 down from 14.6, hemoglobin 8.4, platelets are 309. Chemistry shows BUN of 8, creatinine 0.4. Lactic acid of 2.3. Micro data: Blood cultures are pending. Gram stain and cultures of abdominal wall wound pending. Assessment And Plan: Abdominal wall cellulitis secondary to hidradenitis suppurative with leukocytos is and poorly controlled diabetes mellitus secondary to noncompliance. The patient is having recurre nt admission, most likely due to noncompliance of taking care of himself. Continue empiric antibioti c, pending culture results total of 14 days, can be switched to oral once cultures grow some organism s. We will follow the patient as needed. Recommend to apply Silvadene to the abdominal wall area be fore applying the dressing. NF/MODL Voice ID: [id number] Report ID: [id number]
--- NOTE | 2024-08-07 16:14 | P.CNS ---
Date of Consult: 08/07/24 I briefly discussed this case with Dr. Reyna. Patient has eaten today. I will ask Dr. Arenas to see the patient tomorrow. At the current time does not sound like it requires emergent surgery.
[2024-08-07] MEDS: HYDROMORPHONE HCL 1 MG/ML INJ IV ONE (22:10)
[2024-08-08 05:38] LABS: Absolute Basophils 0.1 K/uL (0-0.5); Absolute Eosinophils 0.1 K/uL (0-0.5); Absolute Lymphocytes (CBC) 1.9 K/uL (0.7-4.9); Absolute Monocytes 1.4 K/uL (0.1-1.3); Absolute Neutrophil 10.1 K/uL (1.8-8.0); Basophils % 0.8 % (0-1.3); Eosinophils % 0.9 % (0-4.4); Hematocrit 25.4 % (39.6-49.0); Hemoglobin 8.2 g/dL (13.6-17.9); MCH 25.7 pg (27.0-35.0); MCHC 32.3 g/dL (32.0-36.0); MCV 79.5 fL (80-100); MPV 7.5 fL (7.6-11.3); Monocytes % 10.5 % (3.3-12.3); Neutrophils % 73.8 % (41.7-73.7); Platelets 307 thou/uL (152-406); Red Cell Distribution Width 16.1 % (12.1-15.2)
[2024-08-08 05:59] LABS: Anion Gap 6.4 mEq/L (5.0-15.0); C-Reactive Protein 79.4 mg/L (<3.00); Magnesium 1.7 mg/dL (1.6-2.4); Potassium 3.4 mEq/L (3.5-5.1)
[2024-08-08] MEDS: MAGNESIUM SULFATE 1 gm IVPB 1 GM/100 ML BAG IV ONE (06:10)
--- NOTE | 2024-08-08 09:37 | P.PN ---
Date of Service: 08/08/24 Subjective: abdominal pain ~same; tolerable with pain medication wound care done this morning no issues overnight afebrile NPO for tentative surgery today ROS: 10 point ROS as noted above, otherwise negative Physical Exam: GEN: Alert, NAD HEENT: Normal conjunctiva, sclera anicteric, CV: Regular rate and rhythm, no edema Pulm: Nonlabored respirations on room air, clear bilaterally Integumentary: Multiple open wounds to abdominal wall with tunneling, induration and scarring, foul odor Neuro: Normal speech, normal affect Problem List: Abdominal wall cellulitis / Hidradenitis suppurativa Hx MRSA (March 2024) anemia, unknown etiology NIDDM2 with hyperglycemia Abdominal wall cellulitis / Hidradenitis suppurativa Hx MRSA (March 2024) on admission, presents with worsening abdominal pain, tenderness. Reports wound draining purulent drainage at home. completed 2 weeks of antibiotics last hospitalization for abdominal wall cellulitis few weeks ago. (clindamycin and augmentin) CT abdomen (08/06): 15x0.8x10cm area of increased density within anterior skin of the mid abdomen extending to pelvis. No drainable fluid collections. Small areas of air within increased density could all be sequela of supe rficial ulceration. continue empiric cefepime / vanc (08/07-) wound cx (08/06): prelim 3+ beta hemolytic strep group B blood cx (08/06): NGTD ID consulted - recommends 2 weeks total abx course general surgery consulted - Dr. Arenas to eval NPO for now for possible surgery continue local wound care pain control anemia, unknown etiology component of blood loss currently - no obvious bleeding, but reports mix of bloody and purulent drainage from wounds chronically Denies black/tarry stools Daily labs NIDDM2 with hyperglycemia reports non-adherence with home medications including metformin recently due to cost. accu-cheks, SSI a1c 13.6 last hospitalization Code: Full Dispo: Home, ~2-3 days Pending surgical eval/recs, possible surgery today; cultures Time Spent Managing Pts Care (In Minutes): 51
[2024-08-08] MEDS: POTASSIUM 25 MEQ EFFERV TAB PO ONE (10:48)
[2024-08-08] MEDS: VANCOMYCIN 500 MG in NA CHLORIDE 0.9% 100 ML IVPB ONE (10:49)
[2024-08-08] MEDS: NA CHLORIDE 0.9% 1,000 ML ONE (13:25)
[2024-08-08] MEDS ORDERED: propofoL 200 MG/20 ML VIAL IV ONE (14:58)
[2024-08-08] MEDS ORDERED: MIDAZOLAM HCL 2 MG/2 ML INJ ONE (14:59)
[2024-08-08] MEDS ORDERED: FENTANYL CITR 100 MCG/2 ML ONE ×2 (14:59→16:43)
[2024-08-08] MEDS ORDERED: ROCURONIUM 50 MG/5 ML VIAL IV ONE (15:00)
[2024-08-08] MEDS ORDERED: LIDOCAINE 1% MPF 5 ML VIAL ONE (15:00)
--- NOTE | 2024-08-08 16:51 | P.OP ---
Preoperative diagnosis: Multiple Hidradenitis Suppuritiva Abscesses of Abdominal Wall Postoperative diagnosis: Multiple Hidradenitis Suppuritiva Abscesses of Abdominal Wall Primary procedure: Excision of Multiple Hidradenitis Suppuritiva Abscesses of Abdominal Wall Secondary procedure: Pulse Lavage Anesthesia: GETA Estimated blood loss: <20cc Specimen: Debridement Tissue, Cultures Findings: Multiple Hidradenitis Suppuritiva Abscesses of Abdominal Wall Complications: None Transferred to: Recovery Room Condition: Good
[2024-08-08] MEDS: HYDROMORPHONE HCL 1 MG/ML INJ ONE (17:22)
[2024-08-08] MEDS: KETOROLAC 30 MG/ML INJ ONE (17:25)
[2024-08-08] MEDS: FENTANYL CITR 100 MCG/2 ML ONE (17:25)
--- NOTE | 2024-08-08 18:27 | OP ---
Date of Procedure: 08/08/2024 Surgeon: Caden Arenas MD, Preoperative Diagnosis: Multiple hidradenitis suppurativa abscesses of the abdominal wall. Postoperative Diagnosis: Multiple hidradenitis suppurativa abscesses of the abdominal wall. Procedure Performed: Excision of multiple hidradenitis suppurativa abscess of abdominal wall and fernando ridement with secondary procedure was pulse lavage. Anesthesia: General endotracheal. Estimated Blood Loss: 20 cc. Specimen: Debridement of tissue and culture sent for both aerobic and anaerobic speciation. Findings: Multiple hidradenitis suppurative abscesses of the abdominal wall. Complications: None. Disposition: The patient transferred to recovery room in good condition. Procedure In Detail: After informed consent was obtained, the patient was brought into the operating room, prepped and draped in the usual sterile fashion after adequate anesthesia was achieved. I mad e a linear midline incision as the patient had evidence of multiple draining abscesses on bilateral a spects of the both right and left abdominal wall. There were numerous small draining abscesses, whic h appeared to be not in continuity consistent with multiloculated abscesses and as such, I opened up the midline to the deep dermal plane using a 15 blade. I then used electrocautery to dissect both la terally and medially using skin flaps. I placed a probe into the hidradenitis cavities and tunneled it medially to along the deep dermal plane to allow for visualization of these tracts. After these t racts were visualized, I dilated up the tract and ultimately unroofed them using electrocautery and b pito dissection to open and unroof and drain all abscess material, at this point. Culture sent for b oth aerobic and anaerobic speciation. I continued to use this process for approximately between 10 a nd 15 on the right and left abdominal siu respectively. Ultimately after these cavities were unroo fed, there were several areas on the right side of the abdominal wall, which appeared to coalesce, an d as such, the skin appeared ischemic, and as such, I dissected and removed this aspect leaving a sma ll ellipse open. After this was completed and all abscess material was drained and all multiloculate d abscess were digitally broken up, I sent the debridement tissue for pathologic examination. I then copiously irrigated the area and used pulse lavage to clean out all areas. Hemostasis was easily ac hieved with electrocautery. The abdominal cavity was not entered, at this point, and the area was la vaged once again and good hemostasis was achieved. I then packed the wound with Vashe soaked Kerlix and a sterile dressing placed over top. The patient tolerated the procedure well without incident or complication, transferred to PACU in good condition. All counts were correct at the end of the case . POONAM/PETER Voice ID: [id number] Report ID: [id number]
[2024-08-08] MEDS: HYDROCODONE/APAP 5/325 MG TAB PO PRN (20:39)
[2024-08-08] MEDS: VANCOMYCIN 1.25 GM in NA CHLORIDE 0.9% 250 ML IVPB SCH (21:21)
[2024-08-09] MEDS: ZOLPIDEM TARTRATE 5 MG TABLET PO PRN (01:05)
[2024-08-09 06:29] LABS: Magnesium 1.9 mg/dL (1.6-2.4)
[2024-08-09 06:35] LABS: Absolute Basophils 0.1 K/uL (0-0.5); Absolute Eosinophils 0.1 K/uL (0-0.5); Absolute Lymphocytes (CBC) 0.6 K/uL (0.7-4.9); Absolute Neutrophil 10.2 K/uL (1.8-8.0); Basophils % 0.6 % (0-1.3); Eosinophils % 1.2 % (0-4.4); Hematocrit 28.5 % (39.6-49.0); Hemoglobin 9.3 g/dL (13.6-17.9); Lymphocytes % 5.2 % (15.3-44.8); MCH 25.4 pg (27.0-35.0); MCHC 32.5 g/dL (32.0-36.0); MCV 78.3 fL (80-100); MPV 7.9 fL (7.6-11.3); Monocytes % 8.3 % (3.3-12.3); Neutrophils % 84.7 % (41.7-73.7); Platelets 339 thou/uL (152-406); RBC Red Blood Cell Count 3.64 M/uL (4.33-5.43); Red Cell Distribution Width 16.1 % (12.1-15.2)
--- NOTE | 2024-08-09 09:39 | P.PN ---
Date of Service: 08/09/24 Subjective: no acute events overnight. reports tolerable pain at surgical site posterior thigh wound with increased draining no issues overnight afebrile ROS: 10 point ROS as noted above, otherwise negative Physical Exam: GEN: Alert, NAD HEENT: Normal conjunctiva, sclera anicteric, CV: Regular rate and rhythm, no edema Pulm: Nonlabored respirations on room air, clear bilaterally Integumentary: Multiple open wounds to right posterior thigh with tunneling, induration and scarring, foul odor - similar to abdomen preop; Neuro: Normal speech, normal affect Problem List: Multiple abdominal wall abscesses secondary to Hidradenitis suppurativa, now s/p I&D & pulse lavage (08/08) Hx MRSA (March 2024) anemia, unknown etiology NIDDM2 with hyperglycemia Multiple abdominal wall abscesses secondary to Hidradenitis suppurativa, now s/p I&D & pulse lavage (08/08) Hx MRSA (March 2024) on admission, presents with worsening abdominal pain, tenderness. Reports wound draining purulent drainage at home. completed 2 weeks of antibiotics last hospitalization for abdominal wall cellulitis few weeks ago. (clindamycin and augmentin) CT abdomen (08/06): 15x0.8x10cm area of increased density within anterior skin of the mid abdomen extending to pelvis. No drainable fluid collections. Small areas of air within increased density could all be sequela of superficial ulceration. continue empiric cefepime / vanc (08/07-) wound cx (08/06): Beta Strep Non-A,B repeat wound cx (08/08) pending blood cx (08/06): NGTD ID consulted - recommends 2 weeks total abx course general surgery consulted s/p I&D of multiple abscesses of abdominal wall with secondary pulse lavage on 08/08 continue local wound care per surgery will need to follow up at wound healing center on discharge for continued wound care pain control R posterior thigh wounds with foul odor and increased drainage - may need I&D of this as well anemia, unknown etiology component of blood loss currently - no obvious bleeding, but reports mix of bloody and purulent drainage from wounds chronically Denies black/tarry stools Daily labs - hgb stable NIDDM2 with hyperglycemia reports non-adherence with home medications including metformin recently due to cost. accu-cheks, SSI a1c 13.6 last hospitalization Code: Full Dispo: Home, ~3-4 ays Pending surgery recs, cultures may need I&D of posterior thigh as well Time Spent Managing Pts Care (In Minutes): 51
[2024-08-09] MEDS: ACETAMINOPHEN 500 MG TAB PO PRN (12:27)
[2024-08-09] MEDS: SILVER SULFADIAZINE 1% 50 GM TOP SCH (16:56)
[2024-08-10] MEDS: VANCOMYCIN 1 GM in NA CHLORIDE 0.9% 250 ML IVPB ONE (03:20)
[2024-08-10 05:44] LABS: Absolute Basophils 0.1 K/uL (0-0.5); Absolute Eosinophils 0.1 K/uL (0-0.5); Absolute Lymphocytes (CBC) 1.4 K/uL (0.7-4.9); Absolute Monocytes 1.4 K/uL (0.1-1.3); Absolute Neutrophil 8.6 K/uL (1.8-8.0); Basophils % 0.7 % (0-1.3); Eosinophils % 1.2 % (0-4.4); Hematocrit 26.2 % (39.6-49.0); Hemoglobin 8.6 g/dL (13.6-17.9); Lymphocytes % 11.8 % (15.3-44.8); MCH 25.6 pg (27.0-35.0); MCHC 32.9 g/dL (32.0-36.0); MCV 77.7 fL (80-100); MPV 7.4 fL (7.6-11.3); Monocytes % 12.3 % (3.3-12.3); Platelets 315 thou/uL (152-406); RBC Red Blood Cell Count 3.36 M/uL (4.33-5.43); Red Cell Distribution Width 15.9 % (12.1-15.2)
[2024-08-10 05:51] LABS: Anion Gap 7.5 mEq/L (5.0-15.0); Magnesium 1.6 mg/dL (1.6-2.4); Potassium 3.5 mEq/L (3.5-5.1)
--- NOTE | 2024-08-10 07:14 | P.PN ---
Date of Service: 08/10/24 Subjective: R posterior thigh wounds with increased drainage and foul odor intermittent fever throughout the day/evening yesterday no BM but passing flatus doesn't feel bloated ROS: 10 point ROS as noted above, otherwise negative Physical Exam: GEN: Alert, NAD HEENT: Normal conjunctiva, sclera anicteric, CV: Regular rate and rhythm, no edema Pulm: Nonlabored respirations on room air, clear bilaterally Integumentary: Multiple open wounds to right posterior thigh/ perineum with tunneling, induration and scarring, foul odor - similar to abdomen preop; abdominal dressing in place Neuro: Normal speech, normal affect Problem List: Multiple abdominal wall abscesses secondary to Hidradenitis suppurativa, now s/p I&D & pulse lavage (08/08) Hx MRSA (March 2024) anemia, unknown etiology NIDDM2 with hyperglycemia Multiple abdominal wall abscesses secondary to Hidradenitis suppurativa, now s/p I&D & pulse lavage (08/08) Right posterior thigh wounds Hx MRSA (March 2024) on admission, presents with worsening abdominal pain, tenderness. Reports wound draining purulent drainage at home. Completed 2 weeks of antibiotics last hospitalization for abdominal wall cellulitis few weeks ago. (clindamycin and augmentin) CT abdomen (08/06): 15x0.8x10cm area of increased density within anterior skin of the mid abdomen extending to pelvis. No drainable fluid collections. continue empiric cefepime / vanc (08/07-) wound cx (08/06): Beta Strep Non-A,B repeat wound cx (08/08): 4+ beta hemolytic strep group G blood cx (08/06): NGTD ID consulted - recommends 2 weeks total abx course general surgery consulted s/p I&D of multiple abscesses of abdominal wall with secondary pulse lavage on 08/08 continue local wound care per surgery will need to f/u at wound healing center on discharge R posterior thigh wounds with foul odor and increased drainage. +intermittent fever yesterday/overnight NPO today for tentative I&D of R thigh wounds / abscess Pain control anemia, unknown etiology component of blood loss currently - no obvious bleeding, but reports mix of bloody and purulent drainage from wounds chronically Denies black/tarry stools Daily labs - hgb stable NIDDM2 with hyperglycemia reports non-adherence with home medications including metformin recently due to cost. accu-cheks, SSI a1c 13.6 last hospitalization VTE: SCDs Code: Full Dispo: Home, ~3-4 days Pending surgery recs, cultures tentative I&D of posterior thigh as well patient states has a place to stay, but is alone, and anticipates will not be able to pack wounds himself. Time Spent Managing Pts Care (In Minutes): 51
[2024-08-10] MEDS: MAGNESIUM SULFATE 1 gm IVPB 1 GM/100 ML BAG IV ONE (09:39)
[2024-08-10] MEDS: VANCOMYCIN 1.25 GM in NA CHLORIDE 0.9% 250 ML IVPB SCH (09:39)
[2024-08-10] MEDS: NA CHLORIDE 0.9% 1,000 ML ONE (11:51)
[2024-08-10] MEDS ORDERED: VANCOMYCIN 1.25 GM in NA CHLORIDE 0.9% 250 ML IVPB SCH (12:00)
[2024-08-10] MEDS ORDERED: LIDOCAINE 2% MPF 5 ML VIAL ONE (13:06)
[2024-08-10] MEDS ORDERED: propofoL 200 MG/20 ML VIAL IV ONE (13:08)
[2024-08-10] MEDS ORDERED: FENTANYL CITR 100 MCG/2 ML ONE (13:08)
[2024-08-10] MEDS ORDERED: MIDAZOLAM HCL 2 MG/2 ML INJ ONE (13:08)
[2024-08-10] MEDS: LIDOCAINE HCL/EPINEPHRINE 20 ML MDV ONE (14:02)
[2024-08-10] MEDS ORDERED: ONDANSETRON 4 MG/2 ML VIAL ONE (14:38)
--- NOTE | 2024-08-10 14:40 | P.OP ---
Preoperative diagnosis: RIGHT Posterior Thigh Hidradenitis with Abscess Postoperative diagnosis: RIGHT Posterior Thigh Hidradenitis with Abscess Primary procedure: Excision of Multiple Hidradenitis Suppuritiva Abscesses of RIGHT Thigh Secondary procedure: Excision of Hidradenitis of Perineum / Base of Scrotum Anesthesia: GETA Estimated blood loss: <1cc Specimen: Debridement Tissue, Cultures Findings: Hidradenitis Suppuritiva Abscesses of RIGHT Thigh, Scrotum Complications: None Transferred to: Recovery Room Condition: Good
[2024-08-10] MEDS: HYDROMORPHONE HCL 1 MG/ML INJ ONE (15:00)
[2024-08-10] MEDS: MEPERIDINE HCL 25 MG/ML SYR ONE (15:05)
[2024-08-10] MEDS: FENTANYL CITR 100 MCG/2 ML ONE (15:24)
--- NOTE | 2024-08-10 15:40 | OP ---
Date of Procedure: 08/10/2024 Surgeon: Caden Arenas MD, Preoperative Diagnosis: Right posterior thigh hidradenitis with abscess. Postoperative Diagnosis: Right posterior thigh hidradenitis with abscess. Procedure Performed: Excision of multiple hidradenitis suppurative with abscess of the right posteri or thigh. Secondary procedure: Excision of hidradenitis of the perineum/base of the scrotum. Anesthesia: General endotracheal. Estimated Blood Loss: 1 cc. Specimens: Debridement of tissue and cultures. Findings: Hidradenitis suppurativa with multiple abscess of the right thigh and perineum/base of the scrotum. Complications: None. Disposition: The patient transferred to recovery room in good condition. Procedure In Detail: After informed consent was obtained, the patient was brought into the operating room, prepped and draped in the usual sterile fashion after adequate anesthesia was achieved. I beg an by taking down areas of obvious abscess in the right posterior thigh. The area was approximately 50% circumferential of the entire posterior thigh extending from the buttock area all the way down to approximately 5 cm above the popliteal region. This was cleansed using a combination of probe to fi ne tracts and then these tracts were opened, curetted clean, skin bridges were removed over the top, unroofing and marsupializing some of these areas and the area was cleansed with scrubbing of saline o juliano these areas of wounds after all tissues were debrided in the area. I then passed a probe through several tracts of the area with quarter-inch plain packing with Vashe into multiple tracts to ensure they were stented open to allow for drainage without unroofing all of these for the ones that were m ore superficial. At this point, the base of the scrotal wound was then irrigated and packed with tamica rter-inch iodoform pack with Vashe as well and a sterile dressing placed over top. The patient rc ated the procedure well without incident or complication and transferred to PACU in good condition. All counts were correct at the end of the case. POONAM/PETER Voice ID: [id number] Report ID: [id number]
--- NOTE | 2024-08-10 15:58 | PN ---
Patient is patient had spike of fever yesterday. We will follow the patient as needed. C ontinue current antibiotic. No other recommendation at this time. ESA/MODShanika Voice ID: [id number] Report ID: [id number]
[2024-08-10] MEDS: POTASSIUM 25 MEQ EFFERV TAB PO ONE (16:51)
[2024-08-11 07:29] LABS: Absolute Basophils 0.1 K/uL (0-0.5); Absolute Eosinophils 0.1 K/uL (0-0.5); Absolute Lymphocytes (CBC) 0.6 K/uL (0.7-4.9); Absolute Neutrophil 10.1 K/uL (1.8-8.0); Basophils % 0.9 % (0-1.3); Eosinophils % 0.4 % (0-4.4); Hematocrit 28.5 % (39.6-49.0); Hemoglobin 9.3 g/dL (13.6-17.9); Lymphocytes % 5.3 % (15.3-44.8); MCH 25.3 pg (27.0-35.0); MCHC 32.7 g/dL (32.0-36.0); MCV 77.4 fL (80-100); MPV 7.1 fL (7.6-11.3); Monocytes % 8.7 % (3.3-12.3); Neutrophils % 84.7 % (41.7-73.7); Platelets 342 thou/uL (152-406); RBC Red Blood Cell Count 3.68 M/uL (4.33-5.43); Red Cell Distribution Width 15.6 % (12.1-15.2)
[2024-08-11 07:44] LABS: Anion Gap 9.9 mEq/L (5.0-15.0); Magnesium 1.7 mg/dL (1.6-2.4); Potassium 3.9 mEq/L (3.5-5.1)
--- NOTE | 2024-08-11 10:16 | P.PN ---
Subjective Date of Service: 08/11/24 Chief Complaint: Abscess, abdominal abscess Subjective: Improving (Patient is improving still has some discomfort from his recent surgery) Review of Systems Unremarkable Physical Examination - Vital Signs Temperature: 97.1 F Blood Pressure: 155/86 Pulse: 100 Respirations: 18 Pulse Ox (%): 98 - Physical Exam General: Alert, Oriented x3 Neck: No Thyromegaly Cardiovascular: Normal pulses Assessment And Plan - Current Problems (Diagnosis) (1) Suppurative hidradenitis Current Visit: Yes Status: Acute Plan: Patient is doing better status post I&D of multiple abscesses patient drainage of posterior right sided thigh abscess chemistries reviewed white count is declined there is are still pending vancomycin and cefepime DC IV cefepime changed to p.o. levofloxacin for now on the cultures was also changed to p.o. anti-MRSA a agent
[2024-08-11] MEDS: levoFLOXacin 750 MG TAB PO SCH (12:16)
[2024-08-12 05:28] LABS: Anion Gap 8.9 mEq/L (5.0-15.0); Magnesium 1.8 mg/dL (1.6-2.4); Potassium 3.9 mEq/L (3.5-5.1)
[2024-08-12] MEDS: MAGNESIUM SULFATE 1 gm IVPB 1 GM/100 ML BAG IV ONE (06:00)
[2024-08-12] MEDS: POTASSIUM CL SA 10 MEQ TAB PO ONE (09:24)
[2024-08-12] MEDS: Oxycodone HCl/Acetaminophen 5/325 MG TAB PO PRN (09:37)
--- NOTE | 2024-08-12 10:03 | P.PN ---
Subjective Date of Service: 08/12/24 Chief Complaint: Abscess, abdominal abscess Subjective: Improving (Complains some discomfort from his recent surgery) Review of Systems Unremarkable Physical Examination - Vital Signs Temperature: 98.5 F Blood Pressure: 154/94 Pulse: 82 Respirations: 18 Pulse Ox (%): 98 - Physical Exam General: Alert, In no apparent distress, Oriented x3 Neck: No Thyromegaly Cardiovascular: No edema, Normal pulses Gastrointestinal: Soft and benign - Studies Microbiology Data (last 24 hrs): 08/06/24 18:40 Blood - Blood Aerobic Blood Culture - Final No growth in 5 days. 08/06/24 18:40 Blood - Blood Anaerobic Blood Culture - Final No growth in 5 days. 08/06/24 18:30 Blood - Blood Aerobic Blood Culture - Final No growth in 5 days. 08/06/24 18:30 Blood - Blood Anaerobic Blood Culture - Final No growth in 5 days. Assessment And Plan - Current Problems (Diagnosis) (1) Suppurative hidradenitis Current Visit: Yes Status: Acute Plan: Patient is doing well no new complaints still has some discomfort sugars elevated white count no significant change results are still pending continue with present antibiotic (2) Diabetes Current Visit: Yes Status: Acute Plan: Patient has type 2 diabetes resume metformin Qualifiers: Diabetes mellitus type: type 2 Diabetes mellitus complication status: without complication (3) Hyponatremia Current Visit: Yes Status: Acute Plan: Patient has mild hyponatremia was likely due to volume depletion patient advised to increase fluid intake
[2024-08-12] MEDS ORDERED: GLUCAGON 1 MG/VIAL IM PRN (10:28)
[2024-08-12] MEDS ORDERED: D10W 125 ML IV PRN (10:28)
[2024-08-12] MEDS: METFORMIN HCL 500 MG TAB PO SCH (11:39)
[2024-08-13 07:49] LABS: Hemoglobin 8.6 g/dL (13.6-17.9); MCH 25.2 pg (27.0-35.0); MCV 78.8 fL (80-100); MPV 7.7 fL (7.6-11.3); Platelets 338 thou/uL (152-406); RBC Red Blood Cell Count 3.43 M/uL (4.33-5.43); Red Cell Distribution Width 15.2 % (12.1-15.2)
--- NOTE | 2024-08-13 09:43 | P.PN ---
Subjective Date of Service: 08/13/24 Chief Complaint: Abscess, abdominal abscess Change in patient's condition is still complains of level light pain able to ambulate Review of Systems General: Weakness Integumentary: Other (Comfort from the recent wound) Physical Examination - Vital Signs Temperature: 98.1 F Blood Pressure: 159/104 Pulse: 86 Respirations: 17 Pulse Ox (%): 96 - Physical Exam General: Alert, Oriented x3 Respiratory: Clear to auscultation bilaterally Cardiovascular: No edema, Regular rate/rhythm Assessment And Plan - Current Problems (Diagnosis) (1) Suppurative hidradenitis Current Visit: Yes Status: Acute Plan: Patient is currently complaining of significant amount of pain patient's wound dressing was changed cussed with Dr. Green charge planning she IV vancomycin changed to p.o. doxycycline white count is declining services consult for outpatient wound management (2) Diabetes Current Visit: Yes Status: Acute Plan: Patient's blood sugars are elevated increase metformin to 1000 mg twice a day Qualifiers: Diabetes mellitus type: type 2 Diabetes mellitus complication status: without complication (3) Hyponatremia Current Visit: Yes Status: Acute Plan: Basic chemistry profile reordered (4) Microcytic anemia Current Visit: Yes Status: Acute Plan: I have ordered iron studies (5) Hypertension Current Visit: Yes Status: Acute Plan: Likely from his pain baseline history of hypertension add amlodipine
[2024-08-13] MEDS: DOXYCYCLINE 100 MG CAP PO SCH (10:08)
[2024-08-13] MEDS: AMLODIPINE 5 MG TAB PO SCH (10:08)
[2024-08-13 11:08] LABS: Anion Gap 7.2 mEq/L (5.0-15.0); Potassium 4.2 mEq/L (3.5-5.1)
[2024-08-13 11:12] LABS: Ferritin 86.2 ng/mL (26-388)
[2024-08-13] MEDS: ENOXAPARIN 40 MG/0.4 ML SQ SCH (12:23)
[2024-08-13] MEDS: MAGNESIUM SULFATE 1 gm IVPB 1 GM/100 ML BAG IV ONE (12:23)
[2024-08-13] MEDS: METFORMIN HCL 500 MG TAB PO SCH (17:52)
--- NOTE | 2024-08-13 19:02 | PN ---
Subjective: The patient is lying in bed and able to tolerate antibiotic orally without any problems. Being followed by surgical team for his suppurative hidradenitis. Objective: Vital Signs: Reviewed. Laboratory Data: Reviewed. Assessment And Plan: Suppurative hidradenitis. Continue oral antibiotic for 14 days. We will follo w the patient as needed. NF/MODL Voice ID: [id number] Report ID: [id number]
[2024-08-14 05:48] LABS: Hematocrit 27.8 % (39.6-49.0); MCH 25.2 pg (27.0-35.0); MCHC 32.2 g/dL (32.0-36.0); MCV 78.3 fL (80-100); MPV 7.8 fL (7.6-11.3); Platelets 388 thou/uL (152-406); RBC Red Blood Cell Count 3.55 M/uL (4.33-5.43); Red Cell Distribution Width 15.6 % (12.1-15.2)
--- NOTE | 2024-08-14 14:40 | P.PN ---
Subjective Date of Service: 08/14/24 Chief Complaint: Abscess, abdominal abscess Patient reports intermittent pain in his abdominal wound. No recorded fever. He is tolerating diet. Physical Examination - Vital Signs Temperature: 97.4 F Blood Pressure: 148/94 Pulse: 80 Respirations: 16 Pulse Ox (%): 100 Assessment And Plan - Plan Physical Exam: GEN: Alert, NAD HEENT: Normal conjunctiva, sclera anicteric, CV: Regular rate and rhythm, no edema Pulm: Nonlabored respirations on room air, clear bilaterally Integumentary: Multiple open wounds to right posterior thigh/ perineum with tunneling, induration and scarring, abdominal dressing in place Neuro: Normal speech, normal affect Problem List: Multiple abdominal wall abscesses secondary to Hidradenitis suppurativa, now s/p I&D & pulse lavage (08/08) Hx MRSA (March 2024) anemia, unknown etiology NIDDM2 with hyperglycemia Multiple abdominal wall abscesses secondary to Hidradenitis suppurativa, now s/p I&D & pulse lavage (08/08) Right posterior thigh wounds Hx MRSA (March 2024) Patient previously completed 2 weeks of antibiotics for abdominal wall cellulitis and hidradenitis about 3 weeks ago. (clindamycin and augmentin) CT abdomen (08/06): 15x0.8x10cm area of increased density within anterior skin of the mid abdomen extending to pelvis. No drainable fluid collections. Surgery consulted, status post I&D of multiple abscesses of abdominal wall with secondary pulse lavage continue empiric cefepime / vanc (08/07-) wound cx (08/06): Beta Strep Non-A,B repeat wound cx (08/08): 4+ beta hemolytic strep group G blood cx (08/06): NGTD Wound culture 08/10 growing strep pneumoniae non A,B. ID consulted. Dr. Cornejo recommends 2 weeks antibiotic course continue local wound care per surgery F/u at wound healing center on discharge R posterior thigh wounds -local wound care. Pain control Anemia, unknown etiology Denies black/tarry stools Daily labs - hgb stable Monitor H&H. NIDDM2 with hyperglycemia History of medication noncompliance. Most recent hemoglobin A1c is 13.6 accu-cheks, SSI VTE: SCDs Code: Full
[2024-08-15 04:48] LABS: Hemoglobin 9.5 g/dL (13.6-17.9); MCH 25.4 pg (27.0-35.0); MCHC 32.6 g/dL (32.0-36.0); MCV 77.8 fL (80-100); MPV 7.8 fL (7.6-11.3); Platelets 445 thou/uL (152-406); RBC Red Blood Cell Count 3.73 M/uL (4.33-5.43); Red Cell Distribution Width 15.7 % (12.1-15.2)
[2024-08-15 05:06] LABS: Anion Gap 9.1 mEq/L (5.0-15.0); Potassium 4.1 mEq/L (3.5-5.1)
--- NOTE | 2024-08-15 15:48 | P.PN ---
Subjective Date of Service: 08/15/24 Chief Complaint: Abscess, abdominal abscess Patient has no new complain. No recorded fever. Physical Examination - Vital Signs Temperature: 97.7 F Blood Pressure: 153/82 Pulse: 89 Respirations: 16 Pulse Ox (%): 99 Assessment And Plan - Plan Physical Exam: GEN: Alert, NAD HEENT: Normal conjunctiva, sclera anicteric, CV: Regular rate and rhythm, no edema Pulm: Nonlabored respirations on room air, clear bilaterally Integumentary: Multiple open wounds to right posterior thigh/ perineum with tunneling, induration and scarring, abdominal dressing in place Neuro: Normal speech, normal affect Problem List: Multiple abdominal wall abscesses secondary to Hidradenitis suppurativa, now s/p I&D & pulse lavage (08/08) Hx MRSA (March 2024) anemia, unknown etiology NIDDM2 with hyperglycemia Multiple abdominal wall abscesses secondary to Hidradenitis suppurativa, now s/p I&D & pulse lavage (08/08) Right posterior thigh wounds Hx MRSA (March 2024) Patient previously completed 2 weeks of antibiotics for abdominal wall cellulitis and hidradenitis about 3 weeks ago. (clindamycin and augmentin) CT abdomen (08/06): 15x0.8x10cm area of increased density within anterior skin of the mid abdomen extending to pelvis. No drainable fluid collections. Surgery consulted, status post I&D of multiple abscesses of abdominal wall with secondary pulse lavage continue empiric cefepime / vanc (08/07-) wound cx (08/06): Beta Strep Non-A,B repeat wound cx (08/08): 4+ beta hemolytic strep group G blood cx (08/06): NGTD Wound culture 08/10 growing strep pneumoniae non A,B. ID consulted. Dr. Cornejo recommends 2 weeks antibiotic course continue local wound care per surgery F/u at wound healing center on discharge. Awaiting wound VAC arrangement R posterior thigh wounds -local wound care. Pain control Anemia, unknown etiology Hemoglobin is stable. Monitor H&H. NIDDM2 with hyperglycemia History of medication noncompliance. Most recent hemoglobin A1c is 13.6 accu-cheks, SSI Continue metformin Glimepiride added VTE: SCDs Code: Full
[2024-08-15] MEDS: GLIMEPIRIDE 2 MG TABLET PO SCH (16:13)
[2024-08-16 07:34] LABS: Absolute Basophils 0.1 K/uL (0-0.5); Absolute Eosinophils 0.2 K/uL (0-0.5); Absolute Lymphocytes (CBC) 1.9 K/uL (0.7-4.9); Absolute Neutrophil 8.5 K/uL (1.8-8.0); Basophils % 1.3 % (0-1.3); Eosinophils % 1.7 % (0-4.4); Hematocrit 31.7 % (39.6-49.0); Hemoglobin 9.9 g/dL (13.6-17.9); Lymphocytes % 16.1 % (15.3-44.8); MCH 24.4 pg (27.0-35.0); MCHC 31.2 g/dL (32.0-36.0); MCV 78.4 fL (80-100); Monocytes % 8.8 % (3.3-12.3); Neutrophils % 72.1 % (41.7-73.7); Platelets 539 thou/uL (152-406); RBC Red Blood Cell Count 4.05 M/uL (4.33-5.43); Red Cell Distribution Width 15.7 % (12.1-15.2)
[2024-08-16 07:42] LABS: Anion Gap 9.5 mEq/L (5.0-15.0); Potassium 4.5 mEq/L (3.5-5.1)
[2024-08-16] MEDS: HYDROMORPHONE ORAL 2 MG TAB PO PRN (10:48)
--- NOTE | 2024-08-16 17:33 | P.PN ---
Subjective Date of Service: 08/16/24 Chief Complaint: Abscess, abdominal abscess Patient is complaining of intermittent pain in his abdominal wound. No recorded fever. Physical Examination - Vital Signs Temperature: 98.5 F Blood Pressure: 151/79 Pulse: 99 Respirations: 16 Pulse Ox (%): 98 Assessment And Plan - Plan Physical Exam: GEN: Alert, NAD HEENT: Normal conjunctiva, sclera anicteric, CV: Regular rate and rhythm, no edema Pulm: Nonlabored respirations on room air, clear bilaterally Integumentary: Multiple open wounds to right posterior thigh/ perineum with tunneling, induration and scarring, abdominal wound dressing looks clean. Neuro: Normal speech, normal affect Problem List: Multiple abdominal wall abscesses secondary to Hidradenitis suppurativa, now s/p I&D & pulse lavage (08/08) Hx MRSA (March 2024) anemia, unknown etiology NIDDM2 with hyperglycemia Multiple abdominal wall abscesses secondary to Hidradenitis suppurativa, now s/p I&D & pulse lavage (08/08) Right posterior thigh wounds Hx MRSA (March 2024) Patient previously completed 2 weeks of antibiotics for abdominal wall cellulitis and hidradenitis about 3 weeks ago. (clindamycin and augmentin) CT abdomen (08/06): 15x0.8x10cm area of increased density within anterior skin of the mid abdomen extending to pelvis. No drainable fluid collections. Surgery consulted, status post I&D of multiple abscesses of abdominal wall with secondary pulse lavage continue empiric cefepime / vanc (08/07-) wound cx (08/06): Beta Strep Non-A,B repeat wound cx (08/08): 4+ beta hemolytic strep group G blood cx (08/06): NGTD Wound culture 08/10 growing strep pneumoniae non A,B. ID consulted. Dr. Cornejo recommends 2 weeks antibiotic course continue local wound care per surgery F/u at wound healing center on discharge. Dr. Marrero has agreed to follow-up with the patient at the wound care clinic. Awaiting wound VAC arrangement for discharge. R posterior thigh wounds -local wound care. Pain control Anemia, unknown etiology Hemoglobin is stable. Monitor H&H. NIDDM2 with hyperglycemia History of medication noncompliance. Most recent hemoglobin A1c is 13.6 accu-cheks, SSI Continue metformin Glimepiride added VTE: SCDs Code: Full
--- NOTE | 2024-08-17 17:35 | P.PN ---
Subjective Date of Service: 08/17/24 Chief Complaint: Abscess, abdominal abscess Patient has no new complaint. No recorded fever. Physical Examination - Vital Signs Temperature: 97.6 F Blood Pressure: 132/64 Pulse: 106 Respirations: 16 Pulse Ox (%): 98 Assessment And Plan - Plan Physical Exam: GEN: Alert, NAD HEENT: Normal conjunctiva, sclera anicteric, CV: Regular rate and rhythm, no edema Pulm: clear bilaterally, no rhonchi or crackles. Integumentary: Multiple open wounds to right posterior thigh/ perineum with tunneling, induration and scarring, abdominal wound dressing looks clean. Neuro: Normal speech, normal affect Problem List: Multiple abdominal wall abscesses secondary to Hidradenitis suppurativa, now s/p I&D & pulse lavage (08/08) Hx MRSA (March 2024) anemia, unknown etiology NIDDM2 with hyperglycemia Multiple abdominal wall abscesses secondary to Hidradenitis suppurativa, now s/p I&D & pulse lavage (08/08) Right posterior thigh wounds Hx MRSA (March 2024) Patient previously completed 2 weeks of antibiotics for abdominal wall cellulitis and hidradenitis about 3 weeks ago. (clindamycin and augmentin) CT abdomen (08/06): 15x0.8x10cm area of increased density within anterior skin of the mid abdomen extending to pelvis. No drainable fluid collections. Surgery consulted, status post I&D of multiple abscesses of abdominal wall with secondary pulse lavage continue empiric cefepime / vanc (08/07-) wound cx (08/06): Beta Strep Non-A,B repeat wound cx (08/08): 4+ beta hemolytic strep group G blood cx (08/06): NGTD Wound culture 08/10 growing strep pneumoniae non A,B. ID consulted. Dr. Cornejo recommends 2 weeks antibiotic course continue local wound care per surgery F/u at wound healing center on discharge. Dr. Marrero has agreed to follow-up with the patient at the wound care clinic. Awaiting wound VAC arrangement for discharge. R posterior thigh wounds -local wound care. Pain control Anemia, unknown etiology Hemoglobin is stable. Monitor H&H. NIDDM2 with hyperglycemia History of medication noncompliance. Most recent hemoglobin A1c is 13.6 accu-cheks, SSI Continue metformin and glimepiride VTE: SCDs Code: Full
--- NOTE | 2024-08-18 13:17 | P.PN ---
Subjective Date of Service: 08/18/24 Chief Complaint: Abscess, abdominal abscess Patient has no new complaint. Physical Examination - Vital Signs Temperature: 98.6 F Blood Pressure: 139/85 Pulse: 93 Respirations: 14 Pulse Ox (%): 100 Assessment And Plan - Plan Physical Exam: GEN: Alert, NAD HEENT: Normal conjunctiva, sclera anicteric, CV: Regular rate and rhythm, no edema Pulm: clear bilaterally, no rhonchi or crackles. Integumentary: Multiple open wounds to right posterior thigh/ perineum with tunneling, induration and scarring, abdominal wound dressing looks clean. Neuro: Normal speech, normal affect Problem List: Multiple abdominal wall abscesses secondary to Hidradenitis suppurativa, now s/p I&D & pulse lavage (08/08) Hx MRSA (March 2024) anemia, unknown etiology NIDDM2 with hyperglycemia Multiple abdominal wall abscesses secondary to Hidradenitis suppurativa, now s/p I&D & pulse lavage (08/08) Right posterior thigh wounds Hx MRSA (March 2024) Patient previously completed 2 weeks of antibiotics for abdominal wall cellulitis and hidradenitis about 3 weeks ago. (clindamycin and augmentin) CT abdomen (08/06): 15x0.8x10cm area of increased density within anterior skin of the mid abdomen extending to pelvis. No drainable fluid collections. Surgery consulted, status post I&D of multiple abscesses of abdominal wall with secondary pulse lavage continue empiric cefepime / vanc (08/07-) wound cx (08/06): Beta Strep Non-A,B repeat wound cx (08/08): 4+ beta hemolytic strep group G blood cx (08/06): NGTD Wound culture 08/10 growing strep pneumoniae non A,B. ID Dr. Cornejo is following. Patient slated for 2 weeks of antibiotic course. continue local wound care per surgery F/u at wound healing center on discharge. Dr. Marrero has agreed to follow-up with the patient at the wound care clinic. Awaiting wound VAC arrangement for discharge. R posterior thigh wounds -local wound care. Pain control Anemia, unknown etiology Hemoglobin is stable. Monitor H&H. NIDDM2 with hyperglycemia History of medication noncompliance. Most recent hemoglobin A1c is 13.6 accu-cheks, SSI Continue metformin and glimepiride. Titrate glimepiride. VTE: SCDs Code: Full
[2024-08-18] MEDS: GLIMEPIRIDE 2 MG TABLET PO SCH (17:00)
[2024-08-19 05:48] LABS: Absolute Basophils 0.1 K/uL (0-0.5); Absolute Eosinophils 0.2 K/uL (0-0.5); Absolute Lymphocytes (CBC) 1.8 K/uL (0.7-4.9); Absolute Monocytes 1.1 K/uL (0.1-1.3); Absolute Neutrophil 6.9 K/uL (1.8-8.0); Basophils % 1.4 % (0-1.3); Eosinophils % 1.9 % (0-4.4); Hemoglobin 9.4 g/dL (13.6-17.9); Lymphocytes % 17.9 % (15.3-44.8); MCH 24.7 pg (27.0-35.0); MCHC 31.5 g/dL (32.0-36.0); MCV 78.5 fL (80-100); MPV 7.2 fL (7.6-11.3); Neutrophils % 67.8 % (41.7-73.7); Platelets 519 thou/uL (152-406); RBC Red Blood Cell Count 3.82 M/uL (4.33-5.43); Red Cell Distribution Width 16.1 % (12.1-15.2)
[2024-08-19 06:04] LABS: Anion Gap 8.2 mEq/L (5.0-15.0); Potassium 4.2 mEq/L (3.5-5.1)
--- NOTE | 2024-08-19 13:21 | P.PN ---
Subjective Date of Service: 08/19/24 Chief Complaint: Abscess, abdominal abscess Patient reports intermittent pain in his abdominal wall. He states he is eating well. He is ambulatory. Physical Examination - Vital Signs Temperature: 97.9 F Blood Pressure: 130/80 Pulse: 101 Respirations: 14 Pulse Ox (%): 98 Assessment And Plan - Plan Physical Exam: GEN: Alert, NAD HEENT: Normal conjunctiva, sclera anicteric, CV: Regular rate and rhythm, no edema Pulm: clear bilaterally, no rhonchi or crackles. Integumentary: Multiple open wounds to right posterior thigh/ perineum with tunneling, induration and scarring, abdominal wound dressing looks clean. Neuro: Normal speech, normal affect Problem List: Multiple abdominal wall abscesses secondary to Hidradenitis suppurativa, now s/p I&D & pulse lavage (08/08) Hx MRSA (March 2024) anemia, unknown etiology NIDDM2 with hyperglycemia Multiple abdominal wall abscesses secondary to Hidradenitis suppurativa, now s/p I&D & pulse lavage (08/08) Right posterior thigh wounds Hx MRSA (March 2024) Patient previously completed 2 weeks of antibiotics for abdominal wall cellulitis and hidradenitis about 3 weeks ago. (clindamycin and augmentin) CT abdomen (08/06): 15x0.8x10cm area of increased density within anterior skin of the mid abdomen extending to pelvis. No drainable fluid collections. Surgery consulted, status post I&D of multiple abscesses of abdominal wall with secondary pulse lavage continue empiric cefepime / vanc (08/07-) wound cx (08/06): Beta Strep Non-A,B repeat wound cx (08/08): 4+ beta hemolytic strep group G blood cx (08/06): NGTD Wound culture 08/10 grew strep pneumoniae non A,B. ID Dr. Cornejo is following. Patient slated for 2 weeks of antibiotic course. continue local wound care per surgery F/u at wound healing center on discharge. Dr. Marrero has agreed to follow-up with the patient at the wound care clinic. Awaiting wound VAC arrangement for discharge. R posterior thigh wounds -local wound care. Pain control Anemia, unknown etiology Hemoglobin is stable. Monitor H&H. NIDDM2 with hyperglycemia History of medication noncompliance. Most recent hemoglobin A1c is 13.6 accu-cheks, SSI Continue metformin and and current dose glimepiride. VTE: SCDs Code: Full
--- NOTE | 2024-08-20 13:39 | P.DS ---
Admission Date: 08/06/24 Discharge Date: 08/20/24 Disposition: ROUTINE DISCHARGE Discharge Condition: GOOD Reason for Admission: Abscess, abdominal abscess Brief History of Present Illness: 43-year-old male with history of diabetes mellitus type 2, noncompliance, hidradenitis suppurativa with abdominal wall presented to the emergency room with complaint of possible infection. He reported previous admission for similar abscess., discharged on 2 weeks of antibiotics. He reports blood sugar greater than 500 today, associated fever, chills, abdominal pain, purulent drainage from his abdominal wall wound. He reported history of abdominal abscesses. Patient met criteria for SIRS. CT of the chest abdomen pelvis 15 x 0.8 x 10 cm area of increased density is present within predominantly the anterior skin of the mid abdomen extending to the pelvis anteriorly. He was admitted for further management abdominal abscess, uncontrolled diabetes. Hospital Course: Patient was admitted to the medical floor and the following medical problems addressed: Diagnosis: Multiple abdominal wall abscesses secondary to Hidradenitis suppurativa, now s/p I&D & pulse lavage (08/08) Hx MRSA (March 2024) anemia, unknown etiology NIDDM2 with hyperglycemia Multiple abdominal wall abscesses secondary to Hidradenitis suppurativa, now s/p I&D & pulse lavage (08/08) Right posterior thigh wounds Hx MRSA (March 2024) Patient previously completed 2 weeks of clindamycin and Augmentin for abdominal wall cellulitis and hidradenitis about 3 weeks prior to admit. (clindamycin and augmentin) CT abdomen (08/06): 15x0.8x10cm area of increased density within anterior skin of the mid abdomen extending to pelvis. No drainable fluid collections. Surgery consulted, status post I&D of multiple abscesses of abdominal wall with secondary pulse lavage Patient treated with IV cefepime and vancomycin and transition to oral doxycycline and Levaquin wound cx (08/06): Beta Strep Non-A,B repeat wound cx (08/08): 4+ beta hemolytic strep group G blood cx (08/06): NGTD Wound culture 08/10 grew strep pneumoniae non A,B. Infectious disease Dr. Cornejo evaluated patient and assisted with management. Patient to complete 2 weeks of oral doxycycline and Levaquin. Dr. Arenas recommended wound VAC which has been arranged Patient is informed he needs to follow-up at wound healing center on discharge. Dr. Marrero has agreed to follow-up with the patient at the wound care clinic. R posterior thigh wounds -local wound care. Anemia, unknown etiology Hemoglobin was stable. NIDDM2 with hyperglycemia History of medication noncompliance. Most recent hemoglobin A1c is 13.6 accu-cheks, SSI Patient placed on metformin and and glimepiride. Blood sugar readings improved with these medications. Vital Signs/Physical Exam: Temp Pulse Resp BP Pulse Ox 97.8 F 89 16 153/87 H 99 08/20/24 12:00 08/20/24 12:00 08/20/24 12:00 08/20/24 12:00 08/20/24 08:00 General: Alert, In no apparent distress, Oriented x3 HEENT: Mucous membr. moist/pink Neck: JVD not distended Respiratory: Clear to auscultation bilaterally, Normal air movement Cardiovascular: No edema, Regular rate/rhythm, Normal S1 S2 Gastrointestinal: Normal bowel sounds, Soft and benign, Non-distended Musculoskeletal: No swelling Integumentary: Other (Midline anterior abdominal wound with clean dressing.) Neurological: Normal strength at 5/5 x4 extr Laboratory Data at Discharge: WBC 10.20 thou/uL (4.3-10.9) 08/19/24 05:35 Hgb 9.4 g/dL (13.6-17.9) L 08/19/24 05:35 Hct 30.0 % (39.6-49.0) L 08/19/24 05:35 Plt Count 519 thou/uL (152-406) H 08/19/24 05:35 PT 12.8 SECONDS (9.4-12.5) H 08/06/24 19:00 INR 1.15 08/06/24 19:00 APTT 27.8 SECONDS (24.3-36.9) 08/06/24 19:00 Sodium 130 mEq/L (136-145) L 08/19/24 05:35 Potassium 4.2 mEq/L (3.5-5.1) 08/19/24 05:35 BUN 15 mg/dL (7-18) 08/19/24 05:35 Creatinine 0.59 mg/dL (0.70-1.30) L 08/19/24 05:35 Glucose 226 mg/dL (74-106) H 08/19/24 05:35 Phosphorus 3.3 mg/dL (2.5-4.9) 08/07/24 04:09 Magnesium 1.7 mg/dL (1.6-2.4) 08/13/24 07:30 Total Bilirubin 0.2 mg/dL (0.2-1.0) 08/07/24 04:09 AST < 10 U/L (15-37) L 08/07/24 04:09 ALT < 14 U/L (16-61) L 08/07/24 04:09 Alkaline Phosphatase 111 U/L (45-117) D 08/07/24 04:09 Home Medications: Amlodipine [Norvasc*] 5 mg PO DAILY #30 tab 08/20/24 Doxycycline Hyclate 100 mg PO BID #20 cap 08/20/24 Glimepiride 4 mg PO BID #60 tab 08/20/24 Hydromorphone [Dilaudid*] 2 mg PO Q6H PRN #15 tab 08/20/24 Metformin HCl [Glucophage*] 1,000 mg PO BIDWM #120 tab 08/20/24 Silver Sulfadiazine Crm [Silvadene*] 1 appl TOP BID #2 tube 08/20/24 levoFLOXacin [Levaquin*] 750 mg PO DAILY #10 tab 08/20/24 New Medications: Hydromorphone [Dilaudid*] 2 mg PO Q6H PRN #15 tab PRN Reason: Pain Scale 5-7 (Moderate) Doxycycline Hyclate 100 mg PO BID #20 cap Glimepiride 4 mg PO BID #60 tab Metformin HCl [Glucophage*] 1,000 mg PO BIDWM #120 tab levoFLOXacin [Levaquin*] 750 mg PO DAILY #10 tab Amlodipine [Norvasc*] 5 mg PO DAILY #30 tab Silver Sulfadiazine Crm [Silvadene*] 1 appl TOP BID #2 tube Physician Discharge Instructions: Wound Care Diet: ADA Activity: Ad christopher Followup: Cdaen Arenas MD [ACTIVE - CAN ADMIT] - Austin Marrero MD [ACTIVE - CAN ADMIT] - (On 08/22/2024 at the Wound care Clinic.) NONE,NONE [Primary Care Provider] - Time spent managing pt's care (in minutes): 38
[2024-08-21 00:04] VITALS: O2SAT 100
[2024-08-21 04:42] VITALS: BP 147/89
[2024-08-21 08:56] VITALS: TEMP 97.4
== END 2024-08-21 09:40 | disposition home or self-care (01) | DRG 854 ==
LOC: ER 17:07 → 2ND 21:41
PROVIDERS: ADMIT Hospitalist; ATTEND Internal Medicine
PROC: 0VB5XZZ Excision of Scrotum, External Approach (ICD-10-PCS; 2024-08-08)
PROC: 0JD80ZZ Extraction of Abdomen Subcutaneous Tissue and Fascia, Open Approach (ICD-10-PCS; principal; 2024-08-08 16:00)
PROC: 0JBL0ZZ Excision of Right Upper Leg Subcutaneous Tissue and Fascia, Open Approach (ICD-10-PCS; 2024-08-10)
PROC: 0JBB0ZZ Excision of Perineum Subcutaneous Tissue and Fascia, Open Approach (ICD-10-PCS; 2024-08-10)
DX: A40.3 Sepsis due to Streptococcus pneumoniae (principal); E87.1 Hypo-osmolality and hyponatremia; L02.211 Cutaneous abscess of abdominal wall; Z59.00 Homelessness unspecified; L03.311 Cellulitis of abdominal wall; E11.65 Type 2 diabetes mellitus with hyperglycemia; D50.9 Iron deficiency anemia, unspecified; I10 Essential (primary) hypertension; L73.2 Hidradenitis suppurativa; T38.3X6A Underdosing of insulin and oral hypoglycemic [antidiabetic] drugs, initial encounter; Z79.84 Long term (current) use of oral hypoglycemic drugs; Z90.49 Acquired absence of other specified parts of digestive tract; Z86.14 Personal history of Methicillin resistant Staphylococcus aureus infection; Z91.120 Patient's intentional underdosing of medication regimen due to financial hardship; Z91.199 Patient's noncompliance with other medical treatment and regimen due to unspecified reason
CPT/HCPCS: 36415; 71260; 74177; 80048; 80053; 80202; 81001; 82728; 82947; 83540; 83605; 83615; 83735; 84100; 84466; 85025; 85027; 85610; 85730; 86140; 87040; 87070; 87075; 87076; 87077; 87185; 87186; 87205; 88304; 93005; 97116; 97161; 99285; J0692; J1100; J1171; J1650; J2003; J2175; J2250; J2405; J2704; J3010; J3475; J7030; J7050; Q9967

== ENCOUNTER 2024-08-22 10:34 | Emergency (ER) | payer SELFPAY ==
--- NOTE | 2024-08-22 12:40 | EDPHYS ---
Physician Documentation [facility] Name: Jonatan Sood Age: 43 yrs Sex: Male : 1980 Arrival Date: 08/22/2024 Time: 10:34 Bed 20 Private MD: ED Physician Rafael Carter HPI: 08/22 11:40 This 43 yrs old Male presents to ER via Ambulatory with complaints of Wound Check. sp3 11:40 43-year-old male with diabetes and chronic wound being seen at wound care clinic sp3 presents for wound recheck. Patient was told how to do daily changes does not do back to the wound clinic for several days. patient denies fever, erythema, abdominal pain or any other signs or symptoms on ROS at this time.. Historical: - Allergies: 10:37 NKDA; ll1 - PMHx: 10:37 diabetes mellitus; ll1 - PSHx: 10:37 Appendectomy; I \T\ D abscesses; ll1 - Immunization history:: Adult Immunizations up to date. - Infectious Disease History:: Denies. - Social history:: Smoking status: Patient denies any tobacco usage or history of. ROS: 11:41 Constitutional: Negative for fever, chills, and weight loss, Eyes: Negative for injury, sp3 pain, redness, and discharge, Neck: Negative for injury, pain, and swelling, Cardiovascular: Negative for chest pain, palpitations, and edema, Respiratory: Negative for shortness of breath, cough, wheezing, and pleuritic chest pain, Abdomen/GI: Negative for abdominal pain, nausea, vomiting, diarrhea, and constipation, Back: Negative for injury and pain, MS/Extremity: Negative for injury and deformity, Neuro: Negative for headache, weakness, numbness, tingling, and seizure, Psych: Negative for depression, anxiety, suicide ideation, homicidal ideation, and hallucinations, Allergy/Immunology: Negative for hives, rash, and allergies, Endocrine: Negative for neck swelling, polydipsia, polyuria, polyphagia, and marked weight changes, Hematologic/Lymphatic: Negative for swollen nodes, abnormal bleeding, and unusual bruising, 11:41 All other systems are negative, Exam: 11:41 Constitutional: This is a well developed, well nourished patient who is awake, alert, sp3 and in no acute distress. Head/Face: Normocephalic, atraumatic. Chest/axilla: Normal chest wall appearance and motion. Nontender with no deformity. No lesions are appreciated. Abdomen/GI: Soft, non-tender, with normal bowel sounds. No distension or tympany. No guarding or rebound. No evidence of tenderness throughout. 11:41 Skin: Wound VAC in place with no signs of leak or erythema or infection.. Vital Signs: 10:41 BP 148 / 98; Pulse 97; Resp 16; Temp 97.7; Pulse Ox 100% on R/A; Weight 58.97 kg; ll1 Height 5 ft. 9 in. ; Pain 7/10; 12:25 BP 137 / 84; Pulse 84; Resp 17; Pulse Ox 99% on R/A; rs5 13:50 BP 133 / 80; Pulse 80; Resp 17; Temp 98.2(O); Pulse Ox 99% ; rs5 14:55 BP 136 / 82; Pulse 81; Resp 17; Temp 98.2; Pulse Ox 100% ; me1 10:41 Body Mass Index 19.20 (58.97 kg, 175.26 cm) ll1 10:41 Pain Scale: Adult ll1 MDM: 10:38 Medical Screening Exam initiated sp3 11:42 ED course: Social work coming down to explain to patient proper course for follow-up. sp3 No emergency exists in the ED.. Administered Medications: No medications were administered Disposition Summary: 08/22/24 12:39 Discharge Ordered Notes: Location: Home sp3 Condition: Stable sp3 Diagnosis - Wound check sp3 Followup: sp3 - With: Private Physician - When: Upon discharge from the Emergency Department - Reason: Continuance of care Discharge Instructions: - Discharge Summary Sheet sp3 - How to Change Your Wound Dressing, [id number] sp3 Forms: - Medication Reconciliation Form sp3 - Antibiotic Education sp3 - Prescription Opioid Use sp3 - Patient Portal Instructions sp3 - Leadership Thank You Letter sp3 Signatures: Jadyn Vargas RN RN ll1 Rafael Carter MD MD sp3
--- NOTE | 2024-08-22 12:40 | ER ---
Nurse's Notes [facility] Name: Jonatan Sood Age: 43 yrs Sex: Male : 1980 Arrival Date: 08/22/2024 Time: 10:34 Bed 20 Private MD: Diagnosis: Wound check Presentation: 08/22 10:41 Chief complaint: Patient states: Here for wound care dressing change to LLE. Released ll1 from our hospital yesterday. Coronavirus screen: Client denies travel out of the [place] in the last 14 days. At this time, the client does not indicate any symptoms associated with coronavirus-19. Ebola Screen: Patient denies travel to an Ebola-affected area in the 21 days before illness onset. Initial Sepsis Screen: Does the patient meet any 2 criteria? No. Patient's initial sepsis screen is negative. Does the patient have a suspected source of infection? No. Patient's initial sepsis screen is negative. Risk Assessment: Do you want to hurt yourself or someone else? Patient reports no desire to harm self or others. Onset of symptoms is unknown. 10:41 Method Of Arrival: Ambulatory ll1 10:41 Acuity: ANI 3 ll1 Historical: - Allergies: 10:37 NKDA; ll1 - PMHx: 10:37 diabetes mellitus; ll1 - PSHx: 10:37 Appendectomy; I \\T\\ D abscesses; ll1 - Immunization history:: Adult Immunizations up to date. - Infectious Disease History:: Denies. - Social history:: Smoking status: Patient denies any tobacco usage or history of. Screenin:[facility] ED Fall Risk Assessment (Adult) History of falling in the last 3 months, rs5 including since admission No falls in past 3 months (0 pts) Confusion or Disorientation No (0 pts) Intoxicated or Sedated No (0 pts) Impaired Gait No (0 pts) Mobility Assist Device Used No (0 pt) Altered Elimination No (0 pt) Score/Fall Risk Level 0 - 2 = Low Risk Oriented to surroundings, Maintained a safe environment. Abuse screen: Denies threats or abuse. Nutritional screening: No deficits noted. Tuberculosis screening: No symptoms or risk factors identified. Assessment: 10:40 General: Appears in no apparent distress. uncomfortable, Behavior is calm, cooperative. rs5 Pain: Denies pain. Neuro: Level of Consciousness is awake, alert, obeys commands, Oriented to person, place, time, situation. Cardiovascular: Patient's skin is warm and dry. Respiratory: Airway is patent Respiratory effort is even, unlabored, Respiratory pattern is regular, symmetrical. 10:40 GI: Abdomen is round non-distended, wound vac noted to lower abdomen. : No signs rs5 and/or symptoms were reported regarding the genitourinary system. EENT: No signs and/or symptoms were reported regarding the EENT system. Derm: Skin is intact, Skin is pink, warm \\T\\ dry. wound noted to right upper leg. Musculoskeletal: Range of motion: intact in all extremities. 11:51 Reassessment: Patient and/or family updated on plan of care and expected duration. Pain rs5 level reassessed. Patient is alert, oriented x 3, equal unlabored respirations, skin warm/dry/pink. 12:23 Reassessment: Patient and/or family updated on plan of care and expected duration. Pain rs5 level reassessed. Patient is alert, oriented x 3, equal unlabored respirations, skin warm/dry/pink. 12:25 Reassessment: case coordinator at bedside, provider notified . rs5 12:49 Reassessment: pt up for discharge, to bedside for wound care per MD orders. Wound to rs5 right leg cleansed with normal saline per md orders, non adherent dressing applied, and wrapped with reid wrap per MD orders. no signs of infection noted, quarter inch wound to right upper leg appears to be healing . 13:00 Reassessment: to bedside, wound vac removed, six inch wound noted to mid lower abdomen, rs5 approximately 6 inch in long and 2 inches wide. No active bleeding noted, soft tissue exposed, slight drainage noted, provider notified. new wound vac applied per MD orders, wound vac monitor reads "air leak", charge nurse notified . 13:20 Reassessment: wound care nurse at bedside, wound care nurse states "I will get in rs5 contact with his surgeon and primary care to take a look at his wound", surgeon called, "I will be there around 1415 to take a look at the wound" charge nurse and ER doc notified. 14:15 General: Dr Magallanes and wound care nurse at bedside changing dressings.. me1 Vital Signs: 10:41 BP 148 / 98; Pulse 97; Resp 16; Temp 97.7; Pulse Ox 100% on R/A; Weight 58.97 kg; ll1 Height 5 ft. 9 in. ; Pain 7/10; 12:25 BP 137 / 84; Pulse 84; Resp 17; Pulse Ox 99% on R/A; rs5 13:50 BP 133 / 80; Pulse 80; Resp 17; Temp 98.2(O); Pulse Ox 99% ; rs5 14:55 BP 136 / 82; Pulse 81; Resp 17; Temp 98.2; Pulse Ox 100% ; me1 10:41 Body Mass Index 19.20 (58.97 kg, 175.26 cm) ll1 10:41 Pain Scale: Adult ll1 ED Course: 10:36 Patient arrived in ED. im 10:36 Rafael Carter MD is Attending Physician. sp3 10:37 Eduard Smallwood, RN is Primary Nurse. rs5 10:37 Arm band placed on Patient placed in an exam room, on a stretcher. ll1 10:40 Patient has correct armband on for positive identification. Placed in gown. Bed in low rs5 position. Call light in reach. Side rails up X2. 10:40 No provider procedures requiring assistance completed. rs5 10:44 Triage completed. ll1 14:55 Patient did not have IV access during this emergency room visit. me1 14:56 Provided Education on: Patient educated on how to change dressings by wound care nurse. me1 Administered Medications: No medications were administered Medication: 12:24 VIS not applicable for this client. rs5 Outcome: 12:39 Discharge ordered by . sp3 14:55 Discharged to home ambulatory, me1 14:55 Condition: stable 14:55 Discharge instructions given to patient, Instructed on discharge instructions, follow up and referral plans. wound care, Demonstrated understanding of instructions, follow-up care, wound care, 14:57 Patient left the ED. me1 Signatures: Jadyn Vargas RN RN ll1 Rafael Carter MD MD sp3 Eduard Smallwood, RN RN rs5 Marina Weeks Ila Hernandes RN RN me1 Corrections: (The following items were deleted from the chart) 13:43 12:01 Reassessment: case coordinator at bedside. rs5 rs5
[2024-08-22 15:09] VITALS: TEMP 98.2
[2024-08-22 15:10] VITALS: BP 136/82; O2SAT 100
== END 2024-08-22 14:57 | disposition home or self-care (01) ==
LOC: ER 10:34
DX: Z48.01 Encounter for change or removal of surgical wound dressing (principal)

== ENCOUNTER 2024-08-29 16:34 | Emergency (ER) | payer SELFPAY ==
[2024-08-29 17:13] LABS: Absolute Basophils 0.1 K/uL (0-0.5); Absolute Eosinophils 0.2 K/uL (0-0.5); Absolute Lymphocytes (CBC) 1.4 K/uL (0.7-4.9); Absolute Neutrophil 7.7 K/uL (1.8-8.0); Basophils % 0.7 % (0-1.3); Eosinophils % 1.8 % (0-4.4); Hematocrit 32.1 % (39.6-49.0); Hemoglobin 10.1 g/dL (13.6-17.9); Lymphocytes % 13.8 % (15.3-44.8); MCH 25.1 pg (27.0-35.0); MCHC 31.5 g/dL (32.0-36.0); MCV 79.4 fL (80-100); MPV 7.7 fL (7.6-11.3); Monocytes % 9.5 % (3.3-12.3); Neutrophils % 74.2 % (41.7-73.7); Platelets 400 thou/uL (152-406); RBC Red Blood Cell Count 4.04 M/uL (4.33-5.43); Red Cell Distribution Width 16.2 % (12.1-15.2)
--- NOTE | 2024-08-29 17:19 | RAD REPORT ---
EXAM: CT brain without contrast HISTORY: TRAUMA COMPARISON: None TECHNIQUE: Multiple contiguous axial images were obtained and a CT of the brain without contrast. Sag ittal and coronal reformats were performed. One or more of the following dose reduction techniques were used: Automated exposure control, adjust ment of the mA and/or kV according to patient size, and/or iterative reconstruction. FINDINGS: No evidence of hydrocephalus, intracranial hemorrhage, or extra-axial fluid collection. The brain is normal in morphology. No evidence of midline shift or areas of brain edema. The calvarium is intact. The visualized paranasal sinuses and mastoid air cells are essentially clear . IMPRESSION: No evidence of acute intracranial abnormality. EXAM: CT of the cervical spine without contrast HISTORY: Neck pain, injury TRAUMA TECHNIQUE: Multiple contiguous axial images were obtained in a CT of the cervical spine without contr ast. Sagittal and coronal reformats were performed. FINDINGS: The vertebral bodies demonstrate normal height and alignment. No evidence of acute fracture or subluxation.. No degenerative changes are present. No prevertebral soft tissue swelling is seen. The posterior facets are well aligned. Normal alignment of the skull base with the cervical spine is seen. The lung apices are unremarkable. IMPRESSION: No evidence of acute osseous abnormality of the cervical spine.
[2024-08-29 17:27] LABS: Anion Gap 9.9 mEq/L (5.0-15.0); Potassium 3.9 mEq/L (3.5-5.1)
[2024-08-29] MEDS ORDERED: INSULIN REGULAR (HUMAN) 100 UNIT/ML ONE (17:37)
[2024-08-29] MEDS ORDERED: NA CHLORIDE 0.9% 1,000 ML ONE (17:38)
--- NOTE | 2024-08-29 17:48 | RAD REPORT ---
EXAMINATION: XR RIGHT TIBIA AND FIBULA CLINICAL INDICATION: PAIN TECHNIQUE:Two view radiograph of the right tibia and fibula were obtained. COMPARISON: No prior exam. FINDINGS: No bone or joint abnormality detected. Small posterior calcaneal spur.
--- NOTE | 2024-08-29 17:49 | RAD REPORT ---
EXAMINATION: XR RIGHT FEMUR CLINICAL INDICATION: . PAIN RIGHT TECHNIQUE: Multiple views of the right femur were obtained. COMPARISON: No prior exam. FINDINGS: No bone or joint abnormality detected.
--- NOTE | 2024-08-29 18:15 | RAD REPORT ---
EXAM: CT CHEST, ABDOMEN AND PELVIS WITH CONTRAST CLINICAL INDICATION: TRAUMA TECHNIQUE: CT chest, abdomen and pelvis was performed, following the administration of contrast, as p er department protocol. Axial, sagittal and coronal reconstructions were obtained. One or more of the following dose reduction techniques were used: Automated exposure control, adjustment of the mA a nd/or kV according to patient size, and/or iterative reconstruction. Unless otherwise specified, incidental findings do not require dedicated imaging follow-up. COMPARISON: 08/06/2024 FINDINGS: LUNGS: No evidence of airspace or interstitial process. No nodules. PLEURA: No pleural effusion. No pneumothorax. MEDIASTINUM AND LYMPH NODES: No mediastinal mass or fluid collection. Normal size mediastinal, hilar, and axillary lymph nodes. OSSEOUS STRUCTURES AND CHEST WALL: Intact. LIVER: Normal in size and contour. No focal lesion or biliary dilatation. Grossly unremarkable gallbl adder. PANCREAS: No mass, ductal dilation, or carole-pancreatic fluid. SPLEEN: Normal size. No focal lesion. ADRENALS: Normal; no mass. KIDNEYS: Normal size and contour. No hydronephrosis. URINARY BLADDER: Normal contour. GASTROINTESTINAL TRACT: No bowel obstruction, free air, significant free fluid or abscess. Soft tis brii irregularity anterior abdominal wall. APPENDIX: Appendix not visualized, but no inflammatory changes in region of appendix. LYMPH NODES: No lymphadenopathy. MUSCULOSKELETAL: No acute or suspicious osseous abnormality. OTHER: IMPRESSION: No acute or significant abnormalities seen in the chest, abdomen or pelvis.
[2024-08-29] MEDS ORDERED: HYDROCODONE/APAP 7.5/325 MG TAB ONE (18:30)
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
[2024-08-29 20:50] VITALS: BP 119/73; TEMP 98.8; O2SAT 100
== END 2024-08-29 20:12 | disposition home or self-care (01) ==
LOC: ER 16:34
DX: M79.604 Pain in right leg (principal); E11.65 Type 2 diabetes mellitus with hyperglycemia; V03.90XA Pedestrian on foot injured in collision with car, pick-up truck or van, unspecified whether traffic or nontraffic accident, initial encounter
CPT/HCPCS: 36415; 70450; 71260; 72125; 74177; 80048; 82947; 85025; 86850; 86900; 86901; J7030; Q9967

== ENCOUNTER 2024-09-02 13:00 | Inpatient (IN) | payer SELFPAY ==
[2024-09-02 13:57] LABS: Absolute Basophils 0.1 K/uL (0-0.5); Absolute Eosinophils 0.1 K/uL (0-0.5); Absolute Lymphocytes (CBC) 0.8 K/uL (0.7-4.9); Absolute Monocytes 0.8 K/uL (0.1-1.3); Absolute Neutrophil 8.9 K/uL (1.8-8.0); Basophils % 0.6 % (0-1.3); Eosinophils % 0.5 % (0-4.4); Hematocrit 31.1 % (39.6-49.0); Hemoglobin 9.6 g/dL (13.6-17.9); Lymphocytes % 7.6 % (15.3-44.8); MCH 24.7 pg (27.0-35.0); MCV 79.6 fL (80-100); MPV 8.3 fL (7.6-11.3); Monocytes % 7.2 % (3.3-12.3); Neutrophils % 84.1 % (41.7-73.7); Platelets 312 thou/uL (152-406); RBC Red Blood Cell Count 3.91 M/uL (4.33-5.43); Red Cell Distribution Width 16.7 % (12.1-15.2)
[2024-09-02 14:02] LABS: PT Prothrombin Time 12.9 SECONDS (9.4-12.5); PTT, Activated Partial Thromb 34.7 SECONDS (24.3-36.9); Protime INR 1.16
[2024-09-02] MEDS ORDERED: INSULIN REGULAR (HUMAN) 100 UNIT/ML ONE (14:06)
[2024-09-02] MEDS ORDERED: NA CHLORIDE 0.9% 1,000 ML ONE (14:07)
[2024-09-02 14:15] LABS: AST/SGOT 13 U/L (15-37); Albumin 2.3 g/dL (3.4-5.0); Albumin/Globulin Ratio 0.4 (1.1-1.8); Alkaline Phosphatase 150 U/L (45-117); Anion Gap 13.5 mEq/L (5.0-15.0); BUN Blood Urea Nitrogen 19 mg/dL (7-18); Bicarbonate 26 mEq/L (21-32); Bilirubin Total 0.3 mg/dL (0.2-1.0); Globulin 5.6 g/dL (2.3-3.5); Glomerular Filtration Rate 111 ml/min (=/>90); Potassium 4.5 mEq/L (3.5-5.1); Protein, Total 7.9 g/dL (6.4-8.2); Sodium Level 131 mEq/L (136-145)
[2024-09-02 14:16] LABS: ALT/SGPT < 14 U/L (16-61)
[2024-09-02 14:20] LABS: Glucose Level 572 mg/dL (74-106)
--- NOTE | 2024-09-02 14:38 | ER ---
Nurse's Notes [facility] Name: Jonatan Sood Age: 43 yrs Sex: Male : 1980 Arrival Date: 09/02/2024 Time: 13:00 Bed 18 Private MD: Diagnosis: Cellulitis of abdominal wall;Hyperglycemia, unspecified;Near syncope Presentation: 09/02 13:26 Chief complaint: EMS states: toned out to EMS; EMS reports pt. was at [facility] and pt. ar6 reported dizziness, pt. reports he is diabetic and felt that his sugar was high; pt. reports abd pain post sx x2 weeks ago for abdominal abcess; EMS reports pt. FSBS would not read on glucometer. Coronavirus screen: Client denies travel out of the [place] in the last 14 days. At this time, the client does not indicate any symptoms associated with coronavirus-19. Ebola Screen: Patient negative for fever greater than or equal to 101.5 degrees Fahrenheit, and additional compatible Ebola Virus Disease symptoms Patient denies exposure to infectious person. Patient denies travel to an Ebola-affected area in the 21 days before illness onset. No symptoms or risks identified at this time. Initial Sepsis Screen: Does the patient meet any 2 criteria? No. Patient's initial sepsis screen is negative. Does the patient have a suspected source of infection? No. Patient's initial sepsis screen is negative. Risk Assessment: Do you want to hurt yourself or someone else? Patient reports no desire to harm self or others. Onset of symptoms was September 02, 2024. 13:26 Method Of Arrival: EMS: [facility] ar6 13:26 Acuity: ANI 3 ar6 Triage Assessment: 13:28 General: Appears in no apparent distress. uncomfortable, Behavior is calm, cooperative, ar6 appropriate for age. Pain: Complains of pain in abdomen Pain currently is 6 out of 10 on a pain scale. Pain began x2 weeks ago. EENT: Oral mucosa is moist. Neuro: Level of Consciousness is awake, alert, obeys commands, Oriented to person, place, time, situation. Cardiovascular: Denies chest pain, Capillary refill < 3 seconds. Respiratory: Airway is patent. GI: Abdomen is flat, non-distended, I\T\D x2 weeks ago Reports vomiting, x1 per EMS. : Denies burning with urination. Derm: Skin is healthy with good turgor, post surgical site. Musculoskeletal: No signs and/or symptoms reported regarding the musculoskeletal system. Historical: - Allergies: 13:28 NKDA; ar6 - PMHx: 13:28 diabetes mellitus; ar6 - PSHx: 13:28 Appendectomy; I \T\ D abscesses; ar6 - Immunization history:: Adult Immunizations up to date. - Infectious Disease History:: Denies. - Social history:: Smoking status: Patient denies any tobacco usage or history of. - Family history:: not pertinent. - Hospitalizations: : No recent hospitalization is reported. Screenin:32 [facility] ED Fall Risk Assessment (Adult) History of falling in the last 3 months, ar6 including since admission No falls in past 3 months (0 pts) Confusion or Disorientation No (0 pts) Intoxicated or Sedated No (0 pts) Impaired Gait No (0 pts) Mobility Assist Device Used No (0 pt) Altered Elimination No (0 pt) Score/Fall Risk Level 0 - 2 = Low Risk Oriented to surroundings, Maintained a safe environment, Hourly rounding (assess needs \T\ fall precautionary measures) done. Abuse screen: Denies threats or abuse. Denies injuries from another. Nutritional screening: No deficits noted. Tuberculosis screening: No symptoms or risk factors identified. Assessment: 13:31 Reassessment: see triage assessment. General: Appears in no apparent distress. ar6 uncomfortable. Pain: Pain currently is 6 out of 10 on a pain scale. Neuro: Level of Consciousness is awake, alert, obeys commands. Cardiovascular: Capillary refill < 3 seconds. Respiratory: Airway is patent. GI: Abdomen is flat, non-distended. : No signs and/or symptoms were reported regarding the genitourinary system. EENT: Oral mucosa is moist. Derm: Skin post I\T\D Skin is dry, Skin is pink, warm \T\ dry. Musculoskeletal: No signs and/or symptoms reported regarding the musculoskeletal system. Vital Signs: 13:26 BP 134 / 86; Pulse 95; Resp 20; Temp 98.4; Pulse Ox 98% on R/A; Weight 58.97 kg; Height ar6 5 ft. 9 in. ; Pain 6/10; 13:28 BP 106 / 94; Pulse 96; Resp 19; Pulse Ox 100% on R/A; ar6 15:55 BP 155 / 97; Pulse 88; Resp 18; Pulse Ox 99% on R/A; ar6 13:26 Body Mass Index 19.20 (58.97 kg, 175.26 cm) ar6 13:26 Pain Scale: Adult ar6 ED Course: 13:24 Patient arrived in ED. ar6 13:25 Tracy Lebron, RN is Primary Nurse. ar6 13:28 Clint Reyna MD is Attending Physician. rn 13:28 Triage completed. ar6 13:28 Arm band placed on right wrist. ar6 13:32 No apparent distress. ar6 13:32 Patient has correct armband on for positive identification. Bed in low position. Call ar6 light in reach. Side rails up X2. Provided Education on: plan of care. Client placed on continuous cardiac and pulse oximetry monitoring. NIBP monitoring applied. 13:32 No provider procedures requiring assistance completed. Maintain EMS IV. Dressing ar6 intact. Good blood return noted. Site clean \T\ dry. Gauge \T\ site: 20 g RAC. Flushed with 10 mL NS. 14:02 Wound Culture Sent. ar6 14:03 Blood Culture Adult (2) Sent. ar6 14:03 CBC with Diff Sent. ar6 14:03 CMP Sent. ar6 14:03 Lactate w/ 2H reflex if indic. Sent. ar6 14:18 Notified ED physician of a critical lab result(s). BGL 572. kc6 14:37 Neri Nielsen is Hospitalizing Provider. rn Administered Medications: 13:30 Drug: NS 0.9% IV 1000 ml IV at 1000 ml once; to be given as a bolus over 60 minutes ar6 Route: IV; Rate: 1000 ml; Site: right antecubital; 15:57 Follow up: Response: No adverse reaction; IV Status: Completed infusion; IV Intake: ar6 1000ml 14:17 Drug: Insulin Regular Human Sub-Q 10 units Sub-Q once {Co-Signature: hb (christiana Almendarez RN).} Route: Sub-Q; Site: right upper arm; 15:57 Follow up: Response: No adverse reaction ar6 14:30 Drug: Clindamycin IVPB 600 mg IVPB once over 30 mins; (mix in 50 mL) Route: IVPB; ar6 Infused Over: 30 mins; Site: right antecubital; 15:57 Follow up: Response: No adverse reaction; IV Status: Completed infusion; IV Intake: [id number] Medication: 13:33 VIS not applicable for this client. ar6 Intake: 15:57 IV: 1000ml; Total: 1000ml. ar6 15:57 IV: 50ml; Total: 1050ml. ar6 Outcome: 14:38 Decision to Hospitalize by Provider. rn 16:58 Patient left the ED. db Signatures: Clint Reyna MD MD rn Campbell, Kaitlyn RN RN kc6 Jerilyn De La Fuente RN RN db Tracy Lebron RN RN ar6 Trudy Almendarez RN hb
--- NOTE | 2024-09-02 14:38 | EDPHYS ---
Physician Documentation [facility] Name: Jonatan Sood Age: 43 yrs Sex: Male : 1980 Arrival Date: 09/02/2024 Time: 13:00 Bed 18 Private MD: ED Physician Clint Reyna HPI: 09/02 14:12 This 43 yrs old Male presents to ER via EMS with complaints of wound infection. rn 14:12 the patient presents with a swollen area of the abdomen. Onset: The symptoms/episode rn began/occurred at an unknown time. Modifying factors: the symptoms are alleviated by nothing, the symptoms are aggravated by squeezing the lesion and expressing the contents, touching. Severity of symptoms: At their worst the symptoms were moderate, in the emergency department the symptoms are unchanged. The patient has not experienced similar symptoms in the past. Patient reports thinks abdominal wound is getting infected. Reports ran out of wound packing yesterday so has not back wound. Reports foul smell and increased drainage over the last couple of days. Reports subjective fever and chills. Reports high blood sugar with generalized weakness. States was walking and got lightheaded, near syncope. Still feels weak all over.. Historical: - Allergies: 13:28 NKDA; ar6 - PMHx: 13:28 diabetes mellitus; ar6 - PSHx: 13:28 Appendectomy; I \T\ D abscesses; ar6 - Immunization history:: Adult Immunizations up to date. - Infectious Disease History:: Denies. - Social history:: Smoking status: Patient denies any tobacco usage or history of. - Family history:: not pertinent. - Hospitalizations: : No recent hospitalization is reported. ROS: 14:12 Constitutional: Positive for fever and chills Cardiovascular: Negative for chest pain, rn palpitations, and edema, Respiratory: Negative for shortness of breath, cough, wheezing, and pleuritic chest pain, Abdomen/GI: Positive for abdominal wound with drainage Neuro: Positive for generalized weakness Exam: 14:12 Constitutional: This is a well developed, well nourished patient who is awake, alert, rn and in no acute distress. ENT: Dry mucous membranes Cardiovascular: Regular rate and rhythm. No pulse deficits. Respiratory: No increased work of breathing, no retractions or nasal flaring. Abdomen/GI: Large abdominal wall wound with foul smell and purulence along the edge. No fluctuance. No evidence of abscess. Mild erythema surrounding wound. Neuro: Awake and alert, GCS 15 18:32 ECG was reviewed by the Attending Physician. rn Vital Signs: 13:26 BP 134 / 86; Pulse 95; Resp 20; Temp 98.4; Pulse Ox 98% on R/A; Weight 58.97 kg; Height ar6 5 ft. 9 in. ; Pain 6/10; 13:28 BP 106 / 94; Pulse 96; Resp 19; Pulse Ox 100% on R/A; ar6 15:55 BP 155 / 97; Pulse 88; Resp 18; Pulse Ox 99% on R/A; ar6 13:26 Body Mass Index 19.20 (58.97 kg, 175.26 cm) ar6 13:26 Pain Scale: Adult ar6 MDM: 13:28 Medical Screening Exam initiated rn 14:29 ED course: Patient states was on Bactrim as outpatient and completed prescription last rn week. 14:37 Differential diagnosis: cellulitis. Data reviewed: vital signs, nurses notes, lab test rn result(s), and as a result, I will admit patient. Consideration of Admission/Observation Patient was admitted/placed on observation. Escalation of care including admission/observation considered. Care significantly affected by the following chronic conditions: Diabetes. Counseling: I had a detailed discussion with the patient and/or guardian regarding the historical points, exam findings, and any diagnostic results supporting the discharge/admit diagnosis, lab results, the need for further work-up and treatment in the hospital. 09/02 13:24 Order name: Glucose, Ancillary Testing; Complete Time: 13:51 EDHI 09/02 13:33 Order name: Blood Culture Adult (2) rn 09/02 13:33 Order name: CBC with Diff; Complete Time: 14:22 rn 09/02 13:33 Order name: CMP; Complete Time: 14:22 rn 09/02 13:33 Order name: Lactate w/ 2H reflex if indic.; Complete Time: 14:55 rn 09/02 13:33 Order name: Protime (+inr); Complete Time: 14:22 rn 09/02 13:33 Order name: Ptt, Activated; Complete Time: 14:22 rn 09/02 13:33 Order name: Wound Culture rn 09/02 15:34 Order name: Basic Metabolic Panel EDMS 09/02 15:34 Order name: Basic Metabolic Panel EDMS 09/02 15:34 Order name: Basic Metabolic Panel EDMS 09/02 15:34 Order name: Basic Metabolic Panel EDMS 09/02 15:34 Order name: Basic Metabolic Panel EDMS 09/02 15:34 Order name: Basic Metabolic Panel EDMS 09/02 15:34 Order name: Basic Metabolic Panel EDMS 09/02 15:34 Order name: Basic Metabolic Panel EDMS 09/02 15:34 Order name: CBC with Automated Diff EDMS 09/02 15:34 Order name: CBC with Automated Diff EDMS 09/02 15:34 Order name: Magnesium EDMS 09/02 15:34 Order name: Magnesium EDMS 09/02 15:34 Order name: Magnesium EDMS 09/02 15:34 Order name: Magnesium EDMS 09/02 15:34 Order name: Magnesium EDMS 09/02 15:34 Order name: Magnesium EDMS 09/02 15:34 Order name: Magnesium EDMS 09/02 15:34 Order name: Magnesium EDMS 09/02 15:34 Order name: Phosphorus EDMS 09/02 15:34 Order name: Phosphorus EDMS 09/02 15:34 Order name: Phosphorus EDMS 09/02 15:34 Order name: Phosphorus EDMS 09/02 15:34 Order name: Phosphorus EDMS 09/02 15:34 Order name: Phosphorus EDMS 09/02 15:34 Order name: Phosphorus EDMS 09/02 15:34 Order name: Phosphorus EDMS 09/02 15:34 Order name: CBC with Automated Diff EDMS 09/02 15:34 Order name: CBC with Automated Diff EDMS 09/02 15:34 Order name: CBC with Automated Diff EDMS 09/02 15:34 Order name: CBC with Automated Diff EDMS 09/02 15:34 Order name: CBC with Automated Diff EDMS 09/02 15:34 Order name: CBC with Automated Diff EDMS 09/02 15:34 Order name: Urinalysis w/ reflexes EDMS 09/02 15:40 Order name: Glucose, Ancillary Testing EDMS 09/02 15:42 Order name: Lactate w/ 2H reflex if indic. EDMS 09/02 16:30 Order name: Ghost Lactate-NO COLLECT Timer EDMS 09/02 15:34 Order name: CONS Physician Consult EDMS 09/02 13:33 Order name: Accucheck; Complete Time: 14:03 rn 09/02 13:33 Order name: Cardiac monitoring; Complete Time: 14:03 rn 09/02 13:33 Order name: EKG - Nurse/Tech; Complete Time: 14:20 rn 09/02 13:33 Order name: IV Saline Lock - Large Bore; Complete Time: 14:03 rn 09/02 13:33 Order name: Labs collected and sent; Complete Time: 14:03 rn 09/02 13:33 Order name: O2 Per Protocol; Complete Time: 14:20 rn 09/02 13:33 Order name: O2 Sat Monitoring; Complete Time: 14:20 rn 09/02 13:33 Order name: Vital Signs; Complete Time: 14:20 rn 09/02 13:33 Order name: Wound dressing; Complete Time: 14:03 rn EC:32 Rate is 98 beats/min. Rhythm is regular. QRS [place] is Normal. PA interval is normal. QRS rn interval is normal. QT interval is normal. No Q waves. T waves are Normal. No ST changes noted. Clinical impression: Normal ECG. Interpreted by me. Reviewed by me. Administered Medications: 13:30 Drug: NS 0.9% IV 1000 ml IV at 1000 ml once; to be given as a bolus over 60 minutes ar6 Route: IV; Rate: 1000 ml; Site: right antecubital; 15:57 Follow up: Response: No adverse reaction; IV Status: Completed infusion; IV Intake: ar6 1000ml 14:17 Drug: Insulin Regular Human Sub-Q 10 units Sub-Q once {Co-Signature: hb (Erickson, christiana Yates RN).} Route: Sub-Q; Site: right upper arm; 15:57 Follow up: Response: No adverse reaction ar6 14:30 Drug: Clindamycin IVPB 600 mg IVPB once over 30 mins; (mix in 50 mL) Route: IVPB; ar6 Infused Over: 30 mins; Site: right antecubital; 15:57 Follow up: Response: No adverse reaction; IV Status: Completed infusion; IV Intake: [id number] Disposition Summary: 09/02/24 14:38 Hospitalization Ordered Notes: Hospitalization Status: Inpatient Admission rn Provider: Neri Nielsen rn [facility] ([facility] rn Condition: Stable rn Problem: new rn Symptoms: have improved rn Bed/Room Type: Standard rn Room Assignment: 212(09/02/24 16:18) eb Diagnosis - Cellulitis of abdominal wall rn - Hyperglycemia, unspecified rn - Near syncope rn Forms: - Medication Reconciliation Form rn - SBAR form rn - Leadership Thank You Letter rn Signatures: Dispatcher [employer] EDMS Clint Reyna MD MD rn Botello, Elizabeth eb Roberts, Amber, RN RN ar6 Trudy Almendarez RN Corrections: (The following items were deleted from the chart) 13:33 13:33 BLOOD CULTURE*+BA.LAB.BRZ ordered. EDMS EDMS 13:33 13:33 CBC+H.LAB.BRZ ordered. EDMS EDMS 13:33 13:33 COMPREHENSIVE METABOLIC PANEL+C.LAB.BRZ ordered. EDMS EDMS 13:33 13:33 LACTATE+C.LAB.BRZ ordered. EDMS EDMS 13:33 13:33 PROTIME (+INR)+COAG.LAB.BRZ ordered. EDMS EDMS 13:33 13:33 PTT, ACTIVATED+COAG.LAB.BRZ ordered. EDMS EDMS 13:33 13:33 Wound Culture+BA.LAB.BRZ ordered. EDMS EDMS 15:38 14:38 rn eb 16:18 15:38 214 eb eb
[2024-09-02] MEDS ORDERED: CLINDAMYCIN 600MG/D5W 50 ML IV ONE (14:42)
[2024-09-02] MEDS ORDERED: ACETAMINOPHEN 325 MG TABLET PO PRN (15:25)
[2024-09-02] MEDS: INSULIN REGULAR (HUMAN) 100 UNIT/ML SQ ONE ×2 (15:36→17:59)
[2024-09-02 17:19] VITALS: BMI 19.2
--- NOTE | 2024-09-02 17:24 | P.HP ---
Certification for Inpatient Patient admitted to: Inpatient With expected LOS: >2 Midnights Practitioner: I am a practitioner with admitting privileges, knowledge of patient current condition, hospital course, and medical plan of care. Services: Services provided to patient in accordance with Admission requirements found in Title 42 Section 412.3 of the Code of Federal Regulations Patient History Date of Service: 09/02/24 Reason for admission: nonhealing abdominal wound History of Present Illness: Jonatan Armenta is a 43-year-old male with past medical history of diabetes isidro litusNIDDM who presents with nonhealing who presents to the ED with nonhealing abdominal wound. Wound is now draining and increased in pain. On examination his previous discharge, plans were made to follow-up with Dr. Marrero's wound care clinic. He reports not being able to attend the wound care clinic because there was confusion and he was not allowed. Laboratory evaluation significant for serum glucose 572, lactic acid 2.1, H&H . Jonatan will be admitted to hospital service for further treatment of hyperglycemia and nonhealing abdominal wound. Allergies No Known Allergies Allergy (Verified 08/06/24 22:45) Home Medications: Metformin HCl [Glucophage*] 1,000 mg PO BIDWM #120 tab 08/20/24 - Past Medical/Surgical History Diabetic: Yes -: Diabetes mellitus -: Multiple skin abscesses -: Hidradenitis suppurativa -: Incision and drainage Psychosocial/ Personal History: Patient is currently homeless - Social History Smoking Status: Never smoker Alcohol use: No CD- Drugs: No Caffeine use: No Review of Systems General: Fever, Chills Gastrointestinal: Abdominal Pain (Wound ) Physical Examination - Vital Signs Temperature: 98.4 F Blood Pressure: 106/94 Pulse: 96 Respirations: 19 - Physical Exam General: Alert, In no apparent distress, Oriented x3, Other (Uncomfortable) HEENT: Atraumatic, Normocephalic, PERRLA, Other Neck: Supple Respiratory: Clear to auscultation bilaterally, Normal air movement Cardiovascular: Normal pulses, Regular rate/rhythm, Normal S1 S2 Capillary refill: <2 Seconds Gastrointestinal: Non-distended, Other (Open midline wound), Tenderness Musculoskeletal: No clubbing Integumentary: No rashes Neurological: Normal speech, Normal tone - Studies Laboratory Data (last 24 hrs) 11/09/02/24 09/02/24 13:44 13:44 13:44 WBC 10.50 Hgb 9.6 L Hct 31.1 L Plt Count 312 PT 12.9 H INR 1.16 APTT 34.7 Sodium 131 L Potassium 4.5 BUN 19 H Creatinine 0.86 Glucose 572 H* Total Bilirubin 0.3 AST 13 L ALT < 14 L Alkaline Phosphatase 150 H Assessment and Plan - Plan Assessment and plan Nonhealing abdominal wound History Hidradenitis suppurativa status post incision and drainage Lactic acidosis -Cleocin and vancomycin -IV fluids -Pain control -Dr. Arenas consulted, plan for wound VAC application -Arrangements for outpatient wound clinic -Santyl, Jose Ahe, 4 x 4's, ABD, tape daily Diabetes mellitusNIDDM with hyperglycemia Hyponatremia -Serum glucose 572, anion gap 13.5closed, bicarb 26 -10 units insulin given in the ED -Accu-Chek with sliding scale insulin moderate -Accu-Chek now for follow-up of 10 units insulin. -IV fluids -Hold oral medication DVT PPx SCD Full code LOS 2 days Discharge Plan: Home Plan to discharge in: 48 Hours - Advance Directives Does patient have a Living Will: No Does patient have a Durable POA for Healthcare: No
[2024-09-02] MEDS: HYDROMORPHONE HCL 1 MG/ML INJ IV PRN (17:27)
[2024-09-02] MEDS: VANCOMYCIN 1 GM in NA CHLORIDE 0.9% 250 ML IVPB SCH (17:27)
[2024-09-02] MEDS: NA CHLORIDE 0.9% 1,000 ML IV SCH (17:28)
[2024-09-02 18:12] LABS: Specific Gravity 1.029 (1.005-1.030); Urine Bilirubin NEGATIVE (Negative); Urine Blood Negative (Negative); Urine Clarity Clear (Clear); Urine Color Colorless (Yellow); Urine Glucose 4+ (Over) (Negative); Urine Ketones NEGATIVE (Negative); Urine Microscopic Reflex YN NO UMIC; Urine Nitrite NEGATIVE (Negative); Urine Protein NEGATIVE (Negative); Urine Urobilinogen Normal (Normal); Urine pH 5.5 (5.0-7.0)
[2024-09-02] MEDS: INSULIN REGULAR (HUMAN) 100 UNIT/ML SQ SCH (20:00)
[2024-09-02] MEDS: INSULIN GLARGINE 100 UNIT/ML SQ SCH (21:00)
[2024-09-02] MEDS: HYDROCODONE/APAP 7.5/325 MG TAB PO PRN (21:51)
[2024-09-02] MEDS: CLINDAMYCIN INJ 900 MG in NA CHLORIDE 0.9% 50 ML IV SCH (22:00)
[2024-09-03] MEDS: CLINDAMYCIN 900MG/D5W 900 MG/50 ML IVPB IV ONE (01:13)
[2024-09-03 04:49] LABS: Absolute Basophils 0.2 K/uL (0-0.5); Absolute Eosinophils 0.3 K/uL (0-0.5); Absolute Lymphocytes (CBC) 1.6 K/uL (0.7-4.9); Absolute Monocytes 1.1 K/uL (0.1-1.3); Absolute Neutrophil 7.2 K/uL (1.8-8.0); Basophils % 1.7 % (0-1.3); Eosinophils % 2.8 % (0-4.4); Hematocrit 25.2 % (39.6-49.0); Hemoglobin 8.2 g/dL (13.6-17.9); Lymphocytes % 15.5 % (15.3-44.8); MCH 25.5 pg (27.0-35.0); MCHC 32.7 g/dL (32.0-36.0); MCV 77.9 fL (80-100); MPV 7.7 fL (7.6-11.3); Monocytes % 10.8 % (3.3-12.3); Neutrophils % 69.2 % (41.7-73.7); Platelets 276 thou/uL (152-406); RBC Red Blood Cell Count 3.23 M/uL (4.33-5.43); Red Cell Distribution Width 16.3 % (12.1-15.2)
[2024-09-03 05:04] LABS: Anion Gap 8.7 mEq/L (5.0-15.0); Magnesium 1.8 mg/dL (1.6-2.4); Phosphorus 4.2 mg/dL (2.5-4.9); Potassium 3.7 mEq/L (3.5-5.1)
[2024-09-03] MEDS: POTASSIUM CL SA 10 MEQ TAB PO ONE (07:40)
[2024-09-03] MEDS: CLINDAMYCIN 900MG/D5W 900 MG/50 ML IVPB IV SCH (07:52)
--- NOTE | 2024-09-03 11:18 | P.PN ---
Date of Service: 09/03/24 Subjective Reports feeling better this morning since his blood sugar has decreased. Pain is controlled Wound culture with gram postive ROS 10 point ROS as noted above, otherwise negative Physical Exam General: Alert and Oriented x3, NAD HEENT: Atraumatic, Normocephalic, PERRLA, Other Neck: Supple Respiratory: Clear to auscultation bilaterally, Normal air movement Cardiovascular: Normal pulses, RRR, Normal S1 S2 Capillary refill: <2 Seconds Gastrointestinal: Non-distended, Tenderness (Open midline wound) Musculoskeletal: No clubbing, multiple wounds to back Integumentary: No rashes Neurological: Normal speech, Normal tone Vitals Reviewed Problem list Nonhealing abdominal wound History Hidradenitis suppurativa status post incision and drainage Lactic acidosis Diabetes mellitusNIDDM with hyperglycemia Hyponatremia Assessment and Plan Nonhealing abdominal wound Multiple wounds History Hidradenitis suppurativa status post incision and drainage Lactic acidosis-resolved -continue Cleocin and vancomycin -IV fluids -Pain control -Dr. Arenas consulted, dressing changes Santyl, Vashe, 4 x 4's, ABD, tape daily -Arrangements for outpatient wound clinic -Blood culture NGTD -wound culture results G POc cocci, staph Diabetes mellitusNIDDM with hyperglycemia Hyponatremia -Initial Serum glucose 572, anion gap 13.5closed, bicarb 19 -Serum glucose 277 -Accu-Chek with sliding scale insulin moderate -IV fluids -Hold oral medication DVT PPx SCD Full code LOS 2 days Discharge Plan: Home Plan to discharge in: 48 Hours
[2024-09-03] MEDS: VANCOMYCIN 1 GM in NA CHLORIDE 0.9% 250 ML IVPB SCH (13:55)
[2024-09-04] MEDS: SILVER SULFADIAZINE 1% 50 GM TOP SCH (03:23)
[2024-09-04 04:23] LABS: Absolute Basophils 0.1 K/uL (0-0.5); Absolute Eosinophils 0.3 K/uL (0-0.5); Absolute Lymphocytes (CBC) 1.6 K/uL (0.7-4.9); Absolute Monocytes 1.3 K/uL (0.1-1.3); Absolute Neutrophil 7.1 K/uL (1.8-8.0); Basophils % 0.7 % (0-1.3); Eosinophils % 3.1 % (0-4.4); Hematocrit 25.6 % (39.6-49.0); Hemoglobin 8.4 g/dL (13.6-17.9); Lymphocytes % 15.6 % (15.3-44.8); MCH 25.4 pg (27.0-35.0); MCHC 32.8 g/dL (32.0-36.0); MCV 77.4 fL (80-100); MPV 7.4 fL (7.6-11.3); Monocytes % 12.8 % (3.3-12.3); Neutrophils % 67.8 % (41.7-73.7); Platelets 304 thou/uL (152-406); RBC Red Blood Cell Count 3.31 M/uL (4.33-5.43); Red Cell Distribution Width 16.2 % (12.1-15.2)
[2024-09-04 04:41] LABS: Anion Gap 6.5 mEq/L (5.0-15.0); Magnesium 1.7 mg/dL (1.6-2.4); Phosphorus 4.2 mg/dL (2.5-4.9); Potassium 3.5 mEq/L (3.5-5.1)
[2024-09-04] MEDS: POTASSIUM CL SA 10 MEQ TAB PO ONE (06:32)
[2024-09-04] MEDS: CEFAZOLIN SODIUM 2 GM in NA CHLORIDE 0.9% 100 ML IVPB SCH (09:25)
--- NOTE | 2024-09-04 14:48 | P.PN ---
Date of Service: 09/04/24 Subjective No acute events overnight Working on planning for outpatient wound care ROS 10 point ROS as noted above, otherwise negative Physical Exam General: Alert and Oriented x3, NAD HEENT: Atraumatic, Normocephalic, PERRLA, Other Neck: Supple Respiratory: Clear to auscultation bilaterally, Normal air movement Cardiovascular: Normal pulses, RRR, Normal S1 S2 Capillary refill: <2 Seconds Gastrointestinal: Non-distended, Tenderness (Open midline wound) Musculoskeletal: No clubbing, multiple wounds to back Integumentary: No rashes Neurological: Normal speech, Normal tone Vitals Reviewed Problem list Nonhealing abdominal wound History Hidradenitis suppurativa status post incision and drainage Lactic acidosis Diabetes mellitusNIDDM with hyperglycemia Hyponatremia Plan Nonhealing abdominal wound Multiple wounds History Hidradenitis suppurativa status post incision and drainage Lactic acidosis-resolved -Antibiotic switched to IV Ancef after culture review -Dr. Arenas consulted, dressing changes Santyl, Vashe, 4 x 4's, ABD, tape daily -Need to figure outpatient wound care -Blood culture NGTD -wound culture shows staph aureus-only resistant to penicillin Diabetes mellitusNIDDM with hyperglycemia Hyponatremia -Accu-Chek with sliding scale insulin moderate -IV fluids DVT PPx SCD Full code LOS 2 days Discharge Plan: Home Plan to discharge in: 48 Hours
[2024-09-05] VITALS: O2SAT 98
[2024-09-05 04:39] LABS: Absolute Basophils 0.1 K/uL (0-0.5); Absolute Eosinophils 0.3 K/uL (0-0.5); Absolute Lymphocytes (CBC) 1.5 K/uL (0.7-4.9); Absolute Monocytes 0.9 K/uL (0.1-1.3); Absolute Neutrophil 5.3 K/uL (1.8-8.0); Basophils % 0.9 % (0-1.3); Eosinophils % 3.9 % (0-4.4); Hematocrit 25.5 % (39.6-49.0); Hemoglobin 8.4 g/dL (13.6-17.9); Lymphocytes % 18.6 % (15.3-44.8); MCH 25.5 pg (27.0-35.0); MCHC 33.1 g/dL (32.0-36.0); MCV 77.1 fL (80-100); MPV 7.5 fL (7.6-11.3); Monocytes % 11.5 % (3.3-12.3); Neutrophils % 65.1 % (41.7-73.7); Platelets 295 thou/uL (152-406); RBC Red Blood Cell Count 3.31 M/uL (4.33-5.43); Red Cell Distribution Width 16.1 % (12.1-15.2)
[2024-09-05 04:59] LABS: Anion Gap 6.9 mEq/L (5.0-15.0); Magnesium 1.9 mg/dL (1.6-2.4); Phosphorus 3.7 mg/dL (2.5-4.9); Potassium 3.9 mEq/L (3.5-5.1)
[2024-09-05] MEDS: POTASSIUM CL SA 10 MEQ TAB PO ONE (08:51)
--- NOTE | 2024-09-05 11:53 | EKG ---
Test Date: 2024-09-02 Test Time: 14:28:39 Range Ecologist: BE MEASUREMENT RESULTS: Intervals: Rate: 98 AK: 132 QRSD: 80 QT: 346 QTc: 441 [place]: P: -8 AK: 132 QRS: -9 T: 8 INTERPRETIVE STATEMENTS: Normal sinus rhythm Inferior infarct, age undetermined Abnormal ECG Compared to ECG 08/06/2024 19:22:17 Myocardial infarct finding now present Electronically Signed On 09-05-24 11:51:48 SINGEING TORCH OPERATOR by Terence Garcia
[2024-09-05 16:27] VITALS: BP 147/83; TEMP 98.2
--- NOTE | 2024-09-05 16:59 | P.DS ---
Admission Date: 09/02/24 Discharge Date: 09/05/24 Disposition: ROUTINE DISCHARGE Discharge Condition: GOOD Reason for Admission: nonhealing abdominal wound Brief History of Present Illness: Jonatan Armenta is a 43-year-old male with past medical history of diabetes mellitusNIDDM who presents with nonhealing who presents to the ED with nonhealing abdominal wound. Wound is now draining and increased in pain. On examination his previous discharge, plans were made to follow-up with Dr. Marrero's wound care clinic. He reports not being able to attend the wound care clinic because there was confusion and he was not allowed. Laboratory evaluation significant for serum glucose 572, lactic acid 2.1, H&H . Hospital Course: Problem list Nonhealing abdominal wound History Hidradenitis suppurativa status post incision and drainage Lactic acidosis Diabetes mellitusNIDDM with hyperglycemia Hyponatremia Patient was admitted to the hospital for his nonhealing abdominal wound as well as hyperglycemia. He was evaluated by general surgery, it was found that his wound was too shallow for a wound VAC and general surgery recommends the below dressing changes daily. Multiple attempts were made at assisting patient with eugenia wound healing at the clinic, they are still awaiting some supporting documentation from patient to attempt to submit the application for review for possible eugenia wound healing support. Patient currently residing at the [facility], unable to set up home health either. Patient was demonstrated proper technique and dressing changes and will need to manage them on his own. Culture was performed during hospitalization of the abdominal wound which grew Staph aureus and PS.Fluor/ [place] both sensitive to ciprofloxacin. Patient will be prescribed an additional 5 days of oral Cipro which will be sent to his pharmacy [facility] in [place]. Patient has remained afebrile throughout hospitalization, white blood cell count within normal limits, 8.1 at discharge. Please follow-up with Dr. Arenas in his clinic for further management of your wound in 1 week Return to ER if there is significant worsening in wound, fevers Daily wound care as follows: daily-wet to dry Vasnu, Santyl, 4 x 4's, ABD, tape Please call Suzan for [facility], P:[phone] to coordinate the bulk picker of the wound vac. Please call Norma Carolina at [phone] to discuss your financial screening and to discuss documentation needed to determine if you qualify for any assistance programs. Vital Signs/Physical Exam: Temp Pulse Resp BP Pulse Ox 98.2 F 82 16 147/83 H 99 09/05/24 16:00 09/05/24 16:00 09/05/24 16:00 09/05/24 16:00 09/05/24 16:00 General: Alert, In no apparent distress, Oriented x3 HEENT: Atraumatic, PERRLA Neck: Supple, JVD not distended Respiratory: Clear to auscultation bilaterally, Normal air movement Cardiovascular: Regular rate/rhythm, Normal S1 S2 Gastrointestinal: Normal bowel sounds, No tenderness Musculoskeletal: No tenderness Integumentary: Other (Abd wound, appears clean, no surrounding eyrthema, other wounds also without signs of infection) Neurological: Normal speech, Normal tone, Normal affect Laboratory Data at Discharge: WBC 8.10 thou/uL (4.3-10.9) 09/05/24 04:15 Hgb 8.4 g/dL (13.6-17.9) L 09/05/24 04:15 Hct 25.5 % (39.6-49.0) L 09/05/24 04:15 Plt Count 295 thou/uL (152-406) 09/05/24 04:15 PT 12.9 SECONDS (9.4-12.5) H 09/02/24 13:44 INR 1.16 09/02/24 13:44 APTT 34.7 SECONDS (24.3-36.9) 09/02/24 13:44 Sodium 132 mEq/L (136-145) L 09/05/24 04:15 Potassium 3.9 mEq/L (3.5-5.1) 09/05/24 04:15 BUN 9 mg/dL (7-18) 09/05/24 04:15 Creatinine 0.53 mg/dL (0.70-1.30) L 09/05/24 04:15 Glucose 180 mg/dL (74-106) H 09/05/24 04:15 Phosphorus 3.7 mg/dL (2.5-4.9) 09/05/24 04:15 Magnesium 1.9 mg/dL (1.6-2.4) 09/05/24 04:15 Total Bilirubin 0.3 mg/dL (0.2-1.0) 09/02/24 13:44 AST 13 U/L (15-37) L 09/02/24 13:44 ALT < 14 U/L (16-61) L 09/02/24 13:44 Alkaline Phosphatase 150 U/L (45-117) H 09/02/24 13:44 Home Medications: Metformin HCl [Glucophage*] 1,000 mg PO BIDWM #120 tab 08/20/24 Ciprofloxacin HCl 500 mg PO BID 5 Days #10 tab 09/05/24 Silver Sulfadiazine Crm [Silvadene*] 1 appl TOP BID tube 09/05/24 New Medications: Ciprofloxacin HCl 500 mg PO BID 5 Days #10 tab Physician Discharge Instructions: Patient was admitted to the hospital for his nonhealing abdominal wound as well as hyperglycemia. He was evaluated by general surgery, it was found that his wound was too shallow for a wound VAC and general surgery recommends the below dressing changes daily. Multiple attempts were made at assisting patient with eugenia wound healing at the clinic, they are still awaiting some supporting documentation from patient to attempt to submit the application for review for possible eugenia wound he aling support. Patient currently residing at the [facility], unable to set up home health either. Patient was demonstrated proper technique and dressing changes and will need to manage them on his own. Culture was performed during hospitalization of the abdominal wound which grew Staph aureus and PS.Fluor/ [place] both sensitive to ciprofloxacin. Patient will be prescribed an additional 5 days of oral Cipro which will be sent to his pharmacy [facility] in [place]. Patient has remained afebrile throughout hospitalization, white blood cell count within normal limits, 8.1 at discharge. Please follow-up with Dr. Arenas in his clinic for further management of your wound in 1 week Return to ER if there is significant worsening in wound, fevers Daily wound care as follows: daily-wet to dry Nika Hernández, 4 x 4's, ABD, tape Please call Suzan for [facility], P:[phone] to coordinate the bulk picker of the wound vac. Please call Norma Carolina at [phone] to discuss your financial screening and to discuss documentation needed to determine if you qualify for any assistance programs. Followup: Caden Arenas MD [ACTIVE - CAN ADMIT] - 1 Week Time spent managing pt's care (in minutes): 45
[2024-09-05] MEDS ORDERED: CIPROFLOXACIN HCL 500 MG TAB PO SCH (17:00)
== END 2024-09-05 17:12 | disposition home or self-care (01) | DRG 605 ==
LOC: ER 13:00 → ERHOLD 15:25 → 2ND 16:31
PROVIDERS: ADMIT Internal Medicine; ATTEND Hospitalist
DX: S31.109A Unspecified open wound of abdominal wall, unspecified quadrant without penetration into peritoneal cavity, initial encounter (principal); E87.1 Hypo-osmolality and hyponatremia; E87.20 Acidosis, unspecified; Z16.11 Resistance to penicillins; Z59.01 Sheltered homelessness; E11.65 Type 2 diabetes mellitus with hyperglycemia; B95.61 Methicillin susceptible Staphylococcus aureus infection as the cause of diseases classified elsewhere; Z90.49 Acquired absence of other specified parts of digestive tract; Z79.84 Long term (current) use of oral hypoglycemic drugs
CPT/HCPCS: 36415; 80048; 80053; 80202; 81003; 82947; 83605; 83735; 84100; 85025; 85610; 85730; 87040; 87070; 87077; 87186; 87205; 93005; 96361; 96365; 96372; 99284; J1171; J7030; J7050

== ENCOUNTER 2024-09-19 20:49 | Inpatient (IN) | payer SELFPAY ==
[2024-09-19 21:36] LABS: Absolute Basophils 0.1 K/uL (0-0.5); Absolute Eosinophils 0.1 K/uL (0-0.5); Absolute Lymphocytes (CBC) 1.5 K/uL (0.7-4.9); Absolute Neutrophil 7.5 K/uL (1.8-8.0); Basophils % 0.8 % (0-1.3); Eosinophils % 1.4 % (0-4.4); Hematocrit 30.7 % (39.6-49.0); Hemoglobin 9.7 g/dL (13.6-17.9); Lymphocytes % 14.6 % (15.3-44.8); MCH 25.2 pg (27.0-35.0); MCHC 31.6 g/dL (32.0-36.0); MCV 79.6 fL (80-100); MPV 7.8 fL (7.6-11.3); Monocytes % 10.1 % (3.3-12.3); Neutrophils % 73.1 % (41.7-73.7); Nucleated Red Blood Cells % 0.1 % (0-0); Platelets 430 thou/uL (152-406); RBC Red Blood Cell Count 3.85 M/uL (4.33-5.43); Red Cell Distribution Width 16.3 % (12.1-15.2)
[2024-09-19] MEDS ORDERED: MORPHINE 4 MG/ML SYR ONE (21:44)
[2024-09-19] MEDS ORDERED: ACETAMINOPHEN 500 MG TAB ONE (21:44)
[2024-09-19] MEDS ORDERED: ONDANSETRON 4 MG/2 ML VIAL ONE (21:44)
[2024-09-19] MEDS ORDERED: NA CHLORIDE 0.9% 100 ML ONE (21:45)
[2024-09-19] MEDS ORDERED: NA CHLORIDE 0.9% 2,000 ML ONE (21:45)
[2024-09-19] MEDS ORDERED: CEFEPIME 2 GM VIAL ONE (21:45)
[2024-09-19 21:47] LABS: Protime INR 1.07
[2024-09-19 21:53] LABS: ALT/SGPT < 14 U/L (16-61); AST/SGOT < 10 U/L (15-37); Albumin 2.6 g/dL (3.4-5.0); Albumin/Globulin Ratio 0.4 (1.1-1.8); Alkaline Phosphatase 233 U/L (45-117); Anion Gap 13.5 mEq/L (5.0-15.0); BUN Blood Urea Nitrogen 15 mg/dL (7-18); Bicarbonate 25 mEq/L (21-32); Bilirubin Total 0.2 mg/dL (0.2-1.0); Globulin 5.8 g/dL (2.3-3.5); Glomerular Filtration Rate 75 ml/min (=/>90); Potassium 4.5 mEq/L (3.5-5.1); Protein, Total 8.4 g/dL (6.4-8.2); Sodium Level 128 mEq/L (136-145)
[2024-09-19 21:55] LABS: Glucose Level 789 mg/dL (74-106)
[2024-09-19] MEDS ORDERED: NA CHLORIDE 0.9% 250 ML ONE (22:15)
[2024-09-19] MEDS ORDERED: VANCOMYCIN 1 GM/VIAL ONE (22:15)
[2024-09-19 22:32] LABS: Specific Gravity > 1.030 (1.005-1.030); Sqamous Epithelial None Seen /HPF (None Seen); Urine Bacteria None Seen /HPF (<20); Urine Bilirubin NEGATIVE (Negative); Urine Blood Trace (Negative); Urine Clarity Clear (Clear); Urine Color Colorless (Yellow); Urine Culture Reflex Order NOT NEEDED; Urine Glucose 4+ (Over) (Negative); Urine Ketones NEGATIVE (Negative); Urine Microscopic Reflex YN ORDER UMIC; Urine Nitrite NEGATIVE (Negative); Urine Protein NEGATIVE (Negative); Urine RBC <5 /HPF (None Seen); Urine Urobilinogen Normal (Normal); Urine WBC <5 /HPF (<5)
[2024-09-19] MEDS ORDERED: MORPHINE 2 MG/ML SYR ONE (23:52)
[2024-09-19] MEDS ORDERED: INSULIN REGULAR (HUMAN) 100 UNIT/ML ONE (23:53)
[2024-09-19] MEDS ORDERED: NA CHLORIDE 0.9% 1,000 ML ONE (23:53)
[2024-09-20] MEDS ORDERED: MORPHINE 4 MG/ML SYR ONE (01:36)
[2024-09-20] MEDS ORDERED: ACETAMINOPHEN 500 MG TAB PO PRN (03:46)
[2024-09-20] MEDS ORDERED: ONDANSETRON 4 MG/2 ML VIAL IV PRN (03:46)
[2024-09-20] MEDS: CEFAZOLIN SODIUM 2 GM in NA CHLORIDE 0.9% 100 ML IVPB SCH ×2 (03:50→06:20)
[2024-09-20] MEDS ORDERED: D10W 125 ML IV PRN (03:52)
[2024-09-20] MEDS ORDERED: GLUCAGON 1 MG/VIAL IM PRN ×2 (03:52)
[2024-09-20] MEDS ORDERED: D50W 25 GM/50 ML SYRINGE IV PRN (03:52)
--- NOTE | 2024-09-20 03:59 | P.HP ---
Certification for Inpatient Patient admitted to: Inpatient With expected LOS: >2 Midnights Practitioner: I am a practitioner with admitting privileges, knowledge of patient current condition, hospital course, and medical plan of care. Services: Services provided to patient in accordance with Admission requirements found in Title 42 Section 412.3 of the Code of Federal Regulations Patient History Date of Service: 09/20/24 Reason for admission: infected abdominal wall wound History of Present Illness: Patient is a 43-year-old male with a known past medical history of uncontrolled diabetes mellitus, nonhealing abdominal wounds. He is currently homeless and living at [facility]. As per chart review, multiple attempts have been made to set the patient up with [facility] but this was unsuccessful. He presents to the ER complaining of ongoing purulent drainage with foul-smelling odor. He is also reporting increased pain in his wounds. Patient arrived in the ER with a blood glucose of 789 and lactic acidosis. The wound was clean by the ER physician at bedside. Patient is known to general surgery. Allergies No Known Allergies Allergy (Verified 08/06/24 22:45) Home Medications: Metformin HCl [Glucophage*] 1,000 mg PO BIDWM #120 tab 08/20/24 Ciprofloxacin HCl 500 mg PO BID 5 Days #10 tab 09/05/24 Silver Sulfadiazine Crm [Silvadene*] 1 appl TOP BID tube 09/05/24 - Past Medical/Surgical History Diabetic: Yes -: Diabetes mellitus -: Multiple skin abscesses -: Hidradenitis suppurativa -: Incision and drainage Psychosocial/ Personal History: Patient is currently homeless - Social History Alcohol use: No CD- Drugs: No Caffeine use: No Physical Examination - Physical Exam General: Cachectic, Acute distress HEENT: Atraumatic, Normocephalic Respiratory: Clear to auscultation bilaterally, Normal air movement Cardiovascular: No edema, Normal pulses, Regular rate/rhythm Musculoskeletal: Erythema, Tenderness, Other (dehisced abdominal wound, mild purulence around edges) Neurological: Normal speech - Studies Laboratory Data (last 24 hrs) 09/19/24 09/19/24 09/19/24 21:22 21:22 21:22 WBC 10.30 Hgb 9.7 L Hct 30.7 L Plt Count 430 H PT 12.0 INR 1.07 APTT 34.0 Sodium 128 L Potassium 4.5 BUN 15 Creatinine 1.23 Glucose 789 H* Total Bilirubin 0.2 AST < 10 L ALT < 14 L Alkaline Phosphatase 233 H Assessment and Plan - Problems (Diagnosis) (1) Abdominal wound dehiscence Current Visit: Yes Status: Acute (2) Abscess of skin Current Visit: No Status: Acute (3) Diabetes mellitus Current Visit: No Status: Acute (4) Hyperglycemia Current Visit: No Status: Acute (5) Hypertension Current Visit: No Status: Acute (6) Hyponatremia Current Visit: No Status: Acute (7) Microcytic anemia Current Visit: No Status: Acute (8) Suppurative hidradenitis Current Visit: No Status: Acute - Plan Assessment 43-year-old male with uncontrolled diabetes mellitus and nonhealing abdominal wound who is being admitted after he developed purulence and drainage from his abdominal wound. This was cleaned at bedside by the ER physician. Does not meet criteria for sepsis. CT abdomen pelvis is pending. Patient was also hyperglycemic in the ER with a blood glucose of 782. Responded to volume repletion and short acting insulin. His blood glucose is now 256. Infected abdominal wound Lactic acidosis Severe hyperglycemia Diabetes mellitus - Last A1c of 13.6 Homeless status Hyponatremia Microcytic anemia Plan: Will admit inpatient Follow CT abdomen and pelvis Reviewed past cultures, which yielded MSSA. Will start patient on cefazolin and levofloxacin IV fluid infusion Infectious disease has been consulted Will also consult wound care and general surgery, Dr. 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
--- NOTE | 2024-09-20 04:00 | ER ---
Nurse's Notes [facility] Name: Jonatan Sood Age: 43 yrs Sex: Male : 1980 Arrival Date: 09/19/2024 Time: 20:49 Bed 13 Private MD: Diagnosis: Sepsis , Abdominal wall wound infection, Right great Toe deep pressure ulcer, Uncontrolled DM type II with Hyperglycemia , Moderate Dehydration Presentation: 09/19 21:12 Chief complaint: Patient states: purulent drainage from previous abdominal wound. lg3 Coronavirus screen: Client denies travel out of the [place] in the last 14 days. At this time, the client does not indicate any symptoms associated with coronavirus-19. Ebola Screen: No symptoms or risks identified at this time. Initial Sepsis Screen: Does the patient meet any 2 criteria? No. Patient's initial sepsis screen is negative. Does the patient have a suspected source of infection? No. Patient's initial sepsis screen is negative. Risk Assessment: Do you want to hurt yourself or someone else? Patient reports no desire to harm self or others. Onset of symptoms is unknown. 21:12 Method Of Arrival: Ambulatory lg3 21:12 Acuity: ANI 3 lg3 Triage Assessment: 21:13 General: Appears in no apparent distress. uncomfortable, Behavior is calm, cooperative. lg3 Pain: Complains of pain in abdomen. EENT: No deficits noted. No signs and/or symptoms were reported regarding the EENT system. Neuro: No deficits noted. Martin Agitation-Sedation Scale (RASS): 0 - Alert and Calm Level of Consciousness is awake, alert, obeys commands, Oriented to person, place, time, situation. Cardiovascular: No deficits noted. Denies chest pain, shortness of breath, Capillary refill < 3 seconds Clubbing of nail beds is absent JVD is absent Patient's skin is warm and dry. Respiratory: No deficits noted. Airway is patent Respiratory effort is even, unlabored, Respiratory pattern is regular, symmetrical. GI: Abdomen is flat, non-distended, Reports lower abdominal pain, upper abdominal pain. : No signs and/or symptoms were reported regarding the genitourinary system. Derm: Skin is intact, is healthy with good turgor, Skin is dry, Skin is normal, Skin temperature is warm Wound noted abdomen. Musculoskeletal: No deficits noted. No signs and/or symptoms reported regarding the musculoskeletal system. Circulation, motion, and sensation intact. Range of motion: intact in all extremities. Historical: - Allergies: 21:13 NKDA; lg3 - Home Meds: 21:13 None [Active]; lg3 - PMHx: 21:13 diabetes mellitus; lg3 - PSHx: 21:13 Appendectomy; I \T\ D abscesses; lg3 - Immunization history:: Adult Immunizations up to date. - Infectious Disease History:: Denies. - Social history:: Smoking status: Patient denies any tobacco usage or history of. Patient/guardian denies using alcohol, street drugs. - Family history:: not pertinent. Screenin/05 05:09 [facility] ED Fall Risk Assessment (Adult) History of falling in the last 3 months, cp4 including since admission No falls in past 3 months (0 pts) Confusion or Disorientation No (0 pts) Intoxicated or Sedated No (0 pts) Impaired Gait No (0 pts) Mobility Assist Device Used No (0 pt) Altered Elimination No (0 pt) Score/Fall Risk Level 0 - 2 = Low Risk Oriented to surroundings, Maintained a safe environment, Assessed \T\ reinforced patient's understanding of fall precautions, Hourly rounding (assess needs \T\ fall precautionary measures) done. Abuse screen: Denies threats or abuse. Nutritional screening: No deficits noted. Tuberculosis screening: No symptoms or risk factors identified. Assessment: 09/19 21:30 General: Appears in no apparent distress. uncomfortable, Behavior is calm, cooperative, jb4 appropriate for age. Pain: Complains of pain in abdomen Pain does not radiate. Pain currently is 9 out of 10 on a pain scale. Neuro: Level of Consciousness is awake, alert, obeys commands, Oriented to person, place, time, situation. Cardiovascular: Patient's skin is warm and dry. Respiratory: Airway is patent Respiratory effort is even, unlabored, Respiratory pattern is regular, symmetrical. Derm: Skin is pink, warm \T\ dry. Wound noted suprapubic area, plantar aspect of right first toe and right hamstring. Musculoskeletal: Circulation, motion, and sensation intact. Range of motion: intact in all extremities. 23:00 Reassessment: Patient appears in no apparent distress at this time. Patient and/or jb4 family updated on plan of care and expected duration. Pain level reassessed. Patient is alert, oriented x 3, equal unlabored respirations, skin warm/dry/pink. 09/20 00:00 Reassessment: Patient appears in no apparent distress at this time. Patient and/or jb4 family updated on plan of care and expected duration. Pain level reassessed. Patient is alert, oriented x 3, equal unlabored respirations, skin warm/dry/pink. 01:00 Reassessment: Patient appears in no apparent distress at this time. Patient and/or jb4 family updated on plan of care and expected duration. Pain level reassessed. Patient is alert, oriented x 3, equal unlabored respirations, skin warm/dry/pink. 02:00 Reassessment: Patient appears in no apparent distress at this time. Patient and/or jb4 family updated on plan of care and expected duration. Pain level reassessed. Patient is alert, oriented x 3, equal unlabored respirations, skin warm/dry/pink. 03:00 Reassessment: Patient appears in no apparent distress at this time. Patient and/or cp4 family updated on plan of care and expected duration. Pain level reassessed. Patient is alert, oriented x 3, equal unlabored respirations, skin warm/dry/pink. 04:00 Reassessment: Patient appears in no apparent distress at this time. Patient and/or cp4 family updated on plan of care and expected duration. Pain level reassessed. Patient is alert, oriented x 3, equal unlabored respirations, skin warm/dry/pink. 05:00 Reassessment: Patient appears in no apparent distress at this time. Patient and/or cp4 family updated on plan of care and expected duration. Pain level reassessed. Patient is alert, oriented x 3, equal unlabored respirations, skin warm/dry/pink. Vital Signs: 09/19 21:12 BP 170 / 89; Pulse 104; Resp 17 S; Temp 97.2(O); Pulse Ox 99% on R/A; Weight 58.97 kg lg3 (R); Height 5 ft. 9 in. ; 23:30 BP 145 / 97; Pulse 94; Resp 16; Pulse Ox 99% on R/A; jb4 09/20 00:30 BP 149 / 88; Pulse 90; Resp 16; Pulse Ox 99% on R/A; jb4 01:15 BP 140 / 89; Pulse 86; Resp 16; Pulse Ox 99% on R/A; jb4 02:00 BP 139 / 82; Pulse 85; Resp 16; Pulse Ox 98% on R/A; jb4 03:00 BP 133 / 82; Pulse 82; Resp 18; Pulse Ox 99% ; cp4 04:00 BP 176 / 65; Pulse 73; Resp 18; Pulse Ox 99% ; cp4 05:00 BP 167 / 58; Pulse 65; Resp 18; Pulse Ox 99% ; cp4 09/19 21:12 Body Mass Index 19.20 (58.97 kg, 175.26 cm) lg3 Rosalind Coma Score: 05:11 Eye Response: spontaneous(4). Motor Response: obeys commands(6). Verbal Response: sp4 oriented(5). Total: 15. ED Course: 09/19 20:50 Patient arrived in ED. jj6 20:53 Leodan Rose MD is Attending Physician. sp4 21:13 Triage completed. lg3 21:13 Arm band placed on right wrist. lg3 21:22 Inserted saline lock: 20 gauge in right forearm, using aseptic technique. Blood ty collected. Flushed with 10 mL NS. 21:22 Initial lab(s) drawn, by me, sent to lab. First set of blood cultures drawn by me. ty 21:27 CBC with Diff Sent. ty 21:27 CMP Sent. ty 21:27 Lactate w/ 2H reflex if indic. Sent. ty 21:27 Protime (+inr) Sent. ty 21:27 Ptt, Activated Sent. ty 23:22 Austin Ramirez, ALEXUS is Primary Nurse. jb4 09/20 00:35 Repeat lab(s) drawn. by me, sent to lab. Inserted saline lock: 22 gauge in left ty forearm, using aseptic technique. Blood collected. Flushed with 10 mL NS. 01:09 CT Chest, Abdomen, Pelvis - W/Contrast In Process Unspecified. EDMS 03:58 Prince Garg MD is Hospitalizing Provider. sp4 04:33 No provider procedures requiring assistance completed. cp4 05:50 Placed in gown. Bed in low position. Call light in reach. Side rails up X 1. Provided cp4 Education on: admission. 05:50 Patient admitted, IV remains in place. cp4 Administered Medications: 12/04 21:54 Drug: Acetaminophen PO 1000 mg PO once Route: PO; 4 23:00 Follow up: Response: No adverse reaction; Marked relief of symptoms; Pain is decreased [facility] 21:54 Drug: NS 0.9% IV (30 ml/kg) 30 ml/kg IV at bolus once; Sepsis Protocol; to be given as jb4 a bolus over 90 minutes Route: IV; Rate: bolus; Site: right antecubital; 23:30 Follow up: IV Status: Completed infusion; IV Intake: 1769ml [facility] 21:54 Drug: Ondansetron IVP 4 mg IVP once; over 2 minutes Route: IVP; Site: right antecubital;[facility] 22:15 Follow up: Response: No adverse reaction; Marked relief of symptoms [facility] 21:54 Drug: morphine IVP or IV 4 mg IVP once over 4 mins Route: IVP; Infused Over: 4 mins; [facility] Site: right antecubital; 22:15 Follow up: Response: No adverse reaction; Marked relief of symptoms; Pain is decreased [facility] 22:03 Drug: Cefepime IVPB 2 grams IVPB at 200 ml/hr once over 30 mins; (mix in NS 100 mL) [facility] Route: IVPB; Rate: 200 ml/hr; Infused Over: 30 mins; Site: right antecubital; 22:40 Follow up: Response: No adverse reaction; IV Status: Completed infusion [facility] 22:40 Drug: vancoMYCIN IVPB 1 grams IVPB once over 2 hrs Route: IVPB; Infused Over: 2 hrs; [facility] Site: right antecubital; 09/20 00:40 Follow up: Response: No adverse reaction; IV Status: Completed infusion; IV Intake: jb4 250ml 09/19 23:59 Drug: NS 0.9% IV 1000 ml IV at 1000 ml once; to be given as a bolus over 60 minutes [facility] Route: IV; Rate: 1000 ml; Site: right forearm; 09/20 03:00 Follow up: IV Status: Completed infusion [facility] 09/19 23:59 Drug: Insulin Regular Human IVP 10 units IVP once {Co-Signature: jason (rikki [place].} Route: IVP; Site: right forearm; 09/20 01:22 Follow up: Response: No adverse reaction; Marked relief of symptoms; Blood sugar is jb4 lowered 09/19 23:59 Drug: morphine IVP or IV 2 mg IVP once over 4 mins Route: IVP; Infused Over: 4 mins; jb4 Site: right forearm; 09/20 01:23 Follow up: Response: No adverse reaction; Marked relief of symptoms; Pain is decreased jb4 01:40 Drug: morphine IVP or IV 4 mg IVP once over 4 mins Route: IVP; Infused Over: 4 mins; cp4 Site: right forearm; 05:51 Follow up: Response: No adverse reaction cp4 Medication: 05:09 VIS not applicable for this client. cp4 Intake: 09/19 23:30 IV: 1769ml; Total: 1769ml. jb4 09/20 00:40 IV: 250ml; Total: 2019ml. jb4 Outcome: 04:00 Decision to Hospitalize by Provider. sp4 05:50 Admitted to Med/surg accompanied by tech, via wheelchair, with chart, cp4 05:50 Condition: stable 05:50 Instructed on the need for admit, 05:51 Patient left the ED. cp4 Signatures: Dispatcher [employer] EDMS Austin Ramirez RN RN jb4 Alondra Ness RN RN lg3 Diane Wilkins Sergey, MD MD sp4 Sue Washington Tylor ty Potter, Christina cp4
--- NOTE | 2024-09-20 04:01 | EDPHYS ---
Physician Documentation [facility] Name: Jonatan Sood Age: 43 yrs Sex: Male : 1980 Arrival Date: 09/19/2024 Time: 20:49 Bed 13 Private MD: ED Physician Leodan Rose HPI: 09/19 20:53 This 43 yrs old Male presents to ER via Unassigned with complaints of Wound sp4 Infection. 09/20 04:00 43-year-old male presents with complaint of abdominal wall abscess with infection. sp4 Patient has history of abdominal wall abscess with debridement, history of hidradenitis suppurativa history of uncontrolled diabetes, . 05:11 Patient reports abdominal wall pain tenderness and purulent drainage, abdominal wall sp4 skin defect from recent debridement, right upper posterior thigh multiple areas of abscess drainage, also right great toe plantar surface pressure ulcer. Historical: - Allergies: 09/19 21:13 NKDA; lg3 - Home Meds: 21:13 None [Active]; lg3 - PMHx: 21:13 diabetes mellitus; lg3 - PSHx: 21:13 Appendectomy; I \T\ D abscesses; lg3 - Immunization history:: Adult Immunizations up to date. - Infectious Disease History:: Denies. - Social history:: Smoking status: Patient denies any tobacco usage or history of. Patient/guardian denies using alcohol, street drugs. - Family history:: not pertinent. ROS: 09/20 05:11 Constitutional: Negative for fever, chills, and weight loss, positive for abdominal sp4 wall wound infection, positive for right upper thigh postoperative wounds, positive for right great toe pressure ulcer All other systems are negative, Exam: 00:40 ECG was reviewed by the Attending Physician. EKG at 2328 normal sinus rhythm normal EKG sp4 05:11 Constitutional: This is a well developed, well nourished patient who is awake, alert, sp4 and in no acute distress. Head/Face: Normocephalic, atraumatic. Eyes: Pupils equal round and reactive to light, extra-ocular motions intact. Lids and lashes normal. Conjunctiva and sclera are not injected. Cornea within normal limits. Periorbital areas with no swelling, redness, or edema. ENT: Nares patent. No nasal discharge, no septal abnormalities noted. Tympanic membranes are normal and external auditory canals are clear. Oropharynx with no redness, swelling, or masses, exudates, or evidence of obstruction, uvula midline. Mucous membranes moist. Neck: Trachea midline, no thyromegaly or masses palpated, and no cervical lymphadenopathy. Supple, full range of motion without nuchal rigidity, or vertebral point tenderness. Chest/axilla: Normal chest wall appearance and motion. Nontender with no deformity. No lesions are appreciated. Cardiovascular: Regular rate and rhythm with a normal S1 and S2. No gallops, murmurs, or rubs. Normal PMI, no JVD. No pulse deficits. Respiratory: Lungs have equal breath sounds bilaterally, clear to auscultation and percussion. No rales, rhonchi or wheezes noted. No increased work of breathing, no retractions or nasal flaring. Abdomen/GI: Soft, with normal bowel sounds. No distension or tympany. No guarding or rebound. Mid abdominal skin defect with granulation tissue underneath however with purulent drainage from the lower edge of the abdominal wound. There is malodorous purulent drainage. Back: No spinal tenderness. No costovertebral tenderness. Male : Normal genitalia with no discharge or lesions. Skin: Warm, dry with normal turgor. Normal color with no rashes, right upper posterior thigh multiple skin defects in various healing stages from recent abscess debridements. MS/ Extremity: Pulses equal, no cyanosis. Neurovascular intact. Full, normal range of motion. There is a right great toe plantar surface pressure ulcer. Moderate contamination of the pressure ulcer with road debris Neuro: Awake and alert, GCS 15, oriented to person, place, time, and situation. Cranial nerves II-XII grossly intact. Motor strength 5/5 in all extremities. Sensory grossly intact. Psych: Awake, alert, with orientation to person, place and time. Behavior, mood, and affect are within normal limits Vital Signs: 09/19 21:12 BP 170 / 89; Pulse 104; Resp 17 S; Temp 97.2(O); Pulse Ox 99% on R/A; Weight 58.97 kg lg3 (R); Height 5 ft. 9 in. ; 23:30 BP 145 / 97; Pulse 94; Resp 16; Pulse Ox 99% on R/A; jb4 09/20 00:30 BP 149 / 88; Pulse 90; Resp 16; Pulse Ox 99% on R/A; jb4 01:15 BP 140 / 89; Pulse 86; Resp 16; Pulse Ox 99% on R/A; jb4 02:00 BP 139 / 82; Pulse 85; Resp 16; Pulse Ox 98% on R/A; jb4 03:00 BP 133 / 82; Pulse 82; Resp 18; Pulse Ox 99% ; cp4 04:00 BP 176 / 65; Pulse 73; Resp 18; Pulse Ox 99% ; cp4 05:00 BP 167 / 58; Pulse 65; Resp 18; Pulse Ox 99% ; cp4 09/19 21:12 Body Mass Index 19.20 (58.97 kg, 175.26 cm) lg3 [place] Coma Score: 05:11 Eye Response: spontaneous(4). Motor Response: obeys commands(6). Verbal Response: sp4 oriented(5). Total: 15. Procedures: 05:14 Performed Abdominal wound care, . Chronic abdominal skin defect was exposed and old sp4 packing was removed. There is significant amount of malodorous purulent drainage from the lower edge of abdominal wound. There is however some healthy granulation tissue throughout the skin defect. In some respects there are signs of healing however there is still signs of skin infection with pus forming. Skin defect was irrigated with saline and repacked with gauze.. MDM: 09/19 21:17 Medical Screening Exam initiated sp4 09/20 03:58 ED course: CLINICAL HISTORY: Abdominal wound. COMPARISON: CT Chest Abdomen Pelvis sp4 08/29/2024. TECHNIQUE: CT CHESTABDOMEN PELVIS WITH IV CONTRAST on 09/20/2024 12:25 AM HOSE TESTER. MIPS reconstructions were generated. This exam was performed according to our departmental dose-optimization program, which includes automated exposure control, adjustment of the mA and/or kV according to patient size and/or use of iterative reconstruction technique. FINDINGS: Vascular: Thoracic aorta is normal in course and caliber with an aberrant right subclavian artery. Pulmonary arteries are poorly opacified. Abdominal aorta is normal in course and caliber without aneurysm. Pelvic arteries are patent without aneurysm or occlusion. Chest: The heart is normal in size. There is no pericardial effusion. Intrathoracic lymph nodes are not enlarged. There is no pleural effusion, pleural thickening or pneumothorax. Central airways are patent. Lungs are clear with no consolidation, mass or interstitial lung disease. Abdomen: The liver is normal in appearance. There is no biliary dilatation. Gallbladder is normal in appearance. The pancreas and spleen are normal in appearance. The adrenal glands and kidneys are unremarkable. There is no free air. There is no retroperitoneal adenopathy. Pelvis: There is large amount stool throughout the colon diffusely. Urinary bladder is unremarkable. There is no free fluid. Appendix is not clearly seen. There is extensive stranding in the anterior abdominal wall which was present previously. Skeleton: There are no acute osseous findings. No suspicious bony lesions. IMPRESSION: Unchanged appearance of the anterior abdominal wall stranding without abscess formation. Electronically signed by: Connor Brown MD 09/20/2024 03:35 AM . 05:14 Differential diagnosis: polypharmacy, over medication, hypoglycemia, closed head sp4 injury. Data reviewed: vital signs, nurses notes, lab test result(s), radiologic studies, CT scan. Consideration of Admission/Observation Patient was admitted/placed on observation. Escalation of care including admission/observation considered. Management of patient was discussed with the following: Hospitalist: Britany NOLASCO . 05:14 ED course: Sepsis reevaluation complete, patient was given at least 30 mL per kg fluid sp4 bolus. Patient is feeling much better. Administered vancomycin and cefepime.. 12 20:59 Order name: Blood Culture Adult (2) sp4 09/19 20:59 Order name: CBC with Diff; Complete Time: 22:55 sp4 09/19 20:59 Order name: CMP; Complete Time: 22:55 sp4 09/19 20:59 Order name: Lactate w/ 2H reflex if indic.; Complete Time: 22:55 sp4 09/19 20:59 Order name: Protime (+inr); Complete Time: 22:55 sp4 09/19 20:59 Order name: Ptt, Activated; Complete Time: 22:55 sp4 09/19 20:59 Order name: Urinalysis w/ reflexes; Complete Time: 22:55 sp4 09/19 23:56 Order name: Ghost Lactate-NO COLLECT Timer; Complete Time: 00:22 EDMS 09/20 01:26 Order name: Lactate Sepsis 2 HR Follow-up; Complete Time: 01:29 EDMS 09/20 01:34 Order name: Glucose, Ancillary Testing; Complete Time: 03:57 EDMS 09/20 03:51 Order name: Lactate w/ 2H reflex if indic. EDMS 09/20 03:51 Order name: Magnesium EDMS 09/20 03:51 Order name: Phosphorus EDMS 09/20 03:51 Order name: Urinalysis w/ reflexes EDMS 09/20 03:51 Order name: Basic Metabolic Panel EDMS 09/20 03:51 Order name: Basic Metabolic Panel EDMS 09/20 03:51 Order name: CBC with Automated Diff EDMS 09/20 03:51 Order name: CBC with Automated Diff EDMS 09/20 03:52 Order name: Lipid Profile EDMS 09/20 03:52 Order name: Lipid Profile EDMS 09/20 00:25 Order name: CT Chest, Abdomen, Pelvis - W/Contrast sp4 09/20 03:51 Order name: CONS Physician Consult EDMS 09/20 03:55 Order name: CONS [facility] Cons EDMS 09/20 04:01 Order name: CONS Diabetic Education Consul EDMS 09/19 20:59 Order name: Accucheck; Complete Time: 21:55 sp4 09/19 20:59 Order name: Cardiac monitoring; Complete Time: 23:36 sp4 09/19 20:59 Order name: EKG - Nurse/Tech; Complete Time: 23:36 sp4 09/19 20:59 Order name: IV Saline Lock - Large Bore; Complete Time: 21:27 sp4 09/19 20:59 Order name: Labs collected and sent; Complete Time: 21:27 sp4 09/19 20:59 Order name: O2 Per Protocol; Complete Time: 21:55 sp4 09/19 20:59 Order name: O2 Sat Monitoring; Complete Time: 21:55 sp4 09/19 20:59 Order name: Vital Signs; Complete Time: 21:27 sp4 09/20 00:22 Order name: Wound Care; Complete Time: 00:59 sp4 09/20 00:22 Order name: Misc. Order: Abdominal binder; Complete Time: 00:59 sp4 EC/04 23:28 Rate is 89 beats/min. Rhythm is regular, Normal Sinus Rhythm. QRS [place] is Normal. HI sp4 interval is normal. QRS interval is normal. QT interval is normal. No Q waves. T waves are Normal. No ST changes noted. Clinical impression: Normal ECG. Interpreted by me. Reviewed by me. Administered Medications: 21:54 Drug: Acetaminophen PO 1000 mg PO once Route: PO; 4 23:00 Follow up: Response: No adverse reaction; Marked relief of symptoms; Pain is decreased [facility] :54 Drug: NS 0.9% IV (30 ml/kg) 30 ml/kg IV at bolus once; Sepsis Protocol; to be given as jb4 a bolus over 90 minutes Route: IV; Rate: bolus; Site: right antecubital; 23:30 Follow up: IV Status: Completed infusion; IV Intake: 1769ml 4 21:54 Drug: Ondansetron IVP 4 mg IVP once; over 2 minutes Route: IVP; Site: right antecubital;[facility] 22:15 Follow up: Response: No adverse reaction; Marked relief of symptoms [facility] :54 Drug: morphine IVP or IV 4 mg IVP once over 4 mins Route: IVP; Infused Over: 4 mins; [facility] Site: right antecubital; 22:15 Follow up: Response: No adverse reaction; Marked relief of symptoms; Pain is decreased [facility] 22:03 Drug: Cefepime IVPB 2 grams IVPB at 200 ml/hr once over 30 mins; (mix in NS 100 mL) [facility] Route: IVPB; Rate: 200 ml/hr; Infused Over: 30 mins; Site: right antecubital; 22:40 Follow up: Response: No adverse reaction; IV Status: Completed infusion [facility] 22:40 Drug: vancoMYCIN IVPB 1 grams IVPB once over 2 hrs Route: IVPB; Infused Over: 2 hrs; [facility] Site: right antecubital; 09/20 00:40 Follow up: Response: No adverse reaction; IV Status: Completed infusion; IV Intake: jb4 250ml 09/19 23:59 Drug: NS 0.9% IV 1000 ml IV at 1000 ml once; to be given as a bolus over 60 minutes [facility] Route: IV; Rate: 1000 ml; Site: right forearm; 09/20 03:00 Follow up: IV Status: Completed infusion 4 09/19 23:59 Drug: Insulin Regular Human IVP 10 units IVP once {Co-Signature: jason (rikki [place].} Route: IVP; Site: right forearm; 09/20 01:22 Follow up: Response: No adverse reaction; Marked relief of symptoms; Blood sugar is jb4 lowered 09/19 23:59 Drug: morphine IVP or IV 2 mg IVP once over 4 mins Route: IVP; Infused Over: 4 mins; jb4 Site: right forearm; 09/20 01:23 Follow up: Response: No adverse reaction; Marked relief of symptoms; Pain is decreased jb4 01:40 Drug: morphine IVP or IV 4 mg IVP once over 4 mins Route: IVP; Infused Over: 4 mins; cp4 Site: right forearm; 05:51 Follow up: Response: No adverse reaction cp4 Disposition Summary: 09/20/24 04:00 Hospitalization Ordered Notes: Hospitalization Status: Inpatient Admission sp4 Provider: Prince celeste Garg Location: Telemetry/MedSurg (Inpatient) sp4 Condition: Stable sp4 Problem: new sp4 Symptoms: have improved sp4 Bed/Room Type: Standard sp4 Room Assignment: [facility](09/20/24 04:25) [facility] Diagnosis - Sepsis , Abdominal wall wound infection, Right great Toe deep pressure ulcer, sp4 Uncontrolled DM type II with Hyperglycemia , Moderate Dehydration Forms: - Medication Reconciliation Form sp4 - SBAR form sp4 - Leadership Thank You Letter sp4 Signatures: Dispatcher [employer] Austin Brar RN RN jb4 Alondra Ness RN RN lg3 Leodan Rose MD MD sp4 Sue [place] cp4 Teressa Leon [facility] Sue [place] Corrections: (The following items were deleted from the chart) 09/19 21:00 21:00 BLOOD CULTURE*+BA.LAB.BRZ ordered. EDMS EDMS 21:00 21:00 CBC+H.LAB.BRZ ordered. EDMS EDMS 21:00 21:00 COMPREHENSIVE METABOLIC PANEL+C.LAB.BRZ ordered. EDMS EDMS 21:00 21:00 LACTATE+C.LAB.BRZ ordered. EDMS EDMS 21:00 21:00 PROTIME (+INR)+COAG.LAB.BRZ ordered. EDMS EDMS 21:00 21:00 PTT, ACTIVATED+COAG.LAB.BRZ ordered. EDMS EDMS : 21:00 Urinalysis+U.LAB.BRZ ordered. EDMS EDMS 09/20 04:25 04:00 sp4 kmf
[2024-09-20] MEDS: NA CHLORIDE 0.9% 1,000 ML IV SCH (06:10)
[2024-09-20] MEDS: HYDROMORPHONE HCL 1 MG/ML INJ IV PRN (06:13)
--- NOTE | 2024-09-20 06:43 | RAD REPORT ---
CLINICAL HISTORY: Abdominal wound. COMPARISON: CT Chest Abdomen Pelvis 08/29/2024. TECHNIQUE: CT CHEST ABDOMEN PELVIS WITH IV CONTRAST on 09/20/2024 12:25 AM TIRE CARE MANAGER. MIPS reconstructions w ere generated. This exam was performed according to our departmental dose-optimization program, which includes autom ated exposure control, adjustment of the mA and/or kV according to patient size and/or use of iterative reconstruction technique. FINDINGS: Vascular: Thoracic aorta is normal in course and caliber with an aberrant right subclavian artery. Pu lmonary arteries are poorly opacified. Abdominal aorta is normal in course and caliber without aneurysm. Pelvic arteries are patent without aneurysm or occlusion. Chest: The heart is normal in size. There is no pericardial effusion. Intrathoracic lymph nodes are n ot enlarged. There is no pleural effusion, pleural thickening or pneumothorax. Central airways are patent. Lungs a re clear with no consolidation, mass or interstitial lung disease. Abdomen: The liver is normal in appearance. There is no biliary dilatation. Gallbladder is normal in appearance. The pancreas and spleen are normal in appearance. The adrenal glands and kidneys are unremarkable. There is no free air. There is no retroperitoneal adenopathy. Pelvis: There is large amount stool throughout the colon diffusely. Urinary bladder is unremarkable. There is no free fluid. Appendix is not clearly seen. There is extensive stranding in the anterior abdominal wall which was present previously. Skeleton: There are no acute osseous findings. No suspicious bony lesions. IMPRESSION: Unchanged appearance of the anterior abdominal wall stranding without abscess formation. Electronically signed by: Connor Brown MD 09/20/2024 03:35 AM TIRE CARE MANAGER RP Due to temporary technical issues with the PACS/[facility] reporting system, reports are being katalina d by the in-house radiologist without review as a courtesy to ensure prompt reporting the interpreting radiologist is fully responsible for the content of the report. Transcribed Date/Time: 09/20/2024 6:42 AM
[2024-09-20] MEDS: Levofloxacin 750mg IV 750 MG/150 ML BAG IV SCH (07:20)
--- NOTE | 2024-09-20 07:37 | P.PN ---
Date of Service: 09/20/24 Subjective: not much change since admission seen this AM on rounds reports doing dressing changes as recommended fasting glc 300s at home ROS: 10 point ROS as noted above, otherwise negative Physical Exam: GEN: Alert, uncomfortable appearing CV: Regular rate and rhythm, no edema ABD: soft, nontender, nondistended Integumentary: anterior abdominal wound with surrounding sinus tracts, foul odor, with slight drainage on dressing. R posterior/lateral thigh sinus tracts and ~3 cm wounds Neuro: Normal speech, normal affect Problem List: Chronic nonhealing abdominal wound and thigh wound secondary to Hidradenitis suppurativa Lactic acidosis, resolved NIDDM2 with hyperglycemia Hyponatremia Chronic nonhealing abdominal wound Hx Hidradenitis suppurativa Lactic acidosis, resolved presents with nonhealing chronic abdominal wound draining purulent drainage, foul-smelling odor, increased abdominal pains. SIRS 1/4 - tachycardia. afebrile, no tachypnea, no leukocytosis elevated lactate with significant hyperglycemia. possibly that, and not necessarily sepsis CT chest/abd (09/20): unchanged appearance of anterior abdominal wall standing without abscess formation compared to CT chest 1 month ago. given cefepime / vanc in ED continue empiric ancef / levaquin (09/20-) wound culture from last hospitalization 09/02 grew Ps. Flour/[place], Staph Aureus - only resistant to Penicillin hx MSSA in March follow blood cultures ID consult Dr. Arenas, general surgery consulted NPO at midnight for tentative surgery , will eval tomorrow AM continue local wound care Pain control NIDDM2 with hyperglycemia Accu-Cheks, SSI continue novolin 10u; titrate as needed continue IV fluids check A1c Pseudohyponatremia in setting of hyperglycemia monitor and replete electrolytes as needed recheck after improvement of glc VTE: SCD Code: Full Dispo: Home, ~2-3 days pending surgical recs / possible surgery tomorrow Time Spent Managing Pts Care (In Minutes): 55
[2024-09-20 07:39] LABS: Magnesium 1.8 mg/dL (1.6-2.4); Phosphorus 3.3 mg/dL (2.5-4.9)
[2024-09-20] MEDS: INSULIN NPH (HUMAN) 100 UNITS/ML SQ SCH (09:14)
[2024-09-20] MEDS: INSULIN REGULAR (HUMAN) 100 UNIT/ML SQ SCH (09:15)
[2024-09-21 06:10] LABS: Absolute Basophils 0.1 K/uL (0-0.5); Absolute Eosinophils 0.2 K/uL (0-0.5); Absolute Lymphocytes (CBC) 1.6 K/uL (0.7-4.9); Absolute Monocytes 1.3 K/uL (0.1-1.3); Absolute Neutrophil 7.8 K/uL (1.8-8.0); Basophils % 0.9 % (0-1.3); Eosinophils % 2.2 % (0-4.4); Hemoglobin 8.6 g/dL (13.6-17.9); Lymphocytes % 14.9 % (15.3-44.8); MCH 25.1 pg (27.0-35.0); MCHC 32.1 g/dL (32.0-36.0); MCV 78.3 fL (80-100); Monocytes % 11.6 % (3.3-12.3); Neutrophils % 70.4 % (41.7-73.7); Platelets 329 thou/uL (152-406); RBC Red Blood Cell Count 3.44 M/uL (4.33-5.43)
[2024-09-21 06:17] LABS: Albumin/Globulin Ratio 0.4 (1.1-1.8); Alkaline Phosphatase 135 U/L (45-117); Anion Gap 7.8 mEq/L (5.0-15.0); BUN Blood Urea Nitrogen 14 mg/dL (7-18); Bicarbonate 29 mEq/L (21-32); Bilirubin Total 0.2 mg/dL (0.2-1.0); Globulin 4.9 g/dL (2.3-3.5); Glomerular Filtration Rate 124 ml/min (=/>90); Glucose Level 281 mg/dL (74-106); HDL Cholesterol 53 mg/dL (40-60); LDL Cholesterol, Calculated 53 mg/dL (<130); LDL Cholesterol,Calc NonReport 53; Potassium 3.8 mEq/L (3.5-5.1); Protein, Total 6.9 g/dL (6.4-8.2); Sodium Level 133 mEq/L (136-145)
[2024-09-21 06:19] LABS: ALT/SGPT < 14 U/L (16-61); AST/SGOT < 10 U/L (15-37); Bilirubin Direct < 0.2 mg/dL (0-0.2)
[2024-09-21] MEDS: POTASSIUM CL SA 10 MEQ TAB PO ONE (08:35)
--- NOTE | 2024-09-21 11:24 | P.PN ---
Date of Service: 09/21/24 Subjective: no acute events overnight continues with drainage no worsening ROS: 10 point ROS as noted above, otherwise negative Physical Exam: GEN: Alert, uncomfortable appearing CV: Regular rate and rhythm, no edema ABD: soft, nontender, nondistended Integumentary: anterior abdominal wound with surrounding sinus tracts, foul odor, with slight purulent drainage on dressing. R posterior/lateral thigh sinus tracts and ~3 cm wounds Neuro: Normal speech, normal affect Problem List: Chronic nonhealing abdominal wound and thigh wound secondary to Hidradenitis suppurativa Lactic acidosis, resolved NIDDM2 with hyperglycemia Hyponatremia Chronic nonhealing abdominal wound Hx Hidradenitis suppurativa Lactic acidosis, resolved presents with nonhealing chronic abdominal wound draining purulent drainage, foul-smelling odor, increased abdominal pains. SIRS /4 - tachycardia. afebrile, no tachypnea, no leukocytosis elevated lactate with significant hyperglycemia. possibly that, and not necessarily sepsis CT chest/abd (09/20): unchanged appearance of anterior abdominal wall standing without abscess formation compared to CT chest 1 month ago. given cefepime / vanc in ED continue empiric ancef / levaquin (09/20-) wound culture from last hospitalization 09/02 grew Ps. Flour/[place], Staph Aureus - only resistant to Penicillin hx MSSA in March follow blood cultures - NGTD ID consulted Dr. Arenas, general surgery consulted discussed pro/cons of surgery. Patient needs to think before deciding if he wants to pursue surgery Wounds need deep packing if patient opts for medical management per Dr. Lawrence ev continue local wound care Pain control NIDDM2 with hyperglycemia Accu-Cheks, SSI continue novolin 10u; titrate as needed continue IV fluids while NPO A1c: 12.4; previously 13.6 (07/15) Pseudohyponatremia in setting of hyperglycemia monitor and replete electrolytes as needed sodium improving VTE: SCD Code: Full Dispo: Home, ~3 days pending surgical recs / possible surgery Time Spent Managing Pts Care (In Minutes): 55
[2024-09-21] MEDS: HYDROCODONE/APAP 5/325 MG TAB PO PRN (18:23)
[2024-09-22 06:18] LABS: Absolute Basophils 0.1 K/uL (0-0.5); Absolute Eosinophils 0.3 K/uL (0-0.5); Absolute Lymphocytes (CBC) 1.8 K/uL (0.7-4.9); Absolute Neutrophil 6.2 K/uL (1.8-8.0); Basophils % 0.6 % (0-1.3); Eosinophils % 2.9 % (0-4.4); Hematocrit 26.7 % (39.6-49.0); Hemoglobin 8.8 g/dL (13.6-17.9); Lymphocytes % 18.8 % (15.3-44.8); MCH 25.5 pg (27.0-35.0); MCV 77.4 fL (80-100); MPV 7.6 fL (7.6-11.3); Neutrophils % 66.7 % (41.7-73.7); Platelets 349 thou/uL (152-406); RBC Red Blood Cell Count 3.45 M/uL (4.33-5.43); Red Cell Distribution Width 16.1 % (12.1-15.2)
[2024-09-22 06:36] LABS: Anion Gap 7.6 mEq/L (5.0-15.0); Magnesium 1.8 mg/dL (1.6-2.4); Potassium 3.6 mEq/L (3.5-5.1)
[2024-09-22] MEDS: MAGNESIUM SULFATE 1 gm IVPB 1 GM/100 ML BAG IV ONE (07:46)
--- NOTE | 2024-09-22 10:01 | P.PN ---
Date of Service: 09/22/24 Subjective: doing okay, denies any new / worsening problems no events overnight agreeable to surgery today afebrile ROS: 10 point ROS as noted above, otherwise negative Physical Exam: GEN: Alert, uncomfortable appearing CV: Regular rate and rhythm, no edema ABD: soft, nontender, nondistended Integumentary: anterior abdominal wound with surrounding sinus tracts, foul odor, with slight purulent drainage on dressing. R posterior/lateral thigh sinus tracts and ~3 cm wounds Neuro: Normal speech, normal affect Problem List: Chronic nonhealing abdominal wound and thigh wound secondary to Hidradenitis suppurativa Lactic acidosis, resolved NIDDM2 with hyperglycemia Hyponatremia Chronic nonhealing abdominal wound Hx Hidradenitis suppurativa Lactic acidosis, resolved presents with nonhealing chronic abdominal wound draining purulent drainage, foul-smelling odor, increased abdominal pains. SIRS 1/4 - tachycardia. afebrile, no tachypnea, no leukocytosis elevated lactate with significant hyperglycemia. possibly that, and not necessarily sepsis CT chest/abd (09/20): unchanged appearance of anterior abdominal wall standing without abscess formation compared to CT chest 1 month ago. given cefepime / vanc in ED continue empiric ancef / levaquin (09/20-) wound culture from last hospitalization 09/02 grew Ps. Flour/[place], Staph Aureus - only resistant to Penicillin hx MSSA in March follow blood cultures - NGTD ID consulted Dr. Arenas, general surgery consulted 09/22 patient now agreeable to surgery Discussed with surgery - tentative plan for surgery Tuesday continue local wound care Pain control NIDDM2 with hyperglycemia Accu-Cheks, SSI continue novolin 10u; titrate as needed A1c: 12.4; previously 13.6 (07/15) Pseudohyponatremia in setting of hyperglycemia monitor and replete electrolytes as needed VTE: SCD Code: Full Dispo: Home, several days Agreeable to surgery, tentatively planned for Tuesday Time Spent Managing Pts Care (In Minutes):45
[2024-09-22] MEDS: POTASSIUM CL SA 10 MEQ TAB PO ONE (10:16)
[2024-09-23] MEDS ORDERED: D50W 25 GM/50 ML SYRINGE IV PRN (06:34)
[2024-09-23] MEDS ORDERED: INSULIN 70/30 100 UNITS/ML SQ SCH (07:30)
[2024-09-23 08:15] LABS: ALT/SGPT < 14 U/L (16-61); AST/SGOT < 10 U/L (15-37); Albumin 2.2 g/dL (3.4-5.0); Albumin/Globulin Ratio 0.4 (1.1-1.8); Alkaline Phosphatase 142 U/L (45-117); Anion Gap 7.9 mEq/L (5.0-15.0); BUN Blood Urea Nitrogen 7 mg/dL (7-18); Bicarbonate 30 mEq/L (21-32); Bilirubin Total 0.3 mg/dL (0.2-1.0); Globulin 5.5 g/dL (2.3-3.5); Glomerular Filtration Rate 124 ml/min (=/>90); Glucose Level 195 mg/dL (74-106); Potassium 3.9 mEq/L (3.5-5.1); Protein, Total 7.7 g/dL (6.4-8.2); Sodium Level 132 mEq/L (136-145)
[2024-09-23] MEDS: INSULIN NPH (HUMAN) 100 UNITS/ML SQ SCH (08:21)
--- NOTE | 2024-09-23 10:45 | P.PN ---
Date of Service: 09/23/24 Subjective: no events overnight doesn't feel worse tentative plan for surgery tomorrow afebrile ROS: 10 point ROS as noted above, otherwise negative Physical Exam: GEN: Alert, uncomfortable appearing CV: Regular rate and rhythm, no edema ABD: soft, nontender, nondistended Integumentary: anterior abdominal wound with surrounding sinus tracts, foul odor, with slight purulent drainage on dressing. R posterior/lateral thigh sinus tracts and ~3 cm wounds Neuro: Normal speech, normal affect Problem List: Chronic nonhealing abdominal wound and thigh wound secondary to Hidradenitis suppurativa Lactic acidosis, resolved NIDDM2 with hyperglycemia Hyponatremia Chronic nonhealing abdominal wound and thigh wound secondary to Hidradenitis suppurativa Lactic acidosis, resolved presents with nonhealing chronic abdominal wound draining purulent drainage, foul-smelling odor, increased abdominal pains. SIRS 1/4 - tachycardia. afebrile, no tachypnea, no leukocytosis elevated lactate with significant hyperglycemia. possibly that, and not necessarily sepsis CT chest/abd (09/20): unchanged appearance of anterior abdominal wall standing without abscess formation compared to CT chest 1 month ago. given cefepime / vanc in ED continue empiric ancef / levaquin (09/20-) wound culture from last hospitalization 09/02 grew Ps. Flour/[place], Staph Aureus - only resistant to Penicillin hx MSSA in March follow blood cultures - NGTD ID consulted Dr. Arenas, general surgery consulted tentative plan for surgery Tuesday continue local wound care Pain control NIDDM2 with hyperglycemia Accu-Cheks, SSI continue novolin 10u; titrate as needed A1c: 12.4; previously 13.6 (07/15) Pseudohyponatremia in setting of hyperglycemia monitor and replete electrolytes as needed VTE: SCD Code: Full Dispo: Home, several days Agreeable to surgery, tentatively planned for Tuesday Time Spent Managing Pts Care (In Minutes):45
[2024-09-23 23:10] LABS: Hepatitis B Core IgM Nonreactive (Nonreactive); Hepatitis B surface AG Interp. Nonreactive (Nonreactive)
[2024-09-23 23:11] LABS: HBsAG Nonreactive Report Report
[2024-09-24 04:37] LABS: Absolute Basophils 0.1 K/uL (0-0.5); Absolute Eosinophils 0.3 K/uL (0-0.5); Absolute Lymphocytes (CBC) 1.8 K/uL (0.7-4.9); Absolute Monocytes 1.4 K/uL (0.1-1.3); Basophils % 0.8 % (0-1.3); Eosinophils % 2.7 % (0-4.4); Hematocrit 30.9 % (39.6-49.0); Hemoglobin 9.7 g/dL (13.6-17.9); Lymphocytes % 17.1 % (15.3-44.8); MCH 24.4 pg (27.0-35.0); MCHC 31.3 g/dL (32.0-36.0); MPV 7.8 fL (7.6-11.3); Monocytes % 13.2 % (3.3-12.3); Neutrophils % 66.2 % (41.7-73.7); Platelets 459 thou/uL (152-406); RBC Red Blood Cell Count 3.96 M/uL (4.33-5.43); Red Cell Distribution Width 16.1 % (12.1-15.2)
[2024-09-24 05:10] VITALS: BMI 19.3
[2024-09-24] MEDS: D5 0.45 NS 1,000 ML IV SCH (07:16)
--- NOTE | 2024-09-24 10:23 | P.PN ---
Date of Service: 09/24/24 Subjective: plan for surgery ~2pm per patient doesn't feel any worse denies any new / worsening problems afebrile ROS: 10 point ROS as noted above, otherwise negative Physical Exam: GEN: Alert, orientedx3, NAD CV: Regular rate and rhythm, no edema ABD: soft, nontender, nondistended Integumentary: anterior abdominal wound with surrounding sinus tracts, foul odor, with slight purulent drainage on dressing. R posterior/lateral thigh sinus tracts Neuro: Normal speech, normal affect Problem List: Chronic nonhealing abdominal wound and thigh wound secondary to Hidradenitis suppurativa Lactic acidosis, resolved NIDDM2 with hyperglycemia Hyponatremia Chronic nonhealing abdominal wound and thigh wound secondary to Hidradenitis suppurativa Lactic acidosis, resolved presents with nonhealing chronic abdominal wound draining purulent drainage, foul-smelling odor, increased abdominal pains. SIRS 1/4 - tachycardia. afebrile, no tachypnea, no leukocytosis elevated lactate with significant hyperglycemia. possibly that, and not necessarily sepsis CT chest/abd (09/20): unchanged appearance of anterior abdominal wall standing without abscess formation compared to CT chest 1 month ago. given cefepime / vanc in ED continue empiric ancef / levaquin (09/20-) wound culture from last hospitalization 09/02 grew Ps. Flour/[place], Staph Aureus - only resistant to Penicillin hx MSSA in March follow blood cultures - NGTD ID consulted Dr. Arenas, general surgery consulted tentative plan for surgery today continue local wound care Pain control NIDDM2 with hyperglycemia Accu-Cheks, SSI continue novolin 10u; titrate as needed A1c: 12.4; previously 13.6 (07/15) Pseudohyponatremia in setting of hyperglycemia monitor and replete electrolytes as needed VTE: SCD Code: Full Dispo: Home, ~2 days pending surgery / recovery Time Spent Managing Pts Care (In Minutes):45
[2024-09-24] MEDS ORDERED: FENTANYL CITR 100 MCG/2 ML ONE (12:10)
[2024-09-24] MEDS ORDERED: MIDAZOLAM HCL 2 MG/2 ML INJ ONE (12:10)
[2024-09-24] MEDS ORDERED: propofoL 200 MG/20 ML VIAL IV ONE (12:10)
[2024-09-24] MEDS ORDERED: ONDANSETRON 4 MG/2 ML VIAL ONE (12:10)
[2024-09-24] MEDS ORDERED: LIDOCAINE 2% MPF 5 ML VIAL ONE (12:10)
[2024-09-24] MEDS: NA CHLORIDE 0.9% 1,000 ML ONE (12:42)
[2024-09-24] MEDS ORDERED: dexAMETHasone 4 MG/ML VIAL ONE (13:16)
[2024-09-24] MEDS: LIDOCAINE HCL/EPINEPHRINE 20 ML MDV ONE (13:37)
--- NOTE | 2024-09-24 13:48 | P.OP ---
Preoperative diagnosis: Hidradenitis of Abdominal Wall Postoperative diagnosis: Hidradenitis of Abdominal Wall Primary procedure: Excisional Debridement of Hidradenitis of Abdominal Wall Anesthesia: GETA + Local Estimated blood loss: <10cc Specimen: Cultures, Debridement Tissue Findings: (cm) 8 x 4, 3x2 Complications: None Transferred to: Recovery Room Condition: Good
[2024-09-24] MEDS: HYDROMORPHONE HCL 1 MG/ML INJ ONE ×2 (14:07→14:27)
--- NOTE | 2024-09-25 00:52 | OP ---
Date of Procedure: 09/24/2024 Surgeon: Caden Arenas MD, Preoperative Diagnosis: Hidradenitis of the abdominal wall. Postoperative Diagnosis: Hidradenitis of the abdominal wall. Procedure Performed: Excisional debridement of hidradenitis of the abdominal wall. Anesthesia: General endotracheal plus local 1% lidocaine with epinephrine. Estimated Blood Loss: 10 cc. Specimens: Culture sent both aerobic and anaerobic speciation and debridement tissue. Findings: Approximately 8 cm x 4 cm area of additional hidradenitis on the left of midline abdominal wall and approximately 3 cm x 2 cm area on the right abdominal wall. Complications: None. Disposition: The patient was transferred to recovery room in good condition. Indications: The patient is a 43-year-old male, known to me from previous episodes of hidradenitis. He has had multiple debridements of both the abdominal wall as well as the thigh. He has significan t improvement of his midline abdominal wound for the areas that were debrided. However, he has addit ional areas laterally to his midline abdominal wound that have enlarged and began draining abscess ma terial when he was unable to complete his wound care as an outpatient as he has no resources at this point and as such he came to the emergency room with the above-stated complaints. Ultimately, he has abscess-like material draining from multiple sinuses of his abdominal wall. He was unable to pack t hese wounds himself because of the logistics and he has no financial ability to pack the wound and as such they accumulated abscess-like material and he came for debridement. Ultimately, he was deemed appropriate for the above-stated issues. Procedure In Detail: After informed consent was obtained, the patient was brought to the operating r oom, prepped and draped in the usual sterile fashion. After adequate anesthesia was achieved, I made elliptical incisions circumferentially around the previous abdominal midline wound, approximately 8 cm x 4 cm on the left abdominal wall and to the right was approximately 3 cm x 2 cm. There was under mining to the inferior aspect towards the inguinal region. There was abscess material encountered he re, it was cultured for both aerobic and anaerobic speciation. All debridement tissue was sent off f or pathologic examination. The area was copiously irrigated aggressively with sterile saline and the n the hemostasis was achieved easily with minimal electrocautery. The depth of the wound was never b eyond the fascia and no rectus muscle was exposed over the fascia or the rectus muscle. It was all s ubcutaneous fat consistent with a stage II to III type wound in the areas visualized. No exposed mus amee was appreciated throughout the procedure. At this point, the wound was then packed with Vashe-so aked Kerlix and a sterile dressing placed over top. The patient tolerated the procedure without inci dent or complication and transferred to PACU in good condition. All counts were correct at the end o f the case. POONAM/PETER Voice ID: [id number] Report ID: [id number]
[2024-09-25 05:27] LABS: Absolute Basophils 0.1 K/uL (0-0.5); Absolute Eosinophils 0.1 K/uL (0-0.5); Absolute Lymphocytes (CBC) 1.6 K/uL (0.7-4.9); Absolute Monocytes 1.3 K/uL (0.1-1.3); Absolute Neutrophil 8.2 K/uL (1.8-8.0); Basophils % 1.1 % (0-1.3); Eosinophils % 1.1 % (0-4.4); Hematocrit 30.8 % (39.6-49.0); Lymphocytes % 14.4 % (15.3-44.8); MCH 24.9 pg (27.0-35.0); MCHC 32.4 g/dL (32.0-36.0); MCV 76.9 fL (80-100); MPV 7.5 fL (7.6-11.3); Monocytes % 11.1 % (3.3-12.3); Neutrophils % 72.3 % (41.7-73.7); Nucleated Red Blood Cells % 0.1 % (0-0); Platelets 458 thou/uL (152-406); RBC Red Blood Cell Count 4.01 M/uL (4.33-5.43); Red Cell Distribution Width 15.8 % (12.1-15.2)
[2024-09-25 05:55] LABS: Anion Gap 7.9 mEq/L (5.0-15.0); Potassium 3.9 mEq/L (3.5-5.1)
[2024-09-25] MEDS: POTASSIUM CL SA 10 MEQ TAB PO ONE (08:19)
[2024-09-25] MEDS: INSULIN REGULAR (HUMAN) 100 UNIT/ML SQ SCH (11:30)
--- NOTE | 2024-09-25 12:47 | P.CNS ---
Date of Consult: 09/25/24 This is a 43-year-old male well-known to me from previous admission patient is coming in with nonhealing abdominal wound and uncontrolled diabetes mellitus. Patient continued to have abdominal pain he is homeless and noncompliant to his treatment. Coming to the emergency room with ongoing purulent drainage and foul smell patient also had debridement done by surgical team with leukocytosis currently being treated with cefazolin and Levaquin Past medical history as per HPI Past surgical history Multiple surgical debridements to the abdominal wound Social history Denies any alcohol and tobacco use Hydrocodone Bitart/Acetaminophen (Hydrocodone/Apap 5/325 Mg Tab) 1 tab PO Q6H PRN PRN Reason: Pain scale 5-7 (Moderate) Last Admin: 09/25/24 08:40 Dose: 1 tab Glucagon (Glucagon 1 Mg/Vial) 1 mg IM 1X PRN PRN Reason: HYPOGLYCEMIA Hydromorphone HCl (Hydromorphone Hcl 1 Mg/Ml Inj) 1 mg IV Q4H PRN PRN Reason: Pain scale 8-10 (Severe) Last Admin: 09/25/24 11:21 Dose: 1 mg Levofloxacin/Dextrose (Levaquin 750 Mg/150 Ml Ivpb (Premix)) 750 mg in 150 mls @ 100 mls/hr IV Q24H COBY; Protocol Last Admin: 09/25/24 05:16 Dose: 150 mls Dextrose (Dextrose 10% Water Iv Soln.) 125 mls @ 0 mls/hr IV PRN PRN; Protocol PRN Reason: HYPOGLYCEMIA Cefazolin Sodium 2 gm/ Sodium (Chloride) 100 mls @ 200 mls/hr IVPB Q8HR COBY; Protocol Last Admin: 09/25/24 08:19 Dose: 100 mls Insulin Human NPH (Insulin Nph (Human) 100 Units/Ml) 15 units SQ BIDWM COBY Last Admin: 09/25/24 08:19 Dose: 15 units Insulin Human Regular (Insulin Regular (Human) 100 Unit/Ml) 0 unit SQ ACHS COBY; Protocol Last Admin: 09/25/24 07:30 Dose: 9 unit Insulin Human Regular (Insulin Regular (Human) 100 Unit/Ml) 10 unit SQ AC COBY Ondansetron HCl (Ondansetron 4 Mg/2 Ml Vial) 4 mg IV Q6HP PRN PRN Reason: NAUSEA / VOMITING Allergy/AdvReac Type Severity Reaction Status Date / Time No Known Allergies Allergy Verified 09/20/24 06:23 Review of system: 10 point review was performed Physical exam: Patient lying in bed not in any acute cardiopulmonary distress Vital signs reviewed HEENT unremarkable Heart S1-S2 regular Abdomen soft bowel sound present wound noted Extremity no edema wounds noted Laboratory Results WBC 10.30 thou/uL (4.3-10.9) 09/19/24 21:22 RBC 3.85 M/uL (4.33-5.43) L 09/19/24 21:22 Hgb 9.7 g/dL (13.6-17.9) L 09/19/24 21:22 Hct 30.7 % (39.6-49.0) L 09/19/24 21:22 MCV 79.6 fL (80-100) L 09/19/24 21:22 MCH 25.2 pg (27.0-35.0) L 09/19/24 21:22 MCHC 31.6 g/dL (32.0-36.0) L 09/19/24 21:22 RDW 16.3 % (12.1-15.2) H 09/19/24 21:22 Plt Count 430 thou/uL (152-406) H 09/19/24 21:22 MPV 7.8 fL (7.6-11.3) 09/19/24 21:22 Neutrophils % 73.1 % (41.7-73.7) 09/19/24 21:22 Lymphocytes % 14.6 % (15.3-44.8) L 09/19/24 21:22 Monocytes % 10.1 % (3.3-12.3) 09/19/24 21:22 Eosinophils % 1.4 % (0-4.4) 09/19/24 21: Basophils % 0.8 % (0-1.3) 09/19/24 21:22 Absolute Neutrophils 7.5 K/uL (1.8-8.0) 09/19/24 21:22 Absolute Lymphocytes 1.5 K/uL (0.7-4.9) 09/19/24 21:22 Absolute Monocytes 1.0 K/uL (0.1-1.3) 09/19/24 21:22 Absolute Eosinophils 0.1 K/uL (0-0.5) 09/19/24 21:22 Absolute Basophils 0.1 K/uL (0-0.5) 09/19/24 21:22 PT 12.0 SECONDS (9.4-12.5) 09/19/24 21:22 INR 1.07 09/19/24 21:22 APTT 34.0 SECONDS (24.3-36.9) 09/19/24 21:22 Sodium 128 mEq/L (136-145) L 09/19/24 21:22 Potassium 4.5 mEq/L (3.5-5.1) 09/19/24 21:22 Chloride 94 mEq/L (98-107) L 09/19/24 21:22 Carbon Dioxide 25 mEq/L (21-32) 09/19/24 21:22 Anion Gap 13.5 mEq/L (5.0-15.0) 09/19/24 21:22 BUN 15 mg/dL (7-18) 09/19/24 21:22 Creatinine 1.23 mg/dL (0.70-1.30) 09/19/24 21:22 Est GFR (CKD-EPI) 75 ml/min (=/>90) L 09/19/24 21:22 Glucose 789 mg/dL (74-106) H* 09/19/24 21:22 POC Glucose 256 mg/dL (65-120) H 09/20/24 01:19 Lactic Acid 2.5 mmol/L (0.4-2.0) H* 09/20/24 00:33 Lactic Acid F/U @ 2Hr Reorder 09/19/24 21:56 Calcium 9.1 mg/dL (8.5-10.1) 09/19/24 21:22 Total Bilirubin 0.2 mg/dL (0.2-1.0) 09/19/24 21:22 AST < 10 U/L (15-37) L 09/19/24 21:22 ALT < 14 U/L (16-61) L 09/19/24 21:22 Alkaline Phosphatase 233 U/L (45-117) H 09/19/24 21:22 Serum Total Protein 8.4 g/dL (6.4-8.2) H 09/19/24 21:22 Albumin 2.6 g/dL (3.4-5.0) L 09/19/24 21: Globulin 5.8 g/dL (2.3-3.5) H 09/19/24 21: Albumin/Globulin Ratio 0.4 (1.1-1.8) L 09/19/24 21:22 Urine Color Colorless (Yellow) 09/19/24 22: Urine Clarity Clear (Clear) 09/19/24 22: Urine pH 5.0 (5.0-7.0) 09/19/24 22: Ur Specific [place] > 1.030 (1.005-1.030) H 09/19/24 22:02 Glucose (UA)(Auto) 4+ (over) (Negative) H 09/19/24 22: Urine Ketones Negative (Negative) 09/19/24 22: Urine Blood Trace (Negative) H 09/19/24 22: Urine Nitrite Negative (Negative) 09/19/24 22: Urine Bilirubin Negative (Negative) 09/19/24 22: Urine Urobilinogen Normal (Normal) 09/19/24 22:02 Ur Leukocyte Esterase Negative Rosina/uL (Negative) 09/19/24 22:02 Urine RBC <5 /HPF (None Seen) 09/19/24 22:02 Urine WBC <5 /HPF (<5) 09/19/24 22:02 Ur Squamous Epith Cells None seen /HPF (None Seen) 09/19/24 22:02 U Non-Squamous Epi Cells <5 /HPF (None Seen) 09/19/24 22:02 Urine Bacteria None seen /HPF (<20) 09/19/24 22: Urine Culture Reflexed Not needed 09/19/24 22: Urine Total Protein Negative (Negative) 09/19/24 22:02 Assessment and plan: 43-year-old male with recurrent abdominal wound and abscess status post debridement continue current antibiotic can be switched to oral for 2 weeks on discharge Monitor for signs for infection with WBC and fever trend Thank you for consult
--- NOTE | 2024-09-25 14:56 | P.PN ---
Subjective Date of Service: 09/25/24 Chief Complaint: infected abdominal wall wound Patient has no new complaint. Status post anterior abdominal wound debridement yesterday. He is tolerating diet. No recorded fever. Physical Examination - Vital Signs Temperature: 98.3 F Blood Pressure: 148/85 Pulse: 98 Respirations: 15 Pulse Ox (%): 99 - Studies Microbiology Data (last 24 hrs): 09/19/24 22:02 Blood - Blood Aerobic Blood Culture - Final No growth in 5 days. 09/19/24 22:02 Blood - Blood Anaerobic Blood Culture - Final No growth in 5 days. 09/19/24 21:22 Blood - Blood Aerobic Blood Culture - Final No growth in 5 days. 09/19/24 21:22 Blood - Blood Anaerobic Blood Culture - Final No growth in 5 days. Assessment And Plan - Plan Physical Exam: GEN: Alert, oriented x 3, NAD CV: Regular rate and rhythm, no edema ABD: soft, nontender, nondistended Integumentary: anterior abdominal wound with surrounding sinus tracts, foul odor, dressing is soaked. R posterior/lateral thigh sinus tracts Neuro: Normal speech, normal affect Problem List: Chronic nonhealing abdominal wound and thigh wound secondary to Hidradenitis suppurativa Lactic acidosis, resolved NIDDM2 with hyperglycemia Hyponatremia Chronic nonhealing abdominal wound and thigh wound secondary to Hidradenitis suppurativa Lactic acidosis, resolved presents with nonhealing chronic abdominal wound draining purulent drainage, foul-smelling odor. elevated lactate with significant hyperglycemia. possibly that, and not necessarily sepsis Status post cefepime / vanc in ED. Patient seen and evaluated by general surgery Dr. Arensa. Status post surgical debridement. Continue empiric ancef / levaquin (09/20-) Wound culture from last hospitalization 09/02 grew Ps. Flour/[place], Staph Aureus - only resistant to Penicillin Hx MSSA in March Blood culture: No growth to date ID input appreciated. Continue local wound care Pain control NIDDM2 with hyperglycemia Uncontrolled. Accu-Cheks, SSI Continue NPH insulin. Premeal regular insulin added. A1c: 12.4; previously 13.6 (07/15) VTE: SCD Code: Full Dispo: Home.
[2024-09-25 23:02] VITALS: O2SAT 99
[2024-09-26 04:55] LABS: Anion Gap 7.1 mEq/L (5.0-15.0); Potassium 4.1 mEq/L (3.5-5.1)
[2024-09-26] MEDS: SMZ./TMP. 800/160 MG TABLET PO SCH (12:59)
[2024-09-26 16:18] VITALS: BP 154/94; TEMP 98.9
--- NOTE | 2024-09-26 16:44 | P.DS ---
Admission Date: 09/20/24 Discharge Date: 09/26/24 Disposition: ROUTINE DISCHARGE Discharge Condition: GOOD Reason for Admission: infected abdominal wall wound Brief History of Present Illness: Patient is a 43-year-old male with a known past medical history of uncontrolled diabetes mellitus, nonhealing abdominal wounds. He is currently homeless and living at [facility]. Multiple attempts have been made to set the patient up with [facility] but this was unsuccessful. He presented to the ER complaining of ongoing purulent drainage with foul-smelling odor. He also reported increased pain in his wounds. Patient arrived in the ER with a blood glucose of 789 and lactic acidosis. The wound was clean by the ER physician at bedside and patient admitted for further management. Hospital Course: Diagnosis Chronic nonhealing abdominal wound and thigh wound secondary to Hidradenitis suppurativa Lactic acidosis, resolved NIDDM2 with hyperglycemia Hyponatremia Chronic nonhealing abdominal wound and thigh wound secondary to Hidradenitis suppurativa Lactic acidosis, resolved presents with nonhealing chronic abdominal wound draining purulent drainage, foul-smelling odor. elevated lactate with significant hyperglycemia. Lactic acidosis secondary to hyperglycemia Patient given cefepime / vanc in ED. Patient seen and evaluated by general surgery Dr. Arenas. Status post surgical debridement. Patient placed on empiric ancef / levaquin after surgical debridement. Wound culture from last hospitalization 09/02 grew Ps. Flour/Put[place], Staph Aureus - only resistant to Penicillin Hx MSSA in March Blood culture: No growth to date Patient seen and evaluated by infectious disease. Antibiotics switched to oral Bactrim and Levaquin. Wound care with Vashe solution recommended. Pain control NIDDM2 with hyperglycemia Uncontrolled. Patient placed on NPH insulin 15 units twice daily along with Premeal insulin 10 units before meals A1c: 12.4. Vital Signs/Physical Exam: Temp Pulse Resp BP Pulse Ox 98.9 F 101 H 16 154/94 H 98 09/26/24 16:00 09/26/24 16:00 09/26/24 16:00 09/26/24 16:00 09/26/24 16:00 General: Alert, In no apparent distress, Oriented x3 HEENT: Mucous membr. moist/pink Neck: Supple, JVD not distended Respiratory: Clear to auscultation bilaterally, Normal air movement Cardiovascular: No edema, Regular rate/rhythm, Normal S1 S2 Gastrointestinal: Normal bowel sounds, Soft and benign, Non-distended Musculoskeletal: No swelling Integumentary: Other (Abdominal wound with clean dressing) Neurological: Normal strength at 5/5 x4 extr, Cranial nerves 3-12 intact Laboratory Data at Discharge: WBC 11.40 thou/uL (4.3-10.9) H 09/25/24 05:04 Hgb 10.0 g/dL (13.6-17.9) L 09/25/24 05:04 Hct 30.8 % (39.6-49.0) L 09/25/24 05:04 Plt Count 458 thou/uL (152-406) H 09/25/24 05:04 PT 12.0 SECONDS (9.4-12.5) 09/19/24 21:22 INR 1.07 09/19/24 21:22 APTT 34.0 SECONDS (24.3-36.9) 09/19/24 21:22 Sodium 133 mEq/L (136-145) L D 09/26/24 04:29 Potassium 4.1 mEq/L (3.5-5.1) 09/26/24 04:29 BUN 15 mg/dL (7-18) 09/26/24 04:29 Creatinine 0.67 mg/dL (0.70-1.30) L 09/26/24 04:29 Glucose 166 mg/dL (74-106) H 09/26/24 04:29 Phosphorus 3.3 mg/dL (2.5-4.9) 09/20/24 07:12 Magnesium 2.0 mg/dL (1.6-2.4) 09/25/24 05:04 Total Bilirubin 0.3 mg/dL (0.2-1.0) 09/23/24 07:26 AST < 10 U/L (15-37) L 09/23/24 07:26 ALT < 14 U/L (16-61) L 09/23/24 07:26 Alkaline Phosphatase 142 U/L (45-117) H 09/23/24 07:26 Triglycerides 68 mg/dL (<150) 09/21/24 05:13 Cholesterol 120 mg/dL (<200) 09/21/24 05:13 HDL Cholesterol 53 mg/dL (40-60) 09/21/24 05:13 Cholesterol/HDL Ratio 2.26 09/21/24 05:13 Home Medications: Metformin HCl [Glucophage*] 1,000 mg PO BIDWM #120 tab 08/20/24 Silver Sulfadiazine Crm [Silvadene*] 1 appl TOP BID tube 09/05/24 Alcohol Antiseptic Pads [Alcohol Swabs] 1 each TP DAILY #100 ea 09/26/24 Amino Acids/Protein Hydrolys [Prosource No Carb Liquid Pkt] 30 ml PO BID #60 packet 09/26/24 Blood Sugar Diagnostic [Glucose Test Strip] 1 each MC DAILY #30 strip 09/26/24 Insulin NPH Human [Novolin N (Humulin N)*] 15 units SQ BIDWM #10 ml 09/26/24 Insulin Regular, Human [Novolin R] 10 unit SQ AC #10 ml 09/26/24 Lancets 1 each MC DAILY #30 ea 09/26/24 [place], Disposable [Needle] 1 each MC DAILY #100 ea 09/26/24 Smz./Tmp. [Bactrim Ds 800 MG/160 MG*] 1 tab PO BID #28 tab 09/26/24 Sodium Chlor/Hypochlorous Acid [Vashe Solution] 1 karla IR DAILY #475 ml 09/26/24 Syrge-Ndl,Ins 0.3 ml Half Shaheed [Insulin Syringe] 1 each MC DAILY #1 box 09/26/24 levoFLOXacin [Levaquin] 750 mg PO DAILY #14 tab 09/26/24 New Medications: Alcohol Antiseptic Pads [Alcohol Swabs] 1 each TP DAILY #100 ea Smz./Tmp. [Bactrim Ds 800 MG/160 MG*] 1 tab PO BID #28 tab Blood Sugar Diagnostic [Glucose Test Strip] 1 each MC DAILY #30 strip Syrge-Ndl,Ins 0.3 ml Half Shaheed [Insulin Syringe] 1 each MC DAILY #1 box Lancets 1 each MC DAILY #30 ea levoFLOXacin [Levaquin] 750 mg PO DAILY #14 tab [place], Disposable [Needle] 1 each MC DAILY #100 ea Insulin NPH Human [Novolin N (Humulin N)*] 15 units SQ BIDWM #10 ml Insulin Regular, Human [Novolin R] 10 unit SQ AC #10 ml Amino Acids/Protein Hydrolys [Prosource No Carb Liquid Pkt] 30 ml PO BID #60 packet Sodium Chlor/Hypochlorous Acid [Vashe Solution] 1 karla IR DAILY #475 ml Physician Discharge Instructions: Wound care: flush larger abdominal wound with normal saline, pack with vashe soaked wet to dry, smaller abdominal incision packed with vashe soaked 1/4" plain iodoform, cover with abd pad/tape right though wounds: cleanse with vashe, pack incision with vashe soaked 1/4" plain iodoform, cover with abd/tape. Diet: ADA Activity: Ad christopher Followup: Caden Arenas MD [ACTIVE - CAN ADMIT] - 1 Week NONE,NONE [Primary Care Provider] - 1 Week Time spent managing pt's care (in minutes): 40
[2024-09-26] MEDS ORDERED: AMINO ACIDS/PROTEIN HYDROLYS 30 ML LIQUID.PKT PO SCH (21:00)
--- NOTE | 2024-09-28 16:24 | EKG ---
Test Date: 2024-09-19 Test Time: 23:28:02 Motor Vehicle Lecturer: DIALLO MEASUREMENT RESULTS: Intervals: Rate: 89 NC: 134 QRSD: 100 QT: 368 QTc: 447 Logan: P: 69 NC: 134 QRS: 62 T: 43 INTERPRETIVE STATEMENTS: Normal sinus rhythm Normal ECG Compared to ECG 09/02/2024 14:28:39 Myocardial infarct finding no longer present Electronically Signed On 09-28-24 16:10:26 PROVIDER NETWORK ANALYST by Terence Garcia
== END 2024-09-26 17:45 | disposition home or self-care (01) | DRG 902 ==
LOC: ER 20:49 → ERHOLD 09-20 03:46 → 2ND 09-20 04:36
PROVIDERS: ADMIT Internal Medicine; ATTEND Internal Medicine
PROC: 0H97XZZ Drainage of Abdomen Skin, External Approach (ICD-10-PCS; principal; 2024-09-20)
PROC: 0JB80ZZ Excision of Abdomen Subcutaneous Tissue and Fascia, Open Approach (ICD-10-PCS; 2024-09-24)
DX: T81.31XA Disruption of external operation (surgical) wound, not elsewhere classified, initial encounter (principal); E87.1 Hypo-osmolality and hyponatremia; E87.20 Acidosis, unspecified; Z59.01 Sheltered homelessness; R64 Cachexia; Z68.1 Body mass index [BMI] 19.9 or less, adult; Z16.11 Resistance to penicillins; L02.211 Cutaneous abscess of abdominal wall; L02.415 Cutaneous abscess of right lower limb; L73.2 Hidradenitis suppurativa; E11.65 Type 2 diabetes mellitus with hyperglycemia; E11.621 Type 2 diabetes mellitus with foot ulcer; L97.519 Non-pressure chronic ulcer of other part of right foot with unspecified severity; E86.0 Dehydration; I10 Essential (primary) hypertension; D50.9 Iron deficiency anemia, unspecified; B95.61 Methicillin susceptible Staphylococcus aureus infection as the cause of diseases classified elsewhere; Z79.4 Long term (current) use of insulin; Z79.84 Long term (current) use of oral hypoglycemic drugs; Z90.49 Acquired absence of other specified parts of digestive tract; Z79.899 Other long term (current) drug therapy
CPT/HCPCS: 36415; 71260; 74177; 80048; 80053; 80061; 80076; 81001; 82947; 83036; 83605; 83735; 84100; 85025; 85610; 85730; 86705; 87040; 87070; 87075; 87077; 87186; 87205; 87340; 88304; 93005; 99285; G0433; J0692; J1100; J1171; J1815; J2003; J2250; J2270; J2405; J2704; J3010; J3475; J7030; J7050; J7799; Q9967

== ENCOUNTER 2024-10-03 12:37 | Emergency (ER) | payer SELFPAY ==
[2024-10-03] MEDS ORDERED: MORPHINE 4 MG/ML SYR ONE (13:23)
[2024-10-03] MEDS ORDERED: ONDANSETRON 4 MG/2 ML VIAL ONE (13:23)
[2024-10-03] MEDS ORDERED: NA CHLORIDE 0.9% 1,000 ML ONE (13:23)
[2024-10-03 13:29] LABS: Absolute Basophils 0.1 K/uL (0-0.5); Absolute Eosinophils 0.1 K/uL (0-0.5); Absolute Lymphocytes (CBC) 1.4 K/uL (0.7-4.9); Absolute Monocytes 0.8 K/uL (0.1-1.3); Absolute Neutrophil 6.7 K/uL (1.8-8.0); Basophils % 0.6 % (0-1.3); Eosinophils % 0.6 % (0-4.4); Hematocrit 33.3 % (39.6-49.0); Hemoglobin 10.3 g/dL (13.6-17.9); Lymphocytes % 15.3 % (15.3-44.8); MCH 23.9 pg (27.0-35.0); MCHC 30.9 g/dL (32.0-36.0); MCV 77.6 fL (80-100); Monocytes % 9.2 % (3.3-12.3); Neutrophils % 74.3 % (41.7-73.7); Platelets 405 thou/uL (152-406); RBC Red Blood Cell Count 4.29 M/uL (4.33-5.43); Red Cell Distribution Width 15.6 % (12.1-15.2)
[2024-10-03 13:41] LABS: ALT/SGPT < 14 U/L (16-61); AST/SGOT < 10 U/L (15-37); Albumin 2.5 g/dL (3.4-5.0); Albumin/Globulin Ratio 0.4 (1.1-1.8); Alkaline Phosphatase 174 U/L (45-117); Anion Gap 12.5 mEq/L (5.0-15.0); BUN Blood Urea Nitrogen 14 mg/dL (7-18); Bicarbonate 26 mEq/L (21-32); Bilirubin Total 0.3 mg/dL (0.2-1.0); Glomerular Filtration Rate 115 ml/min (=/>90); Potassium 4.5 mEq/L (3.5-5.1); Protein, Total 8.5 g/dL (6.4-8.2); Sodium Level 129 mEq/L (136-145)
[2024-10-03 13:43] LABS: Glucose Level 641 mg/dL (74-106)
[2024-10-03] MEDS ORDERED: INSULIN REGULAR (HUMAN) 100 UNIT/ML ONE (13:51)
[2024-10-03 14:01] LABS: Blood Gas Oxyhemoglobin 93.7 % (94-97); Blood Gas THB 10.6 g/dl (12-18); Blood O2 Saturation 96.7 % (92-98.5)
--- NOTE | 2024-10-03 14:41 | RAD REPORT ---
EXAMINATION: CT Abdomen Pelvis W Contrast CLINICAL INDICATION: Male, 44 years old. abdominal wound s/p recent surgery TECHNIQUE: CT abdomen and pelvis was performed, after the administration of IV contrast, as per [facility] protocol. Axial, sagittal and coronal reconstructions were obtained. One or more of the following dose reduction techniques were used: Automated exposure control, adjustment of the mA and k V according to patient size, and iterative reconstruction. Unless otherwise specified, incidental findings do not require dedicated imaging follow-up. COMPARISON: 09/20/2024 through 07/14/2024. FINDINGS: LOWER CHEST: The visualized lung bases are clear apart from a stable basal right lower lobe 9 mm para bronchovascular nodule. LIVER: Normal in size and contour. No focal lesion. BILIARY SYSTEM: No suspicious abnormalities. SPLEEN: Normal size. No focal lesion. PANCREAS: No mass, ductal dilation, or carole-pancreatic fluid. ADRENALS: Normal; no mass. KIDNEYS: Normal size and contour. No hydronephrosis. URINARY BLADDER: Unremarkable. GASTROINTESTINAL TRACT: No evidence of free air, significant intra-abdominal free fluid, bowel obstru ction or abscess. Fluid filling of nondistended central abdominal small bowel loops, nonspecific, may relate to diarrheal state or mild enteritis. APPENDIX: Normal appendix. LYMPH NODES: No lymphadenopathy. MUSCULOSKELETAL: No acute or suspicious osseous abnormality. Multiple healing left lower rib fracture s, stable. ADDITIONAL FINDINGS: Postsurgical changes again seen along the anterior abdominal wall. Linear thicke jario, possibly with a sliver of fluid content along the anterior abdominal wall left of midline, measuring 6 mm in thickness, stable. IMPRESSION: Stable post surgical changes along the anterior abdominal wall. Suggestion of small flattened collect ion along the left anterior abdominal wall measuring up to 6 mm in thickness, stable, may represent a seroma. No other acute or concerning abnormalities seen in the abdomen or pelvis.
[2024-10-03] MEDS ORDERED: HYDROCODONE/APAP 5/325 MG TAB ONE (16:02)
--- NOTE | 2024-10-03 16:05 | ER ---
Nurse's Notes [facility] Name: Jonatan Sood Age: 44 yrs Sex: Male : 1980 Arrival Date: 10/03/2024 Time: 12:37 Bed 2 Private MD: Diagnosis: Encounter for change or removal of surgical wound dressing;Hyperglycemia, unspecified Presentation: 10/03 12:47 Chief complaint: EMS states: they were toned out for n/v/d and abd pain. pt had an kc6 abscess recision [address] Arenas but the pt reports continued pain and that its not healing properly. Coronavirus screen: At this time, the client does not indicate any symptoms associated with coronavirus-19. Ebola Screen: No symptoms or risks identified at this time. Initial Sepsis Screen: Does the patient meet any 2 criteria? HR > 90 bpm. Does the patient have a suspected source of infection? No. Patient's initial sepsis screen is negative. Risk Assessment: Do you want to hurt yourself or someone else? Patient reports no desire to harm self or others. Onset of symptoms was October 03, 2024. Care prior to arrival: Medication(s) given: zofran 4 mg, Fentanyl 50mcg Glucose check: 465. 12:47 Method Of Arrival: EMS: [facility] 12:47 Acuity: ANI 3 kc6 Historical: - Allergies: 12:49 NKDA; kc6 - PMHx: 12:49 diabetes mellitus; kc6 - PSHx: 12:49 Appendectomy; I \T\ D abscesses; kc6 - Immunization history:: Adult Immunizations up to date. - Infectious Disease History:: Denies. - Social history:: Smoking status: Patient denies any tobacco usage or history of. Screenin:50 [facility] ED Fall Risk Assessment (Adult) History of falling in the last 3 months, kc6 including since admission No falls in past 3 months (0 pts) Confusion or Disorientation No (0 pts) Intoxicated or Sedated No (0 pts) Impaired Gait No (0 pts) Mobility Assist Device Used No (0 pt) Altered Elimination No (0 pt) Score/Fall Risk Level 0 - 2 = Low Risk Oriented to surroundings, Maintained a safe environment. Abuse screen: Denies threats or abuse. Denies injuries from another. Nutritional screening: No deficits noted. Tuberculosis screening: No symptoms or risk factors identified. Assessment: 13:30 Pain: Complains of pain in abdomen Pain currently is 10 out of 10 on a pain scale. tm6 Neuro: Level of Consciousness is awake, alert, obeys commands, Oriented to person, place, time, situation. Cardiovascular: Patient's skin is warm and dry. Respiratory: Airway is patent Respiratory effort is even, unlabored, Respiratory pattern is regular, symmetrical. GI: Abdomen is non-distended, Reports lower abdominal pain, upper abdominal pain, nausea, vomiting. : No signs and/or symptoms were reported regarding the genitourinary system. EENT: No signs and/or symptoms were reported regarding the EENT system. Derm: Wound noted abdomen. Musculoskeletal: No signs and/or symptoms reported regarding the musculoskeletal system. 14:09 General: Appears uncomfortable, Behavior is calm, cooperative. tm6 15:17 Reassessment: Patient appears in no apparent distress at this time. No changes from [facility] previously documented assessment. Patient and/or family updated on plan of care and expected duration. Pain level reassessed. Patient is alert, oriented x 3, equal unlabored respirations, skin warm/dry/pink. 17:02 Reassessment: patient going with superintendent house to floor to get shower. After shower, tm6 RN will redress wound and discharge patient. 17:42 Reassessment: dressing placed on abdominal wound. tm6 Vital Signs: 12:47 BP 133 / 97; Pulse 105; Resp 16 S; Pulse Ox 97% on R/A; Weight 58.97 kg (R); Height 5 kc6 ft. 9 in. (R); Pain 8/10; 14:09 Pain 7/10; tm6 14:09 BP 141 / 97; Pulse 90; Temp 98.5(O); Pulse Ox 100% on R/A; MAP 111 mmHg; Pain 7/10; tm6 15:18 BP 139 / 90; Pulse 89; Resp 16 S; Pulse Ox 100% on R/A; kc6 17:41 BP 123 / 90; Pulse 78; Resp 16; Temp 98.5; Pulse Ox 100% on R/A; MAP 102 mmHg; Pain tm6 5/10; 12:47 Body Mass Index 19.20 (58.97 kg, 175.26 cm) kc6 12:47 Pain Scale: Adult kc6 14:09 Pain Scale: Adult tm6 14:09 Pain Scale: Adult tm6 17:41 Pain Scale: Adult tm6 ED Course: 12:47 Patient arrived in ED. kc6 12:49 Triage completed. kc6 12:49 Antonietta Mcdonald MD is Attending Physician. sw6 12:49 Arm band placed on. kc6 12:50 Patient has correct armband on for positive identification. Bed in low position. Call kc6 light in reach. Side rails up X2. manager monitoring on. Pulse ox on. NIBP on. Door closed. Noise minimized. Lights dimmed. Pillow given. 12:50 Patient maintains SpO2 saturation greater than 95% on room air. kc6 13:20 Tanisha Canales, ALEXUS is Primary Nurse. tm6 13:20 Initial lab(s) drawn, by pa, sent to lab. Inserted saline lock: 20 gauge in left zm forearm, using aseptic technique. Blood collected. Flushed with 10 mL NS. 13:20 CBC with Diff Sent. zm 13:20 CMP Sent. zm 13:21 Magnesium Sent. zm 13:30 Provided Education on: use of call [place]. tm6 13:41 CT Abd/Pelvis - IV Contrast Only In Process Unspecified. EDMS 14:11 IV discontinued, intact, bleeding controlled, No redness/swelling at site. Pressure tm6 dressing applied. 14:11 Inserted saline lock: 20 gauge in right wrist, using aseptic technique. tm6 17:42 No provider procedures requiring assistance completed. Wound care: to ulcer located on tm6 abdomen Patient tolerated well. Administered Medications: 13:30 Drug: Ondansetron IVP 4 mg IVP once; over 2 minutes Route: IVP; Site: left forearm; tm6 14:08 Follow up: Response: No adverse reaction tm6 13:30 Drug: morphine IVP or IV 4 mg IVP once over 4 mins Route: IVP; Infused Over: 4 mins; tm6 Site: left forearm; 15:59 Follow up: Response: No adverse reaction tm6 13:30 Drug: NS 0.9% IV 1000 ml IV at 1 bolus Per protocol; to be given as a bolus over 60 tm6 minutes Route: IV; Rate: 1 bolus; Site: left forearm; 14:09 Follow up: Pain 7/10 Adult; Response: No adverse reaction; Pain is decreased tm6 15:59 Follow up: IV Status: Completed infusion; IV Intake: 1000ml tm6 14:08 Drug: Insulin Regular Human IVP 10 units IVP once {Co-Signature: shyla (Ciara Cortes 6 RN).} Route: IVP; Site: right wrist; 15:59 Follow up: Response: No adverse reaction tm6 16:04 Drug: HYDROcodone-acetaminophen PO 5 mg-325 mg 1 tabs PO once Route: PO; tm6 17:04 Follow up: Response: No adverse reaction tm6 Medication: 13:30 VIS not applicable for this client. tm6 Intake: 15:59 IV: 1000ml; Total: 1000ml. tm6 Output: 15:59 Urine: 900ml (Voided); Total: 900ml. tm6 Outcome: 16:04 Discharge ordered by . sw6 17:42 Discharged to home ambulatory, tm6 17:42 Condition: stable 17:42 Discharge instructions given to patient, Instructed on discharge instructions, follow up and referral plans. Demonstrated understanding of instructions, follow-up care, 17:43 Patient left the ED. tm6 Signatures: Dispatcher [employer] EDMS Reyna Cherry Kaitlyn, RN RN kc6 Tanisha Canales RN RN lam6 Antonietta Mcdonald MD MD sw Ciara Cortes RN6 Corrections: (The following items were deleted from the chart) 12:50 12:47 Chief complaint: EMS states: pt had an abscess recision 2 weeks ago done by Dr. shyla Arenas but the pt reports continued pain and that its not healing properly Brigitte
--- NOTE | 2024-10-03 16:05 | EDPHYS ---
Physician Documentation [facility] Name: Jonatan Sood Age: 44 yrs Sex: Male : 1980 Arrival Date: 10/03/2024 Time: 12:37 Bed 2 Private MD: ED Physician Antonietta Mcdonald HPI: 10/03 12:52 This 44 yrs old Male presents to ER via EMS with complaints of Wound sw6 Infection. 12:52 The patient presents with EMS for evaluation for abdominal pain. He had abdominal wall sw6 abscess that was treated several months ago here at the hospital. He had a revision of that surgery approximately 2 weeks ago. He was discharged and has been living on the streets as he is homeless. He reports he has been trying to do his dressing changes but is having difficulty in doing so. He lacerated his dressing yesterday. No fevers. He reports his pain is gotten worse and there is a bad odor to the wound. He also reports history of diabetes and takes metformin for this. He last had his diabetes medication yesterday. He was given 50 m of fentanyl by EMS prior to arrival which has been helping with his pain. Here for evaluation.. Historical: - Allergies: 12:49 NKDA; kc6 - PMHx: 12:49 diabetes mellitus; kc6 - PSHx: 12:49 Appendectomy; I \T\ D abscesses; kc6 - Immunization history:: Adult Immunizations up to date. - Infectious Disease History:: Denies. - Social history:: Smoking status: Patient denies any tobacco usage or history of. ROS: 12:52 Constitutional: Negative for fever, chills, and weight loss, Neck: Negative for injury, sw6 pain, and swelling, Cardiovascular: Negative for chest pain, palpitations, and edema, Respiratory: Negative for shortness of breath, cough, wheezing, and pleuritic chest pain, Back: Negative for injury and pain, MS/Extremity: Negative for injury and deformity, Neuro: Negative for headache, weakness, numbness, tingling, and seizure, Psych: Negative for depression, anxiety, suicide ideation, homicidal ideation, and hallucinations, 12:52 Abdomen/GI: Positive for abdominal pain, Wound, Exam: 12:52 Constitutional: This is a well developed, well nourished patient who is awake, alert, sw6 and in no acute distress. 12:52 Abdomen/GI: 13:03 Constitutional: The patient appears alert, awake, non-diaphoretic, non-toxic, sw6 uncomfortable, 13:03 Cardiovascular: Rate: normal, Rhythm: regular, 13:03 Respiratory: the patient does not display signs of respiratory distress, Respirations: normal, Breath sounds: are clear throughout, 13:03 Abdomen/GI: Palpation: soft, in all quadrants, mild abdominal tenderness, in all quadrants, rebound tenderness, is not appreciated, Open wound to the lower abdomen that is malodorous but not actively draining. The tissue is red and appears to be well-healing., 15:58 MS/ Extremity: Pulses equal, no cyanosis. Neurovascular intact. Full, normal range sw6 of motion. Psych: Awake, alert, with orientation to person, place and time. Behavior, mood, and affect are within normal limits. Vital Signs: 12:47 BP 133 / 97; Pulse 105; Resp 16 S; Pulse Ox 97% on R/A; Weight 58.97 kg (R); Height 5 kc6 ft. 9 in. (R); Pain 8/10; 14:09 Pain 7/10; tm6 14:09 BP 141 / 97; Pulse 90; Temp 98.5(O); Pulse Ox 100% on R/A; MAP 111 mmHg; Pain 7/10; tm6 15:18 BP 139 / 90; Pulse 89; Resp 16 S; Pulse Ox 100% on R/A; kc6 17:41 BP 123 / 90; Pulse 78; Resp 16; Temp 98.5; Pulse Ox 100% on R/A; MAP 102 mmHg; Pain tm6 5/10; 12:47 Body Mass Index 19.20 (58.97 kg, 175.26 cm) kc6 12:47 Pain Scale: Adult kc6 14:09 Pain Scale: Adult tm6 14:09 Pain Scale: Adult tm6 17:41 Pain Scale: Adult tm6 MDM: 12:49 Medical Screening Exam initiated sw6 15:58 Differential diagnosis: Cellulitis, abscess. Data reviewed: vital signs, nurses notes, sw6 EMS record, lab test result(s), finger stick glucose, CBC, electrolytes, radiologic studies, CT scan. Care significantly affected by the following Social Determinants of Health: Poor access to healthcare and/or lack of insurance, Poor access to transportation, Inadequate housing. Response to treatment: the patient's symptoms have markedly improved after treatment. ED course: The patient presents with EMS for evaluation for pain to his lower abdominal. He was admitted several months ago for an abscess and had the area revised approximately 2 weeks ago. He is homeless and has been living on the [address] and changing his dressings often as he is able to. He also has a history of diabetes and does take metformin for this. He was given 50 mcg of fentanyl by EMS prior to arrival in the ER. His vital signs are stable in the ER. His abdomen is soft but with mild generalized tenderness throughout. His lower abdominal wound is malodorous but there is no active drainage and the tissue is pink and well-healing. His laboratory studies showed hyperglycemia which did improve with IV fluids as well as insulin. A CT of his abdomen and pelvis shows no abscess or other acute intra-abdominal pathology. His wound was redressed at bedside. He remained stable here in the ER and is okay for discharge home with PCP follow-up.. 10/03 12:52 Order name: CBC with Diff; Complete Time: 13:52 [facility] 10/03 13:52 Interpretation: Within normal limits. 10/03 12:52 Order name: CMP; Complete Time: 13:52 [facility] 10/03 13:54 Interpretation: Abnormal: ALB 2.5; Hyperglycemia, no DKA, sodium corrects to 138 when the hyperglycemia is taken into account, hypoalbuminemia. 10/03 12:52 Order name: Magnesium; Complete Time: 13:52 [facility] 10/03 13:54 Interpretation: Within normal limits. 10/03 12:55 Order name: ABG: venous please; Complete Time: 14:06 [facility] 10/03 14:07 Interpretation: Within normal limits. [facility] 10/03 13:36 Order name: Glucose, Ancillary Testing; Complete Time: 13:52 EDMS 10/03 13:54 Interpretation: Abnormal. [facility] 10/03 16:07 Order name: Glucose, Ancillary Testing; Complete Time: 16:14 EDMS 10/03 16:14 Interpretation: Abnormal: high but improved from initial. [facility] 10/03 12:52 Order name: CT Abd/Pelvis - IV Contrast Only; Complete Time: 15:44 [facility] 10/03 15:44 Interpretation: No acute disease. [facility] 10/03 12:52 Order name: IV Saline Lock; Complete Time: 13:20 6 10/03 12:52 Order name: Labs collected and sent; Complete Time: 13:20 6 10/03 12:52 Order name: Glucose Level; Complete Time: 13:21 6 10/03 15:53 Order name: Glucose Level; Complete Time: 15:59 sw6 Administered Medications: 13:30 Drug: Ondansetron IVP 4 mg IVP once; over 2 minutes Route: IVP; Site: left forearm; tm6 14:08 Follow up: Response: No adverse reaction tm6 13:30 Drug: morphine IVP or IV 4 mg IVP once over 4 mins Route: IVP; Infused Over: 4 mins; tm6 Site: left forearm; 15:59 Follow up: Response: No adverse reaction tm6 13:30 Drug: NS 0.9% IV 1000 ml IV at 1 bolus Per protocol; to be given as a bolus over 60 tm6 minutes Route: IV; Rate: 1 bolus; Site: left forearm; 14:09 Follow up: Pain 7/10 Adult; Response: No adverse reaction; Pain is decreased tm6 15:59 Follow up: IV Status: Completed infusion; IV Intake: 1000ml tm6 14:08 Drug: Insulin Regular Human IVP 10 units IVP once {Co-Signature: kc6 (Ciara Cortes 6 RN).} Route: IVP; Site: right wrist; 15:59 Follow up: Response: No adverse reaction tm6 16:04 Drug: HYDROcodone-acetaminophen PO 5 mg-325 mg 1 tabs PO once Route: PO; tm6 17:04 Follow up: Response: No adverse reaction tm6 Disposition Summary: 10/03/24 16:04 Discharge Ordered Notes: Location: Home 6 Condition: Stable sw6 Diagnosis - Encounter for change or removal of surgical wound dressing sw6 - Hyperglycemia, unspecified sw6 Followup: sw6 - With: Private Physician - When: 2 - 3 days - Reason: Wound Recheck Discharge Instructions: - Discharge Summary Sheet sw6 - How to Change Your Wound Dressing sw6 - Hyperglycemia sw6 - How to Change Your Wound Dressing, [id number] 6 Forms: - Medication Reconciliation Form sw6 - Antibiotic Education sw6 - Prescription Opioid Use sw6 - Patient Portal Instructions sw6 - Leadership Thank You Letter 6 Signatures: Dispatcher [employer] Ciara Bob RN RN kc6 Tanisha Canales RN RN tm6 Antonietta Mcdonald MD MD sw6 Ciara Cortes RN kc6 Corrections: (The following items were deleted from the chart) 13:54 13:53 Abnormal: Hyperglycemia, no DKA, sodium corrects to 138 when the hyperglycemia is sw6 taken into account. sw6
[2024-10-03 18:09] VITALS: TEMP 98.5
[2024-10-03 18:12] VITALS: O2SAT 100
[2024-10-03 18:15] VITALS: BP 123/90
== END 2024-10-03 17:43 | disposition home or self-care (01) ==
LOC: ER 12:37
DX: R10.9 Unspecified abdominal pain (principal); E11.65 Type 2 diabetes mellitus with hyperglycemia; Z48.01 Encounter for change or removal of surgical wound dressing; Z98.890 Other specified postprocedural states; Z59.00 Homelessness unspecified
CPT/HCPCS: 36415; 36600; 74177; 80053; 82805; 82947; 83735; 85025; 99285; J2405; J7030; Q9967

== ENCOUNTER 2024-10-18 19:21 | Inpatient (IN) | payer MEDICAID, SELFPAY ==
--- NOTE | 2024-10-18 20:37 | RAD REPORT ---
EXAMINATION: ONE VIEW CHEST XR CLINICAL INDICATION: DYSPNEA TECHNIQUE: Frontal chest projection is submitted. Examination is limited by patient positioning and t echnique. COMPARISON: No prior exam. FINDINGS: The lungs are well inflated and clear. The heart is normal in size. No displaced fractures identified . IMPRESSION: No acute intrathoracic abnormalities.
[2024-10-18 20:47] LABS: PT Prothrombin Time 13.6 SECONDS (9.4-12.5); Protime INR 1.22
[2024-10-18 20:51] LABS: Absolute Basophils 0.1 K/uL (0-0.5); Absolute Eosinophils 0.1 K/uL (0-0.5); Absolute Lymphocytes (CBC) 0.9 K/uL (0.7-4.9); Absolute Monocytes 1.1 K/uL (0.1-1.3); Absolute Neutrophil 9.2 K/uL (1.8-8.0); Basophils % 0.8 % (0-1.3); Eosinophils % 0.5 % (0-4.4); Hematocrit 30.9 % (39.6-49.0); Lymphocytes % 7.5 % (15.3-44.8); MCH 24.4 pg (27.0-35.0); MCHC 32.3 g/dL (32.0-36.0); MCV 75.4 fL (80-100); MPV 7.5 fL (7.6-11.3); Monocytes % 9.7 % (3.3-12.3); Neutrophils % 81.5 % (41.7-73.7); Platelets 441 thou/uL (152-406); Red Cell Distribution Width 15.5 % (12.1-15.2)
[2024-10-18 21:01] LABS: Specific Gravity > 1.030 (1.005-1.030); Sqamous Epithelial None Seen /HPF (None Seen); Urine Bacteria None Seen /HPF (<20); Urine Bilirubin NEGATIVE (Negative); Urine Blood Trace (Negative); Urine Clarity Clear (Clear); Urine Color Light-Yellow (Yellow); Urine Culture Reflex Order NOT NEEDED; Urine Glucose 4+ (Over) (Negative); Urine Ketones 3+ (Negative); Urine Microscopic Reflex YN ORDER UMIC; Urine Mucus Slight /HPF (None Seen); Urine Nitrite NEGATIVE (Negative); Urine Protein 1+ (Negative); Urine RBC <5 /HPF (None Seen); Urine Urobilinogen Normal (Normal); Urine WBC <5 /HPF (<5); Urine WBC Clump Rare /HPF (None Seen); Urine pH 5.5 (5.0-7.0)
[2024-10-18 21:06] LABS: Albumin 2.3 g/dL (3.4-5.0); Albumin/Globulin Ratio 0.4 (1.1-1.8); Alkaline Phosphatase 131 U/L (45-117); Anion Gap 11.9 mEq/L (5.0-15.0); BUN Blood Urea Nitrogen 12 mg/dL (7-18); Bicarbonate 25 mEq/L (21-32); Bilirubin Total 0.3 mg/dL (0.2-1.0); Globulin 5.6 g/dL (2.3-3.5); Glomerular Filtration Rate 126 ml/min (=/>90); Glucose Level 324 mg/dL (74-106); Lipase 23 U/L (13-75); Magnesium 1.9 mg/dL (1.6-2.4); NT PRO-BNP 329 pg/mL (<125); Potassium 3.9 mEq/L (3.5-5.1); Protein, Total 7.9 g/dL (6.4-8.2); Sodium Level 134 mEq/L (136-145); Troponin High Sensitivity 4.2 pg/mL (<58.9)
[2024-10-18 21:10] LABS: ALT/SGPT < 14 U/L (16-61); AST/SGOT < 10 U/L (15-37); Bilirubin Direct < 0.2 mg/dL (0-0.2); Bilirubin Indirect, Calculated 0.1 mg/dL (0.2-0.8)
[2024-10-18] MEDS ORDERED: VANCOMYCIN 1 GM/VIAL ONE (21:32)
[2024-10-18] MEDS ORDERED: ONDANSETRON 4 MG/2 ML VIAL ONE (21:32)
[2024-10-18] MEDS ORDERED: NA CHLORIDE 0.9% 0 ML ONE (21:33)
[2024-10-18] MEDS ORDERED: NA CHLORIDE 0.9% 250 ML ONE (21:33)
[2024-10-18] MEDS ORDERED: NA CHLORIDE 0.9% 2,000 ML ONE (21:33)
[2024-10-18] MEDS ORDERED: MORPHINE 4 MG/ML SYR ONE (21:33)
[2024-10-18] MEDS ORDERED: FAMOTIDINE 20 MG/2 ML VIAL IV ONE (21:33)
[2024-10-18] MEDS ORDERED: PIPERACIL/TAZO 3.375 GM VIAL IV ONE (21:34)
--- NOTE | 2024-10-19 00:28 | RAD REPORT ---
EXAM DESCRIPTION: Chest For Pe Angio CLINICAL HISTORY: 44 years Male Dyspnea. COMPARISON: CT Chest Abdomen pelvis W IV contrast 08/07/2024(Report only). TECHNIQUE: Images were obtained in axial, coronal and sagittal planes. Intravenous contrast administration. 3-D MIP imaging was performed. This exam was performed according to our departmental dose-optimization program which includes use of Automated Exposure Control, adjustment of the mA and/or kV according to patient size and/or use of iterative reconstruction technique. FINDINGS: No filling defects pulmonary arteries bilaterally. No aortic dissection or dilatation. No right heart strain. No pericardial or pleural effusions bilaterally. No adenopathy. No lung parenchymal infiltrates or nodules seen. No pneumothorax. Unremarkable upper abdomen. No acute osseous abnormality. IMPRESSION: No evidence for pulmonary embolus. No aortic dissection or dilatation. No infiltrates seen. Electronically signed by: Jammie Sheikh MD 10/18/2024 11:43 PM [facility] Due to temporary technical issues with the PACS/[employer] reporting system, reports are being katalina d by the in-house radiologist without review as a courtesy to ensure prompt reporting the interpreting radiologist is fully responsible for the content of the report. Transcribed Date/Time: 10/19/2024 12:28 AM
--- NOTE | 2024-10-19 00:28 | RAD REPORT ---
EXAM DESCRIPTION: Abdomen Pelvis W Contrast CLINICAL HISTORY: 44 years Male Abdominal pain. COMPARISON: CT Abdomen pelvis W contrast 10/03/2024. TECHNIQUE: Images were obtained in axial, coronal and sagittal planes. Intravenous contrast administration. This exam was performed according to our departmental dose-optimization program which includes use of Automated Exposure Control, adjustment of the mA and/or kV according to patient size and/or use of it erative reconstruction technique. FINDINGS: No abnormality involving the liver, spleen, pancreas, gallbladder, and adrenal glands bilaterally. No obstructing renal or ureteral calculi bilaterally. No hydronephrosis bilaterally. Unremarkable kareem dder. Appendix not well identified however no secondary signs for appendicitis. Moderate constipation. No b owel obstruction, perforation, or inflammation. No abnormality of the abdominal aorta or portal vein. No abnormal fluid collections seen. Mild inguin al adenopathy bilaterally. No abnormalities along the lungs bilaterally. No acute osseous abnormality. IMPRESSION: No acute intra-abdominal abnormality. Moderate constipation. Mild inguinal adenopathy bilaterally. Electronically signed by: Jammie Sheikh MD 10/19/2024 12:07 AM [facility] Due to temporary technical issues with the PACS/[employer] reporting system, reports are being katalina d by the in-house radiologist without review as a courtesy to ensure prompt reporting the interpreting radiologist is fully responsible for the content of the report. Transcribed Date/Time: 10/19/2024 12:28 AM
--- NOTE | 2024-10-19 00:28 | RAD REPORT ---
EXAM DESCRIPTION: Head Brain Wo Cont CLINICAL HISTORY: 44 years Male Dizziness. COMPARISON: CT Head cervical spine 08/29/2024. TECHNIQUE: Images were obtained in axial, coronal and sagittal planes. No contrast administration. This exam was performed according to our departmental dose-optimization program which includes use of Automated Exposure Control, adjustment of the mA and/or kV according to patient size and/or use of iterative re construction technique. FINDINGS: Ventricular system appears normal. No abnormal increased attenuation seen. No extra-axial fluid collections noted. No evidence for skull fracture. Unremarkable paranasal sinuses. Symmetric aeration of the mastoid air cells bilaterally. IMPRESSION: No acute intracranial abnormality. No evidence for hemorrhage, mass lesion, or large acute infarction . Electronically signed by: Jammie Sheikh MD 10/18/2024 11:46 PM [facility] Due to temporary technical issues with the [email or web address] reporting system, reports are being katalina d by the in-house radiologist without review as a courtesy to ensure prompt reporting the interpreting radiologist is fully responsible for the content of the report. Transcribed Date/Time: 10/19/2024 12:28 AM
--- NOTE | 2024-10-19 01:11 | EDPHYS ---
Physician Documentation [facility] Name: Jonatan Sood Age: 44 yrs Sex: Male : 1980 Arrival Date: 10/18/2024 Time: 19:21 Bed 18 Private MD: ED Physician Leodan Rose HPI: 10/18 20:00 This 44 yrs old Male presents to ER via EMS with complaints of abdominal sp4 abscess . 10/19 06:28 44-year-old male presents with dizziness generalized weakness and draining and poorly sp4 healing abdominal skin defect. Patient has a history of incision and drainage over the anterior abdominal skin abscess with resultant poorly healing skin defect. History of poorly controlled diabetes. Historical: - Allergies: 10/18 19:37 NKDA; me1 - PMHx: 19:37 diabetes mellitus; me1 - PSHx: 19:37 Appendectomy; I \T\ D abscesses; me1 - Immunization history:: Adult Immunizations up to date. - Infectious Disease History:: Denies. - Social history:: Smoking status: Patient reports the use of cigarette tobacco products, denies chronic smoking, but will smoke occasionally. - Family history:: not pertinent. ROS: 10/19 06:28 Constitutional: Negative for fever, chills, and weight loss, positive dizziness, sp4 positive generalized weakness, positive draining abdominal wound. Positive right great toe pressure ulcer All other systems are negative, Exam: 01:12 ECG was reviewed by the Attending Physician. EKG 2045 normal sinus rhythm rate 93. sp4 06:28 Constitutional: Ill-appearing male, disheveled, chronic appearing abdominal skin sp4 defect draining purulent debris. Head/Face: Normocephalic, atraumatic. Eyes: Pupils equal round and reactive to light, extra-ocular motions intact. Lids and lashes normal. Conjunctiva and sclera are not injected. Cornea within normal limits. Periorbital areas with no swelling, redness, or edema. ENT: Nares patent. No nasal discharge, no septal abnormalities noted. Tympanic membranes are normal and external auditory canals are clear. Oropharynx with no redness, swelling, or masses, exudates, or evidence of obstruction, uvula midline. Mucous membranes moist. Neck: Trachea midline, no thyromegaly or masses palpated, and no cervical lymphadenopathy. Supple, full range of motion without nuchal rigidity, or vertebral point tenderness. Chest/axilla: Normal chest wall appearance and motion. Nontender with no deformity. No lesions are appreciated. Cardiovascular: Regular rate and rhythm with a normal S1 and S2. No gallops, murmurs, or rubs. Normal PMI, no JVD. No pulse deficits. Respiratory: Lungs have equal breath sounds bilaterally, clear to auscultation and percussion. No rales, rhonchi or wheezes noted. No increased work of breathing, no retractions or nasal flaring. Abdomen/GI: Soft, with normal bowel sounds. No distension or tympany. No guarding or rebound. No evidence of tenderness throughout. There is mid abdominal skin defect with purulent drainage. Appears somewhat improved since prior exam on the same patient. Back: No spinal tenderness. No costovertebral tenderness. Male : Normal genitalia with no discharge or lesions. Skin: Warm, dry with normal turgor. Normal color , right posterior thigh chronic appearing skin wounds, some of those are in healing stages. Moderate size Abdominal chronic skin defect with purulent discharge MS/ Extremity: Pulses equal, no cyanosis. Neurovascular intact. Full, normal range of motion. There is a right great toe pressure ulcer heavily contaminated by the road debris Neuro: Awake and alert, GCS 15, oriented to person, place, time, and situation. Cranial nerves II-XII grossly intact. Motor strength 5/5 in all extremities. Sensory grossly intact. Psych: Awake, alert, with orientation to person, place and time. Behavior, mood, and affect are within normal limits Vital Signs: 10/18 19:29 BP 154 / 92; Pulse 102; Resp 17; Temp 98.6; Pulse Ox 100% on R/A; Weight 58.97 kg; me1 Height 5 ft. 9 in. ; Pain 8/10; 20:00 BP 154 / 96; Pulse 97; Resp 16; Pulse Ox 99% ; me1 21:00 BP 152 / 96; Pulse 95; Resp 16; Pulse Ox 100% ; me1 22:00 BP 146 / 89; Pulse 90; Resp 17; Pulse Ox 99% ; me1 23:00 BP 139 / 88; Pulse 81; Resp 16; Pulse Ox 99% ; me1 10/19 00:00 BP 139 / 96; Pulse 78; Resp 18; Pulse Ox 98% ; cp4 01:00 BP 141 / 93; Pulse 80; Resp 18; Pulse Ox 98% ; cp4 02:00 BP 135 / 88; Pulse 78; Resp 18; Pulse Ox 99% ; cp4 03:00 BP 148 / 92; Pulse 80; Resp 18; Pulse Ox 98% ; cp4 10/18 19:29 Body Mass Index 19.20 (58.97 kg, 175.26 cm) de1 10/18 19:29 Pain Scale: Adult me1 Rosalind Coma Score: 06:28 Eye Response: spontaneous(4). Motor Response: obeys commands(6). Verbal Response: sp4 oriented(5). Total: 15. MDM: 10/18 19:32 Medical Screening Exam initiated brandon 10/19 01:05 ED course: EXAM DESCRIPTION: Abdomen Pelvis W Contrast CLINICAL HISTORY: 44 years Male sp4 Abdominal pain. COMPARISON: CTAbdomen pelvis W contrast 10/03/2024. TECHNIQUE: Images were obtained in axial, coronal and sagittal planes. Intravenous contrast administration. This exam was performed according to our departmental dose-optimization program which includes use of Automated Exposure Control, adjustment of the mA and/or kV according to patient size and/or use of iterative reconstruction technique. FINDINGS: No abnormality involving the liver, spleen, pancreas, gallbladder, and adrenal glands bilaterally. No obstructing renal or ureteral calculi bilaterally. No hydronephrosis bilaterally. Unremarkable bladder. Appendix not well identified however no secondary signs for appendicitis. Moderate constipation. No bowel obstruction, perforation, or inflammation. No abnormality of the abdominal aorta or portal vein. No abnormal fluid collections seen. Mild inguinal adenopathy bilaterally. No abnormalities along the lungs bilaterally. No acute osseous abnormality. IMPRESSION: No acute intra-abdominal abnormality. Moderate constipation. Mild inguinal adenopathy bilaterally. Electronically signed by: Jammie Sheikh MD 10/19/2024 12:07 AM . ED course: EXAM DESCRIPTION: Chest For Pe Angio CLINICAL HISTORY: 44 years Male Dyspnea. COMPARISON: CT Chest Abdomen pelvis W IV contrast 08/07/2024(Report only). TECHNIQUE: Images were obtained in axial, coronal and sagittal planes. Intravenous contrast administration. 3-D MIP imaging was performed. This exam was performed according to our departmental dose-optimization program which includes use of Automated Exposure Control, adjustment of the mA and/or kV according to patient size and/or use of iterative reconstruction technique. FINDINGS: No filling defects pulmonary arteries bilaterally. No aortic dissection or dilatation. No right heart strain. No pericardial or pleural effusions bilaterally. No adenopathy. No lung parenchymal infiltrates or nodules seen. No pneumothorax. Unremarkable upper abdomen. No acute osseous abnormality. IMPRESSION: No evidence for pulmonary embolus. No aortic dissection or dilatation. No infiltrates seen. . ED course: EXAM DESCRIPTION: Head Brain Wo Cont CLINICAL HISTORY: 44 years Male Dizziness. COMPARISON: CT Head cervical spine 08/29/2024. TECHNIQUE: Images were obtained in axial, coronal and sagittal planes. No contrast administration. This exam was performed according to our departmental dose-optimization program which includes use of Automated Exposure Control, adjustment of the mA and/or kV according to patient size and/or use of iterative reconstruction technique. FINDINGS: Ventricular system appears normal. No abnormal increased attenuation seen. No extra-axial fluid collections noted. No evidence for skull fracture. Unremarkable paranasal sinuses. Symmetric aeration of the mastoid air cells bilaterally. IMPRESSION: No acute intracranial abnormality. No evidence for hemorrhage, mass lesion, or large acute infarction. . 01:12 ED course: EXAMINATION: ONE VIEW CHEST XR CLINICAL INDICATION: DYSPNEA TECHNIQUE: sp4 Frontal chest projection is submitted. Examination is limited by patient positioning and technique. COMPARISON: No prior exam. FINDINGS: The lungs are well inflated and clear. The heart is normal in size. No displaced fractures identified. IMPRESSION: No acute intrathoracic abnormalities. . 06:33 Differential Diagnosis altered mental status, sepsis, flu, Infected chronic skin ulcer. sp4 Data reviewed: vital signs, nurses notes, EMS record, lab test result(s), EKG, radiologic studies, CT scan. Consideration of Admission/Observation Patient was admitted/placed on observation. Escalation of care including admission/observation considered. Management of patient was discussed with the following: Hospitalist: Britany NOLASCO . 10/18 19:34 Order name: Basic Metabolic Panel; Complete Time: 21:29 [facility] 10/18 19:34 Order name: CBC with Diff; Complete Time: 21:29 [facility] 10/18 19:34 Order name: LFT's; Complete Time: 21:29 [facility] 10/18 19:34 Order name: Magnesium; Complete Time: 21:29 [facility] 10/18 19:34 Order name: NT PRO-BNP; Complete Time: 21:29 [facility] 10/18 19:34 Order name: PT-INR; Complete Time: 21:29 [facility] 10/18 19:34 Order name: Troponin HS; Complete Time: 21:29 [facility] 10/18 19:34 Order name: Lipase; Complete Time: 21:29 [facility]on 10/18 19:34 Order name: Urinalysis w/ reflexes; Complete Time: 21:29 [facility]on 10/19 02:05 Order name: Magnesium EDMS 10/19 02:05 Order name: Phosphorus EDMS 10/19 02:05 Order name: Urinalysis w/ reflexes EDMS 10/19 02:05 Order name: Basic Metabolic Panel EDMS 10/19 02:05 Order name: Basic Metabolic Panel EDMS 10/19 02:05 Order name: CBC with Automated Diff EDMS 10/19 02:05 Order name: CBC with Automated Diff EDMS 10/19 02:06 Order name: Lactate w/ 2H reflex if indic. EDMS 10/19 02:36 Order name: Vancomycin Level Trough EDMS 10/18 19:34 Order name: XRAY Chest (1 view); Complete Time: 21:29 [facility] 10/18 19:34 Order name: CT Head Brain wo Cont; Complete Time: 00:52 [facility] 10/18 19:34 Order name: CT Chest For PE Angio; Complete Time: 00:52 [facility] 10/18 19:34 Order name: CT Abd/Pelvis - IV Contrast Only; Complete Time: 00:52 [facility] 10/18 19:34 Order name: EKG; Complete Time: 19:34 [facility] 10/19 02:16 Order name: [facility] EDMS 10/18 19:34 Order name: Cardiac monitoring; Complete Time: 20:49 [facility] 10/18 19:34 Order name: EKG - Nurse/Tech; Complete Time: 20:49 [facility] 10/18 19:34 Order name: IV Saline Lock; Complete Time: 20:38 [facility] 10/18 19:34 Order name: Labs collected and sent; Complete Time: 20:38 [facility] 10/18 19:34 Order name: O2 Per Protocol; Complete Time: 20:38 [facility] 10/18 19:34 Order name: O2 Sat Monitoring; Complete Time: 20:38 [facility] 10/18 19:35 Order name: Wound Care; Complete Time: 21:51 [facility] 10/18 20:27 Order name: Wound Care: done by MD; Complete Time: 21:32 sp4 EC/02 20:45 Rate is 93 beats/min. Rhythm is regular, Normal Sinus Rhythm. QRS [place] is Normal. [place] sp4 interval is normal. QRS interval is normal. QT interval is normal. No Q waves. T waves are Normal. No ST changes noted. Clinical impression: No evidence of ischemia. Interpreted by me. Reviewed by me. Administered Medications: 21:50 Drug: Famotidine IVP 20 mg IVP once; dilute with 10 mL 0.9% NaCl; give over 2 minutes me1 Route: IVP; Site: left antecubital; 22:36 Follow up: Response: No adverse reaction de1 21:50 Drug: Piperacillin-Tazobactam IVPB 3.375 grams IVPB once over 60 mins; (mix in NS 100 me1 mL) Route: IVPB; Infused Over: 60 mins; Site: left antecubital; 22:21 Follow up: Response: No adverse reaction; IV Status: Completed infusion; IV Intake: me1 100ml 21:50 Drug: morphine IVP or IV 6 mg IVP once over 4 mins Route: IVP; Infused Over: 4 mins; me1 Site: left antecubital; 22:36 Follow up: Response: No adverse reaction; Pain is decreased de1 21:50 Drug: NS 0.9% IV 1000 ml IV at 125 ml/hr Per protocol; to be given as a bolus over 60 me1 minutes Route: IV; Rate: 125 ml/hr; Site: left antecubital; 10/19 03:31 Follow up: IV Status: Infusion continued upon admission [facility] 10/18 21:51 Drug: NS 0.9% IV 1000 ml IV at 1 bolus Per protocol; to be given as a bolus over 60 me1 minutes Route: IV; Rate: 1 bolus; Site: left antecubital; 10/19 01:44 Follow up: Response: No adverse reaction; IV Status: Infusion continued [facility] 10/18 21:51 Drug: Ondansetron IVP 4 mg IVP once; over 2 minutes Route: IVP; Site: left antecubital; de1 22:36 Follow up: Response: No adverse reaction; Nausea is decreased [facility] 22:21 Drug: vancoMYCIN IVPB 1 grams IVPB once over 2 hrs Route: IVPB; Infused Over: 2 hrs; me1 Site: left antecubital; 10/19 01:44 Follow up: Response: No adverse reaction; IV Status: Completed infusion cp4 01:44 Drug: morphine IVP or IV 4 mg IVP once over 4 mins Route: IVP; Infused Over: 4 mins; cp4 Site: left antecubital; 03:31 Follow up: Response: No adverse reaction; Pain is decreased cp4 Disposition Summary: 10/19/24 01:11 Hospitalization Ordered Notes: Hospitalization Status: Inpatient Admission sp4 Provider: Prince celeste Garg Location: Telemetry/MedSurg (observation) sp4 Condition: Stable sp4 Problem: new sp4 Symptoms: have improved sp4 Bed/Room Type: Standard sp4 Room Assignment: 219(10/19/24 02:30) Diagnosis - Type 2 diabetes mellitus with hyperglycemia sp4 - Infected nonhealing abdominal wound, acute abdominal wall abscess, chronic sp4 nonhealing right great toe diabetic ulcer, uncontrolled diabetes mellitus type II, chronic nonhealing wounds right posterior thigh Forms: - Medication Reconciliation Form sp4 - SBAR form sp4 - Leadership Thank You Letter sp4 Signatures: Dispatcher [employer] EDMS Patrick Cruz MD MD cha Blanchard, Shelby, RN RN Leodan Rose MD MD [facility] Ila Hernandes RN RN [facility] Sue Washington 4 Corrections: (The following items were deleted from the chart) 10/18 19:35 19:34 Head Brain Wo Cont+CT.RAD.BRZ ordered. EDMS EDMS 19:35 19:35 Chest For PE Angio+CT.RAD.BRZ ordered. EDMS EDMS 19:35 19:35 Abdomen Pelvis W Con+CT.RAD.BRZ ordered. EDMS EDMS 10/19 02:30 01:11 sp4 ss
--- NOTE | 2024-10-19 01:11 | ER ---
Nurse's Notes [facility] Name: Jonatan Sood Age: 44 yrs Sex: Male : 1980 Arrival Date: 10/18/2024 Time: 19:21 Bed 18 Private MD: Diagnosis: Type 2 diabetes mellitus with hyperglycemia;Infected nonhealing abdominal wound, acute abdominal wall abscess, chronic nonhealing right great toe diabetic ulcer, uncontrolled diabetes mellitus type II, chronic nonhealing wounds right posterior thigh Presentation: 10/18 19:29 Chief complaint: EMS states: toned out to [facility] for dizziness. Patient was lying on mn1 the floor and still dizzy when EMS arrived. Patient is s/p 3 weeks post op for abdominal abscess. 18g LAC, given 200ml of NS. BGL 292 and reports he hasnt eaten since yesterday. Coronavirus screen: Vaccine status: Patient reports receiving the 2nd dose of the covid vaccine. Ebola Screen: No symptoms or risks identified at this time. Initial Sepsis Screen: Does the patient meet any 2 criteria? HR > 90 bpm. Does the patient have a suspected source of infection? No. Patient's initial sepsis screen is negative. Risk Assessment: Do you want to hurt yourself or someone else? Patient reports no desire to harm self or others. Onset of symptoms is unknown. 19:29 Method Of Arrival: EMS: [place] [id number] 19:29 Acuity: ANI 3 mn1 Triage Assessment: 19:37 General: Appears uncomfortable, slender, unkempt, well developed, Behavior is calm, me1 cooperative, appropriate for age, Reports c/o dizziness since he woke up this morning. Denies fever today but reports fever, chills that started yesterday. States he ran out of packing for wounds to abdomen and right leg and is concerned they are infected. c/o abdominal pain 7/10. Foul odor noted from wounds. Pain: Complains of pain in abdomen Pain does not radiate. Pain currently is 7 out of 10 on a pain scale. Quality of pain is described as aching, Pain began gradually, Is continuous. EENT: No signs and/or symptoms were reported regarding the EENT system. Neuro: Level of Consciousness is awake, alert, obeys commands, Oriented to person, place, time, situation, Appropriate for age. Neuro: Reports dizziness, since this morning. Cardiovascular: Patient's skin is warm and dry. Respiratory: Airway is patent Respiratory effort is even, unlabored, Respiratory pattern is regular, symmetrical. GI: Reports lower abdominal pain, upper abdominal pain. : No signs and/or symptoms were reported regarding the genitourinary system. Derm: Skin is healthy with good turgor, Skin is pink, warm \T\ dry. Musculoskeletal: No signs and/or symptoms reported regarding the musculoskeletal system. Historical: - Allergies: 19:37 NKDA; me1 - PMHx: 19:37 diabetes mellitus; me1 - PSHx: 19:37 Appendectomy; I \T\ D abscesses; me1 - Immunization history:: Adult Immunizations up to date. - Infectious Disease History:: Denies. - Social history:: Smoking status: Patient reports the use of cigarette tobacco products, denies chronic smoking, but will smoke occasionally. - Family history:: not pertinent. Screenin:40 [facility] ED Fall Risk Assessment (Adult) History of falling in the last 3 months, me1 including since admission No falls in past 3 months (0 pts) Confusion or Disorientation No (0 pts) Intoxicated or Sedated No (0 pts) Impaired Gait No (0 pts) Mobility Assist Device Used No (0 pt) Altered Elimination No (0 pt) Score/Fall Risk Level 0 - 2 = Low Risk Maintained a safe environment, Provided non-skid footwear, Hourly rounding (assess needs \T\ fall precautionary measures) done. Abuse screen: Denies threats or abuse. Nutritional screening: No deficits noted. Tuberculosis screening: No symptoms or risk factors identified. Assessment: 19:40 General: See triage assessment.. me1 03 00:00 Reassessment: Patient appears in no apparent distress at this time. No changes from cp4 previously documented assessment. Patient and/or family updated on plan of care and expected duration. Pain level reassessed. Patient is alert, oriented x 3, equal unlabored respirations, skin warm/dry/pink. 01:00 Reassessment: Patient appears in no apparent distress at this time. Patient and/or cp4 family updated on plan of care and expected duration. Pain level reassessed. Patient is alert, oriented x 3, equal unlabored respirations, skin warm/dry/pink. 02:00 Reassessment: Patient appears in no apparent distress at this time. Patient and/or cp4 family updated on plan of care and expected duration. Pain level reassessed. Patient is alert, oriented x 3, equal unlabored respirations, skin warm/dry/pink. Vital Signs: 10/18 19:29 BP 154 / 92; Pulse 102; Resp 17; Temp 98.6; Pulse Ox 100% on R/A; Weight 58.97 kg; mn1 Height 5 ft. 9 in. ; Pain 8/10; 20:00 BP 154 / 96; Pulse 97; Resp 16; Pulse Ox 99% ; mn1 21:00 BP 152 / 96; Pulse 95; Resp 16; Pulse Ox 100% ; mn1 22:00 BP 146 / 89; Pulse 90; Resp 17; Pulse Ox 99% ; mn1 23:00 BP 139 / 88; Pulse 81; Resp 16; Pulse Ox 99% ; [facility] [place] [place] 10/19 00:00 BP 139 / 96; Pulse 78; Resp 18; Pulse Ox 98% ; 4 01:00 BP 141 / 93; Pulse 80; Resp 18; Pulse Ox 98% ; 4 02:00 BP 135 / 88; Pulse 78; Resp 18; Pulse Ox 99% ; 4 03:00 BP 148 / 92; Pulse 80; Resp 18; Pulse Ox 98% ; 4 10/18 19:29 Body Mass Index 19.20 (58.97 kg, 175.26 cm) [facility] [place] 10/18 19:29 Pain Scale: Adult [facility] [place] Rosalind Coma Score: 06:28 Eye Response: spontaneous(4). Motor Response: obeys commands(6). Verbal Response: sp4 oriented(5). Total: 15. ED Course: 10/18 19:24 Patient arrived in ED. iw 19:29 Ila Hernandes, RN is Primary Nurse. me1 19:32 Patrick Cruz MD is Attending Physician. brandon 19:37 Triage completed. me1 19:37 Arm band placed on Patient placed in an exam room. me1 19:39 Radiology exam delayed due to lab results not completed at this time. (BUN/Creatinine) jc4 IV insertion attempt and/or patient not having appropriate IV at this time. 19:40 Patient has correct armband on for positive identification. Bed in low position. Call me1 light in reach. Side rails up X2. Provided Education on: POC. Verbalized understanding.. Client placed on continuous cardiac and pulse oximetry monitoring. NIBP monitoring applied. Pulse ox on. NIBP on. 19:40 No provider procedures requiring assistance completed. Maintain EMS IV. Dressing me1 intact. Good blood return noted. Site clean \T\ dry. Gauge \T\ site: 18g LAC. Flushed with 10 mL NS. 20:00 Attending Physician role handed off by Patrick Cruz MD sp4 20:00 Leodan Rose MD is Attending Physician. sp4 20:20 XRAY Chest (1 view) In Process Unspecified. EDMS 20:49 EKG done, by design technology teacher. af3 22:35 CT Head Brain wo Cont In Process Unspecified. EDMS 22:35 CT Chest For PE Angio In Process Unspecified. EDMS 22:35 CT Abd/Pelvis - IV Contrast Only In Process Unspecified. EDMS 10/19 01:10 Prince Garg MD is Hospitalizing Provider. sp4 03:29 Patient admitted, IV remains in place. cp4 Administered Medications: 10/18 21:50 Drug: Famotidine IVP 20 mg IVP once; dilute with 10 mL 0.9% NaCl; give over 2 minutes me1 Route: IVP; Site: left antecubital; 22:36 Follow up: Response: No adverse reaction me1 21:50 Drug: Piperacillin-Tazobactam IVPB 3.375 grams IVPB once over 60 mins; (mix in NS 100 me1 mL) Route: IVPB; Infused Over: 60 mins; Site: left antecubital; 22:21 Follow up: Response: No adverse reaction; IV Status: Completed infusion; IV Intake: me1 100ml 21:50 Drug: morphine IVP or IV 6 mg IVP once over 4 mins Route: IVP; Infused Over: 4 mins; me1 Site: left antecubital; 22:36 Follow up: Response: No adverse reaction; Pain is decreased me1 21:50 Drug: NS 0.9% IV 1000 ml IV at 125 ml/hr Per protocol; to be given as a bolus over 60 me1 minutes Route: IV; Rate: 125 ml/hr; Site: left antecubital; 10/19 03:31 Follow up: IV Status: Infusion continued upon admission cp4 10/18 21:51 Drug: NS 0.9% IV 1000 ml IV at 1 bolus Per protocol; to be given as a bolus over 60 me1 minutes Route: IV; Rate: 1 bolus; Site: left antecubital; 10/19 01:44 Follow up: Response: No adverse reaction; IV Status: Infusion continued cp4 10/18 21:51 Drug: Ondansetron IVP 4 mg IVP once; over 2 minutes Route: IVP; Site: left antecubital; mn1 22:36 Follow up: Response: No adverse reaction; Nausea is decreased me1 22:21 Drug: vancoMYCIN IVPB 1 grams IVPB once over 2 hrs Route: IVPB; Infused Over: 2 hrs; me1 Site: left antecubital; 10/19 01:44 Follow up: Response: No adverse reaction; IV Status: Completed infusion 4 01:44 Drug: morphine IVP or IV 4 mg IVP once over 4 mins Route: IVP; Infused Over: 4 mins; cp4 Site: left antecubital; 03:31 Follow up: Response: No adverse reaction; Pain is decreased [facility] Medication: 10/18 19:40 VIS not applicable for this client. me1 Intake: 22:21 IV: 100ml; Total: 100ml. me1 Outcome: 10/19 01:11 Decision to Hospitalize by Provider. sp4 03:29 Admitted to Med/surg accompanied by tech, via stretcher, with chart, cp4 03:29 Condition: stable 03:29 Instructed on the need for admit, 03:30 Patient left the ED. cp4 Signatures: Dispatcher [employer] EDGA Patrick Cruz MD MD cha Williams, Irene, RN RN Leodan Rose MD MD sp4 Eddleman, Michelle, RN RN mn1 Sue Washington cp4 Ron Garcia 4 Maxine Ramirez3 Corrections: (The following items were deleted from the chart) 10/18 21:51 21:50 vancoMYCIN IVPB 1 grams IVPB in left antecubital over 2 hrs me1 me1
[2024-10-19] MEDS ORDERED: MORPHINE 4 MG/ML SYR ONE (01:40)
[2024-10-19] MEDS ORDERED: ONDANSETRON 4 MG/2 ML VIAL IV PRN (02:01)
[2024-10-19] MEDS ORDERED: ACETAMINOPHEN 500 MG TAB PO PRN (02:01)
[2024-10-19] MEDS ORDERED: VANCOMYCIN 1.25 GM in NA CHLORIDE 0.9% 250 ML IVPB SCH (02:09)
--- NOTE | 2024-10-19 02:11 | P.HP ---
Certification for Inpatient Patient admitted to: Inpatient With expected LOS: >2 Midnights Practitioner: I am a practitioner with admitting privileges, knowledge of patient current condition, hospital course, and medical plan of care. Services: Services provided to patient in accordance with Admission requirements found in Title 42 Section 412.3 of the Code of Federal Regulations Patient History Date of Service: 10/19/24 Reason for admission: abdominal wall wound History of Present Illness: Patient is a 43-year-old male with a known past medical history of uncontrolled diabetes mellitus and known healing abdominal wound. He presents with increased purulent discharge out of his abdominal wounds. Associated symptoms include subjective fever and chills. Patient was just here for similar presentation roughly a month ago. He underwent surgical debridement by general surgery, Dr. Jiménez. Was placed on empiric antibiotics postsurgery which included cefazolin and levofloxacin. He was eventually discharged on Bactrim and levofloxacin after surgical wound culture yielded MRSA. During this current presentation, patient had a WBC of 11.8. Lactate pending. During my evaluation, patient had brownish purulent discharge out of his abdominal wound. The ER is attempted to irrigate some of the wound but he continues to have discharge. Allergies No Known Allergies Allergy (Verified 09/20/24 06:23) Home Medications: Metformin HCl [Glucophage*] 1,000 mg PO BIDWM #120 tab 08/20/24 Silver Sulfadiazine Crm [Silvadene*] 1 appl TOP BID tube 09/05/24 Alcohol Antiseptic Pads [Alcohol Swabs] 1 each TP DAILY #100 ea 09/26/24 Amino Acids/Protein Hydrolys [Prosource No Carb Liquid Pkt] 30 ml PO BID #60 packet 09/26/24 Blood Sugar Diagnostic [Glucose Test Strip] 1 each MC DAILY #30 strip 09/26/24 Insulin NPH Human [Novolin N (Humulin N)*] 15 units SQ BIDWM #10 ml 09/26/24 Insulin Regular, Human [Novolin R] 10 unit SQ AC #10 ml 09/26/24 Lancets 1 each MC DAILY #30 ea 09/26/24 [place], Disposable [Needle] 1 each MC DAILY #100 ea 09/26/24 Smz./Tmp. [Bactrim Ds 800 MG/160 MG*] 1 tab PO BID #28 tab 09/26/24 Sodium Chlor/Hypochlorous Acid [Vashe Solution] 1 karla IR DAILY #475 ml 09/26/24 Syrge-Ndl,Ins 0.3 ml Half Shaheed [Insulin Syringe] 1 each MC DAILY #1 box 09/26/24 levoFLOXacin [Levaquin] 750 mg PO DAILY #14 tab 09/26/24 - Past Medical/Surgical History Diabetic: Yes -: Diabetes mellitus -: Multiple skin abscesses -: Hidradenitis suppurativa -: Incision and drainage -: appendectomy Psychosocial/ Personal History: Patient is currently homeless - Social History Alcohol use: No CD- Drugs: No Caffeine use: No Physical Examination - Physical Exam General: In no apparent distress, Cachectic HEENT: Atraumatic, Normocephalic Respiratory: Clear to auscultation bilaterally, Normal air movement Cardiovascular: No edema, Normal pulses, Regular rate/rhythm, Normal S1 S2 Gastrointestinal: Other (Large abdominal wound with shallow ulceration and active brownish purulent drainage) Neurological: Normal speech - Studies Laboratory Data (last 24 hrs) 10/18/24 10/18/24 10/18/24 20:37 20:37 20:37 WBC 11.30 H Hgb 10.0 L Hct 30.9 L Plt Count 441 H PT 13.6 H INR 1.22 Sodium 134 L Potassium 3.9 BUN 12 Creatinine 0.55 L Glucose 324 H Magnesium 1.9 Total Bilirubin 0.3 AST < 10 L ALT < 14 L Alkaline Phosphatase 131 H Lipase 23 Assessment and Plan - Problems (Diagnosis) (1) Abdominal wound dehiscence Current Visit: No Status: Acute (2) Diabetes mellitus Current Visit: No Status: Acute (3) Hyperglycemia Current Visit: No Status: Acute (4) Hypertension Current Visit: No Status: Acute (5) Microcytic anemia Current Visit: No Status: Acute (6) Suppurative hidradenitis Current Visit: No Status: Acute - Plan Assessment This is a 44-year-old male with a known past medical history of uncontrolled diabetes mellitus and nonhealing abdominal wounds. He returns to the hospital roughly a month after recent hospitalization for abdominal wound infection that required surgical debridement. He was found to have MRSA at the time and was discharged on Bactrim and levofloxacin. Patient is now returning complaining of increased purulent drainage from his abdominal wounds, chills and subjective fever. Nonhealing abdominal wound Hyponatremia Uncontrolled type 2 diabetes mellitus Hidradenitis suppurativa Homeless status Plan: Will admit inpatient Start patient on IV fluid infusion Will treat patient broad-spectrum antibiotics including vancomycin and cefepime General Surgery and wound care consulted Patient is also supposed to be on Vashe Will resume scheduled insulin and insulin sliding scale Pain controlled - Advance Directives Does patient have a Living Will: No Does patient have a Durable POA for Healthcare: No
[2024-10-19] MEDS: INSULIN NPH (HUMAN) 100 UNITS/ML SQ SCH (02:13)
[2024-10-19] MEDS ORDERED: GLUCAGON 1 MG/VIAL IM PRN ×2 (02:13)
[2024-10-19] MEDS ORDERED: D50W 25 GM/50 ML SYRINGE IV PRN (02:13)
[2024-10-19] MEDS ORDERED: D10W 125 ML IV PRN (02:13)
[2024-10-19] MEDS: NA CHLORIDE 0.9% 1,000 ML IV SCH (03:00)
[2024-10-19] MEDS: CEFEPIME 1 GM in NA CHLORIDE 0.9% 100 ML IV SCH (03:47)
[2024-10-19] MEDS: HYDROMORPHONE HCL 1 MG/ML INJ IV PRN (03:58)
[2024-10-19 06:38] LABS: Phosphorus 3.3 mg/dL (2.5-4.9)
--- NOTE | 2024-10-19 07:37 | P.PN ---
Date of Service: 10/19/24 Subjective: felt dizzy, weak prior to admission that started when he woke up. Minimal appetite. Hadn't eaten much in last 24-48 hours reports wounds have been about the same since last admission. Denies any significant improvement/worsening. dressings changed in ED per patient Afebrile ROS: 10 point ROS as noted above, otherwise negative Physical Exam: GEN: Alert, NAD CV: Regular rate and rhythm, no edema Pulm: Nonlabored respirations on room air, clear bilaterally ABD: soft, nontender, nondistended Integumentary: anterior abdominal wound with surrounding sinus tracts, foul odor, with purulent drainage. R posterior/lateral thigh sinus tracts Neuro: Normal speech, normal affect Problem List: Chronic nonhealing abdominal wound and thigh wound secondary to Hidradenitis suppurativa Dizziness NIDDM2 on admission, presents with worsening abdominal pains, purulent discharge associated with fever/chills. Reportedly found by EMS on floor of [facility] feeling dizzy per ER notes. Dizziness started when he woke up. Reports minimal intake last 24-48 hours prior to admission. s/p recent I&D of abdominal wall (09/25/24); Wound cx previously grew MRSA Patient completed 2 week course oral bactrim/levquin at the time Recently ran out of packing for abdominal and leg wounds. CT abd/pelvis (10/18): Moderate constipation. Mild inguinal adenopathy bilaterally, otherwise Negative. CTA chest, CXR negative for any acute findings. no PE. General surgery consulted continue empiric cefepime / vanc (10/19-) continue IV fluids accu-cheks, SSI Pain control Code: Full Dispo: Home Pending surgical recs Time Spent Managing Pts Care (In Minutes): 55
[2024-10-19] MEDS: INSULIN REGULAR (HUMAN) 100 UNIT/ML SQ SCH (07:48)
[2024-10-19] MEDS: CEFEPIME 2 GM in NA CHLORIDE 0.9% 100 ML IV SCH (09:06)
[2024-10-19] MEDS ORDERED: VANCOMYCIN 1 GM in NA CHLORIDE 0.9% 250 ML IVPB SCH (10:00)
[2024-10-19] MEDS: VANCOMYCIN 1 GM in NA CHLORIDE 0.9% 250 ML IVPB SCH (10:05)
--- NOTE | 2024-10-19 12:40 | EKG ---
Test Date: 2024-10-18 Test Time: 20:45:24 Automobile Spring Repairer: AF MEASUREMENT RESULTS: Intervals: Rate: 93 MI: 132 QRSD: 84 QT: 366 QTc: 455 [place]: P: 80 MI: 132 QRS: 73 T: 56 INTERPRETIVE STATEMENTS: Normal sinus rhythm Biatrial enlargement Abnormal ECG Compared to ECG 10/18/2024 20:44:54 No significant changes Electronically Signed On 10-19-24 12:39:15 ASSOCIATE MEDIA PLANNER by Terence Garcia
--- NOTE | 2024-10-19 12:40 | EKG ---
Test Date: 2024-10-18 Test Time: 20:43:52 Pediatric Geneticist: AF MEASUREMENT RESULTS: Intervals: Rate: 93 ID: [id number] QRSD: 80 QT: 364 QTc: 452 [place]: P: 78 ID: [id number] QRS: 75 T: 57 INTERPRETIVE STATEMENTS: Sinus rhythm with premature supraventricular complexes Otherwise normal ECG Compared to ECG 09/19/2024 23:28:02 Atrial premature complex(es) now present Electronically Signed On 10-19-24 12:39:22 SINTER PRESS OPERATOR by Terence Garcia
--- NOTE | 2024-10-19 12:40 | EKG ---
Test Date: 2024-10-18 Test Time: 20:44:54 County Auditor: AF MEASUREMENT RESULTS: Intervals: Rate: 93 LA: 134 QRSD: 80 QT: 368 QTc: 457 [place]: P: 80 LA: 134 QRS: 72 T: 53 INTERPRETIVE STATEMENTS: Normal sinus rhythm Biatrial enlargement Abnormal ECG Compared to ECG 10/18/2024 20:43:52 Atrial abnormality now present Atrial premature complex(es) no longer present Electronically Signed On 10-19-24 12:39:20 TREAD BOOKER by Terence Garcia
[2024-10-20 02:19] VITALS: BMI 19.2
[2024-10-20 06:00] LABS: Absolute Basophils 0.1 K/uL (0-0.5); Absolute Eosinophils 0.2 K/uL (0-0.5); Absolute Lymphocytes (CBC) 1.6 K/uL (0.7-4.9); Absolute Monocytes 1.1 K/uL (0.1-1.3); Absolute Neutrophil 5.4 K/uL (1.8-8.0); Eosinophils % 2.4 % (0-4.4); Hematocrit 27.9 % (39.6-49.0); Lymphocytes % 19.2 % (15.3-44.8); MCH 24.6 pg (27.0-35.0); MCHC 32.5 g/dL (32.0-36.0); MCV 75.8 fL (80-100); MPV 7.9 fL (7.6-11.3); Monocytes % 13.4 % (3.3-12.3); Nucleated Red Blood Cells % 0.2 % (0-0); Platelets 367 thou/uL (152-406); RBC Red Blood Cell Count 3.67 M/uL (4.33-5.43); Red Cell Distribution Width 15.5 % (12.1-15.2)
[2024-10-20 06:15] LABS: Anion Gap 7.6 mEq/L (5.0-15.0); Potassium 3.6 mEq/L (3.5-5.1)
[2024-10-20] MEDS: POTASSIUM CL SA 10 MEQ TAB PO ONE (08:32)
--- NOTE | 2024-10-20 09:47 | P.PN ---
Date of Service: 10/20/24 Subjective: still feels a little weak, dizziness improving tentative plan for I&D tomorrow appetite okay denies any new / worsening problems afebrile ROS: 10 point ROS as noted above, otherwise negative Physical Exam: GEN: Alert, NAD CV: Regular rate and rhythm, no edema Pulm: Nonlabored respirations on room air, clear bilaterally ABD: soft, nontender, nondistended Integumentary: anterior abdominal wound with surrounding sinus tracts, foul odor, with purulent drainage. R posterior/lateral thigh sinus tracts Neuro: Normal speech, normal affect Problem List: Chronic nonhealing abdominal wound and thigh wound secondary to Hidradenitis suppurativa Dizziness NIDDM2 on admission, presents with worsening abdominal pains, purulent discharge associated with fever/chills. Reportedly found by EMS on floor of [facility] feeling dizzy per ER notes. Dizziness started when he woke up. Reports minimal intake last 24-48 hours prior to admission. s/p recent I&D of abdominal wall (09/25/24); Wound cx previously grew MRSA Patient completed 2 week course oral bactrim/levquin at the time Recently ran out of packing for abdominal and leg wounds. CT abd/pelvis (10/18): Moderate constipation. Mild inguinal adenopathy bilaterally, otherwise Negative. CTA chest, CXR negative for any acute findings. no PE. Dr. Arenas, general surgeon consulted Continue local wound care with vashe damp to dry daily continue empiric cefepime / vanc (/3-) accu-cheks, SSI Pain control tentative plan for I&D Tuesday Code: Full Dispo: Home, few days tentative plan for I&D Tuesday Time Spent Managing Pts Care (In Minutes): 55
[2024-10-20] MEDS: INSULIN NPH (HUMAN) 100 UNITS/ML SQ SCH (16:13)
[2024-10-21] MEDS: WATER FOR INJ,STERILE 20 ML ONE (00:29)
--- NOTE | 2024-10-21 10:34 | P.PN ---
Date of Service: 10/21/24 Subjective: tentative plan for I&D tomorrow no issues overnight afebrile ROS: 10 point ROS as noted above, otherwise negative Physical Exam: GEN: Alert, NAD CV: Regular rate and rhythm, no edema ABD: soft, nontender, nondistended Integumentary: anterior abdominal wound with surrounding sinus tracts, foul odor, with purulent drainage. R posterior/lateral thigh sinus tracts Problem List: Chronic nonhealing abdominal wound and thigh wound secondary to Hidradenitis suppurativa Dizziness NIDDM2 on admission, presents with worsening abdominal pains, purulent discharge associated with fever/chills. Reportedly found by EMS on floor of [facility] feeling dizzy per ER notes. Dizziness started when he woke up. Reports minimal intake last 24-48 hours prior to admission. s/p recent I&D of abdominal wall (09/25/24); Wound cx previously grew MRSA Patient completed 2 week course oral bactrim/levquin at the time Recently ran out of packing for abdominal and leg wounds. CT abd/pelvis (10/18): Moderate constipation. Mild inguinal adenopathy bilaterally, otherwise Negative. CTA chest, CXR negative for any acute findings. no PE. Dr. Arenas, general surgeon consulted Continue local wound care with vashe damp to dry daily continue empiric cefepime / vanc (1/3-) accu-cheks, SSI Pain control tentative plan for I&D tomorrow Code: Full Dispo: Home, ~2-3 days tentative plan for I&D tomorrow Time Spent Managing Pts Care (In Minutes): 45
[2024-10-22 06:28] LABS: Absolute Eosinophils 0.3 K/uL (0-0.5); Absolute Monocytes 0.8 K/uL (0.1-1.3); Absolute Neutrophil 5.7 K/uL (1.8-8.0); Basophils % 0.6 % (0-1.3); Eosinophils % 3.6 % (0-4.4); Hematocrit 26.7 % (39.6-49.0); Hemoglobin 8.8 g/dL (13.6-17.9); Lymphocytes % 22.8 % (15.3-44.8); MCH 24.9 pg (27.0-35.0); MCV 75.4 fL (80-100); MPV 7.6 fL (7.6-11.3); Monocytes % 9.2 % (3.3-12.3); Neutrophils % 63.8 % (41.7-73.7); Nucleated Red Blood Cells % 0.1 % (0-0); Platelets 358 thou/uL (152-406); RBC Red Blood Cell Count 3.53 M/uL (4.33-5.43); Red Cell Distribution Width 15.4 % (12.1-15.2)
[2024-10-22 06:40] LABS: Anion Gap 7.9 mEq/L (5.0-15.0); Magnesium 1.9 mg/dL (1.6-2.4); Potassium 3.9 mEq/L (3.5-5.1)
--- NOTE | 2024-10-22 09:30 | P.PN ---
Date of Service: 10/22/24 Subjective: no significant changes overnight I&D tentatively planned for today no BM since before admission, +flatus afebrile ROS: 10 point ROS as noted above, otherwise negative Physical Exam: GEN: Alert, NAD CV: Regular rate and rhythm, no edema ABD: soft, nontender, nondistended Integumentary: anterior abdominal wound with surrounding sinus tracts, foul odor, with purulent drainage. R posterior/lateral thigh sinus tracts Problem List: Chronic nonhealing abdominal wound and thigh wound secondary to Hidradenitis suppurativa Dizziness NIDDM2 on admission, presents with worsening abdominal pains, purulent discharge associated with fever/chills. [facility]. Dizziness started when he woke up. Reports minimal intake last 24-48 hours prior to admission. s/p recent I&D of abdominal wall (09/25/24); Wound cx previously grew MRSA Patient completed 2 week course oral bactrim/levquin at the time Recently ran out of packing for abdominal and leg wounds. CT abd/pelvis (10/18): Moderate constipation. Mild inguinal adenopathy bilaterally, otherwise Negative. CTA chest, CXR negative for any acute findings. no PE. Dr. Arenas, general surgeon consulted Continue local wound care with vashe damp to dry daily continue empiric cefepime / vanc (10/19-) accu-cheks, SSI Pain control plan for I&D today Code: Full Dispo: Home, ~2-3 days Pending I&D, surgery recs Time Spent Managing Pts Care (In Minutes): 45
[2024-10-22] MEDS: DOCUSATE NA 100 MG CAP PO SCH (10:00)
[2024-10-22] MEDS: NA CHLORIDE 0.9% 1,000 ML ONE (12:00)
[2024-10-22] MEDS: LIDOCAINE HCL/EPINEPHRINE 20 ML MDV ONE (12:14)
[2024-10-22] MEDS ORDERED: ONDANSETRON 4 MG/2 ML VIAL ONE (12:25)
[2024-10-22] MEDS ORDERED: propofoL 200 MG/20 ML VIAL IV ONE (12:25)
[2024-10-22] MEDS ORDERED: FENTANYL CITR 100 MCG/2 ML ONE (12:25)
[2024-10-22] MEDS ORDERED: MIDAZOLAM HCL 2 MG/2 ML INJ ONE (12:26)
[2024-10-22] MEDS ORDERED: LIDOCAINE 2% MPF 5 ML VIAL ONE (12:26)
[2024-10-22] MEDS ORDERED: dexAMETHasone 4 MG/ML VIAL ONE (13:39)
--- NOTE | 2024-10-22 13:48 | P.OP ---
Preoperative diagnosis: Abdominal Hidradenitis with abscess Postoperative diagnosis: Abdominal Hidradenitis with abscess Primary procedure: Debridement of Abdominal Hidradenitis with abscess Anesthesia: GETA Estimated blood loss: <5cc Specimen: Cultures Findings: Abdominal Hidradenitis with abscess Complications: None Transferred to: Recovery Room Condition: Good
[2024-10-22] MEDS: HYDROMORPHONE HCL 1 MG/ML INJ ONE ×2 (14:20→14:40)
--- NOTE | 2024-10-22 20:29 | OP ---
Date of Procedure: 10/22/2024 Surgeon: Caden Arenas MD, Preoperative Diagnosis: Recurrent abdominal hidradenitis with abscess. Postoperative Diagnosis: Recurrent abdominal hidradenitis with abscess. Procedure Performed: Debridement of abdominal hidradenitis with abscess. Anesthesia: General endotracheal. Estimated Blood Loss: 5 cc. Specimens: Cultures were sent for both aerobic and anaerobic speciation. Findings: Abdominal hidradenitis with abscess. Previous wound has well healed; however, new areas a t the periphery required attention. Condition: The patient was transferred to recovery room in good condition. Procedure In Detail: After informed consent was obtained, the patient was brought to the operating r oom, prepped in the usual sterile fashion. After adequate anesthesia was achieved, I inspected the a lorenzo of the abdominal wall, which had previous hidradenitis evident. I began by culturing the area ainsley aerobic and anaerobic speciation after abscess material was appreciated. The previous midline abd ominal subcutaneous wound was approximately 18 cm x 15 cm. Around the periphery of this, there were several rolled edges and areas of sealing skin where hidradenitis rests were evident beyond the perip brenda. There were approximately 4 different rests at all 4 corners of the previous wound as described . These were all opened up and abscess material was encountered after the area was unroofed. Electr ocautery was used to achieve minimal hemostasis. The area was then copiously irrigated until all abs cess material was removed. The area was cleansed out and curetted until hidradenitis material was go ne. All infectious material was removed. The area was copiously irrigated once again and packed wit h Vashe-soaked gauze, and a sterile dressing was placed over top. The patient tolerated procedure wi thout incident or complication, transferred to PACU in good condition. All counts were correct at th e end of the case. TK/MODL Voice ID: [id number] Report ID: [id number]
[2024-10-23 04:41] LABS: Hemoglobin 9.2 g/dL (13.6-17.9)
[2024-10-23 04:52] LABS: Absolute Basophils 0.1 K/uL (0-0.5); Absolute Eosinophils 0.2 K/uL (0-0.5); Absolute Lymphocytes (CBC) 1.5 K/uL (0.7-4.9); Absolute Monocytes 0.8 K/uL (0.1-1.3); Absolute Neutrophil 10.2 K/uL (1.8-8.0); Basophils % 1.1 % (0-1.3); Eosinophils % 1.8 % (0-4.4); Hematocrit 28.4 % (39.6-49.0); Lymphocytes % 11.4 % (15.3-44.8); MCH 24.4 pg (27.0-35.0); MCHC 32.3 g/dL (32.0-36.0); MCV 75.5 fL (80-100); Monocytes % 5.9 % (3.3-12.3); Neutrophils % 79.8 % (41.7-73.7); Nucleated Red Blood Cells % 0.1 % (0-0); Platelets 410 thou/uL (152-406); RBC Red Blood Cell Count 3.76 M/uL (4.33-5.43); Red Cell Distribution Width 15.3 % (12.1-15.2)
--- NOTE | 2024-10-23 16:20 | P.PN ---
Subjective Date of Service: 10/23/24 Chief Complaint: abdominal wall wound Patient reports pain to abdominal pain. Status post abdominal wound debridement yesterday Patient has had no fever. Physical Examination - Vital Signs Temperature: 97.8 F Blood Pressure: 143/78 Pulse: 89 Respirations: 16 Pulse Ox (%): 99 Assessment And Plan - Plan Physical Exam: GEN: Alert, NAD CV: Regular rate and rhythm, no edema ABD: soft, nontender, nondistended Integumentary: anterior abdominal wound with surrounding sinus tracts, foul odor, R posterior/lateral thigh sinus tracts Neuro: No focal motor deficit. Psychiatry: No agitation, normal mood. Problem List: Chronic nonhealing abdominal wound and thigh wound secondary to Hidradenitis suppurativa Dizziness NIDDM2 Plan: on admission, presents with worsening abdominal pains, purulent discharge associated with fever/chills. s/p recent I&D of abdominal wall (09/25/24); Wound cx previously grew MRSA Patient stated he completed 2 week course oral bactrim/levquin at the time Patient mentioned he ran out of packing for abdominal and leg wounds. Dr. Arenas, general surgeon evaluated patient. Status post wound debridement 10/22. Continue local wound care with vashe damp to dry daily continue empiric cefepime / vanc (1/3-) accu-cheks, SSI Pain control Code: Full Dispo: Patient contemplating LTC placement. Social service team evaluating LTAC option.
[2024-10-24 04:58] LABS: Absolute Basophils 0.1 K/uL (0-0.5); Absolute Eosinophils 0.4 K/uL (0-0.5); Absolute Lymphocytes (CBC) 1.8 K/uL (0.7-4.9); Absolute Monocytes 1.2 K/uL (0.1-1.3); Absolute Neutrophil 5.6 K/uL (1.8-8.0); Basophils % 0.8 % (0-1.3); Eosinophils % 4.7 % (0-4.4); Hematocrit 26.6 % (39.6-49.0); Hemoglobin 8.5 g/dL (13.6-17.9); Lymphocytes % 19.6 % (15.3-44.8); MCH 24.1 pg (27.0-35.0); MCHC 31.8 g/dL (32.0-36.0); MCV 75.6 fL (80-100); MPV 7.9 fL (7.6-11.3); Monocytes % 13.3 % (3.3-12.3); Neutrophils % 61.6 % (41.7-73.7); Nucleated Red Blood Cells % 0.1 % (0-0); Platelets 373 thou/uL (152-406); RBC Red Blood Cell Count 3.52 M/uL (4.33-5.43); Red Cell Distribution Width 15.8 % (12.1-15.2)
[2024-10-24 05:06] LABS: Anion Gap 7.8 mEq/L (5.0-15.0); Potassium 3.8 mEq/L (3.5-5.1)
[2024-10-24 11:07] VITALS: O2SAT 98
--- NOTE | 2024-10-24 15:06 | P.PN ---
Subjective Date of Service: 10/24/24 Chief Complaint: abdominal wall wound Patient has no new complaint. He was seen ambulating in the hallway. No recorded fever Patient is tolerating diet. Physical Examination - Vital Signs Temperature: 98.9 F Blood Pressure: 161/92 Pulse: 76 Respirations: 16 Pulse Ox (%): 97 Assessment And Plan - Plan Physical Exam: GEN: Alert, NAD CV: Regular rate and rhythm, no edema ABD: soft, nontender, nondistended Integumentary: anterior abdominal wound with surrounding sinus tracts, foul odor, R posterior/lateral thigh sinus tracts Neuro: No focal motor deficit. Psychiatry: No agitation, normal mood. Problem List: Chronic nonhealing abdominal wound and thigh wound secondary to Hidradenitis suppurativa Dizziness NIDDM2 Plan: s/p recent I&D of abdominal wall (09/25/24); Wound cx previously grew MRSA Patient stated he completed 2 week course oral bactrim/levquin previous admission. Dr. Arenas, general surgeon evaluated patient. Status post wound debridement 10/22. Continue local wound care with vashe damp to dry daily IV cefepime / vanc (1/3-) transition to oral Bactrim and Augmentin. accu-cheks, SSI Resume metformin Add lisinopril for blood pressure control. Pain control Code: Full Dispo: Patient contemplating LTC placement. Social service team evaluating LTC option.
[2024-10-24] MEDS: METFORMIN HCL 500 MG TAB PO SCH (16:59)
[2024-10-24] MEDS: SMZ./TMP. 800/160 MG TABLET PO SCH (20:08)
[2024-10-24] MEDS: AMOX/K CLAV 875 MG TAB PO SCH (20:08)
[2024-10-25] MEDS: HYDROMORPHONE HCL 1 MG/ML INJ IV PRN (04:36)
[2024-10-25] MEDS: ZINC SULFATE 220 MG CAP PO SCH (09:00)
[2024-10-25] MEDS: lisinopriL 5 MG TAB PO SCH (09:08)
--- NOTE | 2024-10-25 14:34 | P.PN ---
Subjective Date of Service: 10/25/24 Chief Complaint: abdominal wall wound No new complain. No issues overnight. No recorded fever Patient is tolerating diet. Physical Examination - Vital Signs Temperature: 98.1 F Blood Pressure: 163/91 Pulse: 91 Respirations: 18 Pulse Ox (%): 100 Assessment And Plan - Plan Physical Exam: GEN: Alert, NAD CV: Regular rate and rhythm, no edema ABD: soft, nontender, nondistended Integumentary: anterior abdominal wound with surrounding sinus tracts, R pos terior/lateral thigh sinus tracts, wounds look clean. Neuro: No focal motor deficit. Psychiatry: No agitation, normal mood. Problem List: Chronic nonhealing abdominal wound and thigh wound secondary to Hidradenitis suppurativa Dizziness NIDDM2 Plan: s/p recent I&D of abdominal wall (09/25/24); Wound cx previously grew MRSA Patient stated he completed 2 week course oral bactrim/levquin previous admission. Status post wound debridement 10/[address] Arenas. Wound culture grew MRSA and Streptococcus anginosis. Continue local wound care with vashe damp to dry daily IV cefepime / vanc (/3-) transitioned to oral Bactrim and Augmentin. accu-cheks, SSI Continue metformin Continue current antihypertensives Analgesics as needed. Code: Full Dispo: Social service evaluating disposition options for the patient.
--- NOTE | 2024-10-25 19:02 | P.DS ---
Admission Date: 10/19/24 Discharge Date: 10/28/24 Disposition: ROUTINE DISCHARGE Discharge Condition: FAIR Reason for Admission: abdominal wall wound Brief History of Present Illness: Patient is a 43-year-old male with a known past medical history of uncontrolled diabetes mellitus and known abdominal wound. He presented with increased purulent discharge out of his abdominal wounds. Associated symptoms include subjective fever and chills. Patient was just here for similar presentation roughly a month prior. He underwent surgical debridement by general surgery, Dr. Arenas. Was placed on empiric antibiotics postsurgery which included cefazolin and levofloxacin. He was eventually discharged on Bactrim and levofloxacin after surgical wound culture yielded MRSA. During this current presentation, patient had a WBC of 11.8. Patient had brownish purulent discharge out of his abdominal wound. The ER is attempted to irrigate some of the wound but he continues to have discharge. Patient was hospitalized for further management. Hospital Course: Problem List: Chronic nonhealing abdominal wound and thigh wound secondary to Hidradenitis suppurativa Dizziness NIDDM2 Patient admitted to the medical floor s/p recent I&D of abdominal wall (09/25/24); Wound cx previously grew MRSA Patient stated he completed 2 week course oral bactrim/levquin previous admis addy. Status post wound debridement 10/[address] Arenas. Wound culture grew MRSA and Streptococcus anginosis. Local wound care done with vashe damp to dry daily IV cefepime / vanc (1/3-) transitioned to oral Bactrim and Augmentin. accu-cheks, SSI Continued metformin Continued home antihypertensives Patient is clinically stable with stable vitals. He is ambulating and tolerating diet. He is deemed stable for discharge. Vital Signs/Physical Exam: Temp Pulse Resp BP Pulse Ox 98.3 F 86 18 146/83 H 97 10/25/24 16:00 10/25/24 16:00 10/25/24 17:48 10/25/24 16:10/25/24 17:48 General: Alert, In no apparent distress, Oriented x3 Neck: JVD not distended Respiratory: Clear to auscultation bilaterally, Normal air movement Cardiovascular: Regular rate/rhythm, Normal S1 S2 Gastrointestinal: Normal bowel sounds, Soft and benign, Non-distended Musculoskeletal: No swelling Integumentary: No cyanosis Neurological: Normal strength at 5/5 x4 extr Laboratory Data at Discharge: WBC 9.00 thou/uL (4.3-10.9) 10/24/24 04:01 Hgb 8.5 g/dL (13.6-17.9) L 10/24/24 04:01 Hct 26.6 % (39.6-49.0) L 10/24/24 04:01 Plt Count 373 thou/uL (152-406) 10/24/24 04:01 PT 13.6 SECONDS (9.4-12.5) H 10/18/24 20:37 INR 1.22 10/18/24 20:37 Sodium 133 mEq/L (136-145) L 10/24/24 04:01 Potassium 3.8 mEq/L (3.5-5.1) 10/24/24 04:01 BUN 13 mg/dL (7-18) 10/24/24 04:01 Creatinine 0.60 mg/dL (0.70-1.30) L 10/24/24 04:01 Glucose 216 mg/dL (74-106) H 10/24/24 04:01 Phosphorus 3.3 mg/dL (2.5-4.9) 10/19/24 05:39 Magnesium 2.0 mg/dL (1.6-2.4) 10/23/24 04:03 Total Bilirubin 0.3 mg/dL (0.2-1.0) 10/18/24 20:37 AST < 10 U/L (15-37) L 10/18/24 20:37 ALT < 14 U/L (16-61) L 10/18/24 20:37 Alkaline Phosphatase 131 U/L (45-117) H 10/18/24 20:37 Lipase 23 U/L (13-75) 10/18/24 20:37 Home Medications: Amox/Clavulanate [Augmentin 875-125 Tab*] 875 mg PO BID #28 tab 10/25/24 Docusate [Colace Cap*] 100 mg PO BID #60 cap 10/25/24 Insulin NPH Human [Novolin N (Humulin N)*] 20 units SQ BIDWM #15 ml 10/25/24 Metformin HCl [Glucophage*] 1,000 mg PO BIDWM #120 tab 10/25/24 Oxycodone HCl/Acetaminophen [Percocet 5/325 Tab] 1 tab PO Q6H PRN #20 tab 10/25/24 Smz./Tmp. [Bactrim Ds 800 MG/160 MG*] 1 tab PO BID #28 tab 10/25/24 Zinc Sulfate [Zinc Sulfate*] 220 mg PO DAILY #30 cap 10/25/24 lisinopriL [Prinivil*] 10 mg PO DAILY #30 tab 10/25/24 New Medications: Amox/Clavulanate [Augmentin 875-125 Tab*] 875 mg PO BID #28 tab Smz./Tmp. [Bactrim Ds 800 MG/160 MG*] 1 tab PO BID #28 tab Docusate [Colace Cap*] 100 mg PO BID #60 cap Metformin HCl [Glucophage*] 1,000 mg PO BIDWM #120 tab Insulin NPH Human [Novolin N (Humulin N)*] 20 units SQ BIDWM #15 ml Oxycodone HCl/Acetaminophen [Percocet 5/325 Tab] 1 tab PO Q6H PRN #20 tab PRN Reason: Pain lisinopriL [Prinivil*] 10 mg PO DAILY #30 tab Zinc Sulfate [Zinc Sulfate*] 220 mg PO DAILY #30 cap Physician Discharge Instructions: wound care: vashe damp to dry daily. Diet: ADA Activity: Ad christopher Followup: NONE,NONE [Primary Care Provider] - Time spent managing pt's care (in minutes): 40
[2024-10-26 04:40] LABS: Absolute Eosinophils 0.5 K/uL (0-0.5); Absolute Lymphocytes (CBC) 2.4 K/uL (0.7-4.9); Absolute Monocytes 1.1 K/uL (0.1-1.3); Absolute Neutrophil 7.3 K/uL (1.8-8.0); Basophils % 0.3 % (0-1.3); Eosinophils % 4.4 % (0-4.4); Hematocrit 31.9 % (39.6-49.0); Hemoglobin 10.1 g/dL (13.6-17.9); Lymphocytes % 20.8 % (15.3-44.8); MCH 24.3 pg (27.0-35.0); MCHC 31.7 g/dL (32.0-36.0); MCV 76.6 fL (80-100); MPV 7.8 fL (7.6-11.3); Monocytes % 9.6 % (3.3-12.3); Neutrophils % 64.9 % (41.7-73.7); Platelets 486 thou/uL (152-406); RBC Red Blood Cell Count 4.16 M/uL (4.33-5.43); Red Cell Distribution Width 15.6 % (12.1-15.2)
[2024-10-26 04:54] LABS: Anion Gap 9.1 mEq/L (5.0-15.0); Potassium 4.1 mEq/L (3.5-5.1)
[2024-10-26 05:18] VITALS: BP 160/91; TEMP 98.2
== END 2024-10-26 05:10 | disposition home or self-care (01) | DRG 920 ==
LOC: ER 19:21 → 2ND 10-19 02:01
PROVIDERS: ADMIT Internal Medicine; ATTEND Internal Medicine
PROC: 0J980ZZ Drainage of Abdomen Subcutaneous Tissue and Fascia, Open Approach (ICD-10-PCS; principal; 2024-10-22 14:30)
DX: T81.30XA Disruption of wound, unspecified, initial encounter (principal); E87.1 Hypo-osmolality and hyponatremia; R64 Cachexia; Z59.00 Homelessness unspecified; Z68.1 Body mass index [BMI] 19.9 or less, adult; L02.211 Cutaneous abscess of abdominal wall; E11.65 Type 2 diabetes mellitus with hyperglycemia; E11.621 Type 2 diabetes mellitus with foot ulcer; L97.519 Non-pressure chronic ulcer of other part of right foot with unspecified severity; L73.2 Hidradenitis suppurativa; D50.9 Iron deficiency anemia, unspecified; F17.210 Nicotine dependence, cigarettes, uncomplicated; Z79.4 Long term (current) use of insulin; Z90.49 Acquired absence of other specified parts of digestive tract; Z79.899 Other long term (current) drug therapy; Z79.84 Long term (current) use of oral hypoglycemic drugs
CPT/HCPCS: 36415; 70450; 71045; 71275; 74177; 80048; 80076; 80202; 81001; 82947; 83605; 83690; 83735; 83880; 84100; 84484; 85025; 85610; 87070; 87075; 87077; 87186; 87205; 93005; 96361; 96365; 96366; 96367; 96375; 99285; J0692; J1100; J1171; J1815; J2003; J2250; J2405; J2543; J2704; J3010; J7030; J7050; Q9967